=== PATIENT | female | born 1965 | race African-American/Black ===

== ENCOUNTER 2016-06-28 13:32 | Inpatient (IN) | payer OTHER ==
[~2016-06-28] VITALS: Ht 149.9 cm; Wt 42.7 kg
[~2016-06-28 13:32] MED LIST: AMIT25TA9 PO; ESTR1TAB86 PO; HYDR-3612 PO
[2016-06-28] MEDS ORDERED: NITROGLYCERIN 2% 1 GM OINT PKT TD STA (13:38)
[2016-06-28] MEDS ORDERED: morphine 4 MG/ML VIAL IV STA ×2 (13:38→15:53)
[2016-06-28] MEDS ORDERED: ONDANSETRON 4 MG INJ IV STA (13:38)
[2016-06-28] MEDS ORDERED: NITROGLYCERIN (SL) 0.4 MG TAB SL PRN ×2 (14:00→16:00)
[2016-06-28 14:11] LABS: BASOPHIL # 0.3 10^3/ul (0.0-0.1); BASOPHILS % 2.3 % (0.0-2.0); EOSINOPHILS % 0.3 % (0.0-7.0); HEMOGLOBIN 10.5 g/dl (12.0-16.0); LYMPHOCYTES # 1.7 10^3/ul (0.8-2.9); LYMPHOCYTES % 15.1 % (15.0-51.0); MEAN CORPUSCULAR HEMOGLOBIN 23.7 pg (29.0-33.0); MEAN CORPUSCULAR HGB CONC 31.7 g/dl (32.0-37.0); MEAN CORPUSCULAR VOLUME 74.7 fl (82.0-101.0); MEAN PLATELET VOLUME 9.3 fl (7.4-10.4); MONOCYTE # 0.6 10^3/ul (0.3-0.9); NEUTROPHIL # 8.6 10^3/ul (1.6-7.5); NEUTROPHILS % 77.3 % (39.0-77.0); PLATELET COUNT 331 10^3/UL (140-440); RED BLOOD COUNT 4.42 10^6/ul (4.20-5.40); RED CELL DISTRIBUTION WIDTH 15.6 % (11.5-14.5); UNCORRECTED WBC 11.1 10^3/ul (4.8-10.8); WHITE BLOOD COUNT 11.1 10^3/ul (4.8-10.8)
[2016-06-28 14:17] LABS: CONDITION 1; LH ANALYZER COMMENTS 1; SUSPECT 1
[2016-06-28 14:19] LABS: POTASSIUM 4.2 mmol/L (3.5-5.1)
[2016-06-28 14:22] LABS: CREATININE 0.61 mg/dl (0.44-1.00)
[2016-06-28 14:23] LABS: CALCIUM 9.3 mg/dl (8.4-10.2)
[2016-06-28 14:25] LABS: INR 1.38; PT RATIO 1.3
[2016-06-28 14:26] LABS: PARTIAL THROMBOPLASTIN TIME 27.3 Sec (25.0-35.0)
[2016-06-28 14:34] LABS: TROPONIN-I 0.022 ng/ml (0.00-0.12)
[2016-06-28] MEDS ORDERED: DIGO125T6 PO (14:50)
[2016-06-28] MEDS ORDERED: WARF5TAB72 PO (14:51)
[2016-06-28] MEDS ORDERED: POTA20TA96 PO (14:51)
[2016-06-28] MEDS ORDERED: WARF4TAB52 PO (14:51)
[2016-06-28] MEDS ORDERED: TAPE200T PO (14:52)
[2016-06-28] MEDS ORDERED: TAPE75TA3 PO (14:52)
[2016-06-28] MEDS ORDERED: ONDANSETRON 4 MG INJ IV PRN (15:00)
--- NOTE | 2016-06-28 15:18 | ERA ---
ER Documentation Chief Complaint Date/Time DATE: 06/28/16 TIME: 15:14 Chief Complaint Chest pain HPI Patient is a 50-year-old female with thalassemia and mitral and aortic valve repair who presents with chest pain. The patient was brought in by ambulance. The patient was given nitroglycerin. She has an allergy to aspirin. She is complaining of lung pain and neck pain as well. She had pain with inspiration which started 4 days ago. However it has been constant for the past 2 days. Upon review of old medical records this is the patient's third visit to the ER since 2008. ROS All systems reviewed and are negative except as per history of present illness. Medications Home Meds Reported Medications Tapentadol Hcl (Nucynta ER) 200 Mg Tab.er.12h, 200 MG PO DAILY Y for PAIN, TAB 06/28/16 Tapentadol Hcl (Nucynta) 75 Mg Tablet, 75 MG PO TID Y for PAIN, TAB 06/28/16 Potassium Chloride* (Potassium Chloride*) 20 Meq Tablet.er, 20 MEQ PO DAILY, TAB.SA 06/28/16 Warfarin Sodium* (Coumadin*) 5 Mg Tablet, 5 MG PO 2 DAYS A WEEK, TAB 06/28/16 Warfarin Sodium* (Warfarin Sodium*) 4 Mg Tablet, 4 MG PO 5 DAYS A WEEK, TAB 06/28/16 Digoxin* (Lanoxin*) 0.125 Mg Tablet, 0.125 MG PO Q48H, TAB 06/28/16 Discontinued Reported Medications Hydrocodone Bit-Acetaminophen* ([place]*) 1 Tab Tab, 1 TAB PO QID 05/30/12 Amitriptyline Hcl* (Amitriptyline Hcl*) 25 Mg Tablet, 25 MG PO DAILY 05/30/12 Estradiol (Estradiol) 1 Mg Tablet, 1 MG PO DAILY 05/30/12 Allergies Allergies: Coded Allergies: Cephalexin Monohydrate (Verified Allergy, Mild, HIVES, 06/28/16) Sulfa (Sulfonamide Antibiotics) (Verified Allergy, Unknown, 06/28/16) acetaminophen (Verified Allergy, Unknown, 06/28/16) ciprofloxacin (Verified Allergy, Unknown, 06/28/16) codeine (Verified Allergy, Unknown, 06/28/16) aspirin (Verified Adverse Reaction, Mild, ABD PAIN, 06/28/16) ibuprofen (Verified Adverse Reaction, Mild, ABD PAIN, 06/28/16) PMhx/Soc History of Surgery: Yes (TOTAL HYSTERCTOMY 1996, LEFT SHOULDER 07/2009) Anesthesia Reaction: No Hx Neurological Disorder: No Hx Respiratory Disorders: No Hx Cardiac Disorders: Yes ([place] 2003) Hx Psychiatric Problems: No Hx Miscellaneous Medical Probl: Yes (PANCREATITIS, BLEEDING ULCER) FmHx Family History: coronary disease Physical Exam Physical Exam Const: No acute distress Head: Atraumatic Eyes: Normal Conjunctiva ENT: Normal External Ears, Nose and Mouth. Neck: Full range of motion..~ No meningismus. Resp: Clear to auscultation bilaterally Cardio: Regular rate and rhythm, no murmurs Abd: Soft, non tender, non distended. Normal bowel sounds Skin: No petechiae or rashes Back: No midline or flank tenderness Ext: No cyanosis, or edema Neur: Awake and alert Psych: Normal Mood and Affect Result Diagram: 06/28/16 1345 06/28/16 1345 Results 24 hrs Laboratory Tests Test 06/28/16 13:45 Activated Partial Thromboplast Time 27.3Sec Anion Gap 18 Basophils # Pending Basophils % Pending Blood Morphology Comment Blood Urea Nitrogen 7mg/dl Calcium Level 9.3mg/dl Carbon Dioxide Level 26mmol/L Chloride Level 101mmol/L Creatinine 0.61mg/dl Eosinophils # Pending Eosinophils % Pending Glucose Level 88mg/dl Hematocrit 33.0% Hemoglobin 10.5g/dl INR International Normalized Ratio 1.38 Lymphocytes # Pending Lymphocytes % Pending Mean Corpuscular Hemoglobin 23.7pg Mean Corpuscular Hemoglobin Concent 31.7g/dl Mean Corpuscular Volume 74.7fl Mean Platelet Volume 9.3fl Monocytes # Pending Monocytes % Pending Neutrophils # Pending Neutrophils % Pending Nucleated Red Blood Cells # Pending Nucleated Red Blood Cells % Pending Platelet Count 51888^3/UL Potassium Level 4.2mmol/L Prothrombin Time 17.0Sec Prothrombin Time Ratio 1.3 Red Blood Count 4.4210^6/ul Red Cell Distribution Width 15.6% Sodium Level 141mmol/L Troponin I 0.022ng/ml White Blood Count 11.110^3/ul Current Medications Medications (Trade) Dose Ordered Sig/Millie Route PRN Reason Start Time Stop Time Status Last Admin Dose Admin Nitroglycerin (Nitroglycerin 2% Oint) 1 inch ONCE STAT TD 06/28/16 13:38 06/28/16 13:40 DC Nitroglycerin (Nitroglycerin (Sl Tab) 0.4 Mg) 1 tab Q5M UP TO 3 DOSES PRN SL CHEST PAIN 06/28/16 14:00 Morphine Sulfate (morphine) 4 mg ONCE STAT IV 06/28/16 13:38 06/28/16 13:40 DC 06/28/16 14:20 Ondansetron HCl (Zofran Inj) 4 mg ONCE STAT IV 06/28/16 13:38 06/28/16 13:40 DC 06/28/16 14:20 Ondansetron HCl (Zofran Inj) 4 mg ER BRIDGE PRN IV NAUSEA AND/OR VOMITING 06/28/16 15:00 06/29/16 14:59 Procedures/MDM EKG read by me: Rate/Rhythm: Regular rate and rhythm at a rate of 95 Intervals: Normal Impression: Flipped T waves in the lateral leads Chest X-ray 1V Interpreted by me: Soft Tissue: No acute abnormalities Bones: No acute abnormalities Mediastinum/Cardiac Silhouette/Lungs: Previous sternotomy without signs of pneumonia or pneumothorax Patient is a 50-year-old female with cardiac disease who presents with chest pain. At this point I doubt pneumonia, pneumothorax, pulmonary embolism, or aortic dissection. However given her age and risk factors I do believe the patient requires admission to the hospital. I spoke with Dr. Espinal from the panel team for admission to a telemetry bed. The patient has an allergy to aspirin and therefore did not receive aspirin. She was given nitroglycerin as well as morphine. Departure Diagnosis: Primary Impression: Chest pain Qualified Code: R07.9 - Chest pain, unspecified type Additional Impressions: Anemia Qualified Code: D64.9 - Anemia, unspecified type Leukocytosis Qualified Code: D72.829 - Leukocytosis, unspecified type Condition: BLAINE Oleary MD Jun 28, 2016 15:18
[2016-06-28] MEDS ORDERED: NA PHOSPHATE/BIPHOS 133 ML ENEMA PR PRN (16:00)
[2016-06-28] MEDS ORDERED: hydrALAzine 20 MG INJ IV PRN (16:00)
[2016-06-28] MEDS: DIGOXIN 0.125 MG TAB PO SCH (16:00)
[2016-06-28] MEDS ORDERED: HYDROCODONE/APAP (5/325) TAB PO PRN (16:00)
[2016-06-28] MEDS ORDERED: MAGNESIUM HYDROXIDE 30ML CUP PO PRN (16:00)
[2016-06-28] MEDS ORDERED: DOCUSATE SODIUM 100 MG CAP PO PRN (16:00)
[2016-06-28] MEDS ORDERED: NACL 0.9% 3 ML SYG IV SCH (16:00)
--- NOTE | 2016-06-28 16:50 | HP ---
DATE OF ADMISSION: 06/28/2016 CHIEF COMPLAINT: Chest pain and neck pain and shoulder pain. HISTORY OF PRESENT ILLNESS: A 50-year-old female with past medical history of thalassemia, aortic and mitral valve repairs in March 2016, who presents with chest pain symptoms. She also states ne ck and shoulder pain symptoms and low back pain. Symptoms started 4 days ago. For the first 2 day s the symptoms occurred to be worse with breathing. In the last 2 days they occurred they tend to b e more worse with rest. She denies any overt PND, orthopnea but she does use 2 pillows at night for sleeping. She had some nausea symptoms, but no known vomiting symptoms. She had some lightheadedn ess symptoms, but no loss of consciousness. She had some mild shortness of breath, but no fevers or chills, no diarrhea, no constipation, no upper or lower GI bleeding. The patient states she sees a doctor, Olman, a robotics technician has in [place]. She also sees a lung doctor, Dr. Dumont in [facility] as well. PAST MEDICAL HISTORY: As stated above. ALLERGIES: SHE HAS MULTIPLE ALLERGIES INCLUDING ASPIRIN, SULFA DRUGS, CEFAXOLIN, IBUPROFEN, TYLENOL NO. 3, CIPRO, ADHESIVE TAPE, CODEINE. PAST SURGICAL HISTORY: She has had a partial lung resection she says in the past, hysterectomy in t past, oophorectomy in the past, left shoulder repair in the past, neck cyst removal in the past a nd of course the aortic and mitral valve replacements in March 2016 as well as repaired hole in th e heart according to her, at the same time. SOCIAL HISTORY: No present alcohol or IV drug or smoking history. PHYSICAL EXAMINATION: VITAL SIGNS: T-max 98.7, pulse 87, respirations 19, blood pressure 115/75, saturating at 98% on jerald m air. GENERAL: The patient is lying in bed, answering questions appropriately. No acute distress. HEENT: Pupils equal, round, react to light. Extraocular muscles intact. NECK: Supple, no thyromegaly. LUNGS: Clear to auscultation bilaterally. CARDIOVASCULAR: S1, S2 heard. No rubs or gallops. ABDOMEN: Soft, nontender, nondistended. Normal bowel sounds. No rebound or guarding. MUSCULOSKELETAL: No lower extremity edema bilaterally. NEUROLOGIC: No focal deficits. LABORATORIES: WBC 11.1, hemoglobin 10.5, hematocrit 33.0, platelets 331. The basic metabolic panel is normal. First troponin is negative. Coags show INR 1.38. IMAGING: There are no imaging studies ordered. ASSESSMENT AND PLAN: A 50-year-old female coming in with mostly chest pain symptoms as well as some neck and shoulder pain symptoms with a prior history of aortic and mitral valve replacements, rule out for acute coronary syndrome. 1. Chest pain, rule out for acute coronary syndrome. We will also make sure that her heart valves and the rest of her heart structure are not having any abnormalities. Will admit her to telemetry f enrique, trend her troponins, put her on morphine, oxygen, and nitrates as well. SHE IS ALLERGIC TO PIRIN. Consider low-dose beta jonathan. We will get a cardiology consult, get a 2D echocardiogram a s well. Check a TSH, A1c, lipid panel as well. Continue to give her Coumadin. Goal INR, most like ly would be between 2 and 3. She says she has had a history of bovine heart valves in the past that was given to the patient in March,, so that was the heart valves that were placed in her hea rt. 2. History of thalassemia. No signs of any anemia. Continue to monitor for now. 3. Gastrointestinal prophylaxis. She will be on H2 jonathan. 4. Deep venous thrombosis prophylaxis. She will be on Coumadin. She does take that, so will give her those medications as well. Will check INR very carefully and as stated, will get a cardiology c onsult. Dictated By: MONTY EDWARDS/TIN Conf#: [id number] DID#: [id number] CC: MONTY KELLY;*EndCC*
[2016-06-28 17:25] LABS: CREATINE KINASE 24 IU/L (23-200)
[2016-06-28 17:35] LABS: CK-MB < 0.22 ng/ml (0.0-2.4)
[2016-06-28 17:40] LABS: TROPONIN-I < 0.010 ng/ml (0.00-0.12)
--- NOTE | 2016-06-28 18:07 | RADRPT ---
PROCEDURE: XR Chest 1 view. CLINICAL INDICATION: Chest pain TECHNIQUE: AP views of the chest were obtained. COMPARISON: None. FINDINGS: The heart is large. Calcified atherosclerosis is noted in the aorta. Median sternotomy wires overli e the heart. Replacement heart valve is seen. Atrial appendage clip is observed. Retrocardiac opa city is seen. Atelectasis is noted at the right lung base. Osseous structures are intact. IMPRESSION: Cardiomegaly with calcified atherosclerosis in the aorta. Retrocardiac opacity that may reflect left lower lobe atelectasis or infiltrate combined with small pleural effusion. Atelectasis at the right lung base. RPTAT: AA .Devon Fernandez MD, Date Time Electronically viewed and signed by .Devon Fernandez MD, on 06/28/2016 18:07 .P/
[2016-06-28] MEDS ORDERED: WARFARIN 5 MG TAB PO SCH (19:00)
[2016-06-28] MEDS: HYDROCODONE/APAP (5/325) TAB PO PRN (19:51)
[2016-06-28 19:57] LABS: CREATINE KINASE 21 IU/L (23-200)
[2016-06-28] MEDS: FAMOTIDINE 20 MG TAB PO SCH (20:05)
[2016-06-28 20:11] LABS: CK-MB < 0.22 ng/ml (0.0-2.4); TROPONIN-I < 0.010 ng/ml (0.00-0.12)
[2016-06-28 22:18] LABS: CREATINE KINASE 21 IU/L (23-200)
[2016-06-28 22:29] LABS: CK-MB < 0.22 ng/ml (0.0-2.4)
[2016-06-28 22:34] LABS: TROPONIN-I < 0.010 ng/ml (0.00-0.12)
[2016-06-29] VITALS (14 sets, daily range): BP systolic 78–122; BP diastolic 43–79; PULSE 74–90; RESP 15–20; Ht 149.9 cm; Wt 42.7 kg
[2016-06-29] MEDS: morphine 2 MG INJ IV PRN ×4 (01:24→22:01)
[2016-06-29] MEDS: HYDROCODONE/APAP (5/325) TAB PO PRN ×3 (02:17→19:33)
[2016-06-29 02:41] LABS: CK-MB < 0.22 ng/ml (0.0-2.4); CREATINE KINASE < 20 IU/L (23-200); TROPONIN-I < 0.010 ng/ml (0.00-0.12)
[2016-06-29 07:43] LABS: CHOL/HDL RATIO 2.9 RATIO
[2016-06-29 08:13] LABS: THYROID STIMULATING HORMONE 0.425 MIU/L (0.465-4.680)
[2016-06-29] MEDS ORDERED: ASPIRIN (EC) 325 MG TAB PO SCH (09:00)
[2016-06-29] MEDS: POTASSIUM CHLORIDE (SR) 20 MEQ TAB PO SCH (10:06)
[2016-06-29] MEDS: FAMOTIDINE 20 MG TAB PO SCH ×2 (10:07→22:01)
[2016-06-29 11:01] LABS: BASOPHILS % 0.5 % (0.0-2.0); EOSINOPHILS # 0.1 10^3/ul (0.0-0.5); EOSINOPHILS % 1.6 % (0.0-7.0); HEMATOCRIT 32.7 % (37.0-47.0); HEMOGLOBIN 10.4 g/dl (12.0-16.0); LYMPHOCYTES # 1.7 10^3/ul (0.8-2.9); MEAN CORPUSCULAR HEMOGLOBIN 23.9 pg (29.0-33.0); MEAN CORPUSCULAR HGB CONC 31.9 g/dl (32.0-37.0); MEAN CORPUSCULAR VOLUME 75.1 fl (82.0-101.0); MEAN PLATELET VOLUME 9.1 fl (7.4-10.4); MONOCYTE # 0.8 10^3/ul (0.3-0.9); MONOCYTES % 9.7 % (0.0-11.0); NEUTROPHIL # 5.5 10^3/ul (1.6-7.5); NEUTROPHILS % 67.2 % (39.0-77.0); PLATELET COUNT 291 10^3/UL (140-440); RED BLOOD COUNT 4.36 10^6/ul (4.20-5.40); RED CELL DISTRIBUTION WIDTH 15.5 % (11.5-14.5); UNCORRECTED WBC 8.2 10^3/ul (4.8-10.8); WHITE BLOOD COUNT 8.2 10^3/ul (4.8-10.8)
[2016-06-29 11:05] LABS: CONDITION 1; LH ANALYZER COMMENTS 1
[2016-06-29 11:09] LABS: POTASSIUM 4.5 mmol/L (3.5-5.1)
[2016-06-29 11:11] LABS: CREATININE 0.81 mg/dl (0.44-1.00)
[2016-06-29 11:12] LABS: CALCIUM 9.4 mg/dl (8.4-10.2); INR 1.51; PHOSPHORUS 3.9 mg/dl (2.5-4.9); PROTIME 18.3 Sec (12.2-14.2); PT RATIO 1.4
[2016-06-29 11:13] LABS: MAGNESIUM 2.3 mg/dl (1.7-2.5)
--- NOTE | 2016-06-29 16:19 | RADRPT ---
Echocardiogram Report Patient Name: OLENA PANTOJA Gender: Female Date: 1965 Study Date: 29-Jun-2016 Tierce Filler: Gissel James [facility] Location: 5560 Ref. Physician: MONTY KELLY Quality: Adequate Procedures: Transthoracic echocardiogram with complete 2D, M-Mode, and doppler examination. Indications: Chest Pain. 2D/M Mode Doppler Measurement Value Normal Ranges Measurement Value Normal Ranges LVIDd 2D 4.6 3.5 - 5.6 cm MISA Vmax 1.2 cm2 LVIDs 2D 2.5 2.1 - 4.1 cm MISA VTI 1.4 cm2 FS 2D 45.0 % AV Mean Hilton 1.9 m/sec LVPWd 2D 0.8 0.6 - 1.1 cm AV Mean PG 17.0 mmHg IVSd 2D 0.7 0.6 - 1.1 cm AV Peak Hilton 3.1 m/sec IVS/LVPW 2D 1.0 AV Peak PG 39.0 mmHg AoR Diam 2D 2.5 2.0 - 3.7 cm AV VTI 56.3 cm LA/Ao 2D 1 0 - 1 AI Peak PG 97.0 mmHg EDV 2D 94.8 cm3 AI Peak Hilton 4.9 m/sec ESV 2D 15.8 cm3 AI PHT 447.0 msec LA Dimen 2D 3.0 2.3 - 4.0 cm LVOT Mean Hilton 0.9 m/sec LVOT Diam 1.9 cm LVOT Mean PG 4.0 mmHg LVOT Area 2.8 cm2 LVOT Peak [place] 1.3 m/sec LVOT Peak PG 7.0 mmHg LVOT VTI 27.7 cm MV E Peak [place] 1.2 m/sec MV A Peak [place] 0.6 m/sec MV E/A 2.1 MV PHT 89.0 msec MV Peak [place] 1.5 m/sec MV Peak PG 9.0 mmHg MV Mean Hilton 0.8 m/sec MV Mean PG 3.0 mmHg MV Decel Time 232 msec MV Decel [place] 5 MV E/A 2.1 MV PHT Peak [place] 1.5 m/sec MV PHT 89.0 msec MV VTI 34.3 cm MVA PHT 2.5 cm2 MVA VTI 2.3 cm TR Peak [place] 2.8 m/sec TR Peak PG 31.0 mmHg RVSP 34.0 mmHg Findings Left Ventricle: Normal left ventricular systolic function. Normal left ventricular cavity size. Normal left ventricular wall thickness. Ejection fraction is visually estimated at 5560 %. Tissue Doppler/Mitral Doppler indices are consistent with restrictive physiology with markedly elevated left atrial pressure (Stage IIIIV diastolic dysfunction). Right Ventricle: Normal right ventricular size. Normal right ventricular systolic function. Left Atrium: The left atrium is normal in size. Right Atrium: The right atrium is normal in size. Mitral Valve: Mild mitral leaflet calcification. Severe mitral annular calcification. Mild mitral valve regurgitation. Aortic Valve: Aortic valve Max velocity 3.11 m/sec. Max PG 39.00 mmHg. Mean PG 17.00 mmHg. Aortic sclerosis without stenosis. Aortic cusps appear moderately calcified. Moderate to severe aortic valve regurgitation. Tricuspid Valve: Normal appearance of the tricuspid valve. Estimated peak PA systolic pressure 34 mmHg. There is moderate tricuspid regurgitation. Pericardium: Normal pericardium with no significant pericardial effusion. Left pleural effusion seen. Aorta: Normal aortic root. IVC: Normal size and normal respiratory collapse consistent with normal right atrial pressure. Conclusions 1.The left ventricle is normal in size and systolic function. 2.Estimated left ventricular ejection fraction of 55-60%. 3.Severe left ventricular diastolic dysfunction. 4.Aortic valve sclerosis without stenosis. Moderate to severe aortic regurgitation. 5.Moderate tricuspid regurgitation. Electronically Signed By: Daniel Moreno 29-Jun-2016 16:18:43 -0800 Patient Name: OLENA PANTOJA Study Date: 29-Jun-2016 [id number]
--- NOTE | 2016-06-29 17:48 | CONS ---
Date/Time of Note Date/Time of Note DATE: 06/29/16 TIME: 17:36 Assessment/Plan Assessment/Plan Chief Complaint/Hosp Course Assessment: Chest pain - ruled out for myocardial infarction, suspect pleuritic or musculoskeletal Bioprosthetic aortic valve replacement, secondary to aortic regurgitation - moderate to severe regurgitation of bioprosthesis seen on echocardiogram Bioprosthetic mitral valve replacement, secondary to mitral regurgitation Paroxysmal atrial fibrillation - currently sinus rhythm Allergy to aspirin Recommendations: -continue warfarin, goal INR 2-3 -continue digoxin -no beta-jonathan due to borderline blood pressures -echocardiogram showed LVEF 55-60%, moderate to severe aortic bioprosthesis regurgitation, normal mitral valve bioprosthesis, severe diastolic dysfunction -patient reports normal coronary angiography prior to cardiac surgery March 2016, will not repeat coronary evaluation at this time -no further cardiac work up at this time Problems: Consultation Date/Type/Reason Admit Date/Time Jun 29, 2016 at 01:18 Type of Consultation: Cardiology Reason for Consultation chest pain Referring Provider: MONTY KELLY of Present Illness The patient is a 50 year-old female who presented with chest pain. The pain started five days prior to presentation. Initially, it was intermittent and only lasting for several seconds with deep inspiration. For the past three days , it has become constant. She describes a left-sided ache and sharp pain that involves the chest, back, and neck. The symptoms are unrelated to exertion and not associated with shortness of breath. She underwent bioprosthetic aortic and mitral valve replacements in March [address] [facility] secondary to aortic and mitral regurgitation. The patient reports that a "hole" was found during the surgery and repaired, presumably an atrial septal defect or patent foramen ovale. She also underwent partial left pneumonectomy during the procedure, for unclear indication. Post- operatively, the patient was noted to have atrial fibrillation. She has subsequently been placed on warfarin and digoxin. She underwent coronary angiography prior to the cardiac surgery and was not found to have any significant coronary artery disease. 14 point review of systems negative other than per HPI. Past Medical History Paroxysmal atrial fibrillation Chronic pancreatitis Past Surgical History Bioprosthetic aortic valve replacement Bioprosthetic mitral valve replacement Probable atrial septal defect or patent foramen ovale repair Left partial pneumonectomy Left shoulder surgery Left oophorectomy Hysterectomy Family History Significant Family History: heart disease (father) Social History Alcohol Use: sober Smoking Status: Former smoker Drug Use: marijuana Exam/Review of Systems Vital Signs Vitals Vital Signs Date Time Temp Pulse Resp B/P Pulse Ox O2 Delivery O2 Flow Rate FiO2 06/29/16 16:34 85 06/29/16 15:44 98.6 20 87/52 99 06/28/16 23:52 Room Air Exam Constitutional: alert, No distress Psych: nl mood/affect, no complaints Head: atraumatic, normocephalic Eyes: nl conjunctiva, nl lids ENMT: nl external ears & nose, nl nasal mucosa & septum Neck: non-tender, supple, No jvd Respiratory: clear to auscultation Cardiovascular: diastolic murmur, regular rate and rhythm, systolic murmur Gastrointestinal: non-tender, soft Musculoskeletal: nl extremities to inspection Extremities: No clubbing, No cyanosis, No edema Neurological: nl mental status, nl speech Results Result Diagram: 06/29/16 1045 06/29/16 1045 Results 24 hrs Laboratory Tests Test 06/28/16 19:38 06/28/16 21:45 06/29/16 01:53 06/29/16 07:00 Creatine Kinase 21 L 21 L < 20 L Creatine Kinase Index 1.0 1.0 Creatinine Kinase MB (Mass) < 0.22 < 0.22 < 0.22 Troponin I < 0.010 < 0.010 < 0.010 Cholesterol Level 155 Cholesterol/HDL Ratio 2.9 HDL Cholesterol 53 Hemoglobin A1c 5.2 LDL Cholesterol, Calculated 94 Thyroid Stimulating Hormone (TSH) 0.425 L Triglycerides Level 39 Test 06/29/16 10:45 Anion Gap 17 H Basophils # 0.0 Basophils % 0.5 Blood Morphology Comment Blood Urea Nitrogen 14 Calcium Level 9.4 Carbon Dioxide Level 28 Chloride Level 104 Creatinine 0.81 Eosinophils # 0.1 Eosinophils % 1.6 Glucose Level 91 Hematocrit 32.7 L Hemoglobin 10.4 L INR International Normalized Ratio 1.51 Lymphocytes # 1.7 Lymphocytes % 21.0 Magnesium Level 2.3 Mean Corpuscular Hemoglobin 23.9 L Mean Corpuscular Hemoglobin Concent 31.9 L Mean Corpuscular Volume 75.1 L Mean Platelet Volume 9.1 Monocytes # 0.8 Monocytes % 9.7 Neutrophils # 5.5 Neutrophils % 67.2 Nucleated Red Blood Cells # 0.0 Nucleated Red Blood Cells % 0.0 Phosphorus Level 3.9 Platelet Count 291 Potassium Level 4.5 Prothrombin Time 18.3 H Prothrombin Time Ratio 1.4 Red Blood Count 4.36 Red Cell Distribution Width 15.5 H Sodium Level 144 White Blood Count 8.2 # Medications Medications Current Medications Ondansetron HCl (Zofran Inj) 4 mg Q6H PRN IV NAUSEA AND/OR VOMITING; Start 06/28 at 16:00 Acetaminophen (Tylenol Tab) 650 mg Q6H PRN PO PAIN LEVEL 1-3 OR FEVER; Start at 16:00 Morphine Sulfate (morphine) 2 mg Q4H PRN IV SEVERE PAIN LEVEL 7-10 Last administered on 06/29/16 16:09; Admin Dose 2 MG; Start 06/28/16 at 16:00 Docusate Sodium (Colace) 100 mg Q12H PRN PO CONSTIPATION; Start 06/28/16 at 16: 00 Magnesium Hydroxide (Milk Of Mag) 30 ml DAILY PRN PO CONSTIPATION; Start at 16:00 Sodium Biphosphate/ Sodium Phosphate (Fleet Enema) 133 ml DAILY PRN GA CONSTIPATION; Start 06/28/16 at 16:00 Famotidine (Pepcid) 20 mg Q12 PO Last administered on 06/29/16 10:07; Admin Dose 20 MG; Start 06/28/16 at 21:00 Lorazepam (Ativan) 0.5 mg Q6H PRN IV ANXIETY; Start 06/28/16 at 16:00 Hydralazine HCl (Apresoline) 10 mg Q6H PRN IV ELEVATED BLOOD PRESSURE; Start at 16:00 Clonidine (Catapres) 0.1 mg Q6H PRN PO ELEVATED BLOOD PRESSURE; Start 06/28/16 at 16:00 Nitroglycerin (Nitroglycerin (Sl Tab) 0.4 Mg) 1 tab Q5M PRN SL ANGINA; Start at 16:00 Digoxin (Digoxin) 0.125 mg Q48H PO ; Start 06/28/16 at 16:00 Potassium Chloride (Klor-Con 20) 20 meq DAILY PO Last administered on 06/29/16 10:06; Admin Dose 20 MEQ; Start 06/29/16 at 09:00 Acetaminophen/ Hydrocodone Bitart ([place] (5/325)) 1 tab Q6 PRN PO PAIN LEVEL 4- 7 Last administered on 06/29/16t 13:10; Admin Dose 1 TAB; Start 06/28/16 at 19:30 Miscellaneous Information (* Miscellaneous Pharmacy Order) Per , have pharm... ONCE XX ; Start 06/29/16 at 03:30 Warfarin Sodium (Coumadin) 4 mg MoTuWeThFr@17 PO ; Start 06/29/16 at 17:00 Warfarin Sodium (Coumadin) 5 mg SuSa@17 PO ; Start 07/04/16 at 17:00 SCOTT CANELA MD Jun 29, 2016 17:48
[2016-06-29] MEDS: WARFARIN 2 MG TAB PO SCH (18:06)
--- NOTE | 2016-06-29 18:17 | PN ---
Date/Time of Note Date/Time of Note DATE: 06/29/16 TIME: 13:04 Assessment/Plan VTE Prophylaxis VTE Prophylaxis Intervention: SCD's Lines/Catheters IV [facility] Type [facility] Saline Lock Urinary Cath still in place: No Assessment/Plan Assessment/Plan A 50-year-old female with 1. Chest pain, rule out for acute coronary syndrome. patient has had hx of valvular disease, but no CAD, will defer decision to stress to cardiology Pain is pleuritic on the L and CXR concerning for L sided infiltrate, which could explain her symptoms, she however denies fever or cough Will get chest CT to adequately define parenchyma 2. Hx of Congenital Mitral and aortic valve insufficiency s/p replacements 0ct 2015 f/u echo findings for possible CHF 3. ?CHF + hx of Afib on coumadin: continue coumadin + digoxin. Patient is allergic to aspirin and coumadin + plavix has a high bleeding risk, will defer to cards 4. History of thalassemia. No signs of any anemia. Continue to monitor for now. Continue supportive care Gastrointestinal prophylaxis. She will be on H2 jonathan. Deep venous thrombosis prophylaxis. She will be on Coumadin. Subjective 24 Hr Interval Summary Free Text/Dictation patient seen -hungry -unhappy at being stuck multiple times, requesting PICCline -Still having L sided pleuritic chest pain Exam/Review of Systems Vital Signs Vitals Vital Signs Date Time Temp Pulse Resp B/P Pulse Ox O2 Delivery O2 Flow Rate FiO2 06/29/16 16:34 85 06/29/16 15:44 98.6 20 87/52 99 06/28/16 23:52 Room Air Exam Constitutional: alert, frail, oriented Psych: anxiety Head: normocephalic Eyes: PERRL ENMT: mucosa pink and moist Neck: non-tender Respiratory: clear to auscultation, diminished breath sounds, other (patient has wired wire like lesion on anterior chest wall at old surgical site. ?suture) Cardiovascular: murmurs/extra sounds, regular rate and rhythm Gastrointestinal: bowel sounds, non-tender, soft Extremities: No edema Neurological: lethargic, nl mental status, nl speech Results Result Diagram: 06/29/16 1045 06/29/16 1045 Results 24 hrs Laboratory Tests Test 06/28/16 19:38 06/28/16 21:45 06/29/16 01:53 06/29/16 07:00 Creatine Kinase 21 L 21 L < 20 L Creatine Kinase Index 1.0 1.0 Creatinine Kinase MB (Mass) < 0.22 < 0.22 < 0.22 Troponin I < 0.010 < 0.010 < 0.010 Cholesterol Level 155 Cholesterol/HDL Ratio 2.9 HDL Cholesterol 53 Hemoglobin A1c 5.2 LDL Cholesterol, Calculated 94 Thyroid Stimulating Hormone (TSH) 0.425 L Triglycerides Level 39 Test 06/29/16 10:45 Anion Gap 17 H Basophils # 0.0 Basophils % 0.5 Blood Morphology Comment Blood Urea Nitrogen 14 Calcium Level 9.4 Carbon Dioxide Level 28 Chloride Level 104 Creatinine 0.81 Eosinophils # 0.1 Eosinophils % 1.6 Glucose Level 91 Hematocrit 32.7 L Hemoglobin 10.4 L INR International Normalized Ratio 1.51 Lymphocytes # 1.7 Lymphocytes % 21.0 Magnesium Level 2.3 Mean Corpuscular Hemoglobin 23.9 L Mean Corpuscular Hemoglobin Concent 31.9 L Mean Corpuscular Volume 75.1 L Mean Platelet Volume 9.1 Monocytes # 0.8 Monocytes % 9.7 Neutrophils # 5.5 Neutrophils % 67.2 Nucleated Red Blood Cells # 0.0 Nucleated Red Blood Cells % 0.0 Phosphorus Level 3.9 Platelet Count 291 Potassium Level 4.5 Prothrombin Time 18.3 H Prothrombin Time Ratio 1.4 Red Blood Count 4.36 Red Cell Distribution Width 15.5 H Sodium Level 144 White Blood Count 8.2 # Medications Medications Current Medications Ondansetron HCl (Zofran Inj) 4 mg Q6H PRN IV NAUSEA AND/OR VOMITING; Start 06/28 at 16:00 Acetaminophen (Tylenol Tab) 650 mg Q6H PRN PO PAIN LEVEL 1-3 OR FEVER; Start at 16:00 Morphine Sulfate (morphine) 2 mg Q4H PRN IV SEVERE PAIN LEVEL 7-10 Last administered on 06/29/16t 16:09; Admin Dose 2 MG; Start 06/28/16 at 16:00 Docusate Sodium (Colace) 100 mg Q12H PRN PO CONSTIPATION; Start 06/28/16 at 16: 00 Magnesium Hydroxide (Milk Of Mag) 30 ml DAILY PRN PO CONSTIPATION; Start at 16:00 Sodium Biphosphate/ Sodium Phosphate (Fleet Enema) 133 ml DAILY PRN NH CONSTIPATION; Start 06/28/16 at 16:00 Famotidine (Pepcid) 20 mg Q12 PO Last administered on 06/29/16 10:07; Admin Dose 20 MG; Start 06/28/16 at 21:00 Lorazepam (Ativan) 0.5 mg Q6H PRN IV ANXIETY; Start 06/28/16 at 16:00 Hydralazine HCl (Apresoline) 10 mg Q6H PRN IV ELEVATED BLOOD PRESSURE; Start at 16:00 Clonidine (Catapres) 0.1 mg Q6H PRN PO ELEVATED BLOOD PRESSURE; Start 06/28/16 at 16:00 Nitroglycerin (Nitroglycerin (Sl Tab) 0.4 Mg) 1 tab Q5M PRN SL ANGINA; Start at 16:00 Digoxin (Digoxin) 0.125 mg Q48H PO ; Start 06/28/16 at 16:00 Potassium Chloride (Klor-Con 20) 20 meq DAILY PO Last administered on 06/29/16 10:06; Admin Dose 20 MEQ; Start 06/29/16 at 09:00 Acetaminophen/ Hydrocodone Bitart ([place] (5/325)) 1 tab Q6 PRN PO PAIN LEVEL 4- 7 Last administered on 06/29/16 13:10; Admin Dose 1 TAB; Start 06/28/16 at 19:30 Miscellaneous Information (* Miscellaneous Pharmacy Order) Per MD, have pharm... ONCE XX ; Start 06/29/16 at 03:30 Warfarin Sodium (Coumadin) 4 mg MoTuWeThFr@17 PO ; Start 06/29/16 at 17:00 Warfarin Sodium (Coumadin) 5 mg SuSa@17 PO ; Start 07/04/16 at 17:00 Procedures Procedures PROCEDURE: XR Chest 1 view. CLINICAL INDICATION: Chest pain TECHNIQUE: AP views of the chest were obtained. COMPARISON: None. FINDINGS: The heart is large. Calcified atherosclerosis is noted in the aorta. Median sternotomy wires overlie the heart. Replacement heart valve is seen. Atrial appendage clip is observed. Retrocardiac opacity is seen. Atelectasis is noted at the right lung base. Osseous structures are intact. IMPRESSION: Cardiomegaly with calcified atherosclerosis in the aorta. Retrocardiac opacity that may reflect left lower lobe atelectasis or infiltrate combined with small pleural effusion. Atelectasis at the right lung base. RPTAT: AA .Devon Fernandez MD, Date Time Electronically viewed and signed by .Devon Fernandez MD, on 06/28/2016 18:07 KAYODE LECHUGA Jun 29, 2016 18:14
[2016-06-29] MEDS ORDERED: LEVOFLOXACIN 750MG/D5W (PMX) 150 ML IVPB SCH (18:30)
--- NOTE | 2016-06-29 23:49 | CONS ---
DATE OF ADMISSION: 06/29/2016 DATE OF CONSULTATION: REASON FOR CONSULTATION: Evaluation after coronary artery bypass grafting. HISTORY OF PRESENT ILLNESS: This is a 50-year-old female with a history of thalassemia underwent co ronary artery bypass grafting in March at [facility]. The patient subsequently was found to have a pleural effusion. Right chest tube was placed. Currently complaining of pain at the rig ht chest tube site and also in the sternum. PAST MEDICAL HISTORY: Hypertension, hyperlipidemia, coronary artery disease, thalassemia. PAST SURGICAL HISTORY: Coronary artery bypass grafting. ALLERGIES: MULTIPLE MEDICATIONS INCLUDIN. ASPIRIN. 2. SULFA. 3. IBUPROFEN. 4. TYLENOL. 5. ADHESIVE TAPE. 6. CIPRO. SOCIAL HISTORY: No smoking, drinking, or drug use. MEDICATIONS: List reviewed. PHYSICAL EXAMINATION: GENERAL: The patient is awake and alert. VITAL SIGNS: Blood pressure is 187/54, pulse is 86, respirations 15, saturation is 99% on room air, temperature is 98.1. HEENT: Normocephalic, atraumatic. PERRLA. GENERAL APPEARANCE: The patient appears to be thin. CARDIOVASCULAR: Normal S1, S2. LUNGS: Clear. ABDOMEN: Soft. CHEST WALL: There is right chest tube. Suture line is in place and there is prominent suture in th e sternum. LABORATORY VALUES: Significant for a white count of 8.2, hemoglobin 10.4, platelet count 15.5. INR 1.5. IMPRESSION: Status post open heart surgery. The suture on the right chest wall removed. The sutur e in the sternum, which is prominent, will be monitored. Discussed with the patient. Dictated By: KWAKU MCINTYRE/TIN Conf#: [id number] DID#: [id number] CC: MONTY KELLY;*EndCC*
[2016-06-30] VITALS (13 sets, daily range): BP systolic 93–143; BP diastolic 58–75; PULSE 72–90; RESP 16–20
[2016-06-30] MEDS: HYDROCODONE/APAP (5/325) TAB PO PRN ×3 (01:44→15:24)
[2016-06-30] MEDS: morphine 2 MG INJ IV PRN ×3 (02:29→13:06)
--- NOTE | 2016-06-30 06:44 | RADRPT ---
PROCEDURE: VQ scan CLINICAL INDICATION: Acute pleuritic chest pain. TECHNIQUE: Ventilation portion of the study was done during inhalation of 40 millicuries of techne tium 99m DTPA gas. Imaging of the lungs was obtained in multiple degrees of obliquity. Perfusion p ortion of the study was done after intravenous injection of 4 millicuries of technetium 99m macroagg regated albumin. Imaging of the lungs was performed in multiple degrees of obliquity. COMPARISON: Chest x-ray from 06/28/2016 FINDINGS: Seen only on the posterior and LPO views is relative photopenia of the right upper and lower lung zo tarsha. This is likely technique related as the right lung appears completely normal perfusion and beatrice tilation images on all other degrees of obliquity. No definite wedge-shaped pleural-based defects a re seen to see suggest pulmonary embolus. IMPRESSION: Low probability for acute pulmonary embolus. RPTAT: HLBE Physician Golden Date Time Electronically viewed and signed by Jena Dean Physician on 06/30/2016 06:44 DANYELL/
[2016-06-30] MEDS: POTASSIUM CHLORIDE (SR) 20 MEQ TAB PO SCH (08:50)
[2016-06-30] MEDS: FAMOTIDINE 20 MG TAB PO SCH ×2 (08:50→21:54)
[2016-06-30] MEDS ORDERED: LIDOCAINE 1% (MDV) 20 ML INJ SC ONE (09:30)
--- NOTE | 2016-06-30 11:19 | RADRPT ---
PROCEDURE: Ultrasound guidance for placement of needle in right upper extremity vein. CLINICAL INDICATION: Venous access. TECHNIQUE: Limited sonography of the right upper extremity was performed. Ultrasound images were recorded and stored in the patient's medical record. COMPARISON: None. FINDINGS: The ultrasound images demonstrate a patent right upper extremity vein. The PICC line was inserted b y the PICC line nurse. IMPRESSION: 1. Ultrasound guidance for a needle placement in a right upper extremity vein. 2. The visualized right upper extremity vein is patent. RPTAT: QQ .Cesar Benjamin MD, MD Date Time Electronically viewed and signed by .Cesar Benjamin MD, MD on 06/30/2016 11:19 .R/
--- NOTE | 2016-06-30 11:22 | RADRPT ---
PROCEDURE: XR Chest. CLINICAL INDICATION: Check PICC line position. TECHNIQUE: Single frontal view. COMPARISON: 06/28/2016. FINDINGS: There is a right arm PICC line with the tip in the lower superior vena cava. There is mild left bas ilar atelectasis, improved. The lungs are otherwise clear. The heart is enlarged. There has been previous median sternotomy. There is a mitral valve replacem ent and a left atrial appendage clamp. Calcification is present in the aorta consistent with athero sclerosis. There is no pleural effusion. There is no pneumothorax. IMPRESSION: 1. Satisfactory position of right arm PICC line. 2. Improved appearance of the lungs. 3. Prior cardiac surgery. RPTAT: QQ .Cesar Benjamin MD, MD Date Time Electronically viewed and signed by .Cesar Benjamin MD, on 06/30/2016 11:22 .R/
--- NOTE | 2016-06-30 11:35 | PN ---
Date/Time of Note Date/Time of Note DATE: 06/30/16 TIME: 11:34 Assessment/Plan Lines/Catheters IV Catheter Type (from Nrsg): Saline Lock Kraus in Place (from Nrsg): No Assessment/Plan Chief Complaint/Hosp Course IMPRESSION: Status post open heart surgery. The suture on the right chest wall removed. The suture in the sternum, which is prominent, will be monitored. Discussed with the patient. Problems: Subjective 24 Hr Interval Summary Constitutional: improved Pain Control: mild Exam/Review of Systems Vital Signs Vitals Vital Signs Date Time Temp Pulse Resp B/P Pulse Ox O2 Delivery O2 Flow Rate FiO2 06/30/16 08:58 80 119/67 06/30/16 07:55 98.2 16 99 06/28/16 23:52 Room Air Intake and Output 06/29/16 06/29/16 06/30/16 15:00 23:00 07:00 Intake Total 420 ml 350 ml Balance 420 ml 350 ml Exam ENMT: mucosa pink and moist, nl external ears & nose, nl lips & teeth, nl nasal mucosa & septum Neck: non-tender, supple Respiratory: clear to auscultation, normal air movement Cardiovascular: nl pulses, regular rate and rhythm Results Result Diagram: 06/29/16 1045 06/29/16 1045 KWAKU JONES MD Jun 30, 2016 11:35
[2016-06-30] MEDS ORDERED: IOHEXOL 100 ML ONE (11:37)
[2016-06-30] MEDS ORDERED: SOD CHLORIDE 0.9% 100 ML ONE ×2 (11:37→14:02)
[2016-06-30] MEDS: ONDANSETRON 4 MG INJ IV PRN (13:13)
--- NOTE | 2016-06-30 14:44 | PN ---
Date/Time of Note Date/Time of Note DATE: 06/30/16 TIME: 14:39 Assessment/Plan VTE Prophylaxis VTE Prophylaxis Intervention: other (coumadin) Lines/Catheters IV [facility]from [facility] Saline Lock Urinary Cath still in place: No Assessment/Plan Assessment/Plan A 50-year-old female with 1. Chest pain, rule out for acute coronary syndrome. patient has had hx of valvular disease, but no CAD, will defer decision to stress to cardiology Pain is pleuritic on the L and CXR concerning for L sided infiltrate, which could explain her symptoms, she however denies fever or cough Will get chest CT to adequately define parenchyma 2. Hx of Congenital Mitral and aortic valve insufficiency s/p replacements 02015 f/u echo findings for possible CHF 3. ?CHF + hx of Afib on Coumadin: continue coumadin + digoxin. Patient is allergic to aspirin and coumadin + plavix has a high bleeding risk, will defer to cards 4. History of thalassemia. No signs of any anemia. Continue to monitor for now. PLAN: f/u chest CT Pain mgt consult. Start abx. Possible d/c if no acute findings on CT Continue supportive care Gastrointestinal prophylaxis. She will be on H2 jonathan. Deep venous thrombosis prophylaxis. She will be on Coumadin. Subjective 24 Hr Interval Summary Free Text/Dictation c/o persistent pleuritic CP, now on the R Exam/Review of Systems Vital Signs Vitals Vital Signs Date Time Temp Pulse Resp B/P Pulse Ox O2 Delivery O2 Flow Rate FiO2 06/30/16 12:14 98.4 78 18 118/63 98 06/28/16 23:52 Room Air Intake and Output 06/29/16 06/29/16 06/30/16 15:00 23:00 07:00 Intake Total 420 ml 350 ml Balance 420 ml 350 ml Exam Constitutional: alert, frail, oriented Psych: anxiety Head: normocephalic Eyes: PERRL ENMT: mucosa pink and moist Neck: non-tender Respiratory: clear to auscultation, diminished breath sounds, other (patient has wired wire like lesion on anterior chest wall at old surgical site. ?suture) Cardiovascular: murmurs/extra sounds, regular rate and rhythm Gastrointestinal: bowel sounds, non-tender, soft Extremities: No edema Neurological: lethargic, nl mental status, nl speech Results Result Diagram: 06/29/16 1045 06/29/16 1045 Medications Medications Current Medications Ondansetron HCl (Zofran Inj) 4 mg Q6H PRN IV NAUSEA AND/OR VOMITING Last administered on 06/30/16 13:13; Admin Dose 4 MG; Start 06/28/16 at 16:00 Acetaminophen (Tylenol Tab) 650 mg Q6H PRN PO PAIN LEVEL 1-3 OR FEVER; Start at 16:00 Morphine Sulfate (morphine) 2 mg Q4H PRN IV SEVERE PAIN LEVEL 7-10 Last administered on 06/30/16 13:06; Admin Dose 2 MG; Start 06/28/16 at 16:00 Docusate Sodium (Colace) 100 mg Q12H PRN PO CONSTIPATION; Start 06/28/16 at 16: 00 Magnesium Hydroxide (Milk Of Mag) 30 ml DAILY PRN PO CONSTIPATION; Start at 16:00 Sodium Biphosphate/ Sodium Phosphate (Fleet Enema) 133 ml DAILY PRN NH CONSTIPATION; Start 06/28/16 at 16:00 Famotidine (Pepcid) 20 mg Q12 PO Last administered on 06/30/16 08:50; Admin Dose 20 MG; Start 06/28/16 at 21:00 Lorazepam (Ativan) 0.5 mg Q6H PRN IV ANXIETY; Start 06/28/16 at 16:00 Hydralazine HCl (Apresoline) 10 mg Q6H PRN IV ELEVATED BLOOD PRESSURE; Start at 16:00 Clonidine (Catapres) 0.1 mg Q6H PRN PO ELEVATED BLOOD PRESSURE; Start 06/28/16 at 16:00 Nitroglycerin (Nitroglycerin (Sl Tab) 0.4 Mg) 1 tab Q5M PRN SL ANGINA; Start at 16:00 Digoxin (Digoxin) 0.125 mg Q48H PO ; Start 06/28/16 at 16:00 Potassium Chloride (Klor-Con 20) 20 meq DAILY PO Last administered on 08:50; Admin Dose 20 MEQ; Start 06/29/16 at 09:00 Acetaminophen/ Hydrocodone Bitart ([place] (5/325)) 1 tab Q6 PRN PO PAIN LEVEL 4- 7 Last administered on 1/10/17at 08:58; Admin Dose 1 TAB; Start 06/28/16 at 19:30 Miscellaneous Information (* Miscellaneous Pharmacy Order) Per , heather pharm... ONCE XX ; Start 06/29/16 at 03:30 Warfarin Sodium (Coumadin) 4 mg MoTuWeThFr@17 PO Last administered on 06/29/16t 18:06; Admin Dose 4 MG; Start 06/29/16 at 17:00 Warfarin Sodium (Coumadin) 5 mg SuSa@17 PO ; Start 07/04/16 at 17:00 IV Flush (NS 10 ml) 10 ml PRN PRN IV IV PROTOCOL; Start 06/30/16 at 14:00 KAYODE LECHUGA Jun 30, 2016 14:43
--- NOTE | 2016-06-30 14:52 | RADRPT ---
PROCEDURE: CT Pulmonary Angiogram. CLINICAL INDICATION: Chest pain and shortness of breath. TECHNIQUE: CT pulmonary angiogram and a CT scan of the chest with contrast was performed. The pat ient was scanned following the uncomplicated intravenous administration of 100 cc of Omnipaque-350 i ntravenous contrast. 2-D coronal reformatted images were obtained from the axial source images. In addition, 3-D post processing was performed. Total exam DLP is 144.96 mGy-cm. CTDIvol is 8.45 mGy . One or more of the following dose reduction techniques were used: Automated exposure control, adj ustment of the mA and/or kV according to patient size, use of iterative reconstruction technique. COMPARISON: Nuclear medicine ventilation perfusion lung scan dated 06/29/2016. FINDINGS: The pulmonary arteries are normal with no filling defect or lack of enhancement to suggest pulmonary artery embolism. All there is mild atelectasis at both lung bases posteriorly with left worse than right. Mild atele ctasis or scarring is also present in the right middle lobe posteriorly inferiorly. The lungs are o therwise clear with no other airspace or interstitial disease. There is a small benign air cyst pos teriorly in the superior segment of the right lower lobe measuring 1.0 cm. There is no pulmonary nodule or mass lesion. There is no pneumothorax. There is no mediastinal or hilar lymphadenopathy or mass. There is no right pleural effusion. There is a small left pleural effusion. There is no pericardia l effusion. The thoracic aorta is normal with no aneurysm or dissection. There is calcification in the aorta co nsistent with atherosclerosis. A right arm PICC line is present with the tip in the cavoatrial junc tion region. There is a mitral valve prosthesis and a left atrial appendage clamp as seen on prior radiographs. There are sternal wires and plate with screws. The heart is enlarged. Images through the upper abdomen demonstrate normal visualized portions of the liver, spleen, and ad renals. The osseous structures are otherwise normal with no fracture or lytic lesion. IMPRESSION: 1. Normal CT pulmonary angiogram with no evidence of pulmonary artery embolism. 2. Mild atelectasis at the lung bases posteriorly with left worse than right. 3. Mild atelectasis or scarring in the right middle lobe. 4. Small benign air cyst posteriorly in the superior segment of the right lower lobe. 5. Small left pleural effusion. 6. Atherosclerosis. 7. Right arm PICC line. 8. Mitral valve prosthesis and left atrial appendage clamp. 9. Previous median sternotomy with screws, plate, and wires. RPTAT: QQ .Cesar Benjamin MD, MD Date Time Electronically viewed and signed by .Cesar Benjamin MD, MD on 06/30/2016 14:51 .R/
[2016-06-30] MEDS: AZITHROMYCIN 500MG/NS (PMX) 250 ML IVPB SCH (15:29)
[2016-06-30] MEDS ORDERED: ONDANSETRON 4 MG INJ IV STA (15:43)
[2016-06-30] MEDS: DIGOXIN 0.125 MG TAB PO SCH (15:46)
[2016-06-30] MEDS: AZTREONAM 1 GM/NS (PMX) 50 ML IVPB SCH ×2 (17:40→21:55)
[2016-06-30] MEDS: WARFARIN 2 MG TAB PO SCH (17:57)
[2016-06-30] MEDS: DEXAMETHASONE 10 MG/ML 1 ML INJ IV SCH (17:58)
[2016-06-30] MEDS: ACETAMINOPHEN 325 MG TAB PO PRN (22:40)
[2016-07-01] VITALS (14 sets, daily range): BP systolic 102–135; BP diastolic 59–73; PULSE 78–148; RESP 16–20
[2016-07-01] MEDS: DEXAMETHASONE 10 MG/ML 1 ML INJ IV SCH ×3 (00:18→11:54)
[2016-07-01] MEDS: AZTREONAM 1 GM/NS (PMX) 50 ML IVPB SCH ×2 (08:18→21:02)
[2016-07-01] MEDS: FAMOTIDINE 20 MG TAB PO SCH ×2 (08:20→20:55)
[2016-07-01] MEDS: ACETAMINOPHEN 325 MG TAB PO PRN ×3 (08:20→22:51)
[2016-07-01] MEDS: POTASSIUM CHLORIDE (SR) 20 MEQ TAB PO SCH (08:20)
[2016-07-01 08:22] LABS: HEMATOCRIT 31.8 % (37.0-47.0); HEMOGLOBIN 10.2 g/dl (12.0-16.0); LYMPHOCYTES # 1.3 10^3/ul (0.8-2.9); LYMPHOCYTES % 8.7 % (15.0-51.0); MEAN CORPUSCULAR HGB CONC 32.2 g/dl (32.0-37.0); MEAN CORPUSCULAR VOLUME 74.6 fl (82.0-101.0); MEAN PLATELET VOLUME 9.1 fl (7.4-10.4); MONOCYTE # 0.1 10^3/ul (0.3-0.9); MONOCYTES % 0.5 % (0.0-11.0); NEUTROPHIL # 13.6 10^3/ul (1.6-7.5); NEUTROPHILS % 90.8 % (39.0-77.0); PLATELET COUNT 340 10^3/UL (140-440); RED BLOOD COUNT 4.26 10^6/ul (4.20-5.40); RED CELL DISTRIBUTION WIDTH 15.4 % (11.5-14.5)
[2016-07-01 08:26] LABS: CONDITION 1
[2016-07-01 08:27] LABS: LH ANALYZER COMMENTS 1
[2016-07-01 08:38] LABS: POTASSIUM 4.4 mmol/L (3.5-5.1)
[2016-07-01 08:40] LABS: CREATININE 0.55 mg/dl (0.44-1.00); INR 1.91; PROTIME 22.1 Sec (12.2-14.2); PT RATIO 1.7
[2016-07-01 08:41] LABS: CALCIUM 10.1 mg/dl (8.4-10.2)
--- NOTE | 2016-07-01 10:26 | CONS ---
DATE OF ADMISSION: 06/29/2016 DATE OF CONSULTATION: 06/30/2016 HISTORY OF PRESENT ILLNESS: This is a 50-year-old female who has a history of beta thalassemia who presents to [facility] complaining of chest pain. She was admitted. She had an e xtensive workup ruling out acute coronary syndrome and ruling out PE. Pulmonary workup was essentia lly unremarkable. She has been seen by Dr. Riley and Dr. Moreno and . Workup thus far is negative for any severe underlying pathology. Describes her pain as anterior chest while increas ing with inspiratory and expiratory breathing, coughing, movement, but she states swallowing in kamini tion and talking. It does not vary in intensity. It is constant she states but she does have peaks and troughs associated with movement and the above. She grades her pain at 8/10, does not radiate i nto her back, abdomen or head and neck area. Denies nausea, vomiting, fevers, chills, systemic symp toms. There is no past medical history of drug use or drug abuse. States that she is intolerant to the use of nonsteroidal anti-inflammatory medication. MEDICATIONS: Please refer to reconciliation sheets. ALLERGIES: 1. CEPHALEXIN. 2. SULFA DRUGS. 3. ASPIRIN. 4. CIPROFLOXACIN. 5. CODEINE. 6. IBUPROFEN. 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 Nonsmoker, nondrinker. FAMILY HISTORY: Noncontributory towards this hospitalization. PAST SURGICAL HISTORY: Status post hysterectomy and bilateral oophorectomy, left shoulder repair, a ortic and mitral valve replacement in 2016. PHYSICAL EXAMINATION: GENERAL: Shows a well-nourished, well-developed female in no acute distress. She is not moaning, g roaning or grimacing on examination. VITAL SIGNS: Blood pressure 127/70, pulse of 82 and regular, respirations 20, temperature 98.1 degr ees, 97% saturation on room air. HEENT: She is normocephalic and atraumatic. Anicteric, acyanotic. CHEST: She has right lower lobe inspiratory and expiratory crackles on examination. COR: S1, S2, without S3, S4, murmur, gallop, rub. Normal rate, normal rhythm. ABDOMEN: Grossly benign. NEUROLOGIC: She is oriented x3. Cranial nerves II through XII are grossly intact. Motor and senso ry findings grossly within normal limits. ASSESSMENT AND PLAN: This is a 50-year-old female with a history of beta thalassemia who presents w ith respiratory symptoms being treated at this time for underlying pneumonia, bronchitis and also dickens s what sounds like pleuritic chest discomfort in addition. I believe this is more pleuritic pain th an it is related to beta thalassemia, especially since she has had just a sudden onset and this is t he first time she is having such anterior chest wall discomfort. At this time, I decided to sugges t discontinue any opioids and starting off on a low dose of steroids. On the she is intolerant to the use of nonsteroidal anti-inflammatory medications. Once again, I do not believe her pain is related to beta thalassemia otherwise she would have a protracted course before this presentation. We will follow her tomorrow morning. Dictated By: DEBORAH CHARLES MD, LP/TIN Conf#: [id number] DID#: [id number]
--- NOTE | 2016-07-01 10:56 | PN ---
Date/Time of Note Date/Time of Note DATE: 07/01/16 TIME: 10:55 Assessment/Plan Lines/Catheters IV Catheter Type (from Nrsg): PICC Line Kraus in Place (from Nrsg): No Assessment/Plan Chief Complaint/Hosp Course IMPRESSION: Status post open heart surgery. The suture on the right chest wall removed. The suture in the sternum, which is prominent, will be monitored. Discussed with the patient. Problems: Subjective 24 Hr Interval Summary Constitutional: improved Pain Control: mild Exam/Review of Systems Vital Signs Vitals Vital Signs Date Time Temp Pulse Resp B/P Pulse Ox O2 Delivery O2 Flow Rate FiO2 07/01/16 08:17 80 07/01/16 07:49 98.1 20 127/70 97 06/28/16 23:52 Room Air Intake and Output 06/30/16 06/30/16 07/01/16 15:00 23:00 07:00 Intake Total 1220 ml 400 ml Balance 1220 ml 400 ml Exam ENMT: mucosa pink and moist, nl external ears & nose, nl lips & teeth, nl nasal mucosa & septum Neck: non-tender, supple Respiratory: clear to auscultation, normal air movement Cardiovascular: nl pulses, regular rate and rhythm Results Result Diagram: 07/01/16 0747 07/01/16 0747 KWAKU JONES MD Jul 01, 2016 10:56
[2016-07-01] MEDS ORDERED: KETOROLAC 15 MG INJ IV STA (13:54)
[2016-07-01] MEDS ORDERED: METOCLOPRAMIDE 10 MG INJ IV ONE (14:00)
[2016-07-01] MEDS ORDERED: ALBU90AE INHALATION (14:13)
[2016-07-01] MEDS ORDERED: LAS20 PO (14:13)
[2016-07-01] MEDS ORDERED: MED4DP PO (14:13)
[2016-07-01] MEDS ORDERED: FAMO20TA18 PO (14:13)
[2016-07-01] MEDS ORDERED: AZIT250T94 PO (14:13)
[2016-07-01] MEDS ORDERED: LISI-313 PO (14:17)
--- NOTE | 2016-07-01 14:18 | PDOCDIS ---
Discharge Instructions DIAGNOSIS Discharge Diagnosis: Pleuritic Chest pain CONDITION Patient Condition: Stable HOME CARE INSTRUCTIONS: Diet Instructions: Regular ACTIVITY: Activity Restrictions: Slowly Increase Activity Rest between Activity FOLLOW UP/APPOINTMENTS Appointments Followup with your primary doctor within the next 1-2 weeks. If you don't have one please let someone know, we can give you resources that may help you pick one. You may also call your insurance company to assign one to you. Review your medication list with your nurse before leaving and if you need new prescriptions please let your nurse know. I may have made changes to your home medications or given you new prescriptions , please let your primary doctor know as well. Stay compliant with your medications and report any side effects to your PCP or pharmacist. Return to the ER if you have any concerns and cannot reach your doctors or call your insurance company, they usually have a nurse that can help you. KAYODE LECHUGA. Jul 01, 2016 14:18
--- NOTE | 2016-07-01 14:25 | QN ---
Documentation Comment DC addendum Patient was also started on ACEi to reduce after load in the setting of severe diastolic dysfxn Patient will also benefit from Lasix therapy Patient cannot have ASA due to allergy, however she has low suspicion for CAD based on normal Cath in the past per cardio Patient remains stable for D/c . KAYODE LECHUGA Jul 01, 2016 14:25
[2016-07-01] MEDS: LISINOPRIL 5 MG TAB PO SCH (14:29)
[2016-07-01] MEDS ORDERED: FUROSEMIDE 40 MG INJ IV ONE (14:30)
[2016-07-01] MEDS: AZITHROMYCIN 500MG/NS (PMX) 250 ML IVPB SCH (14:31)
--- NOTE | 2016-07-01 14:41 | CONS ---
Date/Time of Note Date/Time of Note DATE: 07/01/16 TIME: 14:39 Assessment/Plan Assessment/Plan Chief Complaint/Hosp Course Assessment: Chest pain - ruled out for myocardial infarction and pulmonary embolism, suspect pleuritic or musculoskeletal Possible pneumonia Bioprosthetic aortic valve replacement, secondary to aortic regurgitation - moderate to severe regurgitation of bioprosthesis seen on echocardiogram Bioprosthetic mitral valve replacement, secondary to mitral regurgitation Paroxysmal atrial fibrillation - currently sinus rhythm Allergy to aspirin Recommendations: -continue warfarin, goal INR 2-3 -continue digoxin -no beta-jonathan due to borderline blood pressures -echocardiogram showed LVEF 55-60%, moderate to severe aortic bioprosthesis regurgitation, normal mitral valve bioprosthesis, severe diastolic dysfunction -patient reports normal coronary angiography prior to cardiac surgery March 2016, will not repeat coronary evaluation at this time -no further cardiac work up at this time Problems: Consultation Date/Type/Reason Admit Date/Time Jun 29, 2016 at 01:18 Initial Consult Date Type of Consultation: Cardiology 24 HR Interval Summary Free Text/Dictation Chest pain improved. Chest CTA without evidence of pulmonary embolism Detailed Summary Additional Comments 14 point review of systems without changes. Exam/Review of Systems Vital Signs Vitals Vital Signs Date Time Temp Pulse Resp B/P Pulse Ox O2 Delivery O2 Flow Rate FiO2 07/01/16 12:12 78 07/01/16 11:47 97.5 20 135/73 98 06/28/16 23:52 Room Air Intake and Output 06/30/16 06/30/16 07/01/16 15:00 23:00 07:00 Intake Total 1220 ml 400 ml Balance 1220 ml 400 ml Exam Constitutional: alert, No distress Psych: nl mood/affect, no complaints Head: atraumatic, normocephalic Eyes: nl conjunctiva, nl lids ENMT: nl external ears & nose, nl nasal mucosa & septum Neck: non-tender, supple, No jvd Respiratory: clear to auscultation Cardiovascular: diastolic murmur, regular rate and rhythm, systolic murmur Gastrointestinal: non-tender, soft Musculoskeletal: nl extremities to inspection Extremities: No clubbing, No cyanosis, No edema Neurological: nl mental status, nl speech Results Result Diagram: 07/01/16 0747 07/01/16 0747 Results 24 hrs Laboratory Tests Test 07/01/16 07:47 Anion Gap 18 H Basophils # 0.0 Basophils % 0.0 Blood Morphology Comment Blood Urea Nitrogen 14 Calcium Level 10.1 Carbon Dioxide Level 25 Chloride Level 104 Creatinine 0.55 Eosinophils # 0.0 Eosinophils % 0.0 Glucose Level 139 # Hematocrit 31.8 L Hemoglobin 10.2 L INR International Normalized Ratio 1.91 Lymphocytes # 1.3 Lymphocytes % 8.7 L Mean Corpuscular Hemoglobin 24.0 L Mean Corpuscular Hemoglobin Concent 32.2 Mean Corpuscular Volume 74.6 L Mean Platelet Volume 9.1 Monocytes # 0.1 L Monocytes % 0.5 Neutrophils # 13.6 H Neutrophils % 90.8 H Nucleated Red Blood Cells # 0.0 Nucleated Red Blood Cells % 0.0 Platelet Count 340 Potassium Level 4.4 Prothrombin Time 22.1 #H Prothrombin Time Ratio 1.7 Red Blood Count 4.26 Red Cell Distribution Width 15.4 H Sodium Level 143 White Blood Count 15.0 #H Medications Medications Current Medications Ondansetron HCl (Zofran Inj) 4 mg Q6H PRN IV NAUSEA AND/OR VOMITING Last administered on 06/30/16 13:13; Admin Dose 4 MG; Start 06/28/16 at 16:00 Acetaminophen (Tylenol Tab) 650 mg Q6H PRN PO PAIN LEVEL 1-3 OR FEVER Last administered on 07/01/16 08:20; Admin Dose 650 MG; Start 06/28/16 at 16:00 Docusate Sodium (Colace) 100 mg Q12H PRN PO CONSTIPATION Last administered on 08:19; Admin Dose 100 MG; Start 06/28/16 at 16:00 Magnesium Hydroxide (Milk Of Mag) 30 ml DAILY PRN PO CONSTIPATION; Start at 16:00 Sodium Biphosphate/ Sodium Phosphate (Fleet Enema) 133 ml DAILY PRN [place] CONSTIPATION; Start 06/28/16 at 16:00 Famotidine (Pepcid) 20 mg Q12 PO Last administered on 07/01/16 08:20; Admin Dose 20 MG; Start 06/28/16 at 21:00 Lorazepam (Ativan) 0.5 mg Q6H PRN IV ANXIETY; Start 06/28/16 at 16:00 Hydralazine HCl (Apresoline) 10 mg Q6H PRN IV ELEVATED BLOOD PRESSURE; Start at 16:00 Clonidine (Catapres) 0.1 mg Q6H PRN PO ELEVATED BLOOD PRESSURE; Start 06/28/16 at 16:00 Nitroglycerin (Nitroglycerin (Sl Tab) 0.4 Mg) 1 tab Q5M PRN SL ANGINA; Start at 16:00 Digoxin (Digoxin) 0.125 mg Q48H PO Last administered on 06/30/16 15:46; Admin Dose 0.125 MG; Start 06/28/16 at 16:00 Potassium Chloride (Klor-Con 20) 20 meq DAILY PO Last administered on 08:20; Admin Dose 20 MEQ; Start 06/29/16 at 09:00 Miscellaneous Information (* Miscellaneous Pharmacy Order) Per heather MUELLER pharm... ONCE XX ; Start 06/29/16 at 03:30 Warfarin Sodium (Coumadin) 4 mg MoTuWeThFr@17 PO Last administered on 17:57; Admin Dose 4 MG; Start 06/29/16 at 17:00 Warfarin Sodium (Coumadin) 5 mg SuSa@17 PO ; Start 07/04/16 at 17:00 IV Flush 10 ml 10 ml PRN PRN IV IV PROTOCOL; Start 06/30/16 at 14:00 Aztreonam 50 ml @ 100 mls/hr Q12 IVPB Last administered on 07/01/16 08:18; Admin Dose 100 MLS/HR; Start 06/30/16 at 15:00 Azithromycin (Zithromax 500mg/ NS (Pmx)) 250 ml @ 250 mls/hr Q24H IVPB Last administered on 07/01/16 14:31; Admin Dose 250 MLS/HR; Start 06/30/16 at 15:00 Dexamethasone (Decadron) 4 mg Q8H IV ; Start 07/01/16 at 20:00 Lisinopril (Zestril) 5 mg DAILY PO Last administered on 07/01/16 14:29; Admin Dose 5 MG; Start 07/01/16 at 14:30 SCOTT CANELA MD Jul 01, 2016 14:41
[2016-07-01] MEDS: ONDANSETRON 4 MG INJ IV PRN (15:26)
--- NOTE | 2016-07-01 19:12 | DS ---
DATE OF ADMISSION: 06/29/2016 DATE OF DISCHARGE: 07/01/2016 PRESENTING COMPLAINT: Chest pain, neck pain and shoulder pain. ADMISSION DIAGNOSES: 1. Chest pain, rule out acute coronary syndrome. 2. History of thalassemia. CONSULTS ON THE CASE: Dr. Daniel Moreno for cardiology, Dr. Ernesto Riley for cardiothoracic mely dony and Dr. Yovany Reyna for pain management. INTERVENTIONS: The patient was ruled out with 3 sets of cardiac enzymes which were negative. She h ad a 2D echocardiogram done 06/28/2016. It showed left ventricle normal in size and systolic functi on, estimated LV ejection fraction of 55% to 60, severe left ventricular diastolic dysfunction, aort ic valve sclerosis without stenosis with moderate to severe aortic regurgitation as well as moderate tricuspid regurgitation. She also had the following studies: A chest x-ray 06/28/2016 showed card iomegaly with calcified atherosclerosis, retrocardiac opacity on the left that may reflect infiltrat e versus atelectasis, combined with small pleural effusion, and atelectasis in the right lung base. She had a nuclear medicine scan ____ and had low probability for PE and she had a PICC line placed 06/30/[address] a CT angiogram of the chest 06/30/2016 that showed no evidence of PE, small benign ____in the superior segment of right lower lobe, small left pleural effusion, atelecta sis in the lung bases posteriorly with left worse than right, atelectasis and scarring in the right middle lobe, right arm PICC line, mitral valve prosthesis and left atrial appendage clamp and previo us median sternotomy with screws, plates and wires. HOSPITAL COURSE: Full details are available in the chart for review. In summary, this very frail [age]-year-old female presented to us with multiple symptoms and atypical chest pain. She had a histor y of valve replacement of her mitral valve. She was admitted to rule out an acute coronary syndrome . She was seen by cardiology who determined that her symptoms were not likely cardiac and deemed th at she did not require any further cardiac intervention, but a 2D echo was concerning for diastolic dysfunction as well as aortic as well as tricuspid regurgitation ____ left ventricular ejection frac tion. The patient also from her previous surgery, was found to have some residual sutures that were causing her discomfort in her anterior chest wall, and so cardiothoracic surgery saw her. They rem ashlee one of the sutures and recommended that she follow up with her own cardiothoracic surgeon as an outpatient for the 2nd one in her ____ area. He felt this would eventually resolve, but wanted her to keep close contact with her own cardiothoracic surgeon. However, the patient's symptoms did not significantly improve. She continues to complain of pleuritic chest pain, nausea and just an overa ll feeling of not being well. Based on that, pain management consultation was obtained. They saw h er and did not feel that she required ____ medicine, but because ____ recommended she be started on steroids. She was also started on empiric antibiotics for probable bilateral pneumonia, community- acquired, and as of today, 07/01/2016, she seems to have responded to both measures of steroids as w ell as antibiotics very well. She has also been started on gentle diuresis for her diastolic dysfun ction. She is much improved, but she still feels somewhat lethargic today. At this point, I believ e the patient is stable for discharge, but the patient wants to see how she feels by the end of day. DISPOSITION: Would be to home for further rest and care at the hands of her family. Followup recom mended with her own cardiothoracic surgeon to deal with the sutures on her chest wall and her own [facility] care physician within 1 week to ensure continued resolution of symptoms. Recommended diet is to be regular diet as the patient is so frail. FINAL DIAGNOSES: 1. Pleuritic chest pain, for which she has been ruled out for an acute coronary syndrome which is l ikely secondary to probable bilateral pneumonia. 2. Diastolic dysfunction heart failure secondary to #3. 3. Chronic mitral valve insufficiency, status post mitral valve replacement surgery. 4. Moderate to severe aortic regurgitation. 5. Moderate tricuspid regurgitation. 6. Chronic hypochromic microcytic anemia. 7. Steroid-induced leukocytosis. 8. Residual sutures in ____. 9. History of thalassemia by the patient report. DISPOSITION: Is to continue steroid therapy, continue antibiotics. I will add inhaled steroids to her regimen. Continue gentle diuresis. Continue digoxin therapy and plan to be discharged home on oral azithromycin only due to patient's MULTIPLE DRUG ALLERGIES. To complete a 5-day course. The patient encouraged to follow up with her primary care physician as soon as possible, and she may ret urn to the emergency room if symptoms recur or if she develops new symptoms. Evaluation time so far has been about 40 minutes. Dictated By: KAYODE LECHUGA MD BA/NTS Conf#: [id number] DID#: [id number]
[2016-07-01] MEDS: WARFARIN 2 MG TAB PO SCH (19:14)
[2016-07-01] MEDS: DEXAMETHASONE 4 MG/ML 1 ML INJ IV SCH (20:55)
[2016-07-02] VITALS (11 sets, daily range): BP systolic 120–145; BP diastolic 59–64; PULSE 69–88; RESP 16–20
[2016-07-02] MEDS: DEXAMETHASONE 4 MG/ML 1 ML INJ IV SCH ×3 (05:08→21:10)
[2016-07-02] MEDS: AZTREONAM 1 GM/NS (PMX) 50 ML IVPB SCH ×2 (08:22→21:10)
[2016-07-02] MEDS: LISINOPRIL 5 MG TAB PO SCH ×2 (08:22→09:51)
[2016-07-02] MEDS: POTASSIUM CHLORIDE (SR) 20 MEQ TAB PO SCH (08:22)
[2016-07-02] MEDS: FAMOTIDINE 20 MG TAB PO SCH ×2 (08:22→21:10)
[2016-07-02 10:24] LABS: HEMATOCRIT 28.4 % (37.0-47.0); HEMOGLOBIN 9.1 g/dl (12.0-16.0); MEAN CORPUSCULAR HEMOGLOBIN 23.9 pg (29.0-33.0); MEAN CORPUSCULAR HGB CONC 32.1 g/dl (32.0-37.0); MEAN CORPUSCULAR VOLUME 74.6 fl (82.0-101.0); PLATELET COUNT 321 10^3/UL (140-440); RED CELL DISTRIBUTION WIDTH 15.1 % (11.5-14.5); UNCORRECTED WBC 24.6 10^3/ul (4.8-10.8); WHITE BLOOD COUNT 24.6 10^3/ul (4.8-10.8)
[2016-07-02 10:33] LABS: CONDITION 1; LH ANALYZER COMMENTS 1; SUSPECT 1
[2016-07-02 10:37] LABS: POTASSIUM 4.2 mmol/L (3.5-5.1)
[2016-07-02 10:40] LABS: CREATININE 0.58 mg/dl (0.44-1.00)
[2016-07-02 10:41] LABS: CALCIUM 9.5 mg/dl (8.4-10.2)
[2016-07-02 11:19] LABS: ANISOCYTOSIS 1+; HYPOCHROMASIA 2+; LYMPHOCYTES # 1.5 10^3/ul (0.8-2.9); MICROCYTOSIS 2+; MONOCYTE # 0.5 10^3/ul (0.3-0.9); NEUTROPHIL # 21.6 10^3/ul (1.6-7.5)
[2016-07-02] MEDS: ACETAMINOPHEN 325 MG TAB PO PRN ×2 (13:18→19:37)
--- NOTE | 2016-07-02 13:19 | QN ---
Documentation Comment Went to review patient as patient could not be discharged yesterday due to claimed persistent migraine and nausea. The patient was lying comfortably on the bed when I walked in with the nurse , talking on the phone with her son on speaker phone. She was in no sign of pain with a normal heart rate on the tele monitor. Nurse Carolyn was present throughout the visit with me. Her son (Jesus) who she had on speaker phone asked to speak with me and I accepted and he asked me what was going on and after receiving permission from the patient I explained in detail what had been done for the patient during her admission including CT scan, VQ scan , antibiotics, cardiology as well as pain management review. I suspect patient is med seeking because all her requests in a round about way return to the need for higher doses and stronger pain medications. I explained to both of them as gently as I could that the patient's pain is being managed by the pain specialist and I would defer all discussion about pain meds to him. Patient and her son however would not accept this with patient saying that she had fired the pain management doctor and her son asking medical questions which he did not understand and inferring that because the patient's INR was 1.9 instead of 2.5, she was bound to feel abnormal in some way requiring a higher dose or strength of pain meds. It seemed that the more I tried to explain treatment goals and plan, my words were twisted. After a 20-30minute conversation that I could see was getting no where, with patient and her son insinuating that I wasn't capable of caring for her, I offered her the choice of a different physician which she accepted and at this time I would try to transfer patient's care to someone else. Problem list 1. Pleuritic chest pain, for which she has been ruled out for an acute coronary syndrome which is likely secondary to probable bilateral pneumonia. 2. Diastolic dysfunction heart failure secondary to #3 3. Chronic mitral valve insufficiency, status post mitral valve replacement surgery. 4. Moderate to severe aortic regurgitation. 5. Moderate tricuspid regurgitation. 6. Chronic hypochromic microcytic anemia. 7. Steroid-induced leukocytosis. 8. Residual sutures in mid sternal wall from valve replacement surgery. 9. History of thalassemia by the patient report. Dispo: transfer care to other physician. KAYODE LECHUGA Jul 02, 2016 13:15
[2016-07-02] MEDS: AZITHROMYCIN 500MG/NS (PMX) 250 ML IVPB SCH (13:20)
[2016-07-02] MEDS: ONDANSETRON 4 MG INJ IV PRN ×2 (13:42→19:37)
[2016-07-02] MEDS: DIGOXIN 0.125 MG TAB PO SCH (16:50)
[2016-07-02] MEDS: WARFARIN 2 MG TAB PO SCH (17:21)
--- NOTE | 2016-07-02 18:48 | PN ---
Date/Time of Note Date/Time of Note DATE: 07/02/16 TIME: 18:47 Assessment/Plan Lines/Catheters IV Catheter Type (from Nrsg): PICC Line Kraus in Place (from Nrsg): No Assessment/Plan Chief Complaint/Hosp Course IMPRESSION: Status post open heart surgery. The suture on the right chest wall removed. The suture in the sternum, which is prominent, will be monitored. Discussed with the patient. Problems: Subjective 24 Hr Interval Summary Constitutional: improved Pain Control: mild Exam/Review of Systems Vital Signs Vitals Vital Signs Date Time Temp Pulse Resp B/P Pulse Ox O2 Delivery O2 Flow Rate FiO2 07/02/16 16:53 72 07/02/16 16:24 98.5 20 120/59 96 06/28/16 23:52 Room Air Intake and Output 07/01/16 07/01/16 07/02/16 15:00 23:00 07:00 Intake Total 720 ml Balance 720 ml Exam Neck: non-tender, supple Respiratory: clear to auscultation, normal air movement Cardiovascular: nl pulses, regular rate and rhythm Results Result Diagram: 07/02/1631 07/02/16930 KWAKU JONES MD Jul 02, 2016 18:48
[2016-07-03] VITALS (11 sets, daily range): BP systolic 106–197; BP diastolic 59–88; PULSE 66–85; RESP 16–19
[2016-07-03] MEDS: ACETAMINOPHEN 325 MG TAB PO PRN ×2 (00:35→07:10)
[2016-07-03] MEDS: ONDANSETRON 4 MG INJ IV PRN ×2 (00:35→07:08)
[2016-07-03] MEDS: DEXAMETHASONE 4 MG/ML 1 ML INJ IV SCH ×2 (06:02→14:07)
[2016-07-03 08:12] LABS: INR 3.89; PROTIME 38.8 Sec (12.2-14.2)
[2016-07-03 08:48] LABS: BASOPHILS % 0.2 % (0.0-2.0); HEMATOCRIT 25.1 % (37.0-47.0); HEMOGLOBIN 7.9 g/dl (12.0-16.0); LYMPHOCYTES # 1.4 10^3/ul (0.8-2.9); LYMPHOCYTES % 10.4 % (15.0-51.0); MEAN CORPUSCULAR HEMOGLOBIN 23.7 pg (29.0-33.0); MEAN CORPUSCULAR HGB CONC 31.4 g/dl (32.0-37.0); MEAN CORPUSCULAR VOLUME 75.5 fl (82.0-101.0); MEAN PLATELET VOLUME 9.8 fl (7.4-10.4); MONOCYTE # 0.3 10^3/ul (0.3-0.9); MONOCYTES % 2.6 % (0.0-11.0); NEUTROPHIL # 11.6 10^3/ul (1.6-7.5); NEUTROPHILS % 86.8 % (39.0-77.0); PLATELET COUNT 300 10^3/UL (140-440); RED BLOOD COUNT 3.32 10^6/ul (4.20-5.40); RED CELL DISTRIBUTION WIDTH 14.8 % (11.5-14.5); UNCORRECTED WBC 13.4 10^3/ul (4.8-10.8); WHITE BLOOD COUNT 13.4 10^3/ul (4.8-10.8)
[2016-07-03 08:49] LABS: CONDITION 1; LH ANALYZER COMMENTS 1
[2016-07-03 08:55] LABS: CREATININE 0.46 mg/dl (0.44-1.00)
[2016-07-03 08:56] LABS: CALCIUM 8.1 mg/dl (8.4-10.2)
[2016-07-03] MEDS: FAMOTIDINE 20 MG TAB PO SCH ×2 (09:05→22:51)
[2016-07-03] MEDS: AZTREONAM 1 GM/NS (PMX) 50 ML IVPB SCH ×2 (09:05→22:51)
[2016-07-03] MEDS: POTASSIUM CHLORIDE (SR) 20 MEQ TAB PO SCH (09:06)
[2016-07-03] MEDS: AZITHROMYCIN 500MG/NS (PMX) 250 ML IVPB SCH (14:08)
--- NOTE | 2016-07-03 16:18 | PN ---
DATE: 07/03/2016 INTERNAL MEDICINE FOLLOWUP NOTE SUBJECTIVE: The patient remains stable this morning. Blood pressure was elevated. She refused IV blood pressure medications, instead requesting pain medication. Currently, she appears relatively s table, complaining of vague abdominal discomfort left upper quadrant. Other than that, generalized p ain, but nonspecific. PHYSICAL EXAMINATION: VITAL SIGNS: Temperature 98, pulse is 68, blood pressure 145/65, O2 saturation 96%, FIO2 on room ai r. NECK: Supple. No JVD or lymphadenopathy. CARDIAC: S1, S2, no added sounds or murmurs. CHEST: Diminished air entry bilaterally. ABDOMEN: Soft, nontender. No guarding or rebound. EXTREMITIES: No cyanosis, clubbing. No edema. NEUROLOGIC: Grossly intact. No focal deficits. LABORATORY DATA: White count 13.4, hemoglobin 7.9, platelets of 300. INR 3.89, BUN 10, creatinine 0.46. Recent CT angiogram showed no evidence of pulmonary emboli, mild atelectasis both lung bases. IMPRESSION AND PLAN: Status post mitral valve replacement with a history of aortic valve sclerosis a nd aortic regurg, complicated by tricuspid regurg. Patient initially worked up for possible pericar ditis which appears unlikely. In addition has had extensive cardiac workup with no evidence of acute myocardial infarction or pulmonary embolus. She now has a bioprosthetic aortic valve and mitral va lve and remains on anticoagulation. Of note, hemoglobin has decreased. 1. Chronic pain issues. The patient requesting more pain medications, remains somnolent, declining physical therapy. 2. Abdominal discomfort, rule out peptic ulcer disease versus pancreatitis. I will request lipase a nd amylase, decrease steroids and assure patient is on proton pump inhibitor. 3. History of hypertension. Patient will require: 1. Continued anticoagulation; however, I will decrease Coumadin dose today as INR remains elevated. 2. Check lipase, amylase. 3. Consider packed cell transfusion if hemoglobin continues to drop. 4. Encourage ambulation and physical therapy. 5. Deep vein thrombosis and GI prophylaxis. 6. Decrease IV steroids and placed on p.o. prednisone. Dictated By: CATIE LEDBETTER/TIN Conf#: [id number] DID#: [id number]
[2016-07-03] MEDS: METOCLOPRAMIDE 10 MG INJ IV PRN (17:13)
[2016-07-03] MEDS: HYDROCODONE/APAP (7.5/325) TAB GTB PRN ×2 (17:13→21:52)
--- NOTE | 2016-07-03 17:52 | PN ---
Date/Time of Note Date/Time of Note DATE: 07/03/16 TIME: 17:52 Assessment/Plan Lines/Catheters IV Catheter Type (from Nrsg): PICC Line Kraus in Place (from Nrsg): No Assessment/Plan Chief Complaint/Hosp Course IMPRESSION: Status post open heart surgery. The suture on the right chest wall removed. The suture in the sternum, which is prominent, will be monitored. Discussed with the patient. Problems: Subjective 24 Hr Interval Summary Constitutional: improved Pain Control: mild Exam/Review of Systems Vital Signs Vitals Vital Signs Date Time Temp Pulse Resp B/P Pulse Ox O2 Delivery O2 Flow Rate FiO2 07/03/16 17:43 85 07/03/16 16:00 98.6 18 197/87 100 Intake and Output 07/02/16 07/02/16 07/03/16 15:00 23:00 07:00 Intake Total 800 ml 450 ml Balance 800 ml 450 ml Exam Neck: non-tender, supple Respiratory: clear to auscultation, normal air movement Cardiovascular: nl pulses, regular rate and rhythm Results Result Diagram: 07/03/16 0600 07/03/16 0600 KWAKU JONES MD Jul 03, 2016 17:52
[2016-07-04] VITALS (11 sets, daily range): BP systolic 120–137; BP diastolic 55–67; PULSE 65–78; RESP 17–66
[2016-07-04] MEDS: HYDROCODONE/APAP (7.5/325) TAB GTB PRN ×5 (01:58→20:20)
[2016-07-04] MEDS: ALBUTEROL/IPRATROPIUM (NEB) 3 ML AMP HHN PRN ×3 (03:51→20:32)
[2016-07-04 08:15] LABS: HEMATOCRIT 25.9 % (37.0-47.0); HEMOGLOBIN 8.2 g/dl (12.0-16.0); MEAN CORPUSCULAR HEMOGLOBIN 23.5 pg (29.0-33.0); MEAN CORPUSCULAR HGB CONC 31.6 g/dl (32.0-37.0); MEAN CORPUSCULAR VOLUME 74.3 fl (82.0-101.0); MEAN PLATELET VOLUME 9.2 fl (7.4-10.4); PLATELET COUNT 316 10^3/UL (140-440); RED BLOOD COUNT 3.49 10^6/ul (4.20-5.40); RED CELL DISTRIBUTION WIDTH 15.4 % (11.5-14.5); UNCORRECTED WBC 13.5 10^3/ul (4.8-10.8); WHITE BLOOD COUNT 13.5 10^3/ul (4.8-10.8)
[2016-07-04 08:23] LABS: CONDITION 1; INR 2.52; LH ANALYZER COMMENTS 1; PROTIME 27.5 Sec (12.2-14.2); PT RATIO 2.1
[2016-07-04 08:30] LABS: POTASSIUM 3.7 mmol/L (3.5-5.1)
[2016-07-04 08:33] LABS: CALCIUM 8.9 mg/dl (8.4-10.2); CREATININE 0.6 mg/dl (0.44-1.00)
[2016-07-04 08:36] LABS: MAGNESIUM 2.2 mg/dl (1.7-2.5); PHOSPHORUS 3.5 mg/dl (2.5-4.9)
[2016-07-04] MEDS: LISINOPRIL 5 MG TAB PO SCH (09:00)
[2016-07-04] MEDS: POTASSIUM CHLORIDE (SR) 20 MEQ TAB PO SCH (09:24)
[2016-07-04] MEDS: FAMOTIDINE 20 MG TAB PO SCH ×2 (09:24→20:18)
[2016-07-04] MEDS: predniSONE 20 MG TAB PO SCH (09:24)
[2016-07-04] MEDS: AZTREONAM 1 GM/NS (PMX) 50 ML IVPB SCH ×2 (09:42→20:18)
[2016-07-04 09:53] LABS: AMYLASE 74 U/L (11-123)
[2016-07-04 10:24] LABS: ANISOCYTOSIS 1+; HYPOCHROMASIA 2+; LYMPHOCYTES # 3.8 10^3/ul (0.8-2.9); MICROCYTOSIS 2+; MONOCYTE # 1.1 10^3/ul (0.3-0.9); NEUTROPHIL # 8.6 10^3/ul (1.6-7.5); POIKILOCYTOSIS 1+
[2016-07-04 10:25] LABS: OVALOCYTES FEW
--- NOTE | 2016-07-04 13:30 | PN ---
Date/Time of Note Date/Time of Note DATE: 07/04/16 TIME: 13:28 Assessment/Plan VTE Prophylaxis VTE Prophylaxis Intervention: other (Coumadin) Lines/Catheters IV Catheter Type (from Nrs): PICC Line Central line still needed: Yes Urinary Cath still in place: No Assessment/Plan Problems: (1) Status post aortic valve replacement with prosthetic valve Status: Chronic Comment: Being anticoagulated especially in light of the rhythm disturbance (2) Status post mitral valve replacement Status: Chronic Comment: As above (3) Diastolic dysfunction Status: Chronic Comment: Patient is tolerating medications (4) Chest pain Status: Acute Comment: Improving and close to the point where we can discharge her. Qualifiers: Chest pain type: unspecified Qualified Code: R07.9 - Chest pain, unspecified type Assessment/Plan Note several notes say the patient does have does not have anemia and that she has thalassemia. Reviewing the old records her hemoglobin had been 12 in 2011. And then check iron levels just to be sure Subjective 24 Hr Interval Summary Constitutional: no complaints Respiratory: no complaints Cardiovascular: no complaints Gastrointestinal: no complaints Genitourinary: no complaints Exam/Review of Systems Vital Signs Vitals Vital Signs Date Time Temp Pulse Resp B/P Pulse Ox O2 Delivery O2 Flow Rate FiO2 07/04/16 12:10 70 07/04/16 12:00 97.9 17 123/55 98 07/04/16 11:18 21 07/04/16 04:00 Room Air Intake and Output 07/03/16 07/03/16 07/04/16 15:00 23:00 07:00 Intake Total 300 ml 800 ml 900 ml Balance 300 ml 800 ml 900 ml Exam Constitutional: alert, oriented Respiratory: clear to auscultation, normal air movement Cardiovascular: nl pulses, regular rate and rhythm Results Result Diagram: 07/04/16 0800 07/04/16 0800 Results 24 hrs Laboratory Tests Test 07/04/16 08:00 Amylase Level 74 Anion Gap 14 Anisocytosis 1+ Blood Morphology Comment Blood Urea Nitrogen 15 Calcium Level 8.9 Carbon Dioxide Level 27 Chloride Level 105 Creatinine 0.60 Glucose Level 82 Hematocrit 25.9 L Hemoglobin 8.2 L Hypochromasia 2+ INR International Normalized Ratio 2.52 Lipase 87 Lymphocytes # 3.8 H Lymphocytes % 28.0 Magnesium Level 2.2 Mean Corpuscular Hemoglobin 23.5 L Mean Corpuscular Hemoglobin Concent 31.6 L Mean Corpuscular Volume 74.3 L Mean Platelet Volume 9.2 Microcytosis 2+ Monocytes # 1.1 H Monocytes % 8.0 Neutrophils # 8.6 H Neutrophils % 64.0 Ovalocytes FEW Phosphorus Level 3.5 Platelet Count 316 Potassium Level 3.7 Prothrombin Time 27.5 #H Prothrombin Time Ratio 2.1 Red Blood Count 3.49 L Red Cell Distribution Width 15.4 H Sodium Level 142 White Blood Count 13.5 H Medications Medications Current Medications Ondansetron HCl (Zofran Inj) 4 mg Q6H PRN IV NAUSEA AND/OR VOMITING Last administered on 07/03/16 07:08; Admin Dose 4 MG; Start 06/28/16 at 16:00 Acetaminophen (Tylenol Tab) 650 mg Q6H PRN PO PAIN LEVEL 1-3 OR FEVER Last administered on 07/03/16 07:10; Admin Dose 650 MG; Start 06/28/16 at 16:00 Docusate Sodium (Colace) 100 mg Q12H PRN PO CONSTIPATION Last administered on 08:19; Admin Dose 100 MG; Start 06/28/16 at 16:00 Magnesium Hydroxide (Milk Of Mag) 30 ml DAILY PRN PO CONSTIPATION; Start at 16:00 Sodium Biphosphate/ Sodium Phosphate (Fleet Enema) 133 ml DAILY PRN [place] CONSTIPATION; Start 06/28/16 at 16:00 Famotidine (Pepcid) 20 mg Q12 PO Last administered on 07/04/16 09:24; Admin Dose 20 MG; Start 06/28/16 at 21:00 Lorazepam (Ativan) 0.5 mg Q6H PRN IV ANXIETY; Start 06/28/16 at 16:00 Hydralazine HCl (Apresoline) 10 mg Q6H PRN IV ELEVATED BLOOD PRESSURE; Start at 16:00 Clonidine (Catapres) 0.1 mg Q6H PRN PO ELEVATED BLOOD PRESSURE; Start 06/28/16 at 16:00 Nitroglycerin (Nitroglycerin (Sl Tab) 0.4 Mg) 1 tab Q5M PRN SL ANGINA; Start at 16:00 Digoxin (Digoxin) 0.125 mg Q48H PO Last administered on 07/02/16 16:50; Admin Dose 0.125 MG; Start 06/28/16 at 16:00 Potassium Chloride (Klor-Con 20) 20 meq DAILY PO Last administered on 09:24; Admin Dose 20 MEQ; Start 06/29/16 at 09:00 Miscellaneous Information (* Miscellaneous Pharmacy Order) Per , have pharm... ONCE XX ; Start 06/29/16 at 03:30 Warfarin Sodium (Coumadin) 4 mg MoTuWeThFr@17 PO Last administered on 17:21; Admin Dose 4 MG; Start 06/29/16 at 17:00; Status Future Hold Warfarin Sodium (Coumadin) 5 mg SuSa@17 PO ; Start 07/04/16 at 17:00; Status Future hold IV Flush 10 ml 10 ml PRN PRN IV IV PROTOCOL; Start 06/30/16 at 14:00 Aztreonam 50 ml @ 100 mls/hr Q12 IVPB Last administered on 07/04/16 09:42; Admin Dose 100 MLS/HR; Start 06/30/16 at 15:00 Azithromycin (Zithromax 500mg/ NS (Pmx)) 250 ml @ 250 mls/hr Q24H IVPB Last administered on 07/03/16 14:08; Admin Dose 250 MLS/HR; Start 06/30/16 at 15:00 Lisinopril (Zestril) 5 mg DAILY PO Last administered on 07/01/16 14:29; Admin Dose 5 MG; Start 07/01/16 at 14:30 Prednisone (Prednisone) 40 mg DAILY PO Last administered on 07/04/16 09:24; Admin Dose 40 MG; Start 07/04/16 at 09:00 Acetaminophen/ Hydrocodone Bitart ([place] (7.5-325)) 1 tab Q4H PRN GTB pain Last administered on 07/04/16 12:02; Admin Dose 1 TAB; Start 07/03/16 at 16:30 Metoclopramide HCl (Reglan) 10 mg Q6H PRN IV nausea Last administered on 17:13; Admin Dose 10 MG; Start 07/03/16 at 16:30 GEMA SIMMONS MD Jul 04, 2016 13:30
[2016-07-04] MEDS: AZITHROMYCIN 500MG/NS (PMX) 250 ML IVPB SCH (15:17)
[2016-07-04] MEDS: DIGOXIN 0.125 MG TAB PO SCH (16:14)
[2016-07-04] MEDS: WARFARIN 5 MG TAB PO SCH (16:14)
[2016-07-04] MEDS: METOCLOPRAMIDE 10 MG INJ IV PRN (16:24)
[2016-07-04 16:31] LABS: IRON 71 ug/dl (35-150)
[2016-07-04 16:41] LABS: TOTAL IRON BINDING CAPACITY 266 ug/dl (241-421)
--- NOTE | 2016-07-04 18:43 | PN ---
Date/Time of Note Date/Time of Note DATE: 07/04/16 TIME: 18:43 Assessment/Plan Lines/Catheters IV Catheter Type (from Nrsg): PICC Line Kraus in Place (from Nrsg): No Assessment/Plan Chief Complaint/Hosp Course IMPRESSION: Status post open heart surgery. The suture on the right chest wall removed. The suture in the sternum, which is prominent, will be monitored. Discussed with the patient. Problems: Subjective 24 Hr Interval Summary Constitutional: improved Pain Control: mild Exam/Review of Systems Vital Signs Vitals Vital Signs Date Time Temp Pulse Resp B/P Pulse Ox O2 Delivery O2 Flow Rate FiO2 07/04/16 16:10 78 07/04/16 15:30 98.4 17 123/57 98 07/04/16 11:18 21 07/04/16 04:00 Room Air Intake and Output 07/03/16 07/03/16 07/04/16 15:00 23:00 07:00 Intake Total 300 ml 800 ml 900 ml Balance 300 ml 800 ml 900 ml Exam Neck: non-tender, supple Respiratory: clear to auscultation, normal air movement Cardiovascular: nl pulses, regular rate and rhythm Results Result Diagram: 07/04/16 0800 07/04/16 0800 KWAKU JONES MD Jul 04, 2016 18:43
[2016-07-05] VITALS (11 sets, daily range): BP systolic 115–165; BP diastolic 53–84; PULSE 63–88; RESP 17–19
[2016-07-05] MEDS: HYDROCODONE/APAP (7.5/325) TAB GTB PRN ×6 (00:27→21:51)
[2016-07-05] MEDS: LISINOPRIL 5 MG TAB PO SCH (09:00)
[2016-07-05] MEDS: predniSONE 20 MG TAB PO SCH (09:31)
[2016-07-05] MEDS: FAMOTIDINE 20 MG TAB PO SCH ×2 (09:31→21:51)
[2016-07-05] MEDS: POTASSIUM CHLORIDE (SR) 20 MEQ TAB PO SCH (09:31)
[2016-07-05] MEDS: AZTREONAM 1 GM/NS (PMX) 50 ML IVPB SCH (09:39)
--- NOTE | 2016-07-05 10:31 | PN ---
Date/Time of Note Date/Time of Note DATE: 07/05/16 TIME: 10:26 Assessment/Plan VTE Prophylaxis VTE Prophylaxis Intervention: other (Anticoagulating with Coumadin) Lines/Catheters IV [facility] Type (from [facility]): PICC Line Central line still needed: Yes Urinary Cath still in place: No Assessment/Plan Problems: (1) Abdominal pain Status: Acute Comment: Patient offers this is a new complaint. I am actually not impressed either by the history or the physical exam. To be on the safe side I will check an abdominal ultrasound but I do believe that this is not a significant finding or complaint. There is a possibility as patient is working toward finding a reason to stay in the hospital Qualifiers: Abdominal location: generalized Qualified Code: R10.84 - Generalized abdominal pain (2) Leukocytosis Status: Acute Comment: Patient had mild leukocytosis after discharge from her open heart surgery. She has a minimal leukocytosis now and has been placed on steroids by the pulmonary customer care consultant. She is also using breathing treatments on a regular basis which I am not entirely certain are absolutely necessary. Regardless there is no further indication for the azithromycin and the aztreonam was somewhat suspect. I am going to discontinue both Qualifiers: Leukocytosis type: unspecified Qualified Code: D72.829 - Leukocytosis, unspecified type (3) Chest pain Status: Acute Comment: There is no significant medical finding for this I believe this is postoperative pain Qualifiers: Chest pain type: unspecified Qualified Code: R07.9 - Chest pain, unspecified type (4) Aortic valve regurgitation Status: Chronic Comment: Status post aortic valve surgery with some regurgitation postop being anticoagulated Qualifiers: Cardiac valve disease etiology: nonrheumatic Qualified Code: I35.1 - Nonrheumatic aortic valve insufficiency (5) Diastolic dysfunction Status: Chronic (6) Paroxysmal atrial fibrillation Status: Chronic (7) Thalassemia, beta Status: Chronic Comment: Noted (8) Anemia of chronic disease Status: Chronic Comment: Noted Subjective 24 Hr Interval Summary Free Text/Dictation Patient with multiple complaints Constitutional: no complaints (Specifically no fevers chills or sweats) Respiratory: no complaints (Specifically no cough shortness of breath) Cardiovascular: chest pain (Complains of chest pain however modifies which she told me yesterday today.), palpitations (Complains of palpitations rather insistently despite being advised that the monitor is normal) Gastrointestinal: pain (Complains of a tearing sensation in the abdomen that she specifically denied yesterday denies nausea vomiting diarrhea eructation) Genitourinary: no complaints Exam/Review of Systems Vital Signs Vitals Vital Signs Date Time Temp Pulse Resp B/P Pulse Ox O2 Delivery O2 Flow Rate FiO2 07/05/16 08:21 63 07/05/16 07:29 98.1 17 165/79 99 07/05/16 00:00 Room Air 07/04/16 20:35 21 Intake and Output 07/04/16 07/04/16 07/05/16 15:00 23:00 07:00 Intake Total 1200 ml 800 ml Output Total 850 ml 3 ml Balance 350 ml 797 ml Exam Constitutional: alert, oriented Respiratory: clear to auscultation, normal air movement Cardiovascular: nl pulses, regular rate and rhythm Gastrointestinal: nl liver, spleen, soft, tender (Non-rebound tenderness diffuse no localization frequently migratory) Results Result Diagram: 07/04/16 0800 07/04/16 0800 Medications Medications Current Medications Ondansetron HCl (Zofran Inj) 4 mg Q6H PRN IV NAUSEA AND/OR VOMITING Last administered on 07/03/16 07:08; Admin Dose 4 MG; Start 06/28/16 at 16:00 Acetaminophen (Tylenol Tab) 650 mg Q6H PRN PO PAIN LEVEL 1-3 OR FEVER Last administered on 07/03/16 07:10; Admin Dose 650 MG; Start 06/28/16 at 16:00 Docusate Sodium (Colace) 100 mg Q12H PRN PO CONSTIPATION Last administered on 08:19; Admin Dose 100 MG; Start 06/28/16 at 16:00 Magnesium Hydroxide (Milk Of Mag) 30 ml DAILY PRN PO CONSTIPATION; Start at 16:00 Sodium Biphosphate/ Sodium Phosphate (Fleet Enema) 133 ml DAILY PRN [place] CONSTIPATION; Start 06/28/16 at 16:00 Famotidine (Pepcid) 20 mg Q12 PO Last administered on 07/05/16 09:31; Admin Dose 20 MG; Start 06/28/16 at 21:00 Lorazepam (Ativan) 0.5 mg Q6H PRN IV ANXIETY; Start 06/28/16 at 16:00 Hydralazine HCl (Apresoline) 10 mg Q6H PRN IV ELEVATED BLOOD PRESSURE; Start at 16:00 Clonidine (Catapres) 0.1 mg Q6H PRN PO ELEVATED BLOOD PRESSURE; Start 06/28/16 at 16:00 Nitroglycerin (Nitroglycerin (Sl Tab) 0.4 Mg) 1 tab Q5M PRN SL ANGINA; Start at 16:00 Digoxin (Digoxin) 0.125 mg Q48H PO Last administered on 07/04/16 16:14; Admin Dose 0.125 MG; Start 06/28/16 at 16:00 Potassium Chloride (Klor-Con 20) 20 meq DAILY PO Last administered on 09:31; Admin Dose 20 MEQ; Start 06/29/16 at 09:00 Miscellaneous Information (* Miscellaneous Pharmacy Order) Per heather MUELLER pharm... ONCE XX ; Start 06/29/16 at 03:30 Warfarin Sodium (Coumadin) 4 mg MoTuWeThFr@17 PO Last administered on 17:21; Admin Dose 4 MG; Start 06/29/16 at 17:00; Status Future Hold Warfarin Sodium (Coumadin) 5 mg SuSa@17 PO Last administered on 07/04/16 16:14 ; Admin Dose 5 MG; Start 07/04/16 at 17:00 IV Flush 10 ml 10 ml PRN PRN IV IV PROTOCOL; Start 06/30/16 at 14:00 Aztreonam (Azactam 1gm/NS (Pmx)) 50 ml @ 100 mls/hr Q12 IVPB Last administered on 07/05/16 09:39; Admin Dose 100 MLS/HR; Start 06/30/16 at 15:00 Lisinopril (Zestril) 5 mg DAILY PO Last administered on 07/01/16 14:29; Admin Dose 5 MG; Start 07/01/16 at 14:30 Prednisone (Prednisone) 40 mg DAILY PO Last administered on 07/05/16 09:31; Admin Dose 40 MG; Start 07/04/16 at 09:00 Acetaminophen/ Hydrocodone Bitart ([place] (7.5-325)) 1 tab Q4H PRN GTB pain Last administered on 1/15/17at 09:31; Admin Dose 1 TAB; Start 07/03/16 at 16:30 Metoclopramide HCl (Reglan) 10 mg Q6H PRN IV nausea Last administered on t 16:24; Admin Dose 10 MG; Start 07/03/16 at 16:30 GEMA SIMMONS MD Jul 05, 2016 10:30
[2016-07-05 12:32] LABS: BASOPHILS % 0.2 % (0.0-2.0); EOSINOPHILS # 0.2 10^3/ul (0.0-0.5); EOSINOPHILS % 1.7 % (0.0-7.0); HEMOGLOBIN 8.9 g/dl (12.0-16.0); LYMPHOCYTES # 2.4 10^3/ul (0.8-2.9); LYMPHOCYTES % 21.7 % (15.0-51.0); MEAN CORPUSCULAR HEMOGLOBIN 23.6 pg (29.0-33.0); MEAN CORPUSCULAR HGB CONC 31.7 g/dl (32.0-37.0); MEAN CORPUSCULAR VOLUME 74.5 fl (82.0-101.0); MEAN PLATELET VOLUME 9.6 fl (7.4-10.4); MONOCYTE # 0.5 10^3/ul (0.3-0.9); NEUTROPHIL # 7.8 10^3/ul (1.6-7.5); NEUTROPHILS % 71.4 % (39.0-77.0); PLATELET COUNT 379 10^3/UL (140-440); RED BLOOD COUNT 3.76 10^6/ul (4.20-5.40); RED CELL DISTRIBUTION WIDTH 15.4 % (11.5-14.5)
[2016-07-05 12:37] LABS: POTASSIUM 3.8 mmol/L (3.5-5.1)
[2016-07-05 12:39] LABS: CREATININE 0.58 mg/dl (0.44-1.00); INR 2.92; PROTIME 30.9 Sec (12.2-14.2); PT RATIO 2.4
[2016-07-05 12:40] LABS: CALCIUM 8.5 mg/dl (8.4-10.2)
[2016-07-05 12:42] LABS: CONDITION 1; LH ANALYZER COMMENTS 1
[2016-07-05] MEDS: ALBUTEROL/IPRATROPIUM (NEB) 3 ML AMP HHN PRN ×2 (12:57→21:23)
--- NOTE | 2016-07-05 16:18 | RADRPT ---
PROCEDURE: US Abdomen and Retroperitoneum. CLINICAL INDICATION: Abdominal pain. TECHNIQUE: Multiple real-time longitudinal and transverse images were acquired of the patient's ab domen and retroperitoneum utilizing a curved array transducer. COMPARISON: None. FINDINGS: Liver is normal in size and echogenicity. No focal liver mass. Portal vein demonstrates hepatopetal flow. Gallbladder is normal. There are no gallstones. There is no gallbladder wall thickening or pericho lecystic fluid. No intra- or extrahepatic biliary dilation. Pancreas is partially visualized and grossly unremarkable. Spleen is normal in size. No hydronephrosis or nephrolithiasis. No ascites. Proximal aorta and IVC are unremarkable. MEASUREMENTS: Liver: 15.2 cm Common Duct: 0.3 cm Right Kidney: 10.9 cm Left Kidney: 11.4 cm Spleen: 7.0 cm IMPRESSION: 1. No sonographic evidence of an acute or significant abnormality in the abdomen. RPTAT: EE .Orlando Faulkner MD, Date Time Electronically viewed and signed by .Orlando Faulkner MD, MD on 07/05/2016 16:22 .C/
[2016-07-05] MEDS: WARFARIN 5 MG TAB PO SCH (17:47)
[2016-07-05] MEDS: METOCLOPRAMIDE 10 MG INJ IV PRN (21:51)
[2016-07-06] VITALS (9 sets, daily range): BP systolic 108–165; BP diastolic 54–70; PULSE 60–85; RESP 16–19
[2016-07-06] MEDS: HYDROCODONE/APAP (7.5/325) TAB GTB PRN ×5 (04:15→20:29)
[2016-07-06 07:19] LABS: INR 3.21; PROTIME 33.3 Sec (12.2-14.2); PT RATIO 2.6
[2016-07-06 07:40] LABS: BASOPHIL # 0.1 10^3/ul (0.0-0.1); BASOPHILS % 0.4 % (0.0-2.0); EOSINOPHILS # 0.1 10^3/ul (0.0-0.5); EOSINOPHILS % 0.5 % (0.0-7.0); HEMATOCRIT 26.2 % (37.0-47.0); HEMOGLOBIN 8.2 g/dl (12.0-16.0); LYMPHOCYTES # 4.7 10^3/ul (0.8-2.9); LYMPHOCYTES % 32.4 % (15.0-51.0); MEAN CORPUSCULAR HEMOGLOBIN 23.4 pg (29.0-33.0); MEAN CORPUSCULAR HGB CONC 31.1 g/dl (32.0-37.0); MEAN PLATELET VOLUME 9.3 fl (7.4-10.4); MONOCYTE # 0.5 10^3/ul (0.3-0.9); MONOCYTES % 3.5 % (0.0-11.0); NEUTROPHIL # 9.1 10^3/ul (1.6-7.5); NEUTROPHILS % 63.2 % (39.0-77.0); PLATELET COUNT 335 10^3/UL (140-440); POTASSIUM 4.7 mmol/L (3.5-5.1); RED CELL DISTRIBUTION WIDTH 15.3 % (11.5-14.5); UNCORRECTED WBC 14.4 10^3/ul (4.8-10.8); WHITE BLOOD COUNT 14.4 10^3/ul (4.8-10.8)
[2016-07-06 07:43] LABS: CREATININE 0.62 mg/dl (0.44-1.00)
[2016-07-06 07:44] LABS: CALCIUM 8.8 mg/dl (8.4-10.2)
[2016-07-06 08:07] LABS: CONDITION 1; LH ANALYZER COMMENTS 1; NUCLEATED RED BLOOD CELLS # 0.3 10^3/ul (0.0-0.0)
[2016-07-06] MEDS: predniSONE 20 MG TAB PO SCH (08:20)
[2016-07-06] MEDS: POTASSIUM CHLORIDE (SR) 20 MEQ TAB PO SCH (08:21)
[2016-07-06] MEDS: FAMOTIDINE 20 MG TAB PO SCH (08:21)
[2016-07-06] MEDS: LISINOPRIL 5 MG TAB PO SCH (08:21)
--- NOTE | 2016-07-06 14:39 | PN ---
Date/Time of Note Date/Time of Note DATE: 07/06/16 TIME: 14:32 Assessment/Plan VTE Prophylaxis VTE Prophylaxis Intervention: other (coumadin) Lines/Catheters IV Catheter Type (from Nrsg): PICC Line Central line still needed: Yes Urinary Cath still in place: No Assessment/Plan Assessment/Plan 1. Pain at upper abdomen and chest at the sites of surgical scars, pain management 2. Chronic pain syndrome, seeing pain management 3. S/p bioprosthetic aortic valve and mitral valve replacement, stable 4. Leukocytosis, no clear source of infection Subjective 24 Hr Interval Summary Free Text/Dictation still pain at upper abdomen and chest Exam/Review of Systems Vital Signs Vitals Vital Signs Date Time Temp Pulse Resp B/P Pulse Ox O2 Delivery O2 Flow Rate FiO2 07/06/16 12:50 82 07/06/16 11:47 97.3 17 115/58 97 07/05/16 21:23 21 07/05/16 00:00 Room Air Intake and Output 07/05/16 07/05/16 07/06/16 15:00 23:00 07:00 Intake Total 740 ml 800 ml Output Total 950 ml 900 ml Balance -210 ml -100 ml Exam Constitutional: alert, oriented, well developed Head: atraumatic, normocephalic Eyes: EOMI, PERRL, nl conjunctiva, nl lids, nl sclera ENMT: mucosa pink and moist, nl external ears & nose, nl lips & teeth, nl nasal mucosa & septum Neck: non-tender, supple Respiratory: clear to auscultation, normal air movement Cardiovascular: nl pulses, regular rate and rhythm Gastrointestinal: nl liver, spleen, non-tender, soft Neurological: [employer] II-XII intact, nl mental status, nl speech, nl strength Skin: nl turgor, rash or lesions Lymph: nl lymph nodes Results Result Diagram: 07/06/16 0540 07/06/16 0540 Results 24 hrs Laboratory Tests Test 07/06/16 05:35 07/06/16 05:40 INR International Normalized Ratio 3.21 Prothrombin Time 33.3 H Prothrombin Time Ratio 2.6 Anion Gap 15 Basophils # 0.1 Basophils % 0.4 Blood Morphology Comment Blood Urea Nitrogen 15 Calcium Level 8.8 Carbon Dioxide Level 24 Chloride Level 108 Creatinine 0.62 Eosinophils # 0.1 Eosinophils % 0.5 Glucose Level 63 #L Hematocrit 26.2 L Hemoglobin 8.2 L Lymphocytes # 4.7 H Lymphocytes % 32.4 Mean Corpuscular Hemoglobin 23.4 L Mean Corpuscular Hemoglobin Concent 31.1 L Mean Corpuscular Volume 75.0 L Mean Platelet Volume 9.3 Monocytes # 0.5 Monocytes % 3.5 Neutrophils # 9.1 H Neutrophils % 63.2 Nucleated Red Blood Cells # 0.3 H Nucleated Red Blood Cells % 2.0 H Platelet Count 335 Potassium Level 4.7 Red Blood Count 3.50 L Red Cell Distribution Width 15.3 H Sodium Level 142 White Blood Count 14.4 #H Medications Medications Current Medications Ondansetron HCl (Zofran Inj) 4 mg Q6H PRN IV NAUSEA AND/OR VOMITING Last administered on 07/03/16 07:08; Admin Dose 4 MG; Start 06/28/16 at 16:00 Acetaminophen (Tylenol Tab) 650 mg Q6H PRN PO PAIN LEVEL 1-3 OR FEVER Last administered on 07/03/16 07:10; Admin Dose 650 MG; Start 06/28/16 at 16:00 Docusate Sodium (Colace) 100 mg Q12H PRN PO CONSTIPATION Last administered on 08:19; Admin Dose 100 MG; Start 06/28/16 at 16:00 Magnesium Hydroxide (Milk Of Mag) 30 ml DAILY PRN PO CONSTIPATION; Start at 16:00 Sodium Biphosphate/ Sodium Phosphate (Fleet Enema) 133 ml DAILY PRN [place] CONSTIPATION; Start 06/28/16 at 16:00 Famotidine (Pepcid) 20 mg Q12 PO Last administered on 07/06/16 08:21; Admin Dose 20 MG; Start 06/28/16 at 21:00 Lorazepam (Ativan) 0.5 mg Q6H PRN IV ANXIETY; Start 06/28/16 at 16:00 Hydralazine HCl (Apresoline) 10 mg Q6H PRN IV ELEVATED BLOOD PRESSURE; Start at 16:00 Clonidine (Catapres) 0.1 mg Q6H PRN PO ELEVATED BLOOD PRESSURE; Start 06/28/16 at 16:00 Nitroglycerin (Nitroglycerin (Sl Tab) 0.4 Mg) 1 tab Q5M PRN SL ANGINA; Start at 16:00 Digoxin (Digoxin) 0.125 mg Q48H PO Last administered on 07/04/16 16:14; Admin Dose 0.125 MG; Start 06/28/16 at 16:00 Potassium Chloride (Klor-Con 20) 20 meq DAILY PO Last administered on 08:21; Admin Dose 20 MEQ; Start 06/29/16 at 09:00 Miscellaneous Information (* Miscellaneous Pharmacy Order) Per heather MUELLER pharm... ONCE XX ; Start 06/29/16 at 03:30 Warfarin Sodium (Coumadin) 4 mg MoTuWeThFr@17 PO Last administered on 17:21; Admin Dose 4 MG; Start 06/29/16 at 17:00; Status Future Hold Warfarin Sodium (Coumadin) 5 mg SuSa@17 PO Last administered on 07/05/16 17:47 ; Admin Dose 5 MG; Start 07/04/16 at 17:00 IV Flush (NS 10 ml) 10 ml PRN PRN IV IV PROTOCOL; Start 06/30/16 at 14:00 Lisinopril (Zestril) 5 mg DAILY PO Last administered on 07/01/16 14:29; Admin Dose 5 MG; Start 07/01/16 at 14:30 Prednisone (Prednisone) 40 mg DAILY PO Last administered on 07/06/16 08:20; Admin Dose 40 MG; Start 07/04/16 at 09:00 Acetaminophen/ Hydrocodone Bitart ([place] (7.5-325)) 1 tab Q4H PRN GTB pain Last administered on 07/06/16 12:38; Admin Dose 1 TAB; Start 07/03/16 at 16:30 Metoclopramide HCl (Reglan) 10 mg Q6H PRN IV nausea Last administered on 21:51; Admin Dose 10 MG; Start 07/03/16 at 16:30 RICHMOND SALINAS MD Jul 06, 2016 14:39
[2016-07-06] MEDS ORDERED: CELECOXIB 100 MG CAP PO SCH (15:00)
[2016-07-06 15:38] LABS: INR 2.61; PROTIME 28.3 Sec (12.2-14.2); PT RATIO 2.2
[2016-07-06] MEDS: MELOXICAM 15 MG TAB PO SCH (16:20)
[2016-07-06] MEDS: DIGOXIN 0.125 MG TAB PO SCH (16:21)
[2016-07-06] MEDS: ALBUTEROL/IPRATROPIUM (NEB) 3 ML AMP HHN PRN (19:28)
[2016-07-07] VITALS (9 sets, daily range): BP systolic 112–125; BP diastolic 54–60; PULSE 67–82; RESP 16–76
[2016-07-07] MEDS: HYDROCODONE/APAP (7.5/325) TAB GTB PRN ×4 (01:52→14:33)
[2016-07-07] MEDS: LORAZEPAM 2 MG INJ IV PRN ×2 (02:19→11:08)
[2016-07-07] MEDS ORDERED: PANTOPRAZOLE (EC) 40 MG TAB PO SCH (06:00)
[2016-07-07 07:04] LABS: INR 2.57; PROTIME 27.9 Sec (12.2-14.2); PT RATIO 2.2
[2016-07-07 07:19] LABS: HEMATOCRIT 25.6 % (37.0-47.0); HEMOGLOBIN 8.3 g/dl (12.0-16.0); MEAN CORPUSCULAR HEMOGLOBIN 24.2 pg (29.0-33.0); MEAN CORPUSCULAR HGB CONC 32.3 g/dl (32.0-37.0); MEAN CORPUSCULAR VOLUME 74.9 fl (82.0-101.0); PLATELET COUNT 341 10^3/UL (140-440); RED BLOOD COUNT 3.42 10^6/ul (4.20-5.40); RED CELL DISTRIBUTION WIDTH 15.3 % (11.5-14.5); UNCORRECTED WBC 14.6 10^3/ul (4.8-10.8); WHITE BLOOD COUNT 14.6 10^3/ul (4.8-10.8)
[2016-07-07 07:32] LABS: CONDITION 1; LH ANALYZER COMMENTS 1
[2016-07-07] MEDS: LISINOPRIL 5 MG TAB PO SCH (09:00)
[2016-07-07] MEDS: POTASSIUM CHLORIDE (SR) 20 MEQ TAB PO SCH (09:15)
[2016-07-07] MEDS: MELOXICAM 15 MG TAB PO SCH (09:15)
[2016-07-07] MEDS: predniSONE 20 MG TAB PO SCH (09:16)
[2016-07-07 10:33] LABS: LYMPHOCYTES # 6.3 10^3/ul (0.8-2.9); MONOCYTE # 1.2 10^3/ul (0.3-0.9); NEUTROPHIL # 6.9 10^3/ul (1.6-7.5)
[2016-07-07] MEDS ORDERED: MELO-110 PO (11:42)
[2016-07-07] MEDS ORDERED: HYDR-906 PO (11:42)
[2016-07-07] MEDS ORDERED: PANT40TA4 PO (11:42)
--- NOTE | 2016-07-07 11:49 | DS ---
Date/Time of Note Date/Time of Note DATE: 07/07/16 TIME: 11:43 Discharge Summary Admission/Discharge Info Admit Date/Time Jun 29, 2016 at 01:18 Discharge Date/Time Final Diagnosis 1. Pain at upper abdomen and chest at the sites of surgical scars, improved, pain management 2. Chronic pain syndrome, stable, seeing pain management 3. S/p bioprosthetic aortic valve and mitral valve replacement, stable 4. Leukocytosis, steroid related, tapering steroid, follow up with PCP Hx of Present Illness The patient was ruled out with 3 sets of cardiac enzymes which were negative. She had a 2D echocardiogram done 06/28/2016. It showed left ventricle normal in size and systolic function, estimated LV ejection fraction of 55% to 60, severe left ventricular diastolic dysfunction, aortic valve sclerosis without stenosis with moderate to severe aortic regurgitation as well as moderate tricuspid regurgitation. She also had the following studies: A chest x-ray 01/2017 showed cardiomegaly with calcified atherosclerosis, retrocardiac opacity on the left that may reflect infiltrate versus atelectasis, combined with small pleural effusion, and atelectasis in the right lung base. She had a nuclear medicine scan ____ and had low probability for PE and she had a PICC line placed 06/30/[address] eventually had a CT angiogram of the chest 2016 that showed no evidence of PE, small benign ____in the superior segment of right lower lobe, small left pleural effusion, atelectasis in the lung bases posteriorly with left worse than right, atelectasis and scarring in the right middle lobe, right arm PICC line, mitral valve prosthesis and left atrial appendage clamp and previous median sternotomy with screws, plates and wires. Hospital Course HOSPITAL COURSE: Full details are available in the chart for review. In summary, this very frail 50-year-old female presented to us with multiple symptoms and atypical chest pain. She had a history of valve replacement of her mitral valve. She was admitted to rule out an acute coronary syndrome. She was seen by cardiology who determined that her symptoms were not likely cardiac and deemed that she did not require any further cardiac intervention, but a 2D echo was concerning for diastolic dysfunction as well as aortic as well as tricuspid regurgitation ____ left ventricular ejection fraction. The patient also from her previous surgery, was found to have some residual sutures that were causing her discomfort in her anterior chest wall, and so cardiothoracic surgery saw her. They removed one of the sutures and recommended that she follow up with her own cardiothoracic surgeon as an outpatient for the 2nd one in her ____ area. He felt this would eventually resolve, but wanted her to keep close contact with her own cardiothoracic surgeon. However, the patient's symptoms did not significantly improve. She continues to complain of pleuritic chest pain, nausea and just an overall feeling of not being well. Based on that, pain management consultation was obtained. They saw her and did not feel that she required ____ medicine, but because ____ recommended she be started on steroids. She was also started on empiric antibiotics for probable bilateral pneumonia, community-acquired. she seems to have responded to both measures of steroids as well as antibiotics very well. She has also been started on gentle diuresis for her diastolic dysfunction. She is much improved. Patient's chest pain and upper abdominal pain is located at surgical incison/ spots, I started her mobic and protonix on 07/06/2016. The pain is significantly less today. She will follow up with Her PCP and pain management physician outpatient. Home Meds Active Scripts Hydrocodone/Acetaminophen ([place] 5-325 Tablet) 1 Each Tablet, 1 EACH PO Q6H, # 20 TAB Prov:RICHMOND SALINAS MD 07/07/16 Pantoprazole* (Pantoprazole*) 40 Mg Tablet.dr, 40 MG PO DAILY@06 for 30 Days Prov:RICHMOND SALINAS MD 07/07/16 Meloxicam* (Mobic*) 15 Mg Tablet, 15 MG PO DAILY for 10 Days, TAB Prov:RICHMOND SALINAS MD 07/07/16 Lisinopril* (Lisinopril*) 5 Mg Tablet, 5 MG PO DAILY for diastolic dysfrn, #30 TAB 1 Refill Prov:KAYODE LECHUGA. 07/01/16 Methylprednisolone* (Medrol* DOSE PACK) 4 Mg/Dose-Pack Tab.ds.pk, 4 MG PO . DIRECTED, #1 PACKET Prov:KAYODE LECHUGA. 07/01/16 Furosemide (Lasix) 20 Mg Tab, 20 MG PO DAILY for 30 Days, TAB Prov:KAYOED LECHUGA. 07/01/16 Albuterol Sulfate (Proair Respiclick) 90 Mcg Aer.pow.ba, 2 PUFFS INHALATION Q4H Y for SHORTNESS OF BREATH, #1 VIAL Prov:KAYODE LECHUGA 07/01/16 Reported Medications Tapentadol Hcl (Nucynta ER) 200 Mg Tab.er.12h, 200 MG PO DAILY Y for PAIN, TAB 06/28/16 Tapentadol Hcl (Nucynta) 75 Mg Tablet, 75 MG PO TID Y for PAIN, TAB 06/28/16 Potassium Chloride* (Potassium Chloride*) 20 Meq Tablet.er, 20 MEQ PO Q48 HOURS , TAB.SA 06/28/16 Warfarin Sodium* (Coumadin*) 5 Mg Tablet, 5 MG PO 2 DAYS A WEEK, TAB 06/28/16 Warfarin Sodium* (Warfarin Sodium*) 4 Mg Tablet, 4 MG PO 5 DAYS A WEEK, TAB 06/28/16 Digoxin* (Lanoxin*) 0.125 Mg Tablet, 0.125 MG PO Q48H, TAB 06/28/16 Follow-up Plan PCP one week Cardiology 2 weeks Pending Labs Laboratory Tests Test 07/06/16 15:15 07/07/16 06:05 INR International Normalized Ratio 2.61 2.57 Prothrombin Time 28.3Sec (12.2-14.2) 27.9Sec (12.2-14.2) Prothrombin Time Ratio 2.2 2.2 Band Neutrophils % 2.0% (0.0-5.0) Blood Morphology Comment Hematocrit 25.6% (37.0-47.0) Hemoglobin 8.3g/dl (12.0-16.0) Lymphocytes # 6.310^3/ul (0.8-2.9) Lymphocytes % 43.0% (15.0-51.0) Mean Corpuscular Hemoglobin 24.2pg (29.0-33.0) Mean Corpuscular Hemoglobin Concent 32.3g/dl (32.0-37.0) Mean Corpuscular Volume 74.9fl (82.0-101.0) Mean Platelet Volume 9.0fl (7.4-10.4) Monocytes # 1.210^3/ul (0.3-0.9) Monocytes % 8.0% (0.0-11.0) Neutrophils # 6.910^3/ul (1.6-7.5) Neutrophils % 47.0% (39.0-77.0) Platelet Count 74043^3/UL (140-440) Red Blood Count 3.4210^6/ul (4.20-5.40) Red Cell Distribution Width 15.3% (11.5-14.5) White Blood Count 14.610^3/ul (4.8-10.8) RICHMOND SALINAS MD Jul 07, 2016 11:49
[2016-07-07] MEDS: ALBUTEROL/IPRATROPIUM (NEB) 3 ML AMP HHN PRN (14:42)
[2016-07-11] MEDS ORDERED: WARFARIN 2 MG TAB PO SCH (17:00)
== END 2016-07-07 16:17 | disposition home or self-care (01) | DRG 919 ==
LOC: E/R 13:32 → MS4 06-29 01:18
PROVIDERS: ADMIT Hospitalist; ATTEND Hospitalist
PROC: 02HV33Z Insertion of Infusion Device into Superior Vena Cava, Percutaneous Approach (ICD-10-PCS; principal; 2016-06-30)
PROC: 8E0WXY8 Suture Removal from Trunk Region (ICD-10-PCS; 2016-06-30)
DX: T81.89XA Other complications of procedures, not elsewhere classified, initial encounter (principal); J18.9 Pneumonia, unspecified organism; D56.1 Beta thalassemia; I48.0 Paroxysmal atrial fibrillation; I08.3 Combined rheumatic disorders of mitral, aortic and tricuspid valves; I10 Essential (primary) hypertension; I25.10 Atherosclerotic heart disease of native coronary artery without angina pectoris; G89.18 Other acute postprocedural pain; E78.5 Hyperlipidemia, unspecified; R10.9 Unspecified abdominal pain; Y83.8 Other surgical procedures as the cause of abnormal reaction of the patient, or of later complication, without mention of misadventure at the time of the procedure; Y92.89 Other specified places as the place of occurrence of the external cause; G89.29 Other chronic pain; D50.9 Iron deficiency anemia, unspecified; L90.5 Scar conditions and fibrosis of skin; I51.9 Heart disease, unspecified; Z91.048 Other nonmedicinal substance allergy status; Z88.2 Allergy status to sulfonamides; Z88.5 Allergy status to narcotic agent; Z88.6 Allergy status to analgesic agent; Z88.3 Allergy status to other anti-infective agents; Z95.1 Presence of aortocoronary bypass graft; Z95.2 Presence of prosthetic heart valve
CPT/HCPCS: 36415; 36569; 71010; 71275; 76700; 76937; 78582; 80048; 80061; 82150; 82550; 82553; 82728; 83036; 83540; 83690; 83735; 84100; 84145; 84439; 84443; 84484; 85025; 85610; 85730; 93005; 93306; 94640; 94664; 96374; 96375; 96376; 97116; 97162; 97530; A9539; A9540; J0360; J0456; J1100; J1885; J1940; J2060; J2270; J2405; J2765; J7512; Q9967

== ENCOUNTER 2016-07-08 03:26 | Inpatient (IN) | payer OTHER ==
[~2016-07-08] VITALS: Ht 152.4 cm; Wt 47.7 kg
[~2016-07-08 03:26] MED LIST changes: +ALBU90AE INHALATION; -AMIT25TA9 PO; +DIGO125T6 PO; -ESTR1TAB86 PO; -HYDR-3612 PO; +HYDR-906 PO; +LAS20 PO; +LISI-313 PO; +MED4DP PO; +MELO-110 PO; +PANT40TA4 PO; +POTA20TA96 PO; +TAPE200T PO; +TAPE75TA3 PO; +WARF4TAB52 PO; +WARF5TAB72 PO
[2016-07-08] MEDS ORDERED: SOD CHLORIDE 0.9% 500 ML IV ONE (03:44)
[2016-07-08] MEDS ORDERED: ONDANSETRON 4 MG INJ IV ONE (03:57)
[2016-07-08] MEDS ORDERED: morphine 4 MG/ML VIAL IV ONE (03:57)
[2016-07-08 04:27] LABS: ALBUMIN 3.3 g/dl (3.3-4.9)
[2016-07-08 04:28] LABS: CHLORIDE 109 mmol/L (97-110); POTASSIUM 3.8 mmol/L (3.5-5.1); SODIUM 145 mmol/L (135-144)
[2016-07-08 04:29] LABS: INR 1.77; PROTIME 20.8 Sec (12.2-14.2); PT RATIO 1.6
--- NOTE | 2016-07-08 04:29 | RADRPT ---
PROCEDURE: XR Chest. CLINICAL INDICATION: Abdominal Pain TECHNIQUE: Portable single view of the chest COMPARISON: 06/30/2016 FINDINGS: There has been shallower lung inflation. Left greater than right basilar subsegmental atelectasis i s likely unchanged. Right PICC line has been removed. Cardiomegaly, prosthetic valve, and left atr ial appendage again seen as well as median sternotomy wires in screw plates. Top normal pulmonary v ascularity. No focal infiltrate. Small left effusion. IMPRESSION: Shallower lung inflation. Otherwise no significant interval change. RPTAT: [facility] Physician Golden Date Time Electronically viewed and signed by Jena Dean Physician on 07/08/2016 04:29 LE/
[2016-07-08 04:30] LABS: ALBUMIN/GLOBULIN RATIO 1.13; AMYLASE 130 U/L (11-123); ANION GAP 14 (8-16); ASPARTATE AMINO TRANSFERASE 21 IU/L (15-46); CARBON DIOXIDE 26 mmol/L (21-31); PARTIAL THROMBOPLASTIN TIME 28.7 Sec (25.0-35.0); TOTAL PROTEIN 6.2 g/dl (6.1-8.1)
[2016-07-08 04:31] LABS: ALANINE AMINOTRANSFERASE 32 IU/L (13-69); ALKALINE PHOSPHATASE 100 IU/L (42-121); BLOOD UREA NITROGEN 18 mg/dl (7-20); GLUCOSE 81 mg/dl (70-220)
--- NOTE | 2016-07-08 04:31 | RADRPT ---
PROCEDURE: XR Abdomen. CLINICAL INDICATION: Abdominal pain TECHNIQUE: AP abdomen x-ray. COMPARISON: None. FINDINGS: Moderately large stool burden. No evidence for bowel obstruction. Probable calcified pelvic phlebo liths. No definite bony abnormality. IMPRESSION: Moderately large stool burden. RPTAT: [facility] Jena Dean Physician Date Time Electronically viewed and signed by Jena Dean Physician on 07/08/2016 04:30 LE/
[2016-07-08 04:46] LABS: BASOPHIL # 0.2 10^3/ul (0.0-0.1); BASOPHILS % 1.1 % (0.0-2.0); EOSINOPHILS % 0.2 % (0.0-7.0); HEMOGLOBIN 8.3 g/dl (12.0-16.0); LYMPHOCYTES # 3.9 10^3/ul (0.8-2.9); LYMPHOCYTES % 22.7 % (15.0-51.0); MEAN CORPUSCULAR HEMOGLOBIN 23.6 pg (29.0-33.0); MEAN CORPUSCULAR HGB CONC 31.7 g/dl (32.0-37.0); MEAN CORPUSCULAR VOLUME 74.4 fl (82.0-101.0); MEAN PLATELET VOLUME 9.2 fl (7.4-10.4); MONOCYTE # 1.7 10^3/ul (0.3-0.9); MONOCYTES % 9.8 % (0.0-11.0); NEUTROPHIL # 11.2 10^3/ul (1.6-7.5); NEUTROPHILS % 66.2 % (39.0-77.0); PLATELET COUNT 376 10^3/UL (140-440)
[2016-07-08 04:48] LABS: CONDITION 1; LH ANALYZER COMMENTS 1; NUCLEATED RED BLOOD CELLS # 0.3 10^3/ul (0.0-0.0)
[2016-07-08 04:51] LABS: TROPONIN-I < 0.012 ng/ml (0.00-0.12)
--- NOTE | 2016-07-08 05:39 | ERA ---
ER Documentation Chief Complaint Date/Time DATE: 07/08/16 TIME: 05:38 Chief Complaint HPI This is a 50-year-old female consequence of chest pain shortness of breath. She was recently discharged from hospital admission that she has not filled her prescriptions. She denies any nausea vomiting. She has had alternating fevers and chills. Chest pain is pressure like alternating with sharp needlelike pain in her left and right side of the chest. Patient has history of bilateral pneumonia. ROS All systems reviewed and are negative except as per history of present illness. Medications Home Meds Active Scripts Hydrocodone/Acetaminophen ([place] 5-325 Tablet) 1 Each Tablet, 1 EACH PO Q6H, # 20 TAB Prov:RICHMOND SALINAS MD 07/07/16 Pantoprazole* (Pantoprazole*) 40 Mg Tablet.dr, 40 MG PO DAILY@06 for 30 Days Prov:RICHMOND SALINAS MD 07/07/16 Meloxicam* (Mobic*) 15 Mg Tablet, 15 MG PO DAILY for 10 Days, TAB Prov:RICHMOND SALINAS MD 07/07/16 Lisinopril* (Lisinopril*) 5 Mg Tablet, 5 MG PO DAILY for diastolic dysfrn, #30 TAB 1 Refill Prov:KAYODE LECHUGA. 07/01/16 Methylprednisolone* (Medrol* DOSE PACK) 4 Mg/Dose-Pack Tab.ds.pk, 4 MG PO . DIRECTED, #1 PACKET Prov:KAYODE LECHUGA. 07/01/16 Furosemide (Lasix) 20 Mg Tab, 20 MG PO DAILY for 30 Days, TAB Prov:KAYODE LECHUGA. 07/01/16 Albuterol Sulfate (Proair Respiclick) 90 Mcg Aer.pow.ba, 2 PUFFS INHALATION Q4H Y for SHORTNESS OF BREATH, #1 VIAL Prov:ANKUSHKAYODE. 07/01/16 Reported Medications Tapentadol Hcl (Nucynta ER) 200 Mg Tab.er.12h, 200 MG PO DAILY Y for PAIN, TAB 06/28/16 Tapentadol Hcl (Nucynta) 75 Mg Tablet, 75 MG PO TID Y for PAIN, TAB 06/28/16 Potassium Chloride* (Potassium Chloride*) 20 Meq Tablet.er, 20 MEQ PO Q48 HOURS , TAB.SA 06/28/16 Warfarin Sodium* (Coumadin*) 5 Mg Tablet, 5 MG PO 2 DAYS A WEEK, TAB 06/28/16 Warfarin Sodium* (Warfarin Sodium*) 4 Mg Tablet, 4 MG PO 5 DAYS A WEEK, TAB 06/28/16 Digoxin* (Lanoxin*) 0.125 Mg Tablet, 0.125 MG PO Q48H, TAB 06/28/16 Allergies Allergies: Coded Allergies: Cephalexin Monohydrate (Verified Allergy, Mild, HIVES, 07/07/16) Sulfa (Sulfonamide Antibiotics) (Verified Allergy, Unknown, 07/07/16) ciprofloxacin (Verified Allergy, Unknown, 07/07/16) codeine (Verified Allergy, Unknown, 07/07/16) aspirin (Verified Adverse Reaction, Mild, ABD PAIN, 07/07/16) ibuprofen (Verified Adverse Reaction, Mild, ABD PAIN, 07/07/16) PMhx/Soc History of Surgery: Yes (Mitral & aortic valve replacement mar 2016, lung resection, L oophrectomy) Anesthesia Reaction: Yes (2 occasions where patient did not fall asleep for minor procedures) Hx Neurological Disorder: Yes (Seizures) Hx Respiratory Disorders: Yes (Lung resection) Hx Cardiac Disorders: Yes (Valve replaced, hole in hear ) Hx Psychiatric Problems: Yes (Depression, anxiety) Hx Miscellaneous Medical Probl: Yes (SEIZURE, PANCREATITIS, DEPRESSION) Hx Alcohol Use: No (quit drinking in 2003 due to pancreatitis) Hx Substance Use: Yes (Marinol (THC) prescribed to stimulate appetite) Hx Tobacco Use: Yes (quit a year ago, smoked less than a pack a day) Smoking Status: Former smoker Physical Exam Vitals Vital Signs Date Time Temp Pulse Resp B/P Pulse Ox O2 Delivery O2 Flow Rate FiO2 07/08/16 03:30 98.2 70 16 145/74 100 07/08/16 03:30 98.2 70 16 145/74 100 Physical Exam Const: [] Head: Atraumatic Eyes: Normal Conjunctiva ENT: Normal External Ears, Nose and Mouth. Neck: Full range of motion..~ No meningismus. Resp: Clear to auscultation bilaterally Cardio: Regular rate and rhythm, no murmurs Abd: Soft, non tender, non distended. Normal bowel sounds Skin: No petechiae or rashes Back: No midline or flank tenderness Ext: No cyanosis, or edema Neur: Awake and alert Psych: Normal Mood and Affect Result Diagram: 07/08/16 0350 07/08/16 0350 Results 24 hrs Laboratory Tests Test 07/08/16 03:50 Activated Partial Thromboplast Time 28.7Sec Alanine Aminotransferase (ALT/SGPT) 32IU/L Albumin 3.3g/dl Albumin/Globulin Ratio 1.13 Alkaline Phosphatase 100IU/L Amylase Level 130U/L Anion Gap 14 Aspartate Amino Transf (AST/SGOT) 21IU/L Basophils # 0.210^3/ul Basophils % 1.1% Blood Morphology Comment Blood Urea Nitrogen 18mg/dl Calcium Level 9.0mg/dl Carbon Dioxide Level 26mmol/L Chloride Level 109mmol/L Creatinine 0.70mg/dl Direct Bilirubin 0.00mg/dl Eosinophils # 0.010^3/ul Eosinophils % 0.2% Globulin 2.90g/dl Glucose Level 81mg/dl Hematocrit 26.0% Hemoglobin 8.3g/dl INR International Normalized Ratio 1.77 Indirect Bilirubin 0.0mg/dl Lipase 189U/L Lymphocytes # 3.910^3/ul Lymphocytes % 22.7% Mean Corpuscular Hemoglobin 23.6pg Mean Corpuscular Hemoglobin Concent 31.7g/dl Mean Corpuscular Volume 74.4fl Mean Platelet Volume 9.2fl Monocytes # 1.710^3/ul Monocytes % 9.8% Neutrophils # 11.210^3/ul Neutrophils % 66.2% Nucleated Red Blood Cells # 0.310^3/ul Nucleated Red Blood Cells % 2.0/100WBC Platelet Count 38514^3/UL Potassium Level 3.8mmol/L Prothrombin Time Pending Prothrombin Time Ratio 1.6 Red Blood Count 3.5010^6/ul Red Cell Distribution Width 15.0% Sodium Level 145mmol/L Total Bilirubin 0.0mg/dl Total Protein 6.2g/dl Troponin I < 0.012ng/ml White Blood Count 17.010^3/ul Current Medications Medications (Trade) Dose Ordered Sig/Millie Route PRN Reason Start Time Stop Time Status Last Admin Dose Admin Sodium Chloride (NS) 500 ml @ 500 mls/hr Q1H ONCE IV 07/08/16 03:44 07/08/16 04:43 DC 07/08/16 04:07 Morphine Sulfate (morphine) 4 mg ONCE ONCE IV 07/08/16 03:57 07/08/16 03:58 DC 07/08/16 04:08 Ondansetron HCl (Zofran Inj) 4 mg ONCE ONCE IV 07/08/16 03:57 07/08/16 03:58 DC 07/08/16 04:08 Procedures/MDM EKG: Rate/Rhythm: Normal Sinus Rhythm QRS, ST, T-waves: No changes consistent w/ acute ischemia Impression: No evidence of ischemia or arrhythmia Chest X-ray 1V Interpreted by me: Soft Tissue: No acute abnormalities Bones: No acute abnormalities Mediastinum/Cardiac Silhouette/Lungs: No acute abnormalities Patient's symptoms are concerning for cardiac cause will require inpatient workup and continuous monitoring. Further w/u for ischemia, arrhythmia, PE or dissection will be deferred to the inpatient team. Accepting Care Team: Current data and ongoing care discussed. Time: 545 Primary Provider: Hospitalist Consulting: [XOXOXO] Outstanding Data: none Departure Diagnosis: Primary Impression: Chest pain Qualified Code: R07.9 - Chest pain, unspecified type Condition: Serious MICHAEL PUENTES Jul 08, 2016 05:39
[2016-07-08] MEDS ORDERED: HYDROmorphONE 1 MG/ML SYG IV STA (07:55)
[2016-07-08] MEDS ORDERED: ONDANSETRON 4 MG INJ IV STA (07:55)
[2016-07-08] MEDS ORDERED: NACL 0.9% 3 ML SYG IV SCH (09:00)
[2016-07-08] MEDS ORDERED: ONDANSETRON 4 MG INJ IV PRN (09:00)
[2016-07-08] MEDS: FUROSEMIDE 20 MG TAB PO SCH (09:00)
[2016-07-08] MEDS: HYDROCODONE/APAP (5/325) TAB PO SCH ×3 (09:00→21:20)
[2016-07-08] MEDS ORDERED: ACETAMINOPHEN 325 MG TAB PO PRN (09:00)
[2016-07-08] MEDS ORDERED: ALBUTEROL/IPRATROPIUM (NEB) 3 ML AMP HHN PRN (09:00)
[2016-07-08] MEDS ORDERED: NITROGLYCERIN (SL) 0.4 MG TAB SL PRN (09:00)
[2016-07-08] MEDS: LISINOPRIL 5 MG TAB PO SCH (09:00)
--- NOTE | 2016-07-08 10:11 | HP ---
DATE OF ADMISSION: 07/08/2016 CHIEF COMPLAINT: Abdominal pain. HISTORY OF PRESENT ILLNESS: The patient is a 50-year-old female with a history of bioprosthetic aor tic and mitral valve replacement, chronic pain syndrome, depression, anxiety, and seizure, who prese nted to the ER with abdominal pain. The patient was just discharged yesterday after 8 days of hospi talization. At that time she presented atypical chest pain, which was felt to be from the scar of t he recent open heart surgery. She was ruled out for acute coronary syndrome. Patient was discharge d yesterday, but returned with abdominal pain and also is saying that she could not get her prescrip tion refilled. She stated she was concerned because the pharmacy told her that they would not be ab le to fill her medications until a few days from now. Some of them could even take about a week, an d as such, she decided to come to the ER to address this situation as well as her abdominal pain. When she presented to the ER, her vitals were stable. A KUB was done which showed a moderately larg e stool burden. Chest x-ray shows shallower lung inflammation. Left greater than right basilar sub segmental atelectasis, which is unchanged from a chest x-ray a week ago. REVIEW OF SYSTEMS: A 12-point review of systems per HPI. PAST MEDICAL HISTORY: As per HPI. PAST SURGICAL HISTORY: As per HPI and also including partial lung resection, hysterectomy, oophorec cecile, left shoulder repair, cyst removal from the neck, and as mentioned in the HPI, bioprosthetic a ortic and mitral valve replacement in 03/2016. SOCIAL HISTORY: Denied history of tobacco, alcohol, or illicit drug use. ALLERGIES: 1. SULFA. 2. ASPIRIN. 3. CIPROFLOXACIN. 4. CODEINE. 5. IBUPROFEN. 6. CEPHALEXIN. HOME MEDICATIONS: 1. Albuterol. 2. Coumadin. 3. Digoxin. 4. Lisinopril. 5. [place]. 6. Meloxicam. 7. Tapentadol. 8. Lasix. 9. Potassium chloride. 10. Protonix. PHYSICAL EXAMINATION: VITAL SIGNS: Stable. GENERAL: The patient appears sleepy and weak, but she is arousable and answering questions appropri ately, but slowly. HEENT: No obvious head deformity. Pupils are reactive to light. No scleral icterus. CHEST: Lungs are clear. There is the scar from her open heart surgery without any sign of infecti on. CARDIOVASCULAR: Regular rate and rhythm. ABDOMEN: Soft. There is tenderness diffusely with no guarding or rebound tenderness and no rigidit y. EXTREMITIES: No edema. LABORATORY: WBC 17, hemoglobin 8.3, stable. Platelet count 376,000. Sodium 145, amylase 130. IMPRESSION: 1. Abdominal pain. 2. Generalized weakness. 3. Recent bioprosthetic aortic and mitral valve replacement. 4. Leukocytosis, steroid induced. 5. Anemia, stable. 6. History of depression and anxiety. PLAN: The patient's abdominal pain could possibly be secondary to constipation, because of moderate retained stool that was noted on the KUB, and as such, we will place her on a bowel regimen. The p atient also has chronic pain syndrome, and as such, also suspecting there is a narcotic dependency. We will continue her home medications with adjustments as needed. We will get a school social worker/director case management involved to make sure that the patient will have her prescription filled, and if that happe ns today, I feel like patient should be able to be discharged, but in the meantime we will place on a bowel regimen and she will also receive pain medication as needed. Further workup and management per clinical course. Dictated By: MICHAEL CRISOSTOMO/TIN Conf#: [id number] DID#: [id number]
[2016-07-08] MEDS: POTASSIUM CHLORIDE (SR) 20 MEQ TAB PO SCH (10:12)
[2016-07-08] MEDS: MELOXICAM 15 MG TAB PO SCH (10:12)
[2016-07-08] MEDS: PANTOPRAZOLE (EC) 40 MG TAB PO SCH (10:13)
[2016-07-08] MEDS: DIGOXIN 0.125 MG TAB PO SCH (10:13)
--- NOTE | 2016-07-08 14:59 | PN ---
Date/Time of Note Date/Time of Note DATE: 07/08/16 TIME: 14:54 Assessment/Plan VTE Prophylaxis VTE Prophylaxis Intervention: other (coumadin) Assessment/Plan Assessment/Plan 1. Pain at upper abdomen and chest at the sites of surgical scars, pain management 2. Chronic pain syndrome, stable, seeing pain management 3. S/p bioprosthetic aortic valve and mitral valve replacement, stable 4. Leukocytosis, steroid related, tapering steroid, no evidence of infection 5. research worker kitchen consultation Subjective 24 Hr Interval Summary Free Text/Dictation states still with pain at incisions on chest and upper abdomen. She states she cannot get pain medication filled since the pharmacy "needs to order it", and her pain management physician will be back on next Wednesday. Exam/Review of Systems Vital Signs Vitals Vital Signs Date Time Temp Pulse Resp B/P Pulse Ox O2 Delivery O2 Flow Rate FiO2 07/08/16 13:30 98.2 78 10 118/64 100 Room Air Exam Constitutional: alert, oriented, well developed Head: atraumatic, normocephalic Eyes: EOMI, PERRL, nl conjunctiva, nl lids, nl sclera ENMT: mucosa pink and moist, nl external ears & nose, nl lips & teeth, nl nasal mucosa & septum Neck: non-tender, supple Respiratory: clear to auscultation, normal air movement Cardiovascular: nl pulses, regular rate and rhythm, No S3, No S4, No bruits, No diastolic murmur, No edema, No gallop, No irregular rhythm, No jugular venous distention (JVD), No murmurs/extra sounds, No rub, No systolic murmur Gastrointestinal: nl liver, spleen, non-tender, soft Musculoskeletal: nl extremities to inspection Neurological: ROVING CARRIER II-XII intact, nl mental status, nl speech, nl strength Skin: nl turgor, rash or lesions Lymph: nl lymph nodes Results Result Diagram: 07/08/16 0350 07/08/16 0350 Results 24 hrs Laboratory Tests Test 07/08/16 03:50 Activated Partial Thromboplast Time 28.7 Alanine Aminotransferase (ALT/SGPT) 32 Albumin 3.3 Albumin/Globulin Ratio 1.13 Alkaline Phosphatase 100 Amylase Level 130 H Anion Gap 14 Aspartate Amino Transf (AST/SGOT) 21 Basophils # 0.2 H Basophils % 1.1 Blood Morphology Comment Blood Urea Nitrogen 18 Calcium Level 9.0 Carbon Dioxide Level 26 Chloride Level 109 Creatinine 0.70 Direct Bilirubin 0.00 Eosinophils # 0.0 Eosinophils % 0.2 Globulin 2.90 Glucose Level 81 Hematocrit 26.0 L Hemoglobin 8.3 L INR International Normalized Ratio 1.77 Indirect Bilirubin 0.0 Lipase 189 Lymphocytes # 3.9 H Lymphocytes % 22.7 Mean Corpuscular Hemoglobin 23.6 L Mean Corpuscular Hemoglobin Concent 31.7 L Mean Corpuscular Volume 74.4 L Mean Platelet Volume 9.2 Monocytes # 1.7 H Monocytes % 9.8 Neutrophils # 11.2 H Neutrophils % 66.2 Nucleated Red Blood Cells # 0.3 H Nucleated Red Blood Cells % 2.0 H Platelet Count 376 Potassium Level 3.8 Prothrombin Time 20.8 #H Prothrombin Time Ratio 1.6 Red Blood Count 3.50 L Red Cell Distribution Width 15.0 H Sodium Level 145 H Total Bilirubin 0.0 L Total Protein 6.2 Troponin I < 0.012 White Blood Count 17.0 H Medications Medications Current Medications Lorazepam (Ativan) 0.5 mg Q8H PRN PO ANXIETY; Start 07/08/16 at 09:00 Ondansetron HCl (Zofran Inj) 4 mg Q6H PRN IV NAUSEA AND/OR VOMITING; Start at 09:00 Nitroglycerin (Nitroglycerin (Sl Tab) 0.4 Mg) 1 tab Q5M PRN SL CHEST PAIN; Start 07/08/16 at 09:00 Acetaminophen (Tylenol Tab) 650 mg Q6H PRN PO PAIN LEVEL 1-3 OR FEVER; Start at 09:00 Digoxin (Digoxin) 0.125 mg Q48H PO Last administered on 07/08/16 10:13; Admin Dose 0.125 MG; Start 07/08/16 at 10:00 Furosemide (Lasix) 20 mg DAILY PO ; Start 07/08/16 at 09:00 Acetaminophen/ Hydrocodone Bitart ([place] (5/325)) 1 tab Q6H PO Last administered on 07/08/16 13:46; Admin Dose 1 TAB; Start 07/08/16 at 09:00 Lisinopril (Zestril) 5 mg DAILY PO ; Start 07/08/16 at 09:00 Meloxicam (Mobic) 15 mg DAILY PO Last administered on 07/08/16 10:12; Admin Dose 15 MG; Start 07/08/16 at 09:00 Pantoprazole (Protonix Tab) 40 mg DAILY@06 PO Last administered on 07/08/16 10 :13; Admin Dose 40 MG; Start 07/08/16 at 10:00 Potassium Chloride (Klor-Con 20) 20 meq DAILY PO Last administered on 10:12; Admin Dose 20 MEQ; Start 07/08/16 at 09:00 Warfarin Sodium (Coumadin) 4 mg DAILY@17 PO ; Start 07/08/16 at 17:00 RICHMOND SALINAS MD Jul 08, 2016 14:59
[2016-07-08 16:45] VITALS: TEMP 97.9
[2016-07-08 17:36] VITALS: BP 113/73; RESP 17
[2016-07-08 17:43] VITALS: PULSE 72
[2016-07-08 18:12] VITALS: Ht 152.4 cm; Wt 47.7 kg
[2016-07-08 19:57] VITALS: BP 170/77; RESP 17
[2016-07-08 20:59] VITALS: PULSE 67
[2016-07-08] MEDS: METHYLPREDNISOLONE 4 MG TAB PO SCH (21:00)
[2016-07-08] MEDS: LORAZEPAM 0.5 MG TAB PO PRN (21:19)
[2016-07-08] MEDS: WARFARIN 2 MG TAB PO SCH (21:20)
[2016-07-09] VITALS (14 sets, daily range): BP systolic 106–120; BP diastolic 52–68; PULSE 65–81; RESP 18–21
[2016-07-09] MEDS: HYDROCODONE/APAP (5/325) TAB PO SCH ×4 (03:00→20:37)
[2016-07-09] MEDS: PANTOPRAZOLE (EC) 40 MG TAB PO SCH (05:27)
[2016-07-09] MEDS ORDERED: INFLUENZA VIRUS VACCINE 0.5 ML (DISPENSING) IM* ONE (09:00)
[2016-07-09] MEDS: LISINOPRIL 5 MG TAB PO SCH (09:00)
[2016-07-09] MEDS: FUROSEMIDE 20 MG TAB PO SCH (09:00)
[2016-07-09] MEDS: MELOXICAM 15 MG TAB PO SCH (09:53)
[2016-07-09] MEDS: POTASSIUM CHLORIDE (SR) 20 MEQ TAB PO SCH (09:53)
[2016-07-09] MEDS: METHYLPREDNISOLONE 4 MG TAB PO SCH (10:00)
[2016-07-09 12:15] LABS: BASOPHIL # 0.1 10^3/ul (0.0-0.1); BASOPHILS % 0.8 % (0.0-2.0); EOSINOPHILS # 0.5 10^3/ul (0.0-0.5); EOSINOPHILS % 3.8 % (0.0-7.0); HEMATOCRIT 27.6 % (37.0-47.0); HEMOGLOBIN 8.7 g/dl (12.0-16.0); LYMPHOCYTES # 4.9 10^3/ul (0.8-2.9); LYMPHOCYTES % 40.5 % (15.0-51.0); MEAN CORPUSCULAR HEMOGLOBIN 23.6 pg (29.0-33.0); MEAN CORPUSCULAR HGB CONC 31.3 g/dl (32.0-37.0); MEAN CORPUSCULAR VOLUME 75.2 fl (82.0-101.0); MEAN PLATELET VOLUME 9.3 fl (7.4-10.4); MONOCYTE # 0.9 10^3/ul (0.3-0.9); MONOCYTES % 7.5 % (0.0-11.0); NEUTROPHIL # 5.7 10^3/ul (1.6-7.5); NEUTROPHILS % 47.4 % (39.0-77.0); NUCLEATED RED BLOOD CELLS% 3.2 /100WBC (0.0-0.0); PLATELET COUNT 381 10^3/UL (140-440); RED BLOOD COUNT 3.68 10^6/ul (4.20-5.40); RED CELL DISTRIBUTION WIDTH 15.8 % (11.5-14.5); UNCORRECTED WBC 12.1 10^3/ul (4.8-10.8); WHITE BLOOD COUNT 12.1 10^3/ul (4.8-10.8)
[2016-07-09 12:16] LABS: ALBUMIN 2.8 g/dl (3.3-4.9)
[2016-07-09 12:17] LABS: CONDITION 1; LH ANALYZER COMMENTS 1; NUCLEATED RED BLOOD CELLS # 0.4 10^3/ul (0.0-0.0); POTASSIUM 4.1 mmol/L (3.5-5.1)
[2016-07-09 12:19] LABS: CREATININE 0.71 mg/dl (0.44-1.00); TOTAL PROTEIN 5.6 g/dl (6.1-8.1)
[2016-07-09 12:20] LABS: CALCIUM 8.4 mg/dl (8.4-10.2)
[2016-07-09 12:24] LABS: INR 1.67; PROTIME 19.8 Sec (12.2-14.2); PT RATIO 1.5
--- NOTE | 2016-07-09 15:10 | PN ---
Date/Time of Note Date/Time of Note DATE: 07/09/16 TIME: 15:07 Assessment/Plan VTE Prophylaxis VTE Prophylaxis Intervention: other (coumadin) Lines/Catheters IV Catheter Type (from Nrsg): Peripheral IV Assessment/Plan Assessment/Plan 1. Pain at upper abdomen and chest at the sites of surgical scars, pain management 2. Chronic pain syndrome, stable, seeing pain management 3. S/p bioprosthetic aortic valve and mitral valve replacement, stable 4. Leukocytosis, steroid related, tapering steroid, no evidence of infection 5. dining service worker consultation Subjective 24 Hr Interval Summary Free Text/Dictation still has pain on chest at the incisions Exam/Review of Systems Vital Signs Vitals Vital Signs Date Time Temp Pulse Resp B/P Pulse Ox O2 Delivery O2 Flow Rate FiO2 07/09/16 12:26 81 07/09/16 11:32 97.9 20 106/52 100 07/08/16 16:45 Room Air Intake and Output 07/08/16 07/08/16 07/09/16 15:00 23:00 07:00 Intake Total 600 ml Balance 600 ml Exam Constitutional: alert, oriented, well developed Head: atraumatic, normocephalic Eyes: EOMI, PERRL, nl conjunctiva, nl lids, nl sclera ENMT: mucosa pink and moist, nl external ears & nose, nl lips & teeth, nl nasal mucosa & septum Neck: non-tender, supple Respiratory: clear to auscultation, normal air movement, No congested cough, No crackles/rales, No diminished breath sounds, No intercostal retraction, No labored breathing, No respirations, No tactile fremitus, No wheezing Cardiovascular: nl pulses, regular rate and rhythm, No S3, No S4, No bruits, No diastolic murmur, No edema, No gallop, No irregular rhythm, No jugular venous distention (JVD), No murmurs/extra sounds, No rub, No systolic murmur Gastrointestinal: nl liver, spleen, non-tender, soft, No ascites, No bowel sounds, No distended, No firm, No hepatomegaly, No mass , No rebound or guarding, No splenomegaly, No surgical scars, No tender Musculoskeletal: nl extremities to inspection Neurological: GIFT SHOP ASSISTANT II-XII intact, nl mental status, nl speech, nl strength Skin: nl turgor, rash or lesions Lymph: nl lymph nodes Results Result Diagram: 07/09/16 1118 07/09/16 1118 Results 24 hrs Laboratory Tests Test 07/09/16 11:10 07/09/16 11:18 INR International Normalized Ratio 1.67 Prothrombin Time 19.8 H Prothrombin Time Ratio 1.5 Alanine Aminotransferase (ALT/SGPT) 35 Albumin 2.8 L Albumin/Globulin Ratio 1.00 Alkaline Phosphatase 83 Anion Gap 14 Aspartate Amino Transf (AST/SGOT) 19 Basophils # 0.1 Basophils % 0.8 Blood Morphology Comment Blood Urea Nitrogen 13 Calcium Level 8.4 Carbon Dioxide Level 24 Chloride Level 108 Creatinine 0.71 Direct Bilirubin 0.00 Eosinophils # 0.5 Eosinophils % 3.8 Globulin 2.80 Glucose Level 70 Hematocrit 27.6 L Hemoglobin 8.7 L Indirect Bilirubin 0.0 Lymphocytes # 4.9 H Lymphocytes % 40.5 Mean Corpuscular Hemoglobin 23.6 L Mean Corpuscular Hemoglobin Concent 31.3 L Mean Corpuscular Volume 75.2 L Mean Platelet Volume 9.3 Monocytes # 0.9 Monocytes % 7.5 Neutrophils # 5.7 Neutrophils % 47.4 Nucleated Red Blood Cells # 0.4 H Nucleated Red Blood Cells % 3.2 H Platelet Count 381 Potassium Level 4.1 Red Blood Count 3.68 L Red Cell Distribution Width 15.8 H Sodium Level 142 Total Bilirubin 0.0 L Total Protein 5.6 L White Blood Count 12.1 #H Medications Medications Current Medications Lorazepam (Ativan) 0.5 mg Q8H PRN PO ANXIETY Last administered on 07/08/16 21: 19; Admin Dose 0.5 MG; Start 07/08/16 at 09:00 Ondansetron HCl (Zofran Inj) 4 mg Q6H PRN IV NAUSEA AND/OR VOMITING; Start at 09:00 Nitroglycerin (Nitroglycerin (Sl Tab) 0.4 Mg) 1 tab Q5M PRN SL CHEST PAIN; Start 07/08/16 at 09:00 Acetaminophen (Tylenol Tab) 650 mg Q6H PRN PO PAIN LEVEL 1-3 OR FEVER; Start at 09:00 Digoxin (Digoxin) 0.125 mg Q48H PO Last administered on 07/08/16 10:13; Admin Dose 0.125 MG; Start 07/08/16 at 10:00 Furosemide (Lasix) 20 mg DAILY PO ; Start 07/08/16 at 09:00 Acetaminophen/ Hydrocodone Bitart ([place] (5/325)) 1 tab Q6H PO Last administered on 07/09/16 11:33; Admin Dose 1 TAB; Start 07/08/16 at 09:00 Lisinopril (Zestril) 5 mg DAILY PO ; Start 07/08/16 at 09:00 Meloxicam (Mobic) 15 mg DAILY PO Last administered on 07/09/16 09:53; Admin Dose 15 MG; Start 07/08/16 at 09:00 Methylprednisolone (Medrol) 4 mg DAILY PO Last administered on 07/09/16 10:00 ; Admin Dose 4 MG; Start 07/08/16 at 21:00 Pantoprazole (Protonix Tab) 40 mg DAILY@06 PO Last administered on 07/09/16 05 :27; Admin Dose 40 MG; Start 07/08/16 at 10:00 Potassium Chloride (Klor-Con 20) 20 meq DAILY PO Last administered on 09:53; Admin Dose 20 MEQ; Start 07/08/16 at 09:00 Warfarin Sodium (Coumadin) 4 mg DAILY@17 PO Last administered on 07/08/16 21: 20; Admin Dose 4 MG; Start 07/08/16 at 17:00 RICHMOND SALINAS MD Jul 09, 2016 15:10
[2016-07-09] MEDS: OXYCODONE/ACETAMINOPHEN (10/325) TAB PO PRN ×2 (15:34→22:20)
[2016-07-09] MEDS: WARFARIN 2 MG TAB PO SCH (17:31)
[2016-07-09] MEDS: LORAZEPAM 0.5 MG TAB PO PRN (20:37)
[2016-07-10] VITALS (12 sets, daily range): BP systolic 105–144; BP diastolic 52–68; PULSE 60–91; RESP 18–21
[2016-07-10] MEDS: HYDROCODONE/APAP (5/325) TAB PO SCH ×2 (03:11→11:48)
[2016-07-10] MEDS: PANTOPRAZOLE (EC) 40 MG TAB PO SCH (06:26)
[2016-07-10] MEDS: OXYCODONE/ACETAMINOPHEN (10/325) TAB PO PRN ×2 (06:26→15:30)
[2016-07-10] MEDS: LISINOPRIL 5 MG TAB PO SCH (09:00)
[2016-07-10] MEDS: POTASSIUM CHLORIDE (SR) 20 MEQ TAB PO SCH (09:43)
[2016-07-10] MEDS: MELOXICAM 15 MG TAB PO SCH (09:43)
[2016-07-10] MEDS: DIGOXIN 0.125 MG TAB PO SCH (09:49)
[2016-07-10] MEDS: FUROSEMIDE 20 MG TAB PO SCH (11:49)
--- NOTE | 2016-07-10 14:17 | PN ---
Date/Time of Note Date/Time of Note DATE: 07/10/16 TIME: 14:15 Assessment/Plan VTE Prophylaxis VTE Prophylaxis Intervention: other (coumadin) Lines/Catheters IV Catheter Type (from Nrsg): Peripheral IV Assessment/Plan Assessment/Plan 1. Pain at upper abdomen and chest at the sites of surgical scars, pain management 2. Chronic pain syndrome, stable, seeing pain management 3. S/p bioprosthetic aortic valve and mitral valve replacement, stable 4. Leukocytosis, steroid related, tapering steroid, no evidence of infection 5. dialysis social worker consultation Subjective 24 Hr Interval Summary Free Text/Dictation still complains of pain at incisions. afebrile. Exam/Review of Systems Vital Signs Vitals Vital Signs Date Time Temp Pulse Resp B/P Pulse Ox O2 Delivery O2 Flow Rate FiO2 07/10/16 12:05 82 07/10/16 11:55 98.3 20 117/58 98 07/08/16 16:45 Room Air Intake and Output 07/09/16 07/09/16 07/10/16 15:00 23:00 07:00 Intake Total 1040 ml 700 ml Balance 1040 ml 700 ml Exam Constitutional: alert, oriented, well developed Head: atraumatic, normocephalic Eyes: EOMI, nl conjunctiva, nl lids ENMT: nl external ears & nose, nl lips & teeth, nl nasal mucosa & septum Neck: non-tender, supple Respiratory: clear to auscultation, normal air movement, No congested cough, No crackles/rales, No diminished breath sounds, No intercostal retraction, No labored breathing, No respirations, No tactile fremitus, No wheezing Cardiovascular: nl pulses, other, regular rate and rhythm, No S3, No S4, No bruits, No diastolic murmur, No edema, No gallop, No irregular rhythm, No jugular venous distention (JVD), No murmurs/extra sounds, No rub, No systolic murmur Gastrointestinal: nl liver, spleen, non-tender, soft, No ascites, No bowel sounds, No distended, No firm, No hepatomegaly, No mass , No rebound or guarding, No splenomegaly, No surgical scars, No tender Musculoskeletal: nl extremities to inspection Neurological: DEMONSTRATOR KNITTING II-XII intact, nl mental status, nl speech, nl strength Skin: nl turgor, rash or lesions Lymph: nl lymph nodes Results Result Diagram: 07/09/16 1118 07/09/16 1118 Medications Medications Current Medications Lorazepam (Ativan) 0.5 mg Q8H PRN PO ANXIETY Last administered on 07/09/16 20: 37; Admin Dose 0.5 MG; Start 07/08/16 at 09:00 Ondansetron HCl (Zofran Inj) 4 mg Q6H PRN IV NAUSEA AND/OR VOMITING; Start at 09:00 Nitroglycerin (Nitroglycerin (Sl Tab) 0.4 Mg) 1 tab Q5M PRN SL CHEST PAIN; Start 07/08/16 at 09:00 Acetaminophen (Tylenol Tab) 650 mg Q6H PRN PO PAIN LEVEL 1-3 OR FEVER; Start at 09:00 Digoxin (Digoxin) 0.125 mg Q48H PO Last administered on 07/10/16 09:49; Admin Dose 0.125 MG; Start 07/08/16 at 10:00 Furosemide (Lasix) 20 mg DAILY PO Last administered on 07/10/16 11:49; Admin Dose 20 MG; Start 07/08/16 at 09:00 Acetaminophen/ Hydrocodone Bitart ([place] (5/325)) 1 tab Q6H PO Last administered on 07/10/16 11:48; Admin Dose 1 TAB; Start 07/08/16 at 09:00 Lisinopril (Zestril) 5 mg DAILY PO ; Start 07/08/16 at 09:00 Meloxicam (Mobic) 15 mg DAILY PO Last administered on 07/10/16 09:43; Admin Dose 15 MG; Start 07/08/16 at 09:00 Pantoprazole (Protonix Tab) 40 mg DAILY@06 PO Last administered on 07/10/16 06 :26; Admin Dose 40 MG; Start 07/08/16 at 10:00 Potassium Chloride (Klor-Con 20) 20 meq DAILY PO Last administered on 09:43; Admin Dose 20 MEQ; Start 07/08/16 at 09:00 Warfarin Sodium (Coumadin) 4 mg DAILY@17 PO Last administered on 07/09/16 17: 31; Admin Dose 4 MG; Start 07/08/16 at 17:00 Oxycodone/ Acetaminophen ([place] (10/ 325)) 1 tab Q4H PRN PO PAIN Last administered on 07/10/16t 06:26; Admin Dose 1 TAB; Start 07/09/16 at 15:30 RICHMOND SALINAS MD Jul 10, 2016 14:17
[2016-07-10] MEDS: WARFARIN 2 MG TAB PO SCH (17:59)
[2016-07-10] MEDS: LORAZEPAM 0.5 MG TAB PO PRN (21:10)
[2016-07-11] VITALS (10 sets, daily range): BP systolic 122–141; BP diastolic 58–66; PULSE 68–77; RESP 17–20
[2016-07-11] MEDS: OXYCODONE/ACETAMINOPHEN (10/325) TAB PO PRN ×4 (05:26→19:47)
[2016-07-11] MEDS: PANTOPRAZOLE (EC) 40 MG TAB PO SCH (05:26)
[2016-07-11] MEDS: POTASSIUM CHLORIDE (SR) 20 MEQ TAB PO SCH (09:16)
[2016-07-11] MEDS: FUROSEMIDE 20 MG TAB PO SCH (09:17)
[2016-07-11] MEDS: LISINOPRIL 5 MG TAB PO SCH (09:17)
[2016-07-11] MEDS: MELOXICAM 15 MG TAB PO SCH (09:18)
[2016-07-11 10:39] LABS: INR 1.99; PROTIME 22.8 Sec (12.2-14.2); PT RATIO 1.8
--- NOTE | 2016-07-11 15:37 | PN ---
Date/Time of Note Date/Time of Note DATE: 07/11/16 TIME: 15:29 Assessment/Plan VTE Prophylaxis VTE Prophylaxis Intervention: SCD's Lines/Catheters IV Catheter Type (from Nrsg): Peripheral IV Assessment/Plan Chief Complaint/Hosp Course 1. Reported chest pain. Likely musculoskeletal from recent surgery for aortic and mitral valve replacement. Denies any chest pain at this time. 2. Abdominal pain. Patient reports still having "burning" abd pain. Will get GI consult 3. Recent aortic and mitral valve replacement. Continue on Coumadin 4. 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 Continue optimization with cardiovascular medications Disposition and plan: We'll get puppet engineer follow-up. Continue with analgesics as needed. Discussed plan of care with Dr. Banegas Problems: Subjective 24 Hr Interval Summary Free Text/Dictation resting at this time. still reports some abd pain Exam/Review of Systems Vital Signs Vitals Vital Signs Date Time Temp Pulse Resp B/P Pulse Ox O2 Delivery O2 Flow Rate FiO2 07/11/16 15:09 97.8 76 18 122/58 100 07/08/16 16:45 Room Air Intake and Output 07/10/16 07/10/16 07/11/16 15:00 23:00 07:00 Intake Total 900 ml 400 ml Balance 900 ml 400 ml Exam General: does report some abd pain Eyes: pupils equal round, Anicteric sclera Neck: Supple nontender, no JVD Cardiac: S1, S2 auscultated, regular rhythm and rate Pulmonary: No coarse rhonchi or breathing auscultated GI: tender left upper abd quaddrant Extremities: No edema bilateral lower extremities Skin: Clean dry and intact Neurologic: Alert to person place and time and situation Results Result Diagram: 07/09/16 1118 07/09/16 1118 Results 24 hrs Laboratory Tests Test 07/11/16 09:30 INR International Normalized Ratio 1.99 Prothrombin Time 22.8 H Prothrombin Time Ratio 1.8 Medications Medications Current Medications Lorazepam (Ativan) 0.5 mg Q8H PRN PO ANXIETY Last administered on 07/10/16t 21: 10; Admin Dose 0.5 MG; Start 07/08/16 at 09:00 Ondansetron HCl (Zofran Inj) 4 mg Q6H PRN IV NAUSEA AND/OR VOMITING; Start at 09:00 Nitroglycerin (Nitroglycerin (Sl Tab) 0.4 Mg) 1 tab Q5M PRN SL CHEST PAIN; Start 07/08/16 at 09:00 Acetaminophen (Tylenol Tab) 650 mg Q6H PRN PO PAIN LEVEL 1-3 OR FEVER; Start at 09:00 Digoxin (Digoxin) 0.125 mg Q48H PO Last administered on 07/10/16 09:49; Admin Dose 0.125 MG; Start 07/08/16 at 10:00 Furosemide (Lasix) 20 mg DAILY PO Last administered on 07/11/16 09:17; Admin Dose 20 MG; Start 07/08/16 at 09:00 Lisinopril (Zestril) 5 mg DAILY PO Last administered on 07/11/16 09:17; Admin Dose 5 MG; Start 07/08/16 at 09:00 Meloxicam (Mobic) 15 mg DAILY PO Last administered on 07/11/16 09:18; Admin Dose 15 MG; Start 07/08/16 at 09:00 Pantoprazole (Protonix Tab) 40 mg DAILY@06 PO Last administered on 07/11/16 05 :26; Admin Dose 40 MG; Start 07/08/16 at 10:00 Potassium Chloride (Klor-Con 20) 20 meq DAILY PO Last administered on 09:16; Admin Dose 20 MEQ; Start 07/08/16 at 09:00 Warfarin Sodium (Coumadin) 4 mg DAILY@17 PO Last administered on 07/10/16 17: 59; Admin Dose 4 MG; Start 07/08/16 at 17:00 Oxycodone/ Acetaminophen (Endocet (10/ 325)) 1 tab Q4H PRN PO PAIN Last administered on 07/11/16 14:10; Admin Dose 1 TAB; Start 07/09/16 at 15:30 SOURAV MONTANEZ Jul 11, 2016 15:37
[2016-07-11] MEDS: LORAZEPAM 0.5 MG TAB PO PRN (16:19)
[2016-07-11] MEDS: WARFARIN 2 MG TAB PO SCH (16:20)
[2016-07-12] VITALS (13 sets, daily range): BP systolic 108–142; BP diastolic 54–63; PULSE 67–75; RESP 18–20
[2016-07-12] MEDS: OXYCODONE/ACETAMINOPHEN (10/325) TAB PO PRN ×5 (00:20→20:45)
[2016-07-12] MEDS: PANTOPRAZOLE (EC) 40 MG TAB PO SCH (05:55)
[2016-07-12] MEDS: LISINOPRIL 5 MG TAB PO SCH (10:03)
[2016-07-12] MEDS: POTASSIUM CHLORIDE (SR) 20 MEQ TAB PO SCH (10:03)
[2016-07-12] MEDS: MELOXICAM 15 MG TAB PO SCH (10:04)
[2016-07-12] MEDS: DIGOXIN 0.125 MG TAB PO SCH (10:04)
[2016-07-12] MEDS: FUROSEMIDE 20 MG TAB PO SCH (10:04)
--- NOTE | 2016-07-12 11:05 | CONS ---
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 Status post open heart surgery 04-15-2016 * Aortic and mitral valve repair * Previous note from cardiology 06-29-16 * -continue warfarin, goal INR 2-3 * -continue digoxin * -no beta-jonathan due to borderline blood pressures * -echocardiogram showed LVEF 55-60%, moderate to severe aortic bioprosthesis regurgitation, normal mitral valve bioprosthesis, severe diastolic dysfunction * -patient reports normal coronary angiography prior to cardiac surgery March 2016, will not repeat coronary evaluation at this time * -no further cardiac work up at this time Further recommendations depend on clinical course Consultation Date/Type/Reason Admit Date/Time Jul 08, 2016 at 05:40 Type of Consultation: Gastroenterology Reason for Consultation Abdominal pain Hx of Present Illness 50-year-old female with reports of diffuse abdominal pain for the last 3 weeks. Patient states that pain is worse at epigastrium. Pain is intermittent and can last up to hours. Reports that movement makes it worse. Reports some nausea and episodes of loose stool, but denies vomiting, blood in stool, and black tarry stools. Patient denies previous episode of abdominal pain, history of GERD, IBS, or IBD. Patient reports EGD back in 2012 with finding of hiatal hernia and colonoscopy in 2012 with polyps that were removed. Patient was advised to repeat colonoscopy in a year, but due to insurance was unable to complete repeat. At bedside patient declines further colonoscopy. Abdominal x- ray July 08 notes "Moderately large stool burden". Patient states last bowel movement was yesterday and declines medications for bowel regimen. We will plan on EGD tomorrow afternoon. Patient advised of R/P/A of procedure and is agreeable to proceed. Patient has past medical history of open heart surgery. Patient status post mitral and aortic valve repair April 15, 2016. Past Medical History Medical History: congestive heart failure Past Surgical History Past Surgical Hx: other (Aortic and mitral valve repair) Social History Smoking Status: Former smoker Exam/Review of Systems Vital Signs Vitals Vital Signs Date Time Temp Pulse Resp B/P Pulse Ox O2 Delivery O2 Flow Rate FiO2 07/12/16 08:04 74 07/12/16 07:28 98.4 19 108/54 99 07/12/16 03:55 Room Air 07/11/16 20:31 21 Intake and Output 07/11/16 07/11/16 07/12/16 15:00 23:00 07:00 Intake Total 1200 ml 600 ml Output Total 1000 ml Balance 200 ml 600 ml Exam Constitutional: alert, oriented, other (Thin) Psych: nl mood/affect Head: normocephalic Eyes: EOMI, nl conjunctiva, nl lids, nl sclera ENMT: nl external ears & nose, nl lips & teeth, nl nasal mucosa & septum Respiratory: clear to auscultation Cardiovascular: regular rate and rhythm Gastrointestinal: soft, tender (Epigastric tenderness) Neurological: SNAP ATTACHER II-XII intact Skin: other (Longitudinal scar status post open heart) Results Result Diagram: 07/09/16 1118 07/09/16 1118 Medications Medications Current Medications Lorazepam (Ativan) 0.5 mg Q8H PRN PO ANXIETY Last administered on 07/11/16 16: 19; Admin Dose 0.5 MG; Start 07/08/16 at 09:00 Ondansetron HCl (Zofran Inj) 4 mg Q6H PRN IV NAUSEA AND/OR VOMITING; Start at 09:00 Nitroglycerin (Nitroglycerin (Sl Tab) 0.4 Mg) 1 tab Q5M PRN SL CHEST PAIN; Start 07/08/16 at 09:00 Acetaminophen (Tylenol Tab) 650 mg Q6H PRN PO PAIN LEVEL 1-3 OR FEVER; Start at 09:00 Digoxin (Digoxin) 0.125 mg Q48H PO Last administered on 07/12/16 10:04; Admin Dose 0.125 MG; Start 07/08/16 at 10:00 Furosemide (Lasix) 20 mg DAILY PO Last administered on 07/12/16 10:04; Admin Dose 20 MG; Start 07/08/16 at 09:00 Lisinopril (Zestril) 5 mg DAILY PO Last administered on 07/12/16 10:03; Admin Dose 5 MG; Start 07/08/16 at 09:00 Meloxicam (Mobic) 15 mg DAILY PO Last administered on 07/12/16 10:04; Admin Dose 15 MG; Start 07/08/16 at 09:00 Pantoprazole (Protonix Tab) 40 mg DAILY@06 PO Last administered on 07/12/16 05 :55; Admin Dose 40 MG; Start 07/08/16 at 10:00 Potassium Chloride (Klor-Con 20) 20 meq DAILY PO Last administered on 10:03; Admin Dose 20 MEQ; Start 07/08/16 at 09:00 Warfarin Sodium (Coumadin) 4 mg DAILY@17 PO Last administered on 07/11/16 16: 20; Admin Dose 4 MG; Start 07/08/16 at 17:00 Oxycodone/ Acetaminophen (Endocet (10/ 325)) 1 tab Q4H PRN PO PAIN Last administered on 07/12/16 04:37; Admin Dose 1 TAB; Start 07/09/16 at 15:30 OSCAR SOTO MD Jul 12, 2016 11:05
--- NOTE | 2016-07-12 12:10 | PN ---
Date/Time of Note Date/Time of Note DATE: 07/12/16 TIME: 12:09 Assessment/Plan VTE Prophylaxis VTE Prophylaxis Intervention: SCD's Lines/Catheters IV Catheter Type (from Nrsg): Saline Lock Assessment/Plan Chief Complaint/Hosp Course 1. Reported chest pain. Likely musculoskeletal from recent surgery for aortic and mitral valve replacement. Denies any chest pain at this time. 2. Abdominal pain. Patient reports still having "burning" abd pain. Await GI consultation 3. Recent aortic and mitral valve replacement. Continue on Coumadin 4. 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 Continue optimization with cardiovascular medications Disposition and plan: Continue with analgesics as needed. Match Up Worker to follow. We will follow-up with input Discussed plan of care with Dr. Banegas Problems: Subjective 24 Hr Interval Summary Free Text/Dictation Comfortable at present. No signs or symptoms of distress Exam/Review of Systems Vital Signs Vitals Vital Signs Date Time Temp Pulse Resp B/P Pulse Ox O2 Delivery O2 Flow Rate FiO2 07/12/16 11:21 98.4 77 19 142/63 100 07/12/16 03:55 Room Air 07/11/16 20:31 21 Intake and Output 07/11/16 07/11/16 07/12/16 15:00 23:00 07:00 Intake Total 1200 ml 600 ml Output Total 1000 ml Balance 200 ml 600 ml Exam General: does report some abd pain , little less Eyes: pupils equal round, Anicteric sclera Neck: Supple nontender, no JVD Cardiac: S1, S2 auscultated, regular rhythm and rate Pulmonary: No coarse rhonchi or breathing auscultated GI: tender left upper abd quaddrant Extremities: No edema bilateral lower extremities Skin: Clean dry and intact Neurologic: Alert to person place and time and situation Results Result Diagram: 07/09/16 1118 07/09/16 1118 Results 24 hrs Laboratory Tests Test 07/12/16 11:20 Amylase Level 129 H Direct Bilirubin 0.00 Lipase 72 Total Bilirubin 0.0 L Medications Medications Current Medications Lorazepam (Ativan) 0.5 mg Q8H PRN PO ANXIETY Last administered on 07/11/16t 16: 19; Admin Dose 0.5 MG; Start 07/08/16 at 09:00 Ondansetron HCl (Zofran Inj) 4 mg Q6H PRN IV NAUSEA AND/OR VOMITING; Start at 09:00 Nitroglycerin (Nitroglycerin (Sl Tab) 0.4 Mg) 1 tab Q5M PRN SL CHEST PAIN; Start 07/08/16 at 09:00 Acetaminophen (Tylenol Tab) 650 mg Q6H PRN PO PAIN LEVEL 1-3 OR FEVER; Start at 09:00 Digoxin (Digoxin) 0.125 mg Q48H PO Last administered on 07/12/16 10:04; Admin Dose 0.125 MG; Start 07/08/16 at 10:00 Furosemide (Lasix) 20 mg DAILY PO Last administered on 07/12/16 10:04; Admin Dose 20 MG; Start 07/08/16 at 09:00 Lisinopril (Zestril) 5 mg DAILY PO Last administered on 07/12/16 10:03; Admin Dose 5 MG; Start 07/08/16 at 09:00 Meloxicam (Mobic) 15 mg DAILY PO Last administered on 07/12/16 10:04; Admin Dose 15 MG; Start 07/08/16 at 09:00 Pantoprazole (Protonix Tab) 40 mg DAILY@06 PO Last administered on 07/12/16 05 :55; Admin Dose 40 MG; Start 07/08/16 at 10:00 Potassium Chloride (Klor-Con 20) 20 meq DAILY PO Last administered on 10:03; Admin Dose 20 MEQ; Start 07/08/16 at 09:00 Warfarin Sodium (Coumadin) 4 mg DAILY@17 PO Last administered on 07/11/16 16: 20; Admin Dose 4 MG; Start 07/08/16 at 17:00 Oxycodone/ Acetaminophen (Endocet (10/ 325)) 1 tab Q4H PRN PO PAIN Last administered on 07/12/16 04:37; Admin Dose 1 TAB; Start 07/09/16 at 15:30 SOURAV MONTANEZ Jul 12, 2016 12:10
[2016-07-12 12:11] LABS: HEMATOCRIT 29.1 % (37.0-47.0); HEMOGLOBIN 9.1 g/dl (12.0-16.0)
[2016-07-12] MEDS: LORAZEPAM 0.5 MG TAB PO PRN (13:28)
[2016-07-12] MEDS ORDERED: IOHEXOL 300MG/ML 150 ML BTL ONE (14:14)
--- NOTE | 2016-07-12 14:50 | RADRPT ---
PROCEDURE: CT abdomen and pelvis without and with contrast. CLINICAL INDICATION: Diffuse abdominal pain TECHNIQUE: CT scan of the abdomen and pelvis without contrast was performed and is reconstructed a t 2.5 mm contiguous axial intervals from the dome of the diaphragm to the inferior pubic rami.. The patient was then injected with 100 cc of Omnipaque-300 and postcontrast axial images were performed .. Sagittal and coronal reformatted images were obtained from the axial source images. The calculat ed radiation dose measures 642 mGy centimeters. The CTDI measures 6 mGy. COMPARISON: None FINDINGS: The lung bases are clear of any infiltrate or nodule. No effusion is seen. There is atelectasis in the posterior basal segment of the left lower lobe with plate-like atelectasis at the lateral base o f the right middle lobe. The liver is of normal size and contour. No discrete mass or ductal dilatation is seen. No gallst ones are visualized. No splenic, adrenal or pancreatic abnormalities present. Kidneys are of normal size and contour. No hydronephrosis, calculus or masses seen. Ureters are o f normal course and caliber with no stone. No bladder mass or stone is present. Uterus has been rem ashlee. No adnexal mass is seen. There is no aneurysm. No adenopathy is present. No bowel mass or obstruction is present. There is constipation. The appendix is not confidently se en, however, no inflamed appendix is identified.. No phlegmon, ascites or pneumoperitoneum is visua lized. The osseous structures are intact. IMPRESSION: No evidence of urolithiasis, obstructive uropathy, diverticulitis or appendicitis. Post hysterectomy. Constipation. Bibasilar atelectasis. .Donovan Orellana MD, MD Date Time Electronically viewed and signed by .Donovan Orellana MD, MD on 07/12/2016 14:50 .A/
[2016-07-12] MEDS: WARFARIN 2 MG TAB PO SCH (16:48)
[2016-07-13] VITALS (15 sets, daily range): BP systolic 94–142; BP diastolic 48–70; PULSE 62–77; RESP 15–20
[2016-07-13] MEDS: LORAZEPAM 0.5 MG TAB PO PRN ×2 (01:02→13:45)
[2016-07-13] MEDS: OXYCODONE/ACETAMINOPHEN (10/325) TAB PO PRN ×4 (01:45→21:38)
[2016-07-13] MEDS: PANTOPRAZOLE (EC) 40 MG TAB PO SCH (06:00)
[2016-07-13 08:02] LABS: INR 2.04; PARTIAL THROMBOPLASTIN TIME 37.2 Sec (25.0-35.0); PROTIME 23.2 Sec (12.2-14.2); PT RATIO 1.8
[2016-07-13 08:11] LABS: BASOPHIL # 0.1 10^3/ul (0.0-0.1); BASOPHILS % 1.7 % (0.0-2.0); EOSINOPHILS # 0.3 10^3/ul (0.0-0.5); EOSINOPHILS % 4.7 % (0.0-7.0); HEMATOCRIT 27.7 % (37.0-47.0); HEMOGLOBIN 8.7 g/dl (12.0-16.0); LYMPHOCYTES # 3.1 10^3/ul (0.8-2.9); LYMPHOCYTES % 42.5 % (15.0-51.0); MEAN CORPUSCULAR HEMOGLOBIN 23.9 pg (29.0-33.0); MEAN CORPUSCULAR HGB CONC 31.4 g/dl (32.0-37.0); MEAN CORPUSCULAR VOLUME 76.2 fl (82.0-101.0); MEAN PLATELET VOLUME 8.7 fl (7.4-10.4); MONOCYTE # 0.7 10^3/ul (0.3-0.9); MONOCYTES % 9.3 % (0.0-11.0); NEUTROPHILS % 41.8 % (39.0-77.0); PLATELET COUNT 335 10^3/UL (140-440); RED BLOOD COUNT 3.63 10^6/ul (4.20-5.40); RED CELL DISTRIBUTION WIDTH 16.6 % (11.5-14.5); UNCORRECTED WBC 7.3 10^3/ul (4.8-10.8); WHITE BLOOD COUNT 7.3 10^3/ul (4.8-10.8)
[2016-07-13 08:18] LABS: CONDITION 1; LH ANALYZER COMMENTS 1
[2016-07-13] MEDS: MELOXICAM 15 MG TAB PO SCH (08:56)
[2016-07-13] MEDS: POTASSIUM CHLORIDE (SR) 20 MEQ TAB PO SCH (08:56)
[2016-07-13] MEDS: FUROSEMIDE 20 MG TAB PO SCH (08:57)
[2016-07-13] MEDS: LISINOPRIL 5 MG TAB PO SCH (08:57)
--- NOTE | 2016-07-13 09:39 | PN ---
Date/Time of Note Date/Time of Note DATE: 07/13/16 TIME: 09:38 Assessment/Plan VTE Prophylaxis VTE Prophylaxis Intervention: SCD's Lines/Catheters IV Catheter Type (from Nrsg): Saline Lock Assessment/Plan Chief Complaint/Hosp Course 1. Reported chest pain. Likely musculoskeletal from recent surgery for aortic and mitral valve replacement. Denies any chest pain at this time. 2. Abdominal pain. Patient reports still having "burning" abd pain. GI is following. Continue on PPI. Plan for EGD 3. Recent aortic and mitral valve replacement. Continue on Coumadin 4. 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 Continue optimization with cardiovascular medications Disposition and plan: Continue with analgesics as needed. Plan for EGD today. Follow-up with results. Continue in-house monitoring Discussed plan of care with Dr. Frausto Problems: Subjective 24 Hr Interval Summary Free Text/Dictation still reports having some abd pain Exam/Review of Systems Vital Signs Vitals Vital Signs Date Time Temp Pulse Resp B/P Pulse Ox O2 Delivery O2 Flow Rate FiO2 07/13/16 07:55 98.8 63 17 109/55 98 07/13/16 04:00 Room Air 07/11/16 20:31 21 Intake and Output 07/12/16 07/12/16 07/13/16 15:00 23:00 07:00 Intake Total 1200 ml 800 ml Balance 1200 ml 800 ml Exam General: does report some abd pain , little less Eyes: pupils equal round, Anicteric sclera Neck: Supple nontender, no JVD Cardiac: S1, S2 auscultated, regular rhythm and rate Pulmonary: No coarse rhonchi or breathing auscultated GI: tender left upper abd quaddrant Extremities: No edema bilateral lower extremities Skin: Clean dry and intact Neurologic: Alert to person place and time and situation Results Result Diagram: 07/13/16 0600 07/09/16 1118 Results 24 hrs Laboratory Tests Test 07/12/16 11:20 07/13/16 06:00 Amylase Level 129 H Direct Bilirubin 0.00 Hematocrit 29.1 L 27.7 L Hemoglobin 9.1 L 8.7 L Lipase 72 Total Bilirubin 0.0 L Activated Partial Thromboplast Time 37.2 H Basophils # 0.1 Basophils % 1.7 Blood Morphology Comment Eosinophils # 0.3 Eosinophils % 4.7 INR International Normalized Ratio 2.04 Lymphocytes # 3.1 H Lymphocytes % 42.5 Mean Corpuscular Hemoglobin 23.9 L Mean Corpuscular Hemoglobin Concent 31.4 L Mean Corpuscular Volume 76.2 L Mean Platelet Volume 8.7 Monocytes # 0.7 Monocytes % 9.3 Neutrophils # 3.0 Neutrophils % 41.8 Nucleated Red Blood Cells # 0.0 Nucleated Red Blood Cells % 0.0 Platelet Count 335 Prothrombin Time 23.2 H Prothrombin Time Ratio 1.8 Red Blood Count 3.63 L Red Cell Distribution Width 16.6 H White Blood Count 7.3 # Medications Medications Current Medications Lorazepam (Ativan) 0.5 mg Q8H PRN PO ANXIETY Last administered on 07/13/16 01: 02; Admin Dose 0.5 MG; Start 07/08/16 at 09:00 Ondansetron HCl (Zofran Inj) 4 mg Q6H PRN IV NAUSEA AND/OR VOMITING; Start at 09:00 Nitroglycerin (Nitroglycerin (Sl Tab) 0.4 Mg) 1 tab Q5M PRN SL CHEST PAIN; Start 07/08/16 at 09:00 Acetaminophen (Tylenol Tab) 650 mg Q6H PRN PO PAIN LEVEL 1-3 OR FEVER; Start at 09:00 Digoxin (Digoxin) 0.125 mg Q48H PO Last administered on 07/12/16 10:04; Admin Dose 0.125 MG; Start 07/08/16 at 10:00 Furosemide (Lasix) 20 mg DAILY PO Last administered on 07/13/16 08:57; Admin Dose 20 MG; Start 07/08/16 at 09:00 Lisinopril (Zestril) 5 mg DAILY PO Last administered on 07/13/16 08:57; Admin Dose 5 MG; Start 07/08/16 at 09:00 Meloxicam (Mobic) 15 mg DAILY PO Last administered on 07/13/16 08:56; Admin Dose 15 MG; Start 07/08/16 at 09:00 Pantoprazole (Protonix Tab) 40 mg DAILY@06 PO Last administered on 07/13/16 06 :00; Admin Dose 40 MG; Start 07/08/16 at 10:00 Potassium Chloride (Klor-Con 20) 20 meq DAILY PO Last administered on 08:56; Admin Dose 20 MEQ; Start 07/08/16 at 09:00 Warfarin Sodium (Coumadin) 4 mg DAILY@17 PO Last administered on 07/11/16 16: 20; Admin Dose 4 MG; Start 07/08/16 at 17:00 Oxycodone/ Acetaminophen (Endocet (10/ 325)) 1 tab Q4H PRN PO PAIN Last administered on 07/13/16 09:03; Admin Dose 1 TAB; Start 07/09/16 at 15:30 SOURAV MONTANEZ Jul 13, 2016 09:39
[2016-07-13] MEDS ORDERED: PROPOFOL 20 ML ONE (16:27)
[2016-07-13] MEDS: SUCRALFATE 1 GM TAB PO SCH ×2 (17:00→21:37)
[2016-07-13] MEDS: WARFARIN 2 MG TAB PO SCH (17:44)
[2016-07-14] VITALS (10 sets, daily range): BP systolic 96–158; BP diastolic 46–74; PULSE 66–89; RESP 16–20
[2016-07-14] MEDS: OXYCODONE/ACETAMINOPHEN (10/325) TAB PO PRN ×3 (03:34→15:42)
[2016-07-14] MEDS: PANTOPRAZOLE (EC) 40 MG TAB PO SCH (06:15)
--- NOTE | 2016-07-14 06:50 | GILP ---
DATE OF PROCEDURE: PROCEDURE: Esophagogastroduodenoscopy with biopsies. BRIEF HISTORY AND INDICATIONS: The patient is being evaluated for epigastric and abdominal pain. PREMEDICATION: Monitored anesthesia care by anesthesiologist. SURGEON: Oscar Blum MD. INSTRUMENT USED: Olympus panendoscope. TECHNIQUE: After informed consent, with the patient/relatives understanding the procedure, its indic ations, potential risks and complications, including but not limited to: allergic reaction, bleeding , perforation or infection, and after all pertinent questions were answered to the patients satisfac tion, the patient/relatives signed witnessed informed consent. Following this, premedication was administered slowly IV push under careful cardiovascular and respi ratory monitoring with pulse oximetry, automatic blood pressure and salvage worker. Once the sedative effect was achieved the patient was place in the left lateral decubitus, the panen doscope was introduced and advanced under visual control. Careful examination of the upper gastrointestinal tract, both on insertion as well as withdrawal of the instrument disclosed the following findings: ESOPHAGUS: The mucosa of the entire esophagus appears within normal limits. There is no evidence of esophagitis, varices, neoplasm or stricture. No hiatal hernia identified. STOMACH: Upon entrance to the stomach, air was insufflated, the gastric duke distended normally. There is erythema and edema of the mucosa of a moderate degree. No biopsies are obtained given the patient's anticoagulation status. PYLORUS: The pylorus is patent within normal limits. DUODENUM: The duodenal bulb shows erythema and edema of the mucosa of a mild degree. The second po rtion of the duodenum appears unremarkable. The instrument was then withdrawn, the patient tolerated the procedure well and was transfer out of the endoscopy suite awake, and in good condition to continue recovery under observation IMPRESSION: 1. Moderate gastritis, rule out H. pylori infection. 2. Mild duodenitis. PLAN: The patient will be continued on PPIs. Carafate will be added to her regimen. Helicobacter pylori antigen and stool will be tested to rule out Helicobacter pylori infection. Dictated By: OSCAR BLUM MS/TIN Conf#: [id number] DID#: [id number]
[2016-07-14 07:44] LABS: POTASSIUM 5.5 mmol/L (3.5-5.1)
[2016-07-14 07:45] LABS: BASOPHILS % 0.4 % (0.0-2.0); EOSINOPHILS # 0.2 10^3/ul (0.0-0.5); EOSINOPHILS % 3.3 % (0.0-7.0); HEMATOCRIT 27.1 % (37.0-47.0); HEMOGLOBIN 8.5 g/dl (12.0-16.0); LYMPHOCYTES # 2.9 10^3/ul (0.8-2.9); LYMPHOCYTES % 43.4 % (15.0-51.0); MEAN CORPUSCULAR HEMOGLOBIN 23.7 pg (29.0-33.0); MEAN CORPUSCULAR HGB CONC 31.5 g/dl (32.0-37.0); MEAN CORPUSCULAR VOLUME 75.4 fl (82.0-101.0); MEAN PLATELET VOLUME 8.8 fl (7.4-10.4); MONOCYTE # 0.6 10^3/ul (0.3-0.9); MONOCYTES % 9.6 % (0.0-11.0); NEUTROPHIL # 2.9 10^3/ul (1.6-7.5); NEUTROPHILS % 43.3 % (39.0-77.0); PLATELET COUNT 304 10^3/UL (140-440); RED BLOOD COUNT 3.59 10^6/ul (4.20-5.40); RED CELL DISTRIBUTION WIDTH 17.6 % (11.5-14.5); UNCORRECTED WBC 6.8 10^3/ul (4.8-10.8); WHITE BLOOD COUNT 6.8 10^3/ul (4.8-10.8)
[2016-07-14 07:47] LABS: CREATININE 1.09 mg/dl (0.44-1.00); INR 1.98; PROTIME 22.7 Sec (12.2-14.2); PT RATIO 1.8
[2016-07-14 07:48] LABS: CALCIUM 8.7 mg/dl (8.4-10.2)
[2016-07-14 08:01] LABS: CONDITION 1; LH ANALYZER COMMENTS 1
[2016-07-14] MEDS: SUCRALFATE 1 GM TAB PO SCH ×3 (08:40→17:37)
[2016-07-14] MEDS: POTASSIUM CHLORIDE (SR) 20 MEQ TAB PO SCH (08:40)
[2016-07-14] MEDS: FUROSEMIDE 20 MG TAB PO SCH (08:41)
[2016-07-14] MEDS: MELOXICAM 15 MG TAB PO SCH (08:41)
[2016-07-14] MEDS: LISINOPRIL 5 MG TAB PO SCH (08:42)
[2016-07-14] MEDS ORDERED: DIGO125T6 PO (11:26)
[2016-07-14] MEDS ORDERED: ALBU90AE INHALATION (11:26)
[2016-07-14] MEDS ORDERED: WARF4TAB52 PO (11:26)
[2016-07-14] MEDS ORDERED: LAS20 PO (11:26)
[2016-07-14] MEDS ORDERED: WARF5TAB72 PO (11:26)
[2016-07-14] MEDS ORDERED: POTA20TA96 PO (11:26)
[2016-07-14] MEDS ORDERED: LISI-313 PO (11:27)
[2016-07-14] MEDS ORDERED: SUCR1TAB27 PO (11:27)
[2016-07-14] MEDS ORDERED: OXYC-431 PO (11:27)
[2016-07-14] MEDS ORDERED: PANT40TA4 PO (11:27)
[2016-07-14] MEDS: DIGOXIN 0.125 MG TAB PO SCH (11:56)
--- NOTE | 2016-07-14 12:54 | PDOCDIS ---
Discharge Instructions DIAGNOSIS Discharge Diagnosis: 1. Reported chest pain likely musculoskeletal 2. abd pain from gastritis CONDITION Patient Condition: Stable HOME CARE INSTRUCTIONS: Special Diet: CARDIAC FOLLOW UP/APPOINTMENTS Appointments 1. Follow up with Dr. Kandi Blum in one week 2. Follow up with your primary care provider in 1-2 weeks SOURAV MONTANEZ Jul 14, 2016 12:54
--- NOTE | 2016-07-14 13:01 | DS ---
Date/Time of Note Date/Time of Note DATE: 07/14/16 TIME: 13:00 Discharge Summary Admission/Discharge Info Admit Date/Time Jul 08, 2016 at 05:40 Discharge Date/Time Final Diagnosis 1. Reported chest pain. 2. Abdominal pain secondary to gastritis 3. Recent aortic and mitral valve replacement. 4. 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 Patient Condition: Stable Consults 1. Dr. Kandi Blum Hospital Course This is a 50-year-old female with history of bioprosthetic aortic and mitral valve replacement, chronic pain syndrome, depression, anxiety, seizure, who came to [facility] due to reports of abdominal pain. Of note patient was discharge recently for reports of chest pain which was felt to be from her scar from her recent heart surgery. She was ruled out for ACS at that time. She was initially discharged and came back to [facility] due to reports of abdominal pain. She also stated that her pharmacy was unable to fill prescriptions for her medications. She was brought to [facility] due to the aforementioned issues. Patient was optimized on her cardiovascular medications. Of note patient's chest pain did resolve. We did provide her with analgesics as needed. 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 She did have EGD that did show her to have moderate gastritis. She was placed on PPI medication as well as sucralfate. She did tolerate medications well. She was otherwise optimized medically. We did continue her on Coumadin for her recent aortic and mitral valve replacement. She was optimized with her cardiovascular medications for CHF. During the course of stay she did improve. The plan of care was discussed with the patient and patient did verbalize understanding. On the day of discharge patient was in stable condition Discussed plan of care with Dr. Frausto Discharge process time is 40 minutes Disposition: Home Home Meds Active Scripts Sucralfate (Carafate) 1 Gm Tablet, 1 GM PO QID for 30 Days, TAB Prov:SOURAV MONTANEZ 07/14/16 Pantoprazole* (Pantoprazole*) 40 Mg Tablet.dr 40 MG PO BID for 30 Days Prov:SOURAV MONTANEZ 07/14/16 Lisinopril* (Lisinopril*) 5 Mg Tablet, 5 MG PO DAILY for diastolic dysfrn, #30 TAB 1 Refill Prov:SOURAV MONTANEZ 07/14/16 Furosemide (Lasix) 20 Mg Tab, 20 MG PO DAILY for 30 Days, TAB Prov:TARIKSOURAV 07/14/16 Albuterol Sulfate (Proair Respiclick) 90 Mcg Aer.pow.ba, 2 PUFFS INHALATION Q4H Y for SHORTNESS OF BREATH, #1 VIAL Prov:KARLBRYCESOURAV 07/14/16 Potassium Chloride* (Potassium Chloride*) 20 Meq Tablet.er, 20 MEQ PO Q48 HOURS , #30 TAB.SA Prov:KARLSOURAV WU 07/14/16 Warfarin Sodium* (Coumadin*) 5 Mg Tablet, 5 MG PO 2 DAYS A WEEK for 2 Days, TAB Prov:SOURAV MONTANEZ 07/14/16 Warfarin Sodium* (Warfarin Sodium*) 4 Mg Tablet, 4 MG PO 5 DAYS A WEEK for 5 Days, TAB Prov:SOURAV MONTANEZ 07/14/16 Digoxin* (Lanoxin*) 0.125 Mg Tablet, 0.125 MG PO Q48H for 30 Days, TAB Prov:SOURAV MONTANEZ 07/14/16 Hydrocodone/Acetaminophen (Nyssa 5-325 Tablet) 1 Each Tablet, 1 EACH PO Q6H, # 20 TAB Prov:RICHMOND SALINAS MD 07/07/16 Meloxicam* (Mobic*) 15 Mg Tablet, 15 MG PO DAILY for 10 Days, TAB Prov:RICHMOND SALINAS MD 07/07/16 Methylprednisolone* (Medrol* DOSE PACK) 4 Mg/Dose-Pack Tab.ds.pk, 4 MG PO . DIRECTED, #1 PACKET Prov:KAYODE LECHUGA 07/01/16 Reported Medications Tapentadol Hcl (Nucynta ER) 200 Mg Tab.er.12h, 200 MG PO DAILY Y for PAIN, TAB 06/28/16 Tapentadol Hcl (Nucynta) 75 Mg Tablet, 75 MG PO TID Y for PAIN, TAB 06/28/16 Follow-up Plan CONDITION Patient Condition: Stable HOME CARE INSTRUCTIONS: Special Diet: CARDIAC FOLLOW UP/APPOINTMENTS Appointments 1. Follow up with Dr. Kandi Blum in one week 2. Follow up with your primary care provider in 1-2 weeks Pending Labs Laboratory Tests Test 07/14/16 06:30 Anion Gap 15 (8-16) Basophils # 0.010^3/ul (0.0-0.1) Basophils % 0.4% (0.0-2.0) Blood Morphology Comment Blood Urea Nitrogen 30mg/dl (7-20) Calcium Level 8.7mg/dl (8.4-10.2) Carbon Dioxide Level 32mmol/L (21-31) Chloride Level 99mmol/L (97-110) Creatinine 1.09mg/dl (0.44-1.00) Eosinophils # 0.210^3/ul (0.0-0.5) Eosinophils % 3.3% (0.0-7.0) Glucose Level 79mg/dl (70-220) Hematocrit 27.1% (37.0-47.0) Hemoglobin 8.5g/dl (12.0-16.0) INR International Normalized Ratio 1.98 Lymphocytes # 2.910^3/ul (0.8-2.9) Lymphocytes % 43.4% (15.0-51.0) Mean Corpuscular Hemoglobin 23.7pg (29.0-33.0) Mean Corpuscular Hemoglobin Concent 31.5g/dl (32.0-37.0) Mean Corpuscular Volume 75.4fl (82.0-101.0) Mean Platelet Volume 8.8fl (7.4-10.4) Monocytes # 0.610^3/ul (0.3-0.9) Monocytes % 9.6% (0.0-11.0) Neutrophils # 2.910^3/ul (1.6-7.5) Neutrophils % 43.3% (39.0-77.0) Nucleated Red Blood Cells # 0.010^3/ul (0.0-0.0) Nucleated Red Blood Cells % 0.0/100WBC (0.0-0.0) Platelet Count 42441^3/UL (140-440) Potassium Level 5.5mmol/L (3.5-5.1) Prothrombin Time 22.7Sec (12.2-14.2) Prothrombin Time Ratio 1.8 Red Blood Count 3.5910^6/ul (4.20-5.40) Red Cell Distribution Width 17.6% (11.5-14.5) Sodium Level 140mmol/L (135-144) White Blood Count 6.810^3/ul (4.8-10.8) SOURAV MONTANEZ Jul 14, 2016 13:01
[2016-07-14] MEDS: WARFARIN 2 MG TAB PO SCH (17:38)
== END 2016-07-14 19:47 | disposition home or self-care (01) | DRG 392 ==
LOC: E/R 03:26 → MS4 05:40
PROVIDERS: ADMIT Internal Medicine; ATTEND Internal Medicine
PROC: 0DJ08ZZ Inspection of Upper Intestinal Tract, Via Natural or Artificial Opening Endoscopic (ICD-10-PCS; principal; 2016-07-13 18:30)
DX: K29.70 Gastritis, unspecified, without bleeding (principal); I50.30 Unspecified diastolic (congestive) heart failure; R07.89 Other chest pain; Z95.2 Presence of prosthetic heart valve; Z79.01 Long term (current) use of anticoagulants; Z87.891 Personal history of nicotine dependence; D64.9 Anemia, unspecified; F41.8 Other specified anxiety disorders; K59.00 Constipation, unspecified; G89.4 Chronic pain syndrome; D72.829 Elevated white blood cell count, unspecified; K29.80 Duodenitis without bleeding
CPT/HCPCS: 36415; 71010; 74000; 74178; 80048; 80053; 82150; 82247; 82248; 83690; 84484; 85014; 85018; 85025; 85610; 85730; 90686; 94664; 96374; 96375; 96376; J1170; J2270; J2405; J7040; J7509; Q9967

== ENCOUNTER 2016-08-28 14:53 | Inpatient (IN) | payer OTHER ==
[~2016-08-28] VITALS: Ht 152.4 cm; Wt 45.1 kg
[~2016-08-28 14:53] MED LIST changes: -HYDR-906 PO; -MED4DP PO; -MELO-110 PO; +OXYC-431 PO; +SUCR1TAB27 PO; -TAPE75TA3 PO
[2016-08-28] MEDS ORDERED: CYCL-319 PO (21:21)
[2016-08-28] MEDS ORDERED: DIAZ10TA4 PO (21:23)
[2016-08-28] MEDS ORDERED: LIPA1CAP4 PO (21:23)
--- NOTE | 2016-08-28 21:36 | ERA ---
ER Documentation Chief Complaint Date/Time DATE: 08/28/16 TIME: 21:35 Chief Complaint ap, cp,body pains x 2 weeks, dc from hospital 4 days ago HPI The patient is a 51-year-old female, presenting to the ER because of multiple complaints. She complains of chronic diffuse epigastric abdominal pain, radiating to the sternal area intermittently for the last 2 days, 9/10 and dyspnea. She denies chest pain with exertion of vomiting or diaphoresis. She was discharged from [facility] 4 days ago for pneumonia [facility]. She denies fever, chills, neck pain, nausea, vomiting, dysuria, diarrhea, constipation. She does not smoke or drink Past medical history: Anxiety, history of CHF, chronic pain syndrome, depression , gastritis, hypertension Past surgical history: Mitral valve replacement, aortic valve replacement, hysterectomy, left shoulder arthroscopy, EGD on June 2016 that showed moderate gastritis ROS All systems reviewed and are negative except as per history of present illness. Medications Home Meds Active Scripts Pantoprazole* (Pantoprazole*) 40 Mg Tablet., 40 MG PO BID for 30 Days Prov:SOURAV MONTANEZ 07/14/16 Furosemide (Lasix) 20 Mg Tab, 20 MG PO DAILY for 30 Days, TAB Prov:SOURAV MONTANEZ 07/14/16 Warfarin Sodium* (Coumadin*) 5 Mg Tablet, 5 MG PO 2 DAYS A WEEK for 2 Days, TAB Prov:SOURAV MONTANEZ 07/14/16 Warfarin Sodium* (Warfarin Sodium*) 4 Mg Tablet, 4 MG PO 5 DAYS A WEEK for 5 Days, TAB Prov:SOURAV MONTANEZ 07/14/16 Digoxin* (Lanoxin*) 0.125 Mg Tablet, 0.125 MG PO Q48H for 30 Days, TAB Prov:SOURAV MONTANEZ 07/14/16 Reported Medications Diazepam* (Diazepam*) 10 Mg Tablet, 10 MG PO BID Y for PRN, TAB 08/28/16 Hssqpc-Dshzbukr-Xzypsag* (Erma GUAMAN* 12,000) 12,000 L-38,000-60,000 Unit Capsule., 1 CAP PO WITH MEALS, CAP 08/28/16 Cyclobenzaprine Hcl* (Cyclobenzaprine Hcl*) 10 Mg Tablet, 10 MG PO DAILY Y for PRN, #60 TAB 08/28/16 Discontinued Reported Medications Tapentadol Hcl (Nucynta ER) 200 Mg Tab.er.12h, 200 MG PO DAILY Y for PAIN, TAB 06/28/16 Discontinued Scripts Oxycodone HCl/Acetaminophen (Oxycodone-Acetaminophen 10-325) 1 Each Tablet, 1 TAB PO Q4H Y for PAIN, #30 TAB Prov:SOURAV MONTANEZ 07/14/16 Sucralfate (Carafate) 1 Gm Tablet, 1 GM PO QID for 30 Days, TAB Prov:SOURAV MONTANEZ 07/14/16 Lisinopril* (Lisinopril*) 5 Mg Tablet, 5 MG PO DAILY for diastolic dysfrn, #30 TAB 1 Refill Prov:SOURAV MONTANEZ 07/14/16 Albuterol Sulfate (Proair Respiclick) 90 Mcg Aer.pow.ba, 2 PUFFS INHALATION Q4H Y for SHORTNESS OF BREATH, #1 VIAL Prov:SOURAV MONTANEZ 07/14/16 Potassium Chloride* (Potassium Chloride*) 20 Meq Tablet.er, 20 MEQ PO Q48 HOURS , #30 TAB.SA Prov:KARLBRYCESOURAV 07/14/16 Allergies Allergies: Coded Allergies: Cephalexin Monohydrate (Verified Allergy, Mild, HIVES, 08/28/16) Sulfa (Sulfonamide Antibiotics) (Verified Allergy, Unknown, 08/28/16) ciprofloxacin (Verified Allergy, Unknown, 08/28/16) codeine (Verified Allergy, Unknown, 08/28/16) aspirin (Verified Adverse Reaction, Mild, ABD PAIN, 08/28/16) ibuprofen (Verified Adverse Reaction, Mild, ABD PAIN, 08/28/16) PMhx/Soc History of Surgery: Yes (lung resection, CABG, 2 stent placements,PNA) Anesthesia Reaction: No Hx Neurological Disorder: No Hx Respiratory Disorders: No Hx Cardiac Disorders: Yes Hx Psychiatric Problems: No Hx Miscellaneous Medical Probl: No Hx Alcohol Use: Yes (Hx ETOH use, sober for yrs per pt) Hx Substance Use: No Hx Tobacco Use: Yes (ex-smoker) Smoking Status: Former smoker Physical Exam Vitals Vital Signs Date Time Temp Pulse Resp B/P Pulse Ox O2 Delivery O2 Flow Rate FiO2 08/29/16 01:06 88 18 98/66 98 Room Air 08/29/16 00:00 79 17 116/79 100 Room Air 08/28/16 22:37 73 17 155/76 100 Room Air 08/28/16 14:57 98.1 85 18 145/66 99 Physical Exam Const: No acute distress. Head: Atraumatic. Eyes: Normal Conjunctiva. ENT: Normal External Ears, Nose and Mouth. Neck: Full range of motion. No meningismus. Resp: Clear to auscultation bilaterally. Cardio: Regular rate and rhythm, no murmurs. Abd: Soft, non distended, normal bowel sounds, moderate epigastric discomfort, no rigidity, rebound, CVA tenderness Skin: No petechiae or rashes. Back: No midline or flank tenderness. Ext: No cyanosis, or edema. Neur: Awake and alert. No focal deficit Psych: Normal Mood and Affect. Result Diagram: 08/28/16213408/28/162134 Results 24 hrs Laboratory Tests Test 08/28/16 21:35 08/28/16 21:45 08/28/16 23:43 08/28/16 23:45 Activated Partial Thromboplast Time 32.5Sec Alanine Aminotransferase (ALT/SGPT) 27IU/L Albumin 4.9g/dl Albumin/Globulin Ratio 1.06 Alkaline Phosphatase 238IU/L Anion Gap 22 Aspartate Amino Transf (AST/SGOT) 34IU/L Blood Urea Nitrogen 14mg/dl Calcium Level 10.2mg/dl Carbon Dioxide Level 26mmol/L Chloride Level 101mmol/L Creatinine 0.64mg/dl Direct Bilirubin 0.00mg/dl Globulin 4.60g/dl Glucose Level 82mg/dl Hematocrit 40.3% Hemoglobin 11.8g/dl INR International Normalized Ratio 1.52 Indirect Bilirubin 0.1mg/dl Lipase 227U/L Mean Corpuscular Hemoglobin 22.0pg Mean Corpuscular Hemoglobin Concent 29.3g/dl Mean Corpuscular Volume 75.0fl Mean Platelet Volume 10.0fl Platelet Count 21008^3/UL Potassium Level 4.1mmol/L Prothrombin Time 18.4Sec Prothrombin Time Ratio 1.4 Red Blood Count 5.3710^6/ul Red Cell Distribution Width 17.0% Sodium Level 145mmol/L Total Bilirubin 0.1mg/dl Total Protein 9.5g/dl Troponin I 0.019ng/ml 0.019ng/ml White Blood Count 7.110^3/ul Digoxin Level 0.7ng/ml Lactic Acid Level 1.6mmol/L Bedside Urine Blood 1+ Bedside Urine Glucose (UA) Negative Bedside Urine Ketones (LAB) Negative Bedside Urine Leukocyte Esterase (L Negative Bedside Urine Nitrite (LAB) Negative Bedside Urine Protein (LAB) Negative Bedside Urine pH (LAB) 5.5 Test 08/29/16 00:00 Lactic Acid Level 2.7mmol/L Current Medications Medications (Trade) Dose Ordered Sig/Millie Route PRN Reason Start Time Stop Time Status Last Admin Dose Admin Morphine Sulfate (morphine) 2 mg ONCE ONCE IV 08/28/16 22:30 08/28/16 22:31 DC 08/28/16 22:38 Ondansetron HCl (Zofran Inj) 4 mg ONCE STAT IV 08/28/16 22:07 08/28/16 22:09 DC 08/28/16 23:04 Pantoprazole (Protonix Iv) 40 mg ONCE ONCE IV 08/28/16 22:30 08/28/16 22:31 DC 08/28/16 23:04 IV Flush 10 ml 10 ml STK-MED ONCE .ROUTE 08/28/16 22:48 08/28/16 22:49 DC 08/28/16 22:57 Sodium Chloride 100 ml @ ud STK-MED ONCE .ROUTE 08/28/16 22:48 08/28/16 22:49 DC 08/28/16 22:57 Iohexol (Omnipaque) 100 ml @ ud STK-MED ONCE .ROUTE 08/28/16 22:49 08/28/16 22:50 DC 08/28/16 22:57 Clopidogrel Bisulfate (plaVIX) 75 mg ONCE ONCE PO 08/29/16 00:30 08/29/16 00:31 DC 08/29/16 00:35 Nitroglycerin (Nitroglycerin 2% Oint) 1 inch ONCE ONCE TD 08/29/16 00:30 08/29/16 00:31 DC 08/29/16 00:35 Procedures/MDM EKG: Read by emergency physician at 10:08 PM Rate/Rhythm: Normal Sinus Rhythm 71 beats/min QRS, ST, T-waves: No ST elevation, no T inversion, left atrial enlargement Impression: Abnormal EKG EKG: Read by emergency physician at 12:16 AM Rate/Rhythm: Normal Sinus Rhythm 81 beats/min QRS, ST, T-waves: No ST elevation, inferior lateral T-wave abnormality, left atrial enlargement Impression: Abnormal EKG [place] [address] Radiology Main Line: [phone] DIAGNOSTIC IMAGING REPORT Patient: OLENA PANTOJA : 1965 Age: 51 Sex: F MR #: [id number] DOS: 08/28/162137 Ordering MD: WHIT ALEGRIA MD Location: E/R Room/Bed: PROCEDURE: Portable chest x-ray. CLINICAL INDICATION: Sepsis. TECHNIQUE: Portable AP view of the chest. COMPARISON: 07/08/2016 FINDINGS: There is mild elevation of the left hemidiaphragm, unchanged. No pulmonary edema or conolidation is identified. Minimal atelectasis or scarring is noted in the lower lungs. The patient is status post median sternotomy, cardiac valve replacement, and atrial appendage clipping. The cardiac silhouette is magnified. No pleural effusion is seen. There is no pneumothorax. IMPRESSION: 1. No evidence of acute cardiopulmonary disease. 2. Status post cardiac valve replacement and atrial appendage clipping. RPTAT: HTAR .Dimas Cm MD, MD Date Time Electronically viewed and signed by .Dimas Cm MD, MD on 08/28/2016 23:39 .R/ CC: WHIT ALEGRIA MD [place] [address] Radiology Main Line: [phone] DIAGNOSTIC IMAGING REPORT Patient: OLENA PANTOJA : 1965 Age: 51 Sex: F MR #: [id number] DOS: 08/28/162137 Ordering MD: WHIT ALEGRIA MD Location: E/R Room/Bed: PROCEDURE: CT angiogram chest. CLINICAL INDICATION: Shortness of breath. TECHNIQUE: CT angiogram of the chest was performed utilizing axial images with reconstructions in sagittal and coronal planes following the intravenous administration of 100 cc Omnipaque 350 contrast. The administered radiation dose is CTDI 5.6 mGy, DLP 218 mGy-cm. COMPARISON: 06/30/2016 FINDINGS: Pulmonary angiogram: The pulmonary arteries are adequately opacified to the level of the segmental pulmonary artery branches. There is minimal respiratory motion artifact. There is no evidence of pulmonary embolus. Aortogram: There is no evidence of aortic dissection or aneurysm. Major branches of the aorta are patent. Chest: There is mild subsegmental atelectasis within the left greater than right lung bases. No pleural effusions are seen. The tracheobronchial tree is unremarkable. There is mild cardiomegaly. No pericardial effusion is seen. There is no evidence of mediastinal or hilar adenopathy. Prior median sternotomy is noted. A mitral valve prosthesis and left atrial appendage clamp are noted. Visualized Upper abdomen: Unremarkable. Osseous structures: Unremarkable. IMPRESSION: No evidence of pulmonary embolus. RPTAT: HIKT .Sulaiman Meyers MD, MD Date Time Electronically viewed and signed by .Sulaiman Meyers MD, MD on 08/28/2016 23:51 .T/ CC: WHIT ALEGRIA MD MEDICAL MAKING DECISION: The patient is a 51-year-old female with multiple cardiac risk factors, presenting staying with acute chest pain that is concerning for ACS. She was treated with Plavix 75 mg and 1 inch of nitroglycerin, morphine 2 mg IV for pain and Zofran 4 mg IV for nausea and Protonix 40 mg IV for gastritis with good response. The differential diagnoses considered include but are not limited to acute coronary syndrome, acute myocardial infarction, pericarditis, pulmonary embolism, aortic dissection, pneumonia, pleural effusion, pneumothorax, GERD, chest wall pain. Departure Diagnosis: Primary Impression: Chest pain Condition: Stable Comments I discussed the findings with the patient. I discussed the patient with the on- call hospitalist Dr. Acuna who was made aware of the lab, the treatment, the patient condition. The patient is admitted to telemetry at 1:15 AM WHIT ALEGRIA MD Aug 28, 2016 21:36
[2016-08-28 22:00] LABS: ADD SCAN DIFF NO
[2016-08-28] MEDS ORDERED: ONDANSETRON 4 MG INJ IV STA (22:07)
[2016-08-28 22:13] LABS: INR 1.52; PROTIME 18.4 Sec (12.2-14.2); PT RATIO 1.4
[2016-08-28 22:14] LABS: PARTIAL THROMBOPLASTIN TIME 32.5 Sec (25.0-35.0)
[2016-08-28 22:18] LABS: ALBUMIN 4.9 g/dl (3.3-4.9)
[2016-08-28 22:19] LABS: POTASSIUM 4.1 mmol/L (3.5-5.1)
[2016-08-28 22:21] LABS: ALBUMIN/GLOBULIN RATIO 1.06; BILIRUBIN,INDIRECT 0.1 mg/dl (0-1.1); BILIRUBIN,TOTAL 0.1 mg/dl (0.2-1.3); CREATININE 0.64 mg/dl (0.44-1.00); TOTAL PROTEIN 9.5 g/dl (6.1-8.1)
[2016-08-28 22:22] LABS: CALCIUM 10.2 mg/dl (8.4-10.2)
[2016-08-28 22:27] LABS: HEMATOCRIT 40.3 % (37.0-47.0); HEMOGLOBIN 11.8 g/dl (12.0-16.0); MEAN CORPUSCULAR HGB CONC 29.3 g/dl (32.0-37.0); PLATELET COUNT 543 10^3/UL (140-415); RED BLOOD COUNT 5.37 10^6/ul (4.20-5.40); WHITE BLOOD COUNT 7.1 10^3/ul (4.8-10.8)
[2016-08-28] MEDS ORDERED: PANTOPRAZOLE 40 MG INJ IV ONE (22:30)
[2016-08-28] MEDS ORDERED: morphine 2 MG INJ IV ONE (22:30)
[2016-08-28 22:33] LABS: TROPONIN-I 0.019 ng/ml (0.00-0.12)
[2016-08-28] MEDS ORDERED: SOD CHLORIDE 0.9% 100 ML ONE (22:48)
[2016-08-28] MEDS ORDERED: IOHEXOL 100 ML ONE (22:49)
[2016-08-28 23:39] LABS: URINE BLOOD (Dip) POC 1+ (NEGATIVE)
--- NOTE | 2016-08-28 23:39 | RADRPT ---
PROCEDURE: Portable chest x-ray. CLINICAL INDICATION: Sepsis. TECHNIQUE: Portable AP view of the chest. COMPARISON: 07/08/2016 FINDINGS: There is mild elevation of the left hemidiaphragm, unchanged. No pulmonary edema or conolidation is identified. Minimal atelectasis or scarring is noted in the lower lungs. The patient is status post median sternotomy, cardiac valve replacement, and atrial appendage clipping. The cardiac silhouett e is magnified. No pleural effusion is seen. There is no pneumothorax. IMPRESSION: 1. No evidence of acute cardiopulmonary disease. 2. Status post cardiac valve replacement and atrial appendage clipping. RPTAT: HTAR .Dimas Cm MD, Date Time Electronically viewed and signed by .Dimas Cm MD, on 08/28/2016 23:39 .R/
--- NOTE | 2016-08-28 23:51 | RADRPT ---
PROCEDURE: CT angiogram chest. CLINICAL INDICATION: Shortness of breath. TECHNIQUE: CT angiogram of the chest was performed utilizing axial images with reconstructions in sagittal and coronal planes following the intravenous administration of 100 cc Omnipaque 350 contras t. The administered radiation dose is CTDI 5.6 mGy, DLP 218 mGy-cm. COMPARISON: 06/30/2016 FINDINGS: Pulmonary angiogram: The pulmonary arteries are adequately opacified to the level of the segmental pulmonary artery branches. There is minimal respiratory motion artifact. There is no evidence of p ulmonary embolus. Aortogram: There is no evidence of aortic dissection or aneurysm. Major branches of the aorta are patent. Chest: There is mild subsegmental atelectasis within the left greater than right lung bases. No pleural ef fusions are seen. The tracheobronchial tree is unremarkable. There is mild cardiomegaly. No pericardial effusion is seen. There is no evidence of mediastinal o r hilar adenopathy. Prior median sternotomy is noted. A mitral valve prosthesis and left atrial ap pendage clamp are noted. Visualized Upper abdomen: Unremarkable. Osseous structures: Unremarkable. IMPRESSION: No evidence of pulmonary embolus. RPTAT: HIKT .Sulaiman Meyers MD, MD Date Time Electronically viewed and signed by .Sulaiman Meyers MD, MD on 08/28/2016 23:51 .T/
[2016-08-29] VITALS (8 sets, daily range): BP systolic 110–122; BP diastolic 56–60; PULSE 75–98; RESP 19; Ht 152.4 cm; Wt 45.1 kg
[2016-08-29] MEDS ORDERED: NITROGLYCERIN 2% 1 GM OINT PKT TD ONE (00:30)
[2016-08-29] MEDS ORDERED: CLOPIDOGREL 75 MG TAB PO ONE (00:30)
--- NOTE | 2016-08-29 03:13 | HP ---
Date/Time of Note Date/Time of Note DATE: 08/29/16 TIME: 03:13 Assessment/Plan VTE Prophylaxis VTE Prophylaxis Intervention: other (Lovenox until Therapeutic on Coumadin) Assessment/Plan Assessment/Plan 1) Chest pain, Suspect most or all is due to Musculoskeletal Pain, R/O Cardiac Pain - Admit to Tele - Serial Troponins - EKG as above - Patient is not therapeutic on her Coumadin so I have decreased her to 4 mg on 4 days and 5 mg on 3 days. 2) Musculoskeletal Chest Wall Pain - Patient is reassured that I cannot touch her chest wall and make either her heart or her lungs feel better or worse. - Apply Lidocaine patch to the painful area on left chest wall. It may relieve some or all of her pain. HPI/ROS Admit Date/Time Admit Date/Time 08/29/16 Hx of Present Illness Chief Complaint Abdominal Pain, Chest Pain, Body Aches HPI The patient is a 51-year-old female, presenting to the ER because of multiple complaints. She complains of chronic diffuse epigastric abdominal pain, radiating to the sternal area intermittently for the last 2 days, 9/10 and dyspnea per the ER physician's notes, but when I interview her, she complains more about pain on her left chest wall . . . also not associated with any symptoms other than when she takes/tries to take a deep breath, she feels a sharp pain in that area. She denies chest pain with exertion and she denies associated nausea, vomiting, diaphoresis or extreme fatigue. She was discharged from [facility] 4 days ago for pneumonia. She denies fever, chills, neck pain, nausea, vomiting, dysuria, diarrhea, constipation. She does not smoke or drink. While in the ED, she received the following treatments because of the acute onset and nature of her chest pain (concerning for ACS) and cardiac risk factors. She was treated with Plavix 75 mg and 1 inch of nitroglycerin, morphine 2 mg IV for pain and Zofran 4 mg IV for nausea and Protonix 40 mg IV for gastritis with good response. The differential diagnoses considered include but are not limited to acute coronary syndrome, acute myocardial infarction, pericarditis, pulmonary embolism, aortic dissection, pneumonia, pleural effusion, pneumothorax, GERD, chest wall pain. ROS Constitutional: fatigue (Mild), No chills, No febrile Eyes: No discharge, No visual change ENT: No congestion, No dysphagia, No sore throat Respiratory: pleuritic pain (On left side of chest), No cough, No wheezing Cardiovascular: chest pain, No edema, No palpitations Gastrointestinal: pain, No constipation, No diarrhea, No nausea, No vomiting Genitourinary: No dysuria, No flank pain, No hematuria Musculoskeletal: back pain (aches and pains) Skin: No bruising, No pruritis, No rash Neurologic: No confusion, No dizziness, No focal-weakness, No headache Endocrine: No polydypsia, No polyuria Lymphatic: No adenopathy, No tender nodes Immunologic: No pruritis, No rhinitis PMH/Family/Social Past Medical History Anxiety, history of CHF, chronic pain syndrome, depression, gastritis, hypertension Medical History: congestive heart failure Past Surgical History lung resection, CABG, 2 stent placements, PNA, Mitral Valve Replacement and Aortic Valve Replacement - 04/2016, hysterectomy, left shoulder arthroscopy, EGD in June 2016 that showed moderate gastritis Past Surgical Hx: other Social History Alcohol Use: sober Smoking Status: Former smoker Drug Use: none Exam/Review of Systems Vital Signs Vitals Vital Signs Date Time Temp Pulse Resp B/P Pulse Ox O2 Delivery O2 Flow Rate FiO2 08/29/16 02:00 84 16 92/62 97 Room Air 08/28/16 14:57 98.1 Exam Exam Const: Thin, Black female, Alert and oriented in No acute distress. Head: Normocephalic/Atraumatic. Eyes: Sclera non-icteric ENT: Normal External Ears, Nose and Mouth. Moist mucus membranes. Neck: Supple. No lymphadenopathy Resp: Clear to auscultation bilaterally with fair airflow throughout. Normal respiratory effort. Cardio: Normal rate and regular rhythm.II/VII CASSANDRA loudest along left sternal border. No gallops or clicks. Abd: Soft, non distended, normal bowel sounds, moderate epigastric discomfort, no rigidity, rebound, CVA tenderness Skin: Normal moisture and temperature. Good turgor. No rash appreciated. Ext: No cyanosis, or edema. Neur: CN II - XII grossly intact. Non-focal. Speech normal. Psych: Appropriate Mood and Affect. Good eye contact. Musculoskeletal: nl extremities to inspection, other (With palpation of her left chest wall, I was able to relieve most of her pain.) Labs Result Diagram: 08/28/16213408/28/162134 Medications Medications Home Meds Active Scripts Pantoprazole* (Pantoprazole*) 40 Mg Tablet., 40 MG PO BID for 30 Days Prov:SOURAV MONTANEZ 07/14/16 Furosemide (Lasix) 20 Mg Tab, 20 MG PO DAILY for 30 Days, TAB Prov:SOURAV MONTANEZ 07/14/16 Warfarin Sodium* (Coumadin*) 5 Mg Tablet, 5 MG PO 2 DAYS A WEEK for 2 Days, TAB Prov:SOURAV MONTANEZ 07/14/16 Warfarin Sodium* (Warfarin Sodium*) 4 Mg Tablet, 4 MG PO 5 DAYS A WEEK for 5 Days, TAB Prov:SOURAV MONTANEZ 07/14/16 Digoxin* (Lanoxin*) 0.125 Mg Tablet, 0.125 MG PO Q48H for 30 Days, TAB Prov:SOURAV MONTANEZ 07/14/16 Reported Medications Diazepam* (Diazepam*) 10 Mg Tablet, 10 MG PO BID Y for PRN, TAB 08/28/16 Hhbcpz-Onteinjp-Xybhldu* (Erma GUAMAN* 12,000) 12,000 L-38,000-60,000 Unit Capsule., 1 CAP PO WITH MEALS, CAP 08/28/16 Cyclobenzaprine Hcl* (Cyclobenzaprine Hcl*) 10 Mg Tablet, 10 MG PO DAILY Y for PRN, #60 TAB 08/28/16 Discontinued Reported Medications Tapentadol Hcl (Nucynta ER) 200 Mg Tab.er.12h, 200 MG PO DAILY Y for PAIN, TAB 06/28/16 Discontinued Scripts Oxycodone HCl/Acetaminophen (Oxycodone-Acetaminophen 10-325) 1 Each Tablet, 1 TAB PO Q4H Y for PAIN, #30 TAB Prov:SOURAV MONTANEZ 07/14/16 Sucralfate (Carafate) 1 Gm Tablet, 1 GM PO QID for 30 Days, TAB Prov:SOURAV MONTANEZ 07/14/16 Lisinopril* (Lisinopril*) 5 Mg Tablet, 5 MG PO DAILY for diastolic dysfrn, #30 TAB 1 Refill Prov:SOURAV MONTANEZ 07/14/16 Albuterol Sulfate (Proair Respiclick) 90 Mcg Aer.pow.ba, 2 PUFFS INHALATION Q4H Y for SHORTNESS OF BREATH, #1 VIAL Prov:SOURAV MONTANEZ 07/14/16 Potassium Chloride* (Potassium Chloride*) 20 Meq Tablet.er, 20 MEQ PO Q48 HOURS , #30 TAB.SA Prov:SOURAV MONTANEZ 07/14/16 Procedures Procedures Laboratory Tests Test 08/28/16 21:35 08/28/16 21:45 08/28/16 23:43 08/28/16 23:45 Activated Partial Thromboplast Time 32.5Sec Alanine Aminotransferase (ALT/SGPT) 27IU/L Albumin 4.9g/dl Albumin/Globulin Ratio 1.06 Alkaline Phosphatase 238IU/L Anion Gap 22 Aspartate Amino Transf (AST/SGOT) 34IU/L Blood Urea Nitrogen 14mg/dl Calcium Level 10.2mg/dl Carbon Dioxide Level 26mmol/L Chloride Level 101mmol/L Creatinine 0.64mg/dl Direct Bilirubin 0.00mg/dl Globulin 4.60g/dl Glucose Level 82mg/dl Hematocrit 40.3% Hemoglobin 11.8g/dl INR International Normalized Ratio 1.52 Indirect Bilirubin 0.1mg/dl Lipase 227U/L Mean Corpuscular Hemoglobin 22.0pg Mean Corpuscular Hemoglobin Concent 29.3g/dl Mean Corpuscular Volume 75.0fl Mean Platelet Volume 10.0fl Platelet Count 25265^3/UL Potassium Level 4.1mmol/L Prothrombin Time 18.4Sec Prothrombin Time Ratio 1.4 Red Blood Count 5.3710^6/ul Red Cell Distribution Width 17.0% Sodium Level 145mmol/L Total Bilirubin 0.1mg/dl Total Protein 9.5g/dl Troponin I 0.019ng/ml 0.019ng/ml White Blood Count 7.110^3/ul Digoxin Level 0.7ng/ml Lactic Acid Level 1.6mmol/L Bedside Urine Blood 1+ Bedside Urine Glucose (UA) Negative Bedside Urine Ketones (LAB) Negative Bedside Urine Leukocyte Esterase (L Negative Bedside Urine Nitrite (LAB) Negative Bedside Urine Protein (LAB) Negative Bedside Urine pH (LAB) 5.5 Test 08/29/16 00:00 Lactic Acid Level 2.7mmol/L EKG: EKG: Read by emergency physician at 10:08 PM Rate/Rhythm: Normal Sinus Rhythm 71 beats/min QRS, ST, T-waves: No ST elevation, no T inversion, left atrial enlargement Impression: Abnormal EKG EKG: Read by emergency physician at 12:16 AM Rate/Rhythm: Normal Sinus Rhythm 81 beats/min QRS, ST, T-waves: No ST elevation, inferior lateral T-wave abnormality, left atrial enlargement Impression: Abnormal EKG PROCEDURE: Portable chest x-ray. CLINICAL INDICATION: Sepsis. TECHNIQUE: Portable AP view of the chest. COMPARISON: 07/08/2016 FINDINGS: There is mild elevation of the left hemidiaphragm, unchanged. No pulmonary edema or conolidation is identified. Minimal atelectasis or scarring is noted in the lower lungs. The patient is status post median sternotomy, cardiac valve replacement, and atrial appendage clipping. The cardiac silhouette is magnified. No pleural effusion is seen. There is no pneumothorax. IMPRESSION: 1. No evidence of acute cardiopulmonary disease. 2. Status post cardiac valve replacement and atrial appendage clipping. RPTAT: HTAR .Dimas Cm MD, Date Time Electronically viewed and signed by .Dimas Cm MD, MD on 08/28/2016 23:39 .R/ CC: WHIT ALEGRIA MD [place] [id number] Radiology Main Line: [phone] DIAGNOSTIC IMAGING REPORT Patient: OLENA PANTOJA : 1965 Age: 51 Sex: F MR #: [id number] DOS: 08/28/16 2138 Ordering MD: WHIT ALEGRIA MD Location: E/R Room/Bed: PROCEDURE: CT angiogram chest. CLINICAL INDICATION: Shortness of breath. TECHNIQUE: CT angiogram of the chest was performed utilizing axial images with reconstructions in sagittal and coronal planes following the intravenous administration of 100 cc Omnipaque 350 contrast. The administered radiation dose is CTDI 5.6 mGy, DLP 218 mGy-cm. COMPARISON: 06/30/2016 FINDINGS: Pulmonary angiogram: The pulmonary arteries are adequately opacified to the level of the segmental pulmonary artery branches. There is minimal respiratory motion artifact. There is no evidence of pulmonary embolus. Aortogram: There is no evidence of aortic dissection or aneurysm. Major branches of the aorta are patent. Chest: There is mild subsegmental atelectasis within the left greater than right lung bases. No pleural effusions are seen. The tracheobronchial tree is unremarkable. There is mild cardiomegaly. No pericardial effusion is seen. There is no evidence of mediastinal or hilar adenopathy. Prior median sternotomy is noted. A mitral valve prosthesis and left atrial appendage clamp are noted. Visualized Upper abdomen: Unremarkable. Osseous structures: Unremarkable. IMPRESSION: No evidence of pulmonary embolus. RPTAT: HIKT .Sulaiman Meyers MD, MD Date Time Electronically viewed and signed by .Sulaiman Meyers MD, MD on 08/28/2016 23:51 .T/ CC: WHIT ALEGRIA MD, DANA DO Aug 29, 2016 03:13 pneumonia, pleural effusion, pneumothorax, GERD, chest wall pain. Departure Diagnosis: Primary Impression: Condition: Stable Comments I discussed the findings with the patient. I discussed the patient with the on- call hospitalist Dr. Acuna who was made aware of the lab, the treatment, the patient condition. The patient is admitted to telemetry at 1:15 AM PMH/Family/Social Past Medical History Medical History: congestive heart failure Past Surgical History lung resection, CABG, 2 stent placements, PNA, Mitral Valve Replacement and Aortic Valve Replacement - 04/2016 Past Surgical Hx: other Social History Alcohol Use: sober Smoking Status: Former smoker Drug Use: none Exam/Review of Systems Vital Signs Vitals Vital Signs Date Time Temp Pulse Resp B/P Pulse Ox O2 Delivery O2 Flow Rate FiO2 08/29/16 02:00 84 16 92/62 97 Room Air 08/28/16 14:57 98.1 Labs Result Diagram: 08/28/16213408/28/162134 Medications Medications Home Meds Active Scripts Pantoprazole* (Pantoprazole*) 40 Mg Tablet.dr, 40 MG PO BID for 30 Days Prov:SOURAV MONTANEZ 07/14/16 Furosemide (Lasix) 20 Mg Tab, 20 MG PO DAILY for 30 Days, TAB Prov:SOURAV MONTANEZ 07/14/16 Warfarin Sodium* (Coumadin*) 5 Mg Tablet, 5 MG PO 2 DAYS A WEEK for 2 Days, TAB Prov:SOURAV MONTANEZ 07/14/16 Warfarin Sodium* (Warfarin Sodium*) 4 Mg Tablet, 4 MG PO 5 DAYS A WEEK for 5 Days, TAB Prov:SOURAV MONTANEZ 07/14/16 Digoxin* (Lanoxin*) 0.125 Mg Tablet, 0.125 MG PO Q48H for 30 Days, TAB Prov:SOURAV MONTANEZ 07/14/16 Reported Medications Diazepam* (Diazepam*) 10 Mg Tablet, 10 MG PO BID Y for PRN, TAB 08/28/16 Celkee-Mdqurkks-Bfeajix* (Erma GUAMAN* 12,000) 12,000 L-38,000-60,000 Unit Capsule., 1 CAP PO WITH MEALS, CAP 08/28/16 Cyclobenzaprine Hcl* (Cyclobenzaprine Hcl*) 10 Mg Tablet, 10 MG PO DAILY Y for PRN, #60 TAB 08/28/16 Discontinued Reported Medications Tapentadol Hcl (Nucynta ER) 200 Mg Tab.er.12h, 200 MG PO DAILY Y for PAIN, TAB 06/28/16 Discontinued Scripts Oxycodone HCl/Acetaminophen (Oxycodone-Acetaminophen 10-325) 1 Each Tablet, 1 TAB PO Q4H Y for PAIN, #30 TAB Prov:SOURAV MONTANEZ 07/14/16 Sucralfate (Carafate) 1 Gm Tablet, 1 GM PO QID for 30 Days, TAB Prov:SOURAV MONTANEZ 07/14/16 Lisinopril* (Lisinopril*) 5 Mg Tablet, 5 MG PO DAILY for diastolic dysfrn, #30 TAB 1 Refill Prov:SOURAV MONTANEZ 07/14/16 Albuterol Sulfate (Proair Respiclick) 90 Mcg Aer.pow.ba, 2 PUFFS INHALATION Q4H Y for SHORTNESS OF BREATH, #1 VIAL Prov:SOURAV MONTANEZ 07/14/16 Potassium Chloride* (Potassium Chloride*) 20 Meq Tablet.er, 20 MEQ PO Q48 HOURS , #30 TAB.SA Prov:SOURAV MONTANEZ 07/14/16 NORAH ACUNA DO Aug 29, 2016 03:13
[2016-08-29] MEDS ORDERED: LORAZEPAM 0.5 MG TAB PO PRN (03:30)
[2016-08-29] MEDS ORDERED: ONDANSETRON 4 MG TAB PO PRN (03:30)
[2016-08-29] MEDS ORDERED: ACETAMINOPHEN 325 MG TAB PO PRN (03:30)
[2016-08-29] MEDS ORDERED: ONDANSETRON 4 MG INJ IV PRN (03:30)
[2016-08-29] MEDS ORDERED: NITROGLYCERIN (SL) 0.4 MG TAB SL PRN (03:30)
[2016-08-29] MEDS ORDERED: NACL 0.9% 3 ML SYG IV SCH (03:30)
[2016-08-29 04:06] LABS: EOSINOPHILS # 0.2 10^3/ul (0.0-0.5); MONOCYTE # 0.1 10^3/ul (0.3-0.9); NEUTROPHIL # 2.8 10^3/ul (1.6-7.5)
[2016-08-29 04:07] LABS: PLATELET ESTIMATE PLT APPEAR INCREASED
[2016-08-29] MEDS: FUROSEMIDE 20 MG TAB PO SCH (06:00)
[2016-08-29] MEDS: PANTOPRAZOLE (EC) 40 MG TAB PO SCH ×2 (06:34→17:41)
[2016-08-29] MEDS: CREON (12k-38k-60k) 1 CAP PO SCH ×4 (08:00→17:41)
[2016-08-29] MEDS ORDERED: LIDOCAINE 5% PATCH TD ONE (08:30)
[2016-08-29] MEDS ORDERED: ENOXAPARIN 30 MG/0.3 ML SYG SC SCH (09:00)
[2016-08-29] MEDS: morphine 2 MG INJ IV PRN ×3 (12:42→20:41)
[2016-08-29] MEDS ORDERED: DIGOXIN 0.125 MG TAB PO SCH ×2 (13:00)
[2016-08-29] MEDS: WARFARIN 2 MG TAB PO SCH (17:42)
[2016-08-29] MEDS: GABAPENTIN 300 MG CAP PO SCH (20:36)
[2016-08-29] MEDS ORDERED: OXYCODONE/ACETAMINOPHEN (5/325) TAB PO PRN (22:30)
[2016-08-30] VITALS (12 sets, daily range): BP systolic 118–131; BP diastolic 56–66; PULSE 75–86; RESP 18–20
[2016-08-30] MEDS: LIDOCAINE 5% PATCH TD SCH ×2 (01:41→08:51)
--- NOTE | 2016-08-30 03:06 | EN ---
Date/Time of Note Date/Time of Note DATE: 08/30/16 TIME: 01:33 ER Progress Note Called to bedside by RN as Security had to be called to manage patient. Patient is demanding instant relief of her pain. She was admitted just over 24 hours ago , by me. She has been monitored on Tele for that time and there have been no events. Her labs are unremarkable. When I originally evaluated her in the ER, her pain was in the left, lateral chest about ribs #4-6. When I applied pressure to that area, patient felt relief of her pain. I believe that her pain is musculoskeletal, and I ordered a Lidocaine patch to put on that area. Earlier today, I learned that patient did not want the patch on that area, but on her lower back which is where I find it tonight. About 2 to 3 hours ago, I received a call that patient wanted more IV Morphine as the 2 mg was not enough. I did not feel that adding more Morphine, in this case, would be right as medically, she can be discharged tomorrow. I changed her to Percocet 5/325, 2 po Q 6 hours. (I was called to a Rapid Response and had to take another patient to the ICU and also got 2 more patients, one of whom needed ICU admission) I also said she could have another patch for the original painful site and leave the other on the secondary site. I also suggested alternating hot and cold compresses to the painful area(s). I get another call that patient is refusing the Percocet saying her Pain Management doctor took her off of it. I asked what alternate medication she was put on, but there was no answer. Now, patient tells me that she was taken off the Percocet because her "heart is too weak" . . . but she does not know what that meant and was not referred to a Donor Relations Officer. She no longer sees that Pain Management doctor, either. While I was in the ER with the first 2 patients, I got 2 more admissions, including another that needs the ICU. I received a call from her RN stating that patient wants to take her own medications, but she won't give them up to the pharmacy AND she made a comment about overdosing on the medication if she did not ge more IV Morphine. Security had to be called. So I came up to see the patient. She does not have a Lidocaine patch on the original painful area, it is on her left lower back and ultimately, she also points to a painful area on her left anterior chest wall, about ribs #4 and 5. When I palpate that area, She admits that I am touching the painful area, she wants to know what it is. I told her it is likely costochondritis in that area. I start to tell her but she is not interested, so I go back to explaining that she has musculoskeletal pains, and that she does not need to be hospitalized for it. I reassurred her that her pain is not from her hear, lungs or kidneys. She specifically requests instant relief of her pain. I apologized, but there is nothing appropriate for me to give her to accomplish that and that she is ready to go home tomorrow and that I am trying to get her on an oral regimen. The conversation went around at least 3 times. I stood firm - no more IV narcotics. I will prescribe a plan, and if she does not want to follow it, she does not have to, but I cannot take care of her when she does not do what I suggest. The medications she has is Cyclobenzaprine and Diazepam. She says her Pain Management doctor took her off Soma and put her on the Cyclobenzaprine. She says the home regimen does not work, and she explains that to get relief she might accidentally overdose on it. And then, she says, what about my neuropathy . . . you are not taking care of that . . . This entire conversation was witnessed by her RN and the staff electronic warfare officer. I am left with no choice but to NOT give her any Benzos or Narcotics. I will still let her have the Lidocaine patches, #2 that can be cut and placed where she has pain for a max of 12 hours per day. I will increase her Gabapentin to 600 mg at HS and keep it at 300 mg in am and noon, and she can have a plan to increase it over the next week to 600 mg TID and follow-up with her PCP after discharge. Her expectations of complete, instant pain relief are unreasonable. She needs outpatient management. I will also order a [employer] Consult for options for appropriate outpatient help. NORAH MARTINEZ DO Aug 30, 2016 03:06
[2016-08-30] MEDS: FUROSEMIDE 20 MG TAB PO SCH (06:01)
[2016-08-30] MEDS: PANTOPRAZOLE (EC) 40 MG TAB PO SCH ×2 (06:01→18:37)
[2016-08-30 06:23] LABS: ADD SCAN DIFF NO
[2016-08-30 06:29] LABS: HEMATOCRIT 32.9 % (37.0-47.0); HEMOGLOBIN 9.9 g/dl (12.0-16.0); MEAN CORPUSCULAR HEMOGLOBIN 22.7 pg (29.0-33.0); MEAN CORPUSCULAR HGB CONC 30.1 g/dl (32.0-37.0); MEAN CORPUSCULAR VOLUME 75.3 fl (82.0-101.0); MEAN PLATELET VOLUME 9.4 fl (7.4-10.4); PLATELET COUNT 509 10^3/UL (140-415); RED BLOOD COUNT 4.37 10^6/ul (4.20-5.40); RED CELL DISTRIBUTION WIDTH 16.5 % (11.5-14.5); WHITE BLOOD COUNT 7.1 10^3/ul (4.8-10.8)
[2016-08-30 06:44] LABS: INR 1.76; PROTIME 20.7 Sec (12.2-14.2); PT RATIO 1.6
[2016-08-30 06:45] LABS: POTASSIUM 4.5 mmol/L (3.5-5.1)
[2016-08-30 06:48] LABS: CALCIUM 9.3 mg/dl (8.4-10.2); CREATININE 0.91 mg/dl (0.44-1.00)
[2016-08-30 06:50] LABS: PHOSPHORUS 6.2 mg/dl (2.5-4.9)
[2016-08-30] MEDS: CREON (12k-38k-60k) 1 CAP PO SCH ×3 (08:00→20:40)
[2016-08-30] MEDS: GABAPENTIN 300 MG CAP PO SCH ×3 (08:50→20:40)
[2016-08-30] MEDS ORDERED: INFLUENZA VIRUS VACCINE 0.5 ML (DISPENSING) IM* ONE (09:00)
[2016-08-30 11:13] LABS: BASOPHIL # 0.2 10^3/ul (0.0-0.1); EOSINOPHILS # 0.1 10^3/ul (0.0-0.5); LYMPHOCYTES # 4.3 10^3/ul (0.8-2.9); MONOCYTE # 0.4 10^3/ul (0.3-0.9); NEUTROPHIL # 1.8 10^3/ul (1.6-7.5)
[2016-08-30] MEDS: WARFARIN 2 MG TAB PO SCH (18:37)
--- NOTE | 2016-08-30 19:02 | PN ---
DATE: 08/30/2016 TIME OF EVALUATION: 1300. SUBJECTIVE DATA: The patient has been complaining of severe chest wall pain overnight and was asking to increase her pain medication. Currently, the patient is reporting blood in urine. OBJECTIVE DATA: VITAL SIGNS: Temperature 98.2, pulse rate 82, respiratory rate 19, blood pressure 126/60, oxygen saturation 96% on room air. GENERAL: This is a thin, frail-looking -Citizen Of [place] female, lying in bed, in no apparent distress. HEENT: Head normocephalic and atraumatic. Eyes: Anicteric sclerae. Conjunctivae clear. ENT: Nasal septum is midline. Oral mucosa is moist. NECK: Supple. No JVD noticed. RESPIRATORY: Bilaterally clear to auscultation. No adventitious breath sounds. No use of accessory muscles of respiration. CARDIAC: Regular rate and rhythm. Systolic murmur. Diastolic murmur. ABDOMEN: Soft, nontender, and nondistended. Bowel sounds positive in all 4 quadrants. GENITOURINARY: Deferred. EXTREMITIES: No cyanosis, no clubbing, no edema. Peripheral pulses are palpable. NEUROLOGIC: The patient is awake, alert, and oriented. Cranial nerves are grossly intact. LABORATORY AND DIAGNOSTIC DATA: WBC 7.1, hemoglobin 9.9, hematocrit 32.9, platelet count 509. Sodium 142, potassium 4.5, chloride 103, carbon dioxide 28 , anion gap 16, BUN 23, creatinine 0.91, glucose 88, calcium 9.3, phosphorus 6.2 , magnesium 2.0. ASSESSMENT AND PLAN: 1. Chest pain, most probably atypical chest pain. The patient's chest pain is pleuritic in origin. Continue pain control. The patient was evaluated by Cardiology in 06/2016. The patient's chest wall pain is not cardiac in origin. 2. Status post bioprosthetic mitral valve replacement. Continue the patient on anticoagulation. 3. Paroxysmal atrial fibrillation (history). Currently in sinus rhythm. Continue anticoagulation. 4. Grade III to grade IV diastolic heart failure. Continue cardiac medications. No evidence of any acute decompensation. 5. Chronic pain syndrome. Continue pain medications. 6. Microcytic hypochromic anemia. Continue to monitor the H and H closely. Transfuse as needed. 7. Reported hematuria. The patient's urinalysis from the day of admission showed 1+ hematuria. Will resend a urinalysis to evaluate the extent of hematuria. There is no gross hematuria reported. 8. Fluid, electrolytes, and nutrition. Low cholesterol diet. 9. Deep venous thrombosis prophylaxis. On therapeutic anticoagulation. 10. Gastrointestinal prophylaxis. Proton pump inhibitors. PLAN: Continue pain control. The patient has been ruled out for any ACS. Await urinalysis to evaluate the extent of hematuria. If the repeat urinalysis does not show any significant hematuria, the patient will be discharged home. Case discussed with Dr. Lechuga. SUKUMAR LECHUGA MD, AM/TIN Conf#: [id number] DID#: [id number] MAYI
[2016-08-30 20:04] LABS: ADD UMIC YES; URINE BILIRUBIN (Dip) NEGATIVE (NEGATIVE); URINE BLOOD (Dip) TRACE (NEGATIVE); URINE COLOR LT. YELLOW (YELLOW); URINE GLUCOSE (Dip) NEGATIVE (NEGATIVE); URINE KETONES (Dip) NEGATIVE (NEGATIVE); URINE LEUKOCYTE ESTERASE (Dip) TRACE (NEGATIVE); URINE NITRITE (Dip) NEGATIVE (NEGATIVE); URINE TOTAL PROTEIN (Dip) NEGATIVE (NEGATIVE); URINE UROBILINOGEN (Dip) 0.2 E.U./dL (0.1-1.0)
[2016-08-30 20:47] LABS: BACTERIA,URINE RARE; SQUAMOUS EPITHELIAL CELL,UR FEW; URINE RBCS 0-2 /HPF (0)
[2016-08-30] MEDS ORDERED: GABAPENTIN 300 MG CAP PO SCH (21:00)
[2016-08-31] VITALS (10 sets, daily range): BP systolic 121–134; BP diastolic 56–64; PULSE 75–81; RESP 18–20
[2016-08-31] MEDS: FUROSEMIDE 20 MG TAB PO SCH (06:13)
[2016-08-31] MEDS: PANTOPRAZOLE (EC) 40 MG TAB PO SCH ×2 (06:13→17:38)
[2016-08-31 08:32] LABS: ADD SCAN DIFF NO
[2016-08-31 08:40] LABS: BASOPHIL # 0.1 10^3/ul (0.0-0.1); BASOPHILS % 1.2 % (0.0-2.0); EOSINOPHILS # 0.2 10^3/ul (0.0-0.5); EOSINOPHILS % 4.1 % (0.0-7.0); HEMATOCRIT 33.9 % (37.0-47.0); HEMOGLOBIN 10.1 g/dl (12.0-16.0); LYMPHOCYTES # 3.3 10^3/ul (0.8-2.9); LYMPHOCYTES % 57.1 % (15.0-51.0); MEAN CORPUSCULAR HEMOGLOBIN 22.2 pg (29.0-33.0); MEAN CORPUSCULAR HGB CONC 29.8 g/dl (32.0-37.0); MEAN CORPUSCULAR VOLUME 74.5 fl (82.0-101.0); MEAN PLATELET VOLUME 10.7 fl (7.4-10.4); MONOCYTE # 0.4 10^3/ul (0.3-0.9); MONOCYTES % 7.4 % (0.0-11.0); NEUTROPHIL # 1.7 10^3/ul (1.6-7.5); NEUTROPHILS % 29.9 % (39.0-77.0); PLATELET COUNT 533 10^3/UL (140-415); RED BLOOD COUNT 4.55 10^6/ul (4.20-5.40); RED CELL DISTRIBUTION WIDTH 16.9 % (11.5-14.5); WHITE BLOOD COUNT 5.8 10^3/ul (4.8-10.8)
[2016-08-31 08:54] LABS: INR 1.77; PROTIME 20.8 Sec (12.2-14.2); PT RATIO 1.6
[2016-08-31 08:55] LABS: POTASSIUM 3.7 mmol/L (3.5-5.1)
[2016-08-31 08:57] LABS: MAGNESIUM 2.1 mg/dl (1.7-2.5); PHOSPHORUS 3.1 mg/dl (2.5-4.9)
[2016-08-31 08:58] LABS: CREATININE 0.74 mg/dl (0.44-1.00)
[2016-08-31 08:59] LABS: CALCIUM 9.4 mg/dl (8.4-10.2)
[2016-08-31] MEDS ORDERED: DIGOXIN 0.125 MG TAB PO SCH (09:00)
[2016-08-31] MEDS ORDERED: WARFARIN 5 MG TAB PO SCH ×2 (09:00→17:00)
[2016-08-31] MEDS: CREON (12k-38k-60k) 1 CAP PO SCH ×3 (09:16→17:39)
[2016-08-31] MEDS: GABAPENTIN 300 MG CAP PO SCH ×2 (09:16→13:09)
[2016-08-31] MEDS: LIDOCAINE 5% PATCH TD SCH (09:16)
[2016-08-31] MEDS ORDERED: GABA300C16 PO ×2 (16:51)
[2016-08-31] MEDS ORDERED: PANT40TA4 PO (16:51)
[2016-08-31] MEDS ORDERED: MELO-110 PO (16:51)
[2016-08-31] MEDS ORDERED: DOXY-220 PO (16:51)
--- NOTE | 2016-08-31 16:53 | PDOCDIS ---
Discharge Instructions DIAGNOSIS Discharge Diagnosis: 1. Chest pain. 2. diastolic CHF 3. reported hematuria secondary to uti CONDITION Patient Condition: Stable HOME CARE INSTRUCTIONS: Special Diet: Carb-controlled FOLLOW UP/APPOINTMENTS Appointments 1. Follow up with your press worker helper in one week 2. Follow up with your primary care provider in 1-2 week SOURAV Laguna Aug 31, 2016 16:53
--- NOTE | 2016-08-31 17:07 | PN ---
Date/Time of Note Date/Time of Note DATE: 08/31/16 TIME: 17:04 Assessment/Plan VTE Prophylaxis VTE Prophylaxis Intervention: SCD's Lines/Catheters Urinary Cath still in place: No Assessment/Plan Chief Complaint/Hosp Course Assessment and plan 1. Chest pain. Atypical. Ruled out for ACS. No chest pain reported at this time 2. History of bioprosthetic mitral valve replacement. Continue anticoagulation. Further monitoring per patient's outpatient physician 3. History of diastolic heart failure (grade 3 to grade 4. Continue optimization with cardiovascular medications. 4. Chronic pain syndrome. Continue analgesics 5. Anemia. Stable at present. Will monitor for now. 6. Reported hematuria. Patient with trace leukocyte esterase test. Suspect likely secondary to UTI. Continue antibiotics. Disposition and plan: Overall does appear improved. Discharge planning in progress for home with home health services for further monitoring of Coumadin level. Will follow up with case management should Home health not be able to be provided that we get patient Coumadin clinic. Discharge 1 set up Discussed plan of care with Dr. Espinal Problems: Subjective 24 Hr Interval Summary Free Text/Dictation No acute distress noted. Comfortable at present Exam/Review of Systems Vital Signs Vitals Vital Signs Date Time Temp Pulse Resp B/P Pulse Ox O2 Delivery O2 Flow Rate FiO2 08/31/16 16:34 77 08/31/16 16:18 98.0 18 131/61 99 08/29/16 06:00 Room Air Intake and Output 08/30/16 08/30/16 08/31/16 14:59 22:59 06:59 Intake Total 550 ml 600 ml 500 ml Output Total 900 ml Balance 550 ml 600 ml -400 ml Exam General: [No acute signs or symptoms of distress] Eyes: [pupils equal round, Anicteric sclera] Neck: Supple nontender, no JVD Cardiac: Remains in regular rate. Noted with heart murmur Pulmonary: [No coarse rhonchi or breathing auscultated] GI: [Abdomen soft nontender nondistended, bowel sounds active] Extremities: [No edema bilateral lower extremities] Skin: [Clean dry and intact] Neurologic: [Alert to person place and time and situation] Results Result Diagram: 08/31/16 0710 08/31/16 0710 Results 24 hrs Laboratory Tests Test 08/30/16 18:43 08/31/16 07:10 Urine Bacteria RARE Urine Bilirubin NEGATIVE Urine Clarity CLEAR Urine Color LT. YELLOW Urine Glucose NEGATIVE Urine Hemoglobin TRACE Urine Ketones NEGATIVE Urine Leukocyte Esterase TRACE H Urine Microscopic RBC 0-2 Urine Microscopic WBC 0-2 Urine Nitrite NEGATIVE Urine Specific [place] 1.020 Urine Squamous Epithelial Cells FEW Urine Total Protein NEGATIVE Urine Urobilinogen 0.2 E.U./dL Urine pH 6.0 Anion Gap 20 H Basophils # 0.1 Basophils % 1.2 Blood Urea Nitrogen 21 H Calcium Level 9.4 Carbon Dioxide Level 23 Chloride Level 103 Creatinine 0.74 Eosinophils # 0.2 Eosinophils % 4.1 Glucose Level 90 Hematocrit 33.9 L Hemoglobin 10.1 L INR International Normalized Ratio 1.77 Lymphocytes # 3.3 H Lymphocytes % 57.1 H Magnesium Level 2.1 Mean Corpuscular Hemoglobin 22.2 L Mean Corpuscular Hemoglobin Concent 29.8 L Mean Corpuscular Volume 74.5 L Mean Platelet Volume 10.7 H Monocytes # 0.4 Monocytes % 7.4 Neutrophils # 1.7 Neutrophils % 29.9 L Nucleated Red Blood Cells # 0.0 Nucleated Red Blood Cells % 0.0 Phosphorus Level 3.1 # Platelet Count 533 H Potassium Level 3.7 Prothrombin Time 20.8 H Prothrombin Time Ratio 1.6 Red Blood Count 4.55 Red Cell Distribution Width 16.9 H Sodium Level 142 White Blood Count 5.8 Medications Medications Current Medications Furosemide (Lasix) 20 mg DAILY@06 PO Last administered on 08/31/16 06:13; Admin Dose 20 MG; Start 08/29/16 at 06:00 Pantoprazole (Protonix Tab) 40 mg BID@06,18 PO Last administered on 08/31/16 06:13; Admin Dose 40 MG; Start 08/29/16 at 06:00 Warfarin Sodium (Coumadin) 4 mg SuTuThSa@17 PO Last administered on 08/30/16 18:37; Admin Dose 4 MG; Start 08/29/16 at 17:00 Lorazepam (Ativan) 0.5 mg Q6 PRN PO ANXIETY; Start 08/29/16 at 03:30 Ondansetron HCl (Zofran Tab) 4 mg Q6H PRN PO NAUSEA AND/OR VOMITING; Start 05/07 at 03:30 Ondansetron HCl (Zofran Inj) 4 mg Q6H PRN IV NAUSEA AND/OR VOMITING; Start 05/07 at 03:30 Nitroglycerin (Nitroglycerin (Sl Tab) 0.4 Mg) 1 tab Q5M PRN SL CHEST PAIN; Start 08/29/16 at 03:30 Acetaminophen (Tylenol Tab) 650 mg Q6H PRN PO PAIN LEVEL 1-3 OR FEVER; Start at 03:30 Gabapentin (Neurontin) 300 mg TID PO Last administered on 08/31/16 13:09; Admin Dose 300 MG; Start 08/29/16 at 21:00 Digoxin (Digoxin) 0.125 mg Q2D@09 PO Last administered on 08/31/16 09:16; Admin Dose 0.125 MG; Start 08/31/16 at 09:00 Lidocaine (Lidoderm) 1 patch DAILY TD Last administered on 08/31/16 09:16; Admin Dose 1 PATCH; Start 08/30/16 at 01:00 Gabapentin (Neurontin) 300 mg HS PO Last administered on 08/30/16 20:41; Admin Dose 300 MG; Start 08/30/16 at 21:00 Warfarin Sodium (Coumadin) 5 mg MoWeFr@17 PO ; Start 08/31/16 at 17:00 SOURAV MONTANEZ Aug 31, 2016 17:07
[2016-08-31] MEDS ORDERED: HYDR-906 PO (17:32)
[2016-08-31] MEDS ORDERED: HYDROCODONE/APAP (5/325) TAB PO ONE (18:30)
== END 2016-08-31 20:10 | disposition home or self-care (01) | DRG 313 ==
LOC: E/R 14:53 → MS4 08-29 01:20
PROVIDERS: ADMIT Family Medicine; ATTEND Family Medicine
DX: R07.89 Other chest pain (principal); I50.9 Heart failure, unspecified; R10.13 Epigastric pain; Z95.1 Presence of aortocoronary bypass graft; Z95.5 Presence of coronary angioplasty implant and graft; Z95.2 Presence of prosthetic heart valve; Z79.01 Long term (current) use of anticoagulants; G89.4 Chronic pain syndrome; D50.9 Iron deficiency anemia, unspecified; R31.9 Hematuria, unspecified
CPT/HCPCS: 36415; 71010; 71275; 80048; 80053; 80162; 81001; 81003; 82150; 83605; 83690; 83735; 84100; 84484; 85025; 85610; 85730; 87040; 87086; 90686; 93005; 96374; 96375; C9113; J2270; J2405; Q9967

== ENCOUNTER 2016-09-26 18:41 | Emergency (ER) | payer OTHER ==
[~2016-09-26] VITALS: Ht 172.7 cm; Wt 53.2 kg
[~2016-09-26 18:41] MED LIST changes: -ALBU90AE INHALATION; +CYCL-319 PO; +DIAZ10TA4 PO; +DOXY-220 PO; +GABA300C16 PO; +HYDR-906 PO; +LIPA1CAP4 PO; -LISI-313 PO; +MELO-110 PO; -OXYC-431 PO; -POTA20TA96 PO; -SUCR1TAB27 PO; -TAPE200T PO
[2016-09-26 19:01] VITALS: Ht 172.7 cm; Wt 53.2 kg
[2016-09-26] MEDS ORDERED: ONDANSETRON 4 MG INJ IV STA (19:33)
[2016-09-26] MEDS ORDERED: morphine 2 MG INJ IV STA (19:33)
--- NOTE | 2016-09-26 19:34 | ERD ---
ER Documentation Chief Complaint Date/Time DATE: 09/26/16 TIME: 19:34 Chief Complaint CHEST, POSTERIOR HEAD, SHOULDER, NECK, AND BACK PAIN. HPI 51-year-old female with a history of anxiety, thalassemia by history, chronic mitral insufficiency status post mitral valve replacement on Coumadin, paroxysmal atrial fibrillation, aortic regurgitation, tricuspid regurgitation, diastolic heart failure and chronic, pleuritic chest pain with multiple previous admissions most recently in August 2016 for chest pain brought to the ED via rescue ambulance complaining of a one-day history of sharp, generalized, nonradiating chest pain. Denies shortness of breath, nausea, vomiting or diaphoresis. No relieving or exacerbating factors. Denies leg pain or swelling. No abdominal pain or low back pain. No headache or neck pain. No visual changes , focal weakness or numbness. No fevers or chills ROS All systems reviewed and are negative except as per history of present illness. Medications Home Meds Active Scripts Hydrocodone/Acetaminophen (St[place]al 5-325 Tablet) 1 Each Tablet, 1 EACH PO Q4, #25 TAB Prov:SOURAV MONTANEZ 08/31/16 Meloxicam* (Mobic*) 15 Mg Tablet, 7.5 MG PO DAILY, #30 TAB Prov:SOURAV MONTANEZ 08/31/16 Doxycycline Monohydrate* (Doxycycline Monohydrate*) 100 Mg Tablet, 100 MG PO BID for 4 Days, TAB Prov:SOURAV MONTANEZ 08/31/16 Gabapentin* (Gabapentin*) 300 Mg Capsule, 300 MG PO HS for 30 Days, CAP Prov:SOURAV MONTANEZ 08/31/16 Gabapentin* (Gabapentin*) 300 Mg Capsule, 300 MG PO TID for 30 Days, CAP Prov:SOURAV MONTANEZ 08/31/16 Pantoprazole* (Pantoprazole*) 40 Mg Tablet.dr, 40 MG PO BID for 30 Days Prov:SOURAV MONTANEZ 08/31/16 Furosemide (Lasix) 20 Mg Tab, 20 MG PO DAILY for 30 Days, TAB Prov:SOURAV MONTANEZ 07/14/16 Warfarin Sodium* (Coumadin*) 5 Mg Tablet, 5 MG PO 2 DAYS A WEEK for 2 Days, TAB Prov:SOURAV MONTANEZ 07/14/16 Warfarin Sodium* (Warfarin Sodium*) 4 Mg Tablet, 4 MG PO 5 DAYS A WEEK for 5 Days, TAB Prov:SOURAV MONTANEZ 07/14/16 Digoxin* (Lanoxin*) 0.125 Mg Tablet, 0.125 MG PO Q48H for 30 Days, TAB Prov:SOURAV MONTANEZ 07/14/16 Reported Medications Estradiol* (Estrace*) 1 Mg Tablet, 1 MG PO DAILY, TAB 09/28/16 Discontinued Reported Medications Diazepam* (Diazepam*) 10 Mg Tablet, 10 MG PO BID Y for PRN, TAB 08/28/16 Erdrcx-Xstnprwx-Ajxbucg* (Erma GUAMAN* 12,000) 12,000 L-38,000-60,000 Unit Capsule., 1 CAP PO WITH MEALS, CAP 08/28/16 Cyclobenzaprine Hcl* (Cyclobenzaprine Hcl*) 10 Mg Tablet, 10 MG PO DAILY Y for PRN, #60 TAB 08/28/16 Allergies Allergies: Coded Allergies: Cephalexin Monohydrate (Verified Allergy, Mild, HIVES, 08/28/16) Sulfa (Sulfonamide Antibiotics) (Verified Allergy, Unknown, 08/28/16) ciprofloxacin (Verified Allergy, Unknown, 08/28/16) codeine (Verified Allergy, Unknown, 08/28/16) aspirin (Verified Adverse Reaction, Mild, ABD PAIN, 08/28/16) ibuprofen (Verified Adverse Reaction, Mild, ABD PAIN, 08/28/16) PMhx/Soc Reviewed in chart. As per HPI. History of Surgery: Yes (laporoscopy, hysterectomy, L shoulder repair, cyst removed neck, 2 heart sx) Anesthesia Reaction: Yes (pt did not fall asleep during sx ) Hx Neurological Disorder: No Hx Respiratory Disorders: Yes (PNA, lung resection ) Hx Cardiac Disorders: Yes (aortic valve repair, mitral valve replacement) Hx Psychiatric Problems: Yes (depression ) Hx Miscellaneous Medical Probl: No Hx Alcohol Use: Yes Hx Substance Use: Yes (marijuana ) Hx Tobacco Use: Yes FmHx No sudden cardiac or cancer Physical Exam Vitals Vital Signs Date Time Temp Pulse Resp B/P Pulse Ox O2 Delivery O2 Flow Rate FiO2 09/26/16 21:55 81 16 104/70 100 Room Air 09/26/16 19:50 Nasal Cannula 2 09/26/16 19:47 69 16 135/54 97 Room Air 09/26/16 19:01 98.6 91 31 115/62 100 Physical Exam Const: Alert, anxious in moderate distress due to pain. Head: Atraumatic Eyes: Normal Conjunctiva ENT: Normal External Ears, Nose and Mouth. Neck: Full range of motion. Nontender. No JVD. Resp: Breath sounds are equal and clear to auscultation bilaterally. No rales rhonchi or wheezes. Cardio: Regular rate and rhythm. 4/6 murmur. Status post median sternotomy. Mild diffuse reproducible chest wall tenderness. Abd: Soft, non tender, non distended. Normal bowel sounds. No rebound or guarding. Skin: No petechiae or rashes Back: No midline or flank tenderness Ext: No cyanosis, or edema. No calf swelling or tenderness. Neur: Awake and alert. No focal deficit observed. Psych: Appears anxiou but not depressed. Result Diagram: 09/26/16193909/26/161939 Results 24 hrs Laboratory Tests Test 09/26/16 19:40 White Blood Count 8.310^3/ul Red Blood Count 5.0510^6/ul Hemoglobin 11.2g/dl Hematocrit 37.1% Mean Corpuscular Volume 73.5fl Mean Corpuscular Hemoglobin 22.2pg Mean Corpuscular Hemoglobin Concent 30.2g/dl Red Cell Distribution Width 16.7% Platelet Count 84895^3/UL Mean Platelet Volume 10.7fl Neutrophils % 53.9% Lymphocytes % 31.3% Monocytes % 10.7% Eosinophils % 2.9% Basophils % 1.0% Nucleated Red Blood Cells % 0.0/100WBC Neutrophils # 4.510^3/ul Lymphocytes # 2.610^3/ul Monocytes # 0.910^3/ul Eosinophils # 0.210^3/ul Basophils # 0.110^3/ul Nucleated Red Blood Cells # 0.010^3/ul Prothrombin Time 20.9Sec Prothrombin Time Ratio 1.6 INR International Normalized Ratio 1.78 Sodium Level 140mmol/L Potassium Level 4.5mmol/L Chloride Level 105mmol/L Carbon Dioxide Level 22mmol/L Anion Gap 18 Blood Urea Nitrogen 15mg/dl Creatinine 0.78mg/dl Glucose Level 93mg/dl Calcium Level 9.4mg/dl Total Bilirubin 0.5mg/dl Direct Bilirubin 0.00mg/dl Indirect Bilirubin 0.5mg/dl Aspartate Amino Transf (AST/SGOT) 19IU/L Alanine Aminotransferase (ALT/SGPT) 18IU/L Alkaline Phosphatase 151IU/L Troponin I < 0.012ng/ml B-Type Natriuretic Peptide 373PG/ML Total Protein 8.5g/dl Albumin 4.5g/dl Globulin 4.00g/dl Albumin/Globulin Ratio 1.12 Digoxin Level 0.5ng/ml Current Medications Medications (Trade) Dose Ordered Sig/Millie Route PRN Reason Start Time Stop Time Status Last Admin Dose Admin Morphine Sulfate (morphine) 2 mg ONCE STAT IV 09/26/16 19:33 09/26/16 19:34 DC 09/26/16 20:23 Ondansetron HCl (Zofran Inj) 4 mg ONCE STAT IV 09/26/16 19:33 09/26/16 19:34 DC 09/26/16 20:23 EKG: TIME: 1944. Sinus rhythm. Ventricular rate 89. Normal OK and QRS. T wave inversions in 1 aVL and V3-V6. No acute ST segment elevation or depression. No ectopy. EP Interpretation: Abnormal EKG. IMAGING: PROCEDURE: XR Chest. CLINICAL INDICATION: Shortness of breath. TECHNIQUE: Single frontal view. COMPARISON: 08/28/2016. FINDINGS: There is mild atelectasis at both lung bases. The lungs are otherwise clear. The heart is enlarged. There is a mitral valve prosthesis and left atrial appendage clamp. There are sternal plates, screws, and wires. There is no pleural effusion. There is no pneumothorax. IMPRESSION: 1. Mild atelectasis at the lung bases. 2. Cardiomegaly. 3. Prior cardiac surgery. RPTAT: QQ .Cesar Benjamin MD, MD Date Time Electronically viewed and signed by .Cesar Benjamin MD, MD on 09/26/2016 22:35 .R/ [ ] Procedures/MDM DOCUMENTS REVIEWED: ED nurse, prior ED, prior records including multiple admissions most recently 08/28/2016 - 09/01/2016 history and physical, progress notes and discharge summary ED COURSE: Morphine 2 mg/Zofran 4 mg IV REEXAMINATION/REEVALUATION: Time:22:50. Doing well. Pain resolved. Vital signs stable. Sinus rhythm without ectopy MED[employer] DECISION MAKIN-year-old female with a history of anxiety, thalassemia by history, chronic mitral insufficiency status post mitral valve replacement on Coumadin, paroxysmal atrial fibrillation, aortic regurgitation, tricuspid regurgitation, diastolic heart failure and chronic, pleuritic chest pain with multiple previous admissions most recently in August 2016 for chest pain brought to the ED via rescue ambulance complaining of a one-day history of sharp, generalized, nonradiating chest pain. No acute ischemic EKG changes, elevated troponin. Doubt pulmonary embolism and patient did have a CT pulmonary angiogram during her most previous admission which was negative. Previous cardiology consultations have been to chest pain to be noncardiac. No evidence of aortic dissection or acute valve failure. No congestive heart failure or pulmonary edema. No pneumonia. Presentation consistent with acute exacerbation of chronic chest pain. Pain relieved with morphine 2 mg IV and Zofran 4 mg IV. Stable for discharge with precautionary instructions and outpatient follow-up is counseled. Counseled patient regarding diagnostic workup, diagnosis and need for followup. Understands to return to ED if symptoms recur, worsen or any other concerns. Departure Diagnosis: Primary Impression: Atypical chest pain Additional Impressions: History of mitral valve replacement Paroxysmal atrial fibrillation Chronic pain Chronic pain type: other chronic pain Qualified Code: G89.29 - Other chronic pain Condition: Stable JYOTI CHAVEZ MD Sep 26, 2016 19:34
[2016-09-26 19:53] LABS: ADD SCAN DIFF NO
[2016-09-26 19:59] LABS: BASOPHIL # 0.1 10^3/ul (0.0-0.1); EOSINOPHILS # 0.2 10^3/ul (0.0-0.5); EOSINOPHILS % 2.9 % (0.0-7.0); HEMATOCRIT 37.1 % (37.0-47.0); HEMOGLOBIN 11.2 g/dl (12.0-16.0); LYMPHOCYTES # 2.6 10^3/ul (0.8-2.9); LYMPHOCYTES % 31.3 % (15.0-51.0); MEAN CORPUSCULAR HEMOGLOBIN 22.2 pg (29.0-33.0); MEAN CORPUSCULAR HGB CONC 30.2 g/dl (32.0-37.0); MEAN CORPUSCULAR VOLUME 73.5 fl (82.0-101.0); MEAN PLATELET VOLUME 10.7 fl (7.4-10.4); MONOCYTE # 0.9 10^3/ul (0.3-0.9); MONOCYTES % 10.7 % (0.0-11.0); NEUTROPHIL # 4.5 10^3/ul (1.6-7.5); NEUTROPHILS % 53.9 % (39.0-77.0); PLATELET COUNT 383 10^3/UL (140-415); RED BLOOD COUNT 5.05 10^6/ul (4.20-5.40); RED CELL DISTRIBUTION WIDTH 16.7 % (11.5-14.5); WHITE BLOOD COUNT 8.3 10^3/ul (4.8-10.8)
[2016-09-26 20:07] LABS: ALBUMIN 4.5 g/dl (3.3-4.9); INR 1.78; PROTIME 20.9 Sec (12.2-14.2); PT RATIO 1.6
[2016-09-26 20:08] LABS: CHLORIDE 105 mmol/L (97-110); POTASSIUM 4.5 mmol/L (3.5-5.1); SODIUM 140 mmol/L (135-144)
[2016-09-26 20:10] LABS: ALBUMIN/GLOBULIN RATIO 1.12; ANION GAP 18 (8-16); ASPARTATE AMINO TRANSFERASE 19 IU/L (15-46); BILIRUBIN,INDIRECT 0.5 mg/dl (0-1.1); BILIRUBIN,TOTAL 0.5 mg/dl (0.2-1.3); CARBON DIOXIDE 22 mmol/L (21-31); CREATININE 0.78 mg/dl (0.44-1.00); TOTAL PROTEIN 8.5 g/dl (6.1-8.1)
[2016-09-26 20:11] LABS: ALANINE AMINOTRANSFERASE 18 IU/L (13-69); ALKALINE PHOSPHATASE 151 IU/L (42-121); BLOOD UREA NITROGEN 15 mg/dl (7-20); CALCIUM 9.4 mg/dl (8.4-10.2); GLUCOSE 93 mg/dl (70-220)
[2016-09-26 20:23] LABS: TROPONIN-I < 0.012 ng/ml (0.00-0.12)
[2016-09-26 21:55] VITALS: BP 104/70; PULSE 81; RESP 16
--- NOTE | 2016-09-26 22:35 | RADRPT ---
PROCEDURE: XR Chest. CLINICAL INDICATION: Shortness of breath. TECHNIQUE: Single frontal view. COMPARISON: 08/28/2016. FINDINGS: There is mild atelectasis at both lung bases. The lungs are otherwise clear. The heart is enlarged. There is a mitral valve prosthesis and left atrial appendage clamp. There a re sternal plates, screws, and wires. There is no pleural effusion. There is no pneumothorax. IMPRESSION: 1. Mild atelectasis at the lung bases. 2. Cardiomegaly. 3. Prior cardiac surgery. RPTAT: QQ .Cesar Benjamin MD, MD Date Time Electronically viewed and signed by .Cesar Benjamin MD, MD on 09/26/2016 22:35 .R/
== END 2016-09-26 23:30 | disposition home or self-care (01) ==
LOC: E/R 18:41
DX: R07.89 Other chest pain (principal); I48.0 Paroxysmal atrial fibrillation; G89.29 Other chronic pain; Z79.01 Long term (current) use of anticoagulants; Z87.891 Personal history of nicotine dependence; Z95.2 Presence of prosthetic heart valve
CPT/HCPCS: 71010; 80053; 80162; 83880; 84484; 85025; 85610; 93005; J2270; J2405; 36415; 96374; 96375

== ENCOUNTER 2016-09-28 07:28 | Inpatient (IN) | payer OTHER ==
[~2016-09-28] VITALS: Ht 152.4 cm; Wt 60.0 kg
[2016-09-28 07:51] VITALS: Ht 152.4 cm; Wt 60.0 kg
[2016-09-28] MEDS ORDERED: SOD CHLORIDE 0.9% 1,000 ML IV STA (07:51)
[2016-09-28] MEDS ORDERED: ACETAMINOPHEN 325 MG TAB PO ONE (08:00)
[2016-09-28] MEDS ORDERED: ESTR1TAB23 PO (08:12)
[2016-09-28 08:13] LABS: ADD SCAN DIFF NO
[2016-09-28 08:22] LABS: BASOPHIL # 0.1 10^3/ul (0.0-0.1); BASOPHILS % 0.9 % (0.0-2.0); EOSINOPHILS # 0.1 10^3/ul (0.0-0.5); HEMATOCRIT 37.5 % (37.0-47.0); HEMOGLOBIN 11.5 g/dl (12.0-16.0); LYMPHOCYTES # 3.1 10^3/ul (0.8-2.9); LYMPHOCYTES % 27.4 % (15.0-51.0); MEAN CORPUSCULAR HEMOGLOBIN 22.4 pg (29.0-33.0); MEAN CORPUSCULAR HGB CONC 30.7 g/dl (32.0-37.0); MONOCYTE # 1.2 10^3/ul (0.3-0.9); MONOCYTES % 10.2 % (0.0-11.0); NEUTROPHIL # 6.9 10^3/ul (1.6-7.5); NEUTROPHILS % 60.2 % (39.0-77.0); PLATELET COUNT 424 10^3/UL (140-415); RED BLOOD COUNT 5.14 10^6/ul (4.20-5.40); RED CELL DISTRIBUTION WIDTH 15.9 % (11.5-14.5); WHITE BLOOD COUNT 11.4 10^3/ul (4.8-10.8)
[2016-09-28 08:35] LABS: ALANINE AMINOTRANSFERASE 25 IU/L (13-69); ALBUMIN 4.3 g/dl (3.3-4.9); ALBUMIN/GLOBULIN RATIO 1.04; ALKALINE PHOSPHATASE 180 IU/L (42-121); ANION GAP 14 (8-16); ASPARTATE AMINO TRANSFERASE 28 IU/L (15-46); BILIRUBIN,INDIRECT 0.5 mg/dl (0-1.1); BILIRUBIN,TOTAL 0.5 mg/dl (0.2-1.3); BLOOD UREA NITROGEN 13 mg/dl (7-20); CALCIUM 9.4 mg/dl (8.4-10.2); CARBON DIOXIDE 22 mmol/L (21-31); CHLORIDE 105 mmol/L (97-110); CREATINE KINASE 21 IU/L (23-200); CREATININE 0.79 mg/dl (0.44-1.00); GLUCOSE 100 mg/dl (70-220); POTASSIUM 4.2 mmol/L (3.5-5.1); SODIUM 137 mmol/L (135-144); TOTAL PROTEIN 8.4 g/dl (6.1-8.1)
--- NOTE | 2016-09-28 08:55 | ERA ---
ER Documentation Chief Complaint Date/Time DATE: 09/28/16 TIME: 08:53 Chief Complaint chest pain since this morning. no diaphoresis or signs of sob HPI 51-year-old female with a history of anxiety, thalassemia by history, chronic mitral insufficiency status post mitral and aortic valve replacement on Coumadin , paroxysmal atrial fibrillation, aortic regurgitation, tricuspid regurgitation , diastolic heart failure and chronic, pleuritic chest pain with multiple previous admissions most recently on September 26, 2016. She is complaining of having over a week of pleuritic pain when she breathes in. She states that she had pleurisy before. She describes the pain as a sharp pain in the diffuse chest cavity with inhalation. She says she has occasional slight cough is nonproductive. She says she was admitted at an outside hospital last week for 2 days and they told her it was musculoskeletal. Here she has been noted to have a temperature of 100.4. She denies any dyspnea on exertion or orthopnea. No abdominal pain vomiting diarrhea nausea no body aches chills no dysuria ROS All systems reviewed and are negative except as per history of present illness. Medications Home Meds Active Scripts Hydrocodone/Acetaminophen ([place] 5-325 Tablet) 1 Each Tablet, 1 EACH PO Q4, #25 TAB Prov:SOURAV MONTANEZ 08/31/16 Meloxicam* (Mobic*) 15 Mg Tablet, 7.5 MG PO DAILY, #30 TAB Prov:SOURAV MONTANEZ 08/31/16 Doxycycline Monohydrate* (Doxycycline Monohydrate*) 100 Mg Tablet, 100 MG PO BID for 4 Days, TAB Prov:SOURAV MONTANEZ 08/31/16 Gabapentin* (Gabapentin*) 300 Mg Capsule, 300 MG PO HS for 30 Days, CAP Prov:SOURAV MONTANEZ 08/31/16 Gabapentin* (Gabapentin*) 300 Mg Capsule, 300 MG PO TID for 30 Days, CAP Prov:SOURAV MONTANEZ 08/31/16 Pantoprazole* (Pantoprazole*) 40 Mg Tablet.dr, 40 MG PO BID for 30 Days Prov:SOURAV MONTANEZ 08/31/16 Furosemide (Lasix) 20 Mg Tab, 20 MG PO DAILY for 30 Days, TAB Prov:SOURAV MONTANEZ 07/14/16 Warfarin Sodium* (Coumadin*) 5 Mg Tablet, 5 MG PO 2 DAYS A WEEK for 2 Days, TAB Prov:SOURAV MONTANEZ 07/14/16 Warfarin Sodium* (Warfarin Sodium*) 4 Mg Tablet, 4 MG PO 5 DAYS A WEEK for 5 Days, TAB Prov:SOURAV MONTANEZ 07/14/16 Digoxin* (Lanoxin*) 0.125 Mg Tablet, 0.125 MG PO Q48H for 30 Days, TAB Prov:SOURAV MONTANEZ 07/14/16 Reported Medications Estradiol* (Estrace*) 1 Mg Tablet, 1 MG PO DAILY, TAB 09/28/16 Discontinued Reported Medications Diazepam* (Diazepam*) 10 Mg Tablet, 10 MG PO BID Y for PRN, TAB 08/28/16 Btnuoq-[id number]-Tayjykx* (Erma GUAMAN* 12,000) 12,000 L-38,000-60,000 Unit Capsule., 1 CAP PO WITH MEALS, CAP 08/28/16 Cyclobenzaprine Hcl* (Cyclobenzaprine Hcl*) 10 Mg Tablet, 10 MG PO DAILY Y for PRN, #60 TAB 08/28/16 Allergies Allergies: Coded Allergies: Cephalexin Monohydrate (Verified Allergy, Mild, HIVES, 08/28/16) Sulfa (Sulfonamide Antibiotics) (Verified Allergy, Unknown, 08/28/16) ciprofloxacin (Verified Allergy, Unknown, 08/28/16) codeine (Verified Allergy, Unknown, 08/28/16) aspirin (Verified Adverse Reaction, Mild, ABD PAIN, 08/28/16) ibuprofen (Verified Adverse Reaction, Mild, ABD PAIN, 08/28/16) PMhx/Soc History of Surgery: No Anesthesia Reaction: No Hx Neurological Disorder: No Hx Respiratory Disorders: No Hx Cardiac Disorders: No Hx Psychiatric Problems: No Hx Miscellaneous Medical Probl: No Hx Alcohol Use: No Hx Substance Use: No Hx Tobacco Use: No Smoking Status: Never smoker FmHx Family History: No coronary disease Physical Exam Vitals Vital Signs Date Time Temp Pulse Resp B/P Pulse Ox O2 Delivery O2 Flow Rate FiO2 09/28/16 08:54 99.4 98 20 106/67 100 Room Air 09/28/16 08:07 Nasal Cannula 2 09/28/16 07:51 100.4 72 20 116/75 98 Physical Exam Const: Well-developed, well-nourished Head: Atraumatic, normocephalic Eyes: Normal Conjunctiva, PERRLA, EOMI, normal sclera, no nystagmus ENT: Normal External Ears, Nose and Mouth, moist mucus membranes. Neck: Full range of motion. No meningismus, no lymphadenopathy. Resp: Clear to auscultation bilaterally, no wheezing, rhonchi, rales Cardio: Regular rate and rhythm, 4/6 systolic ejection murmur, S1 S2 present Abd: Soft, non tender x 4, non distended. Normal bowel sounds, no guarding or rebound, no pulsitile abdominal masses or bruits Skin: No petechiae or rashes, no ecchymosis , no maculopapular rash Back: No midline or flank tenderness Ext: No cyanosis, or edema, FROM x 4, normal inspection, neurovascularly intact x 4 Neur: Awake and alert, STR 5/5 x 4, sensation intact x 4, no focal findings, cerebellum intact Psych: Normal Mood and Affect Result Diagram: 09/28/16 0800 09/28/16 0800 Results 24 hrs Laboratory Tests Test 09/28/16 08:00 09/28/16 09:54 White Blood Count 11.410^3/ul Red Blood Count 5.1410^6/ul Hemoglobin 11.5g/dl Hematocrit 37.5% Mean Corpuscular Volume 73.0fl Mean Corpuscular Hemoglobin 22.4pg Mean Corpuscular Hemoglobin Concent 30.7g/dl Red Cell Distribution Width 15.9% Platelet Count 54222^3/UL Mean Platelet Volume 11.0fl Neutrophils % 60.2% Lymphocytes % 27.4% Monocytes % 10.2% Eosinophils % 1.0% Basophils % 0.9% Nucleated Red Blood Cells % 0.0/100WBC Neutrophils # 6.910^3/ul Lymphocytes # 3.110^3/ul Monocytes # 1.210^3/ul Eosinophils # 0.110^3/ul Basophils # 0.110^3/ul Nucleated Red Blood Cells # 0.010^3/ul Prothrombin Time 22.7Sec Prothrombin Time Ratio 1.8 INR International Normalized Ratio 1.98 Activated Partial Thromboplast Time 42.7Sec Sodium Level 137mmol/L Potassium Level 4.2mmol/L Chloride Level 105mmol/L Carbon Dioxide Level 22mmol/L Anion Gap 14 Blood Urea Nitrogen 13mg/dl Creatinine 0.79mg/dl Glucose Level 100mg/dl Lactic Acid Level 1.7mmol/L 0.6mmol/L Calcium Level 9.4mg/dl Total Bilirubin 0.5mg/dl Direct Bilirubin 0.00mg/dl Indirect Bilirubin 0.5mg/dl Aspartate Amino Transf (AST/SGOT) 28IU/L Alanine Aminotransferase (ALT/SGPT) 25IU/L Alkaline Phosphatase 180IU/L Creatine Kinase 21IU/L Creatine Kinase Index 1.0 Creatinine Kinase MB (Mass) < 0.22ng/ml Troponin I < 0.012ng/ml Total Protein 8.4g/dl Albumin 4.3g/dl Globulin 4.10g/dl Albumin/Globulin Ratio 1.04 Current Medications Medications (Trade) Dose Ordered Sig/Millie Route PRN Reason Start Time Stop Time Status Last Admin Dose Admin Sodium Chloride (NS) 1,000 ml @ 1,000 mls/hr Q1H STAT IV 09/28/16 07:51 09/28/16 08:50 DC 09/28/16 08:13 Acetaminophen (Tylenol Tab) 650 mg ONCE ONCE PO 09/28/16 08:00 09/28/16 08:01 DC 09/28/16 08:13 IV Flush 10 ml 10 ml STK-MED ONCE .ROUTE 09/28/16 09:23 09/28/16 09:24 DC 09/28/16 09:43 Sodium Chloride (NS) 100 ml @ ud STK-MED ONCE .ROUTE 09/28/16 09:23 09/28/16 09:24 DC 09/28/16 09:43 Iodixanol (Visipaque Locm) 100 ml STK-MED ONCE .ROUTE 09/28/16 09:23 09/28/16 09:24 DC 09/28/16 09:44 Iodixanol 50 ml 50 ml STK-MED ONCE .ROUTE 09/28/16 09:23 09/28/16 09:24 DC 09/28/16 09:44 Azithromycin 250 ml @ 250 mls/hr ONCE STAT IV 09/28/16 10:11 09/28/16 11:10 DC 09/28/16 10:26 Vancomycin HCl (Vancocin) 250 ml @ 125 mls/hr ONCE IVPB 09/28/16 10:30 09/28/16 12:29 Procedures/MDM PROCEDURE: CT Chest Without Contrast CLINICAL INDICATION: Short of breath TECHNIQUE: Volumetric acquisition of the thorax was performed without the intravenous administration of contrast. Radiation Dose: CTDI = 21.08 mGy; DLP = 152.37 mGy-cm. COMPARISON: 08/28/2016. FINDINGS: Lung kaufman: Since the previous CT, there has been interval worsening of subsegmental atelectasis and possibly infiltrate involving both lower lobes as well as the right middle lobe. And 8 mm bleb or thin walled cavity is again seen within the superior segment of the right lower lobe. The pleural spaces: No effusion or pneumothorax is identified. Lymph nodes: There has been interval development of soft tissue fullness in the subcarinal region measuring approximally 6.2 x 5.3 x 3.2 cm suspicious for adenopathy. There is an 8 mm precarinal node. Cardiovascular structures: There is again evidence of a previous midline sternotomy and prosthetic mitral valve replacement. The heart remains mildly enlarged. The aorta appears mildly atherosclerotic but is normal in caliber and appears intact and the brachial cephalic vessels appear patent. Thyroid: Unremarkable. Superior abdominal structures: The liver appears prominent Osseous structures: Appear intact. IMPRESSION: 1. Interval development of soft tissue mass in the subcarinal region measuring 6.2 x 5.3 x 3.2 cm suspicious for adenopathy. And 8 mm precarinal node is evident. 2. Increasing subsegmental atelectasis and possibly infiltrate involving both lower lobes of the right middle lobe. 3. An 8 mm bleb or thin walled cavity is again seen within the superior segment of the right lower lobe. 4. There is again evidence of a previous midline sternotomy and prosthetic mitral valve replacement with cardiomegaly 5. Prominent liver. Findings of development of extensive subcarinal adenopathy were telephoned by Sebastian Robison MD to Dr. Baez on 09/28/2016 at 1000 hours. Physician Yusuf Date Time Electronically viewed and signed by Physician Yusuf on 09/28/2016 10:05 RH/ CC: CHRIS BAEZ DO Patient has bilateral lower lobe and right middle lobe atelectasis/infiltrates with a new mass which is presumed adenopathy from a month ago. Patient does have a fever. White count slightly elevated. She does not appear septic. Blood cultures have been drawn and will give antibiotics and admitted to the hospital for IV antibiotic therapy. EKG: Rate/Rhythm: Sinus tachycardia, right atrial enlargement QRS, ST, QT: NORMAL MI, QRS, QT] Impression: NORMAL EKG Patient is capitated to an outside hospital will transfer to [facility] Diagnosis: Primary Impression: Bilateral pneumonia Qualified Code: J18.9 - Pneumonia of both lower lobes due to infectious organism Additional Impression: Chest mass Condition: Stable CHRIS BAEZ DO Sep 28, 2016 08:55
[2016-09-28 08:56] LABS: CK-MB < 0.22 ng/ml (0.0-2.4); TROPONIN-I < 0.012 ng/ml (0.00-0.12)
[2016-09-28] MEDS ORDERED: IODIXANOL LOCM 50 ML BTL ONE (09:23)
[2016-09-28] MEDS ORDERED: IODIXANOL LOCM 100 ML BTL ONE (09:23)
[2016-09-28] MEDS ORDERED: SOD CHLORIDE 0.9% 100 ML ONE (09:23)
[2016-09-28 10:05] LABS: INR 1.98; PROTIME 22.7 Sec (12.2-14.2); PT RATIO 1.8
--- NOTE | 2016-09-28 10:05 | RADRPT ---
PROCEDURE: CT Chest Without Contrast CLINICAL INDICATION: Short of breath TECHNIQUE: Volumetric acquisition of the thorax was performed without the intravenous administrati on of contrast. Radiation Dose: CTDI = 21.08 mGy; DLP = 152.37 mGy-cm. COMPARISON: 08/28/2016. FINDINGS: Lung kaufman: Since the previous CT, there has been interval worsening of subsegmental atelectasis an d possibly infiltrate involving both lower lobes as well as the right middle lobe. And 8 mm bleb or thin walled cavity is again seen within the superior segment of the right lower lobe. The pleural spaces: No effusion or pneumothorax is identified. Lymph nodes: There has been interval development of soft tissue fullness in the subcarinal region me asuring approximally 6.2 x 5.3 x 3.2 cm suspicious for adenopathy. There is an 8 mm precarinal node . Cardiovascular structures: There is again evidence of a previous midline sternotomy and prosthetic m itral valve replacement. The heart remains mildly enlarged. The aorta appears mildly atheroscleroti c but is normal in caliber and appears intact and the brachial cephalic vessels appear patent. Thyroid: Unremarkable. Superior abdominal structures: The liver appears prominent Osseous structures: Appear intact. IMPRESSION: 1. Interval development of soft tissue mass in the subcarinal region measuring 6.2 x 5.3 x 3.2 cm s uspicious for adenopathy. And 8 mm precarinal node is evident. 2. Increasing subsegmental atelectasis and possibly infiltrate involving both lower lobes of the ri ght middle lobe. 3. An 8 mm bleb or thin walled cavity is again seen within the superior segment of the right lower l obe. 4. There is again evidence of a previous midline sternotomy and prosthetic mitral valve replacement with cardiomegaly 5. Prominent liver. Findings of development of extensive subcarinal adenopathy were telephoned by Sebastian Robison MD to Dr. Barrera on 09/28/2016 at 1000 hours. Physician Yusuf Date Time Electronically viewed and signed by Physician Yusuf on 09/28/2016 10:05 /
[2016-09-28 10:06] LABS: PARTIAL THROMBOPLASTIN TIME 42.7 Sec (25.0-35.0)
[2016-09-28] MEDS ORDERED: AZITHROMYCIN 500MG/NS (PMX) 250 ML IV STA (10:11)
[2016-09-28] MEDS ORDERED: VANCOMYCIN 1 GM (PMX) 250 ML IVPB SCH (10:30)
[2016-09-28] MEDS ORDERED: ONDANSETRON 4 MG INJ IV STA (12:46)
[2016-09-28] MEDS ORDERED: HYDROmorphONE 1 MG/ML SYG IV STA ×2 (12:46→20:17)
[2016-09-28 13:27] LABS: ADD UMIC YES; URINE BILIRUBIN (Dip) NEGATIVE (NEGATIVE); URINE BLOOD (Dip) 1+ (NEGATIVE); URINE COLOR LT. YELLOW (YELLOW); URINE GLUCOSE (Dip) NEGATIVE (NEGATIVE); URINE KETONES (Dip) NEGATIVE (NEGATIVE); URINE LEUKOCYTE ESTERASE (Dip) NEGATIVE (NEGATIVE); URINE NITRITE (Dip) NEGATIVE (NEGATIVE); URINE TOTAL PROTEIN (Dip) NEGATIVE (NEGATIVE); URINE UROBILINOGEN (Dip) 0.2 E.U./dL (0.1-1.0)
[2016-09-28 13:57] LABS: SQUAMOUS EPITHELIAL CELL,UR MODERATE; URINE RBCS 0-2 /HPF (0)
[2016-09-28] MEDS ORDERED: ACETAMINOPHEN 325 MG TAB PO PRN (22:30)
[2016-09-28] MEDS ORDERED: ONDANSETRON 4 MG INJ IV PRN (22:30)
[2016-09-28 23:25] LABS: CREATINE KINASE 22 IU/L (23-200)
[2016-09-29 00:01] LABS: CK-MB < 0.22 ng/ml (0.0-2.4); TROPONIN-I < 0.012 ng/ml (0.00-0.12)
[2016-09-29] MEDS ORDERED: HYDROmorphONE 1 MG/ML SYG IV STA (04:01)
[2016-09-29] MEDS ORDERED: ACETAMINOPHEN 325 MG TAB PO PRN (09:00)
[2016-09-29] MEDS ORDERED: MELOXICAM 15 MG TAB PO SCH (09:00)
[2016-09-29] MEDS: LEVOFLOXACIN 500MG/D5W (PMX) 100 ML IVPB SCH ×2 (09:00→09:17)
[2016-09-29] MEDS: ASPIRIN 81 MG TAB PO SCH ×2 (09:00→09:15)
[2016-09-29] MEDS ORDERED: HYDROCODONE/APAP (5/325) TAB PO PRN (09:00)
[2016-09-29] MEDS ORDERED: LORAZEPAM 2 MG INJ IV PRN (09:00)
[2016-09-29] MEDS ORDERED: ENOXAPARIN 40 MG/0.4 ML SYG SC SCH (09:00)
[2016-09-29] MEDS: FUROSEMIDE 20 MG TAB PO SCH ×2 (09:00→09:16)
[2016-09-29] MEDS ORDERED: ONDANSETRON 4 MG INJ IV PRN (09:00)
[2016-09-29] MEDS ORDERED: NITROGLYCERIN (SL) 0.4 MG TAB SL PRN (09:00)
[2016-09-29] MEDS ORDERED: NACL 0.9% 3 ML SYG IV SCH (09:00)
[2016-09-29] MEDS: morphine 2 MG INJ IV PRN ×3 (09:17→20:19)
[2016-09-29] MEDS: GABAPENTIN 300 MG CAP PO SCH ×3 (09:17→20:18)
[2016-09-29 10:08] LABS: CREATINE KINASE 49 IU/L (23-200)
[2016-09-29 10:10] VITALS: TEMP 98.6
[2016-09-29 10:28] LABS: CK-MB < 0.22 ng/ml (0.0-2.4); TROPONIN-I < 0.012 ng/ml (0.00-0.12)
--- NOTE | 2016-09-29 11:17 | PN ---
Date/Time of Note Date/Time of Note DATE: 09/29/16 TIME: 11:13 Assessment/Plan VTE Prophylaxis VTE Prophylaxis Intervention: SCD's Lines/Catheters IV [facility] [place] Assessment/Plan Chief Complaint/Hosp Course Assessment and plan 1. Chest pain. Patient was previously ruled out for ACS and previous admission (August 31, 2016). Patient noted with CT scan showing suspect chest mass as well as bilateral pneumonia. Likely been attributed to these issues. All neurologist to follow. 2. Reported pneumonia. Patient refusing Levaquin antibiotic at this time due to reported history of C. difficile from fluoroquinolone use. Will place on azithromycin for now. discussed with patient. 3. History of diastolic dysfunction grade 3 to grade 4. Continue optimization with cardiovascular medications 4. Chronic pain syndrome. Pain management physician consulted. Continue with analgesics. Disposition and plan: [employer] follow-up for chest mass. Will start patient on antibiotic therapy for suspect pneumonia. Pain management physician to follow for pain management Discussed plan of care with Problems: Subjective 24 Hr Interval Summary Free Text/Dictation Reports having some substernal chest pain. Exam/Review of Systems Vital Signs Vitals Vital Signs Date Time Temp Pulse Resp B/P Pulse Ox O2 Delivery O2 Flow Rate FiO2 09/29/16 10:10 98.6 88 17 92/70 98 Room Air 09/28/16 08:07 2 Exam General: Reports minimal distress secondary to substernal chest pain Eyes: Equal round Neck: Supple nontender, no JVD Cardiac: Regular rate Pulmonary: No adventitious lung sounds GI: Soft nontender nondistended Extremities: No edema BLE Skin: CDI Neurologic: QUETA 4 Results Result Diagram: 09/28/16 0800 09/28/16 0800 Results 24 hrs Laboratory Tests Test 09/28/16 13:08 09/28/16 23:00 09/29/16 09:40 Urine Color LT. YELLOW Urine Clarity CLEAR Urine pH 5.5 Urine Specific [place] <=1.005 L Urine Ketones NEGATIVE Urine Nitrite NEGATIVE Urine Bilirubin NEGATIVE Urine Urobilinogen 0.2 E.U./dL Urine Leukocyte Esterase NEGATIVE Urine Microscopic RBC 0-2 Urine Microscopic WBC NONE SEEN Urine Squamous Epithelial Cells MODERATE Urine Hemoglobin 1+ H Urine Glucose NEGATIVE Urine Total Protein NEGATIVE Creatine Kinase 22 L 49 Creatine Kinase Index 1.0 0.4 Creatinine Kinase MB (Mass) < 0.22 < 0.22 Troponin I < 0.012 < 0.012 Medications Medications Current Medications Lorazepam (Ativan) 0.5 mg Q6H PRN IV ANXIETY; Start 09/29/16 at 09:00 Ondansetron HCl (Zofran Inj) 4 mg Q6H PRN IV NAUSEA AND/OR VOMITING; Start 05/07 at 09:00 Aspirin (Aspirin) 81 mg DAILY PO ; Start 09/29/16 at 09:00 Nitroglycerin (Nitroglycerin (Sl Tab) 0.4 Mg) 1 tab Q5M PRN SL CHEST PAIN; Start 09/29/16 at 09:00 Acetaminophen (Tylenol Tab) 650 mg Q6H PRN PO PAIN LEVEL 1-3 OR FEVER; Start at 09:00 Morphine Sulfate 2 mg 2 mg Q4H PRN IV PAIN LEVEL 7-10 Last administered on 09/29 09:17; Admin Dose 2 MG; Start 09/29/16 at 09:00 Levofloxacin/ Dextrose (Levaquin 500mg/ D5W 100 ml (Pmx)) 100 ml @ 100 mls/hr DAILY IVPB ; Start 09/29/16 at 09:00 Digoxin (Digoxin) 0.125 mg Q48H PO ; Start 09/29/16 at 13:00 Furosemide (Lasix) 20 mg DAILY PO ; Start 09/29/16 at 09:00 Gabapentin (Neurontin) 300 mg TID PO Last administered on 09/29/16 09:17; Admin Dose 300 MG; Start 09/29/16 at 09:00 Meloxicam (Mobic) 7.5 mg DAILY PO Last administered on 09/29/16 09:16; Admin Dose 7.5 MG; Start 09/29/16 at 09:00 Warfarin Sodium (Coumadin) 4 mg DAILY@17 PO ; Start 09/29/16 at 17:00 Acetaminophen/ Hydrocodone Bitart ([place] (5/325)) 1 tab Q6 PRN PO PAIN; Start 09/29/16 at 09:00 SOURAV MONTANEZ Sep 29, 2016 11:17
--- NOTE | 2016-09-29 11:35 | CONS ---
Date/Time of Note Date/Time of Note DATE: 09/29/16 TIME: 11:30 Assessment/Plan Assessment/Plan Additional Assessment/Plan CT chest was reviewed which is showing a subcarinal mass about 6 cm in diameter. Bilateral lower lobe patchy infiltrates are present with areas of bronchiectasis in the left lower lobe area. Assessment recommendations; 1. Patient admitted with bilateral lower lobe pneumonia community-acquired. 2. History of by valvular heart surgery. 3. Subcarinal mass of uncertain etiology of significance at this point. 4. Atrial fibrillation, patient on chronic anticoagulation. Continue current antibiotics. Patient will need to have a mediastinoscopy done once pneumonia has resolved. Consultation Date/Type/Reason Admit Date/Time Date of Consultation: Sep 29, 2016 Reason for Consultation Pulmonary consultation requested for evaluation of pneumonia and subcarinal mass. History presenting; patient is a pleasant 56-year-old F [place] lady who came into the emergency room yesterday with a 3 day history of sharp chest pain increased with deep breathing which is in the mid chest area. Patient also been complaining of scant cough with very minimal shortness of breath. She did have low-grade fever but denies any sputum production. Any hemoptysis. Upon evaluation patient had a CT of the chest which is showing a subcarinal mass with areas of patchy infiltrates in lower lobes bilaterally. Past medical history; 1. Patient with history of by valvular open heart surgery with replacement of aortic and mitral valves bioprosthetic. 2. History of atrial fibrillation. 3. Hysterectomy and oophorectomy. 4. History of shoulder surgery. 5. Most of any diabetes hypertension or any coronary artery disease. Medications; were reviewed. Allergies; are to cephalosporins sulfa drugs aspirin quinolone antibiotics codeine and ibuprofen. Social history; patient quit smoking 1 year ago was smoking a few cigarettes a day. Was not a heavy smoker. Most of alcohol or drug abuse. Family history; she is single she has 3 children. 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 Review of systems; denies any headache, seizures, visual changes. Chest pain has improved. Shortness of breath also has improved. Denies any hemoptysis or sputum production. Denies any nausea vomiting. Any weight loss. Any edema. Any orthopnea. Denies any chronic dyspnea on exertion. Denies any urinary symptoms. Any skin changes. Any night sweats. Does complain of chronic pain. General exam; middle-aged woman currently in no distress awake and alert. Past Surgical History Past Surgical Hx: other Social History Smoking Status: Never smoker Exam/Review of Systems Vital Signs Vitals Vital Signs Date Time Temp Pulse Resp B/P Pulse Ox O2 Delivery O2 Flow Rate FiO2 09/29/16 11:24 84 25 101/69 98 09/29/16 10:10 98.6 Room Air 09/28/16 08:07 2 Exam HEENT exam is; supple neck, no JVD. No lymphadenopathy. Midline trachea. No thyromegaly. Pharynx is clear. Patient has good dentition. Pupils are midsize and reactive to light. Extraocular movements are intact. No neck bruits. Chest examination; there is a well-healed sternal scar. S1-S2 audible, no murmurs. Regular rhythm. Lungs are clear to auscultation bilaterally. Abdomen examination; soft, nontender. No organomegaly. Bowel sounds audible. Extremity examination; no peripheral edema. No clubbing. Pulses 2+ bilaterally. PEDIATRIC CARE COORDINATOR examination; no focal deficit. Results Result Diagram: 09/28/16 0800 09/28/16 0800 Results 24 hrs Laboratory Tests Test 09/28/16 13:08 09/28/16 23:00 09/29/16 09:40 Urine Color LT. YELLOW Urine Clarity CLEAR Urine pH 5.5 Urine Specific [place] <=1.005 L Urine Ketones NEGATIVE Urine Nitrite NEGATIVE Urine Bilirubin NEGATIVE Urine Urobilinogen 0.2 E.U./dL Urine Leukocyte Esterase NEGATIVE Urine Microscopic RBC 0-2 Urine Microscopic WBC NONE SEEN Urine Squamous Epithelial Cells MODERATE Urine Hemoglobin 1+ H Urine Glucose NEGATIVE Urine Total Protein NEGATIVE Creatine Kinase 22 L 49 Creatine Kinase Index 1.0 0.4 Creatinine Kinase MB (Mass) < 0.22 < 0.22 Troponin I < 0.012 < 0.012 Medications Medications Current Medications Lorazepam (Ativan) 0.5 mg Q6H PRN IV ANXIETY; Start 09/29/16 at 09:00 Ondansetron HCl (Zofran Inj) 4 mg Q6H PRN IV NAUSEA AND/OR VOMITING; Start 05/07 at 09:00 Aspirin (Aspirin) 81 mg DAILY PO ; Start 09/29/16 at 09:00 Nitroglycerin (Nitroglycerin (Sl Tab) 0.4 Mg) 1 tab Q5M PRN SL CHEST PAIN; Start 09/29/16 at 09:00 Acetaminophen (Tylenol Tab) 650 mg Q6H PRN PO PAIN LEVEL 1-3 OR FEVER; Start at 09:00 Morphine Sulfate 2 mg 2 mg Q4H PRN IV PAIN LEVEL 7-10 Last administered on 09/29 09:17; Admin Dose 2 MG; Start 09/29/16 at 09:00 Levofloxacin/ Dextrose (Levaquin 500mg/ D5W 100 ml (Pmx)) 100 ml @ 100 mls/hr DAILY IVPB ; Start 09/29/16 at 09:00 Digoxin (Digoxin) 0.125 mg Q48H PO ; Start 09/29/16 at 13:00 Furosemide (Lasix) 20 mg DAILY PO ; Start 09/29/16 at 09:00 Gabapentin (Neurontin) 300 mg TID PO Last administered on 09/29/16 09:17; Admin Dose 300 MG; Start 09/29/16 at 09:00 Meloxicam (Mobic) 7.5 mg DAILY PO Last administered on 09/29/16 09:16; Admin Dose 7.5 MG; Start 09/29/16 at 09:00 Warfarin Sodium (Coumadin) 4 mg DAILY@17 PO ; Start 09/29/16 at 17:00 Acetaminophen/ Hydrocodone Bitart 1 tab 1 tab Q6 PRN PO PAIN; Start 09/29/16 at 09:00 Azithromycin (Zithromax 500mg/ NS (Pmx)) 250 ml @ 250 mls/hr DAILY IVPB ; Start 09/30/16 at 09:00 EDUARDO DAY Sep 29, 2016 11:35
--- NOTE | 2016-09-29 13:44 | CONS ---
DATE OF ADMISSION: 09/28/2016 DATE OF CONSULTATION: 09/29/2016 PAIN MANAGEMENT CONSULTATION CHIEF COMPLAINT ON PRESENTATION: Anterior chest wall pain. HISTORY OF PRESENT ILLNESS: A 51-year-old female who is well known to the hospitalist service with a significant past medical history of cardiac disease including mitral insufficiency, status post mi tral valve and aortic valve replacement, paroxysmal atrial fibrillation, she is chronically anticoag ulated, atrial regurgitation, tricuspid regurgitation, and diastolic CHF. 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 She has been seen in the emergency room multiple times, diagnos ed with pleuritic-type chest pain. She herself states that she has pleurisy, describes a sharp pain in the anterior chest wall without radiation to her back unless she sits up and then she states she gets radiation to in her epigastric region. When she lays back she has exacerbated pain with radia tion to in her abdomen. When she sits up, the pain is not alleviated. Denies nausea, vomiting, dizz iness, diplopia, disorientation, exertional chest discomfort associated with it. Denies fever prior to hospitalization, rigors, dizziness, diplopia or disorientation. States that she is not taking a ny pain medications at home for alleviation of her discomfort. She only takes gabapentin and muscle relaxants, therefore there is no baseline as to whether or not her pain is alleviated with oral dorothy n medications, although during last hospitalization, she stated she needed to have hydromorphone int ravenous for alleviation of her pain. Onset of the pain has been unremitting since last time she wa s seen in the emergency room approximately 1 month prior to this presentation. The last time she was seen by her catholic priest was approximately 2 months ago. PAST MEDICAL HISTORY: Essentially unremarkable except for which is as per history of present illness . MEDICATIONS: Please refer to reconciliation sheets. ALLERGIES: Multiple: 1. CEPHALEXIN. 2. SULFA DRUGS. 3. ASPIRIN. 4. CIPROFLOXACIN. 5. CODEINE. 6. IBUPROFEN. SOCIAL HISTORY: States she stopped smoking approximately 2 years ago. No recreational drug use or alcohol consumption. FAMILY HISTORY: Noncontributory towards this hospitalization. REVIEW OF SYSTEMS: A 12-point review of systems is unremarkable except for which is as per history of present illness. PHYSICAL EXAMINATION: GENERAL: Shows a well-nourished, well-developed female in no major acute distress. She is normocep halic and atraumatic. Anicteric, acyanotic on examination. VITAL SIGNS: Blood pressure 92/70, pulse of 88 and regular, respirations of 17, temperature 98.6 de grees, saturation is 98% on room air. HEENT: She is normocephalic and atraumatic. Anicteric, acyanotic. CHEST: Shows basilar inspiratory and expiratory crackles on examination. She has no wheezing, or ru bs. COR: S1, S2, without S3, S4, murmur, gallop, rub. Normal rate, normal rhythm. ABDOMEN: Grossly benign. EXTREMITIES: Without clubbing, cyanosis or edema. LABORATORY TESTS: White blood cell count 11.4, hemoglobin 11.5, hematocrit 37.5, MCV of 73.0, plate let count of 424,000. Chemistries: Serum sodium of 137, potassium 4.2, chloride 105, bicarbonate 2 2, BUN of 13, creatinine 0.79, blood sugar 100. Troponin level #1 is 0.012, alkaline phosphatase 18 0. CK 21. IMAGING STUDY: Chest x-ray read by Dr. Kalpesh Robison on 09/28/2016 at 1000 shows: 1. Interval development of soft tissue mass in the subcarinal region measuring 6.2 x 5.3 x 3.2 cm s uspicious for adenopathy, and an 8 mm precarinal node is evident. 2. Increase in subsegmental atelectasis and possibly infiltrates involving both lower lobes ___ the right middle lobe. 3. An 8 mm bleb or thin-walled cavity is seen within the superior segment of the right lower lobe. 4. There is again evidence of previous midline sternotomy and prosthetic mitral valve replacement w ith cardiomegaly. 5. Prominent liver. ASSESSMENT AND PLAN: This is a 51-year-old female who has a complicated past medical history and a complicated pain management history. Last time she was admitted to [facility] she had the same type of pleuritic chest pain at that time, although she states that ____ been treated by opioids. Her hospital admission at this time shows changes in her chest x-ray and as noted above in CT scan findings. In the interim, she is being treated with opioids, morphine intravenously and also I have instituted Toradol 15 mg IV q.6h. p.r.n. She has normal renal function. Please refer to the character and the location of her pain as noted in the history of present illness. This lady will need a great deal of support throughout this hospitalization. Dictated By: DEBORAH CHARLES MD LP/TIN Conf#: [id number] DID#: [id number]
[2016-09-29] MEDS: DIGOXIN 0.125 MG TAB PO SCH (14:00)
[2016-09-29] MEDS: LIDOCAINE 5% PATCH TD SCH (14:00)
[2016-09-29] MEDS: AZITHROMYCIN 500MG/NS (PMX) 250 ML IVPB SCH (14:25)
[2016-09-29 16:15] LABS: CREATINE KINASE 70 IU/L (23-200)
[2016-09-29 16:25] LABS: CK-MB < 0.22 ng/ml (0.0-2.4)
[2016-09-29 16:29] LABS: TROPONIN-I < 0.012 ng/ml (0.00-0.12)
[2016-09-29] MEDS: WARFARIN 2 MG TAB PO SCH (17:18)
[2016-09-29 18:40] VITALS: BP 110/61; PULSE 174; RESP 18
[2016-09-29 20:36] VITALS: BP 143/65; RESP 18
[2016-09-29 20:57] VITALS: PULSE 82
[2016-09-29] MEDS: KETOROLAC 15 MG INJ IV PRN (23:15)
[2016-09-30] VITALS (12 sets, daily range): BP systolic 102–124; BP diastolic 54–60; PULSE 69–82; RESP 16–20
[2016-09-30] MEDS ORDERED: traMADol 50 MG TAB PO PRN (03:00)
[2016-09-30] MEDS: morphine 2 MG INJ IV PRN ×4 (05:30→20:30)
[2016-09-30 07:37] LABS: ADD SCAN DIFF NO
[2016-09-30] MEDS: KETOROLAC 15 MG INJ IV PRN ×2 (07:43→15:51)
[2016-09-30 07:46] LABS: ABNORMAL IP MESSAGE 1; BASOPHIL # 0.1 10^3/ul (0.0-0.1); BASOPHILS % 0.6 % (0.0-2.0); EOSINOPHILS # 0.5 10^3/ul (0.0-0.5); HEMATOCRIT 31.6 % (37.0-47.0); HEMOGLOBIN 9.1 g/dl (12.0-16.0); LYMPHOCYTES # 2.5 10^3/ul (0.8-2.9); LYMPHOCYTES % 26.4 % (15.0-51.0); MEAN CORPUSCULAR HEMOGLOBIN 21.9 pg (29.0-33.0); MEAN CORPUSCULAR HGB CONC 28.8 g/dl (32.0-37.0); MEAN PLATELET VOLUME 11.1 fl (7.4-10.4); MONOCYTE # 1.1 10^3/ul (0.3-0.9); MONOCYTES % 11.9 % (0.0-11.0); NEUTROPHIL # 5.3 10^3/ul (1.6-7.5); NEUTROPHILS % 55.8 % (39.0-77.0); PLATELET COUNT 374 10^3/UL (140-415); RED BLOOD COUNT 4.16 10^6/ul (4.20-5.40); RED CELL DISTRIBUTION WIDTH 15.9 % (11.5-14.5); WHITE BLOOD COUNT 9.6 10^3/ul (4.8-10.8)
[2016-09-30 07:54] LABS: ALBUMIN 3.6 g/dl (3.3-4.9)
[2016-09-30 07:55] LABS: POTASSIUM 4.2 mmol/L (3.5-5.1)
[2016-09-30 07:57] LABS: BILIRUBIN,INDIRECT 0.1 mg/dl (0-1.1); BILIRUBIN,TOTAL 0.1 mg/dl (0.2-1.3); CALCIUM 8.8 mg/dl (8.4-10.2); CREATININE 0.8 mg/dl (0.44-1.00); TOTAL PROTEIN 7.2 g/dl (6.1-8.1)
[2016-09-30 07:59] LABS: CHOL/HDL RATIO 2.8 RATIO
[2016-09-30 08:00] LABS: MAGNESIUM 2.4 mg/dl (1.7-2.5)
[2016-09-30] MEDS: FUROSEMIDE 20 MG TAB PO SCH (08:26)
[2016-09-30] MEDS: LIDOCAINE 5% PATCH TD SCH (08:26)
[2016-09-30] MEDS: GABAPENTIN 300 MG CAP PO SCH ×3 (08:26→20:31)
[2016-09-30] MEDS: ASPIRIN 81 MG TAB PO SCH (08:27)
[2016-09-30] MEDS ORDERED: AZITHROMYCIN 500MG/NS (PMX) 250 ML IVPB SCH (09:00)
--- NOTE | 2016-09-30 11:19 | PN ---
Date/Time of Note Date/Time of Note DATE: 09/30/16 TIME: 11:11 Assessment/Plan VTE Prophylaxis VTE Prophylaxis Intervention: other (warfarin) Lines/Catheters IV Catheter Type (from [facility] [place] Saline Lock Urinary Cath still in place: No Assessment/Plan Chief Complaint/Hosp Course Assessment and plan 1. Chest pain. Patient was previously ruled out for ACS and previous admission (August 31, 2016). Patient noted with CT scan showing suspect chest mass as well as bilateral pneumonia. Likely been attributed to these issues. bilingual manager to follow. 2. Reported pneumonia. Patient refusing Levaquin antibiotic at this time due to reported history of C. difficile from fluoroquinolone use. Patient also reportedly allergic to cephalexin. Will place on azithromycin for now. discussed with patient. 3. History of diastolic dysfunction grade 3 to grade 4. Continue optimization with cardiovascular medications. 4. Chronic pain syndrome. Pain management physician consulted. Continue with analgesics. 5. hx valvular surgery. On coumadin. Patient also reportedly allergic to aspirin 6. Chest mass. etiology unclear. will get CT surgeon to follow for possible mediastinoscopy Disposition and plan: cont abx for pneumonia. CT surgeon to follow for chest mass. Will follow up Discussed plan of care with Problems: Subjective 24 Hr Interval Summary Free Text/Dictation still reports having chest discomfort Exam/Review of Systems Vital Signs Vitals Vital Signs Date Time Temp Pulse Resp B/P Pulse Ox O2 Delivery O2 Flow Rate FiO2 09/30/16 08:21 77 09/30/16 07:59 98.5 20 112/57 99 09/29/16 18:40 Room Air 09/28/16 08:07 2 Intake and Output 09/29/16 09/29/16 09/30/16 14:59 22:59 06:59 Intake Total 150 ml Balance 150 ml Exam General: Slightly somnolent. Reports having some chest discomfort Eyes: Equal round Neck: Supple nontender, no JVD Cardiac: Remains regular rate Pulmonary: Slightly diminished at bases GI: Abdomen soft nontender nondistended, bowel sounds active Extremities: No edema bilateral lower extremities Skin: Clean dry and intact Neurologic: Alert to person place and time and situation Results Result Diagram: 09/30/16 0613 09/30/16 0613 Results 24 hrs Laboratory Tests Test 09/29/16 15:50 09/30/16 06:13 Creatine Kinase 70 Creatine Kinase Index 0.3 Creatinine Kinase MB (Mass) < 0.22 Troponin I < 0.012 White Blood Count 9.6 Red Blood Count 4.16 L Hemoglobin 9.1 #L Hematocrit 31.6 L Mean Corpuscular Volume 76.0 L Mean Corpuscular Hemoglobin 21.9 L Mean Corpuscular Hemoglobin Concent 28.8 L Red Cell Distribution Width 15.9 H Platelet Count 374 Mean Platelet Volume 11.1 H Neutrophils % 55.8 Lymphocytes % 26.4 Monocytes % 11.9 H Eosinophils % 5.0 Basophils % 0.6 Nucleated Red Blood Cells % 0.0 Neutrophils # 5.3 Lymphocytes # 2.5 Monocytes # 1.1 H Eosinophils # 0.5 Basophils # 0.1 Nucleated Red Blood Cells # 0.0 Sodium Level 139 Potassium Level 4.2 Chloride Level 103 Carbon Dioxide Level 25 Anion Gap 15 Blood Urea Nitrogen 19 Creatinine 0.80 Glucose Level 91 Hemoglobin A1c 5.0 Calcium Level 8.8 Magnesium Level 2.4 Total Bilirubin 0.1 L Direct Bilirubin 0.00 Indirect Bilirubin 0.1 Aspartate Amino Transf (AST/SGOT) 31 Alanine Aminotransferase (ALT/SGPT) 21 Alkaline Phosphatase 149 H Total Protein 7.2 # Albumin 3.6 Globulin 3.60 H Albumin/Globulin Ratio 1.00 Triglycerides Level 50 Cholesterol Level 146 LDL Cholesterol, Calculated 84 HDL Cholesterol 52 Cholesterol/HDL Ratio 2.8 Medications Medications Current Medications Lorazepam (Ativan) 0.5 mg Q6H PRN IV ANXIETY; Start 09/29/16 at 09:00 Ondansetron HCl (Zofran Inj) 4 mg Q6H PRN IV NAUSEA AND/OR VOMITING; Start 05/07 at 09:00 Aspirin (Aspirin) 81 mg DAILY PO ; Start 09/29/16 at 09:00 Nitroglycerin (Nitroglycerin (Sl Tab) 0.4 Mg) 1 tab Q5M PRN SL CHEST PAIN; Start 09/29/16 at 09:00 Morphine Sulfate (morphine) 2 mg Q4H PRN IV PAIN LEVEL 7-10 Last administered on 09/30/16 05:30; Admin Dose 2 MG; Start 09/29/16 at 09:00 Digoxin (Digoxin) 0.125 mg Q48H PO Last administered on 09/29/16 14:00; Admin Dose 0.125 MG; Start 09/29/16 at 13:00 Furosemide (Lasix) 20 mg DAILY PO Last administered on 09/30/16 08:26; Admin Dose 20 MG; Start 09/29/16 at 09:00 Gabapentin (Neurontin) 300 mg TID PO Last administered on 09/30/16 08:26; Admin Dose 300 MG; Start 09/29/16 at 09:00 Warfarin Sodium (Coumadin) 4 mg DAILY@17 PO Last administered on 09/29/16 17: 18; Admin Dose 4 MG; Start 09/29/16 at 17:00 Ketorolac Tromethamine (Toradol) 15 mg Q6 PRN IV PAIN LEVEL 1-3 Last administered on 09/30/16 07:43; Admin Dose 15 MG; Start 09/29/16 at 10:30; Stop 10/02/16 at 10:29 Lidocaine 1 patch 1 patch AM TD Last administered on 09/30/16 08:26; Admin Dose 1 PATCH; Start 09/29/16 at 13:00 Azithromycin (Zithromax 500mg/ NS (Pmx)) 250 ml @ 250 mls/hr Q24H IVPB Last administered on 09/29/16 14:25; Admin Dose 250 MLS/HR; Start 09/29/16 at 13:30 Tramadol HCl (Ultram) 50 mg Q6H PRN PO pain ; Start 09/30/16 at 03:00 SOURAV MONTANEZ Sep 30, 2016 11:19
[2016-09-30 12:22] LABS: INR 2.3; PROTIME 25.6 Sec (12.2-14.2)
[2016-09-30] MEDS: AZITHROMYCIN 500MG/NS (PMX) 250 ML IVPB SCH (13:43)
--- NOTE | 2016-09-30 14:48 | CONS ---
Date/Time of Note Date/Time of Note DATE: 09/30/16 TIME: 14:46 Assessment/Plan Assessment/Plan Additional Assessment/Plan Assessment recommendations; 1. Patient admitted with bilateral pneumonia possibly some element of chronicity based upon CT imaging of the chest. 2. Chronic atrial fibrillation patient on long-term anticoagulant. 3. Subcarinal mass of undetermined significance at this point. 4. Nonspecific musculoskeletal pain. Continue current treatment. Patient will need to have mediastinoscopy done once pneumonia resolves. Consultation Date/Type/Reason Admit Date/Time Sep 28, 2016 at 22:29 Initial Consult Date 09/29/16 Type of Consultation: Pulmonary 24 HR Interval Summary Free Text/Dictation Patient condition stable. Still complains awake generalized body ache increased with certain movements. Denies any sputum production. Complains of scant cough. Denies any fever chills. General exam; middle-aged woman currently in no distress awake and alert. Exam/Review of Systems Vital Signs Vitals Vital Signs Date Time Temp Pulse Resp B/P Pulse Ox O2 Delivery O2 Flow Rate FiO2 09/30/16 12:12 98.5 77 20 113/55 96 09/29/16 18:40 Room Air 09/28/16 08:07 2 Intake and Output 09/29/16 09/29/16 09/30/16 15:00 23:00 07:00 Intake Total 150 ml Balance 150 ml Exam HEENT exam is; supple neck, no JVD. No lymphadenopathy. Midline trachea. Pharynx is clear. Patient has good dentition. Nipples are midsize reactive to light. Chest exam is; clear to auscultation. S1-S2 audible, no murmurs. Regular rhythm. Abdomen examination; soft, nondistended. No organomegaly. Bowel sounds audible. Extremity exam is; no peripheral edema. Pulses 1+ bilaterally. No clubbing. PAPER CONE MAKER exam is; no focal deficit. Results Result Diagram: 09/30/1661209/30/16612 Results 24 hrs Laboratory Tests Test 09/29/16 15:50 09/30/16 06:13 09/30/16 11:50 Creatine Kinase 70 Creatine Kinase Index 0.3 Creatinine Kinase MB (Mass) < 0.22 Troponin I < 0.012 White Blood Count 9.6 Red Blood Count 4.16 L Hemoglobin 9.1 #L Hematocrit 31.6 L Mean Corpuscular Volume 76.0 L Mean Corpuscular Hemoglobin 21.9 L Mean Corpuscular Hemoglobin Concent 28.8 L Red Cell Distribution Width 15.9 H Platelet Count 374 Mean Platelet Volume 11.1 H Neutrophils % 55.8 Lymphocytes % 26.4 Monocytes % 11.9 H Eosinophils % 5.0 Basophils % 0.6 Nucleated Red Blood Cells % 0.0 Neutrophils # 5.3 Lymphocytes # 2.5 Monocytes # 1.1 H Eosinophils # 0.5 Basophils # 0.1 Nucleated Red Blood Cells # 0.0 Sodium Level 139 Potassium Level 4.2 Chloride Level 103 Carbon Dioxide Level 25 Anion Gap 15 Blood Urea Nitrogen 19 Creatinine 0.80 Glucose Level 91 Hemoglobin A1c 5.0 Calcium Level 8.8 Magnesium Level 2.4 Total Bilirubin 0.1 L Direct Bilirubin 0.00 Indirect Bilirubin 0.1 Aspartate Amino Transf (AST/SGOT) 31 Alanine Aminotransferase (ALT/SGPT) 21 Alkaline Phosphatase 149 H Total Protein 7.2 # Albumin 3.6 Globulin 3.60 H Albumin/Globulin Ratio 1.00 Triglycerides Level 50 Cholesterol Level 146 LDL Cholesterol, Calculated 84 HDL Cholesterol 52 Cholesterol/HDL Ratio 2.8 Prothrombin Time 25.6 H Prothrombin Time Ratio 2.0 INR International Normalized Ratio 2.30 Medications Medications Current Medications Lorazepam (Ativan) 0.5 mg Q6H PRN IV ANXIETY; Start 09/29/16 at 09:00 Ondansetron HCl (Zofran Inj) 4 mg Q6H PRN IV NAUSEA AND/OR VOMITING; Start 05/07 at 09:00 Nitroglycerin (Nitroglycerin (Sl Tab) 0.4 Mg) 1 tab Q5M PRN SL CHEST PAIN; Start 09/29/16 at 09:00 Morphine Sulfate (morphine) 2 mg Q4H PRN IV PAIN LEVEL 7-10 Last administered on 09/30/16 12:41; Admin Dose 2 MG; Start 09/29/16 at 09:00 Digoxin (Digoxin) 0.125 mg Q48H PO Last administered on 09/29/16 14:00; Admin Dose 0.125 MG; Start 09/29/16 at 13:00 Furosemide (Lasix) 20 mg DAILY PO Last administered on 09/30/16 08:26; Admin Dose 20 MG; Start 09/29/16 at 09:00 Gabapentin (Neurontin) 300 mg TID PO Last administered on 09/30/16 12:41; Admin Dose 300 MG; Start 09/29/16 at 09:00 Warfarin Sodium (Coumadin) 4 mg DAILY@17 PO Last administered on 09/29/16 17: 18; Admin Dose 4 MG; Start 09/29/16 at 17:00 Ketorolac Tromethamine (Toradol) 15 mg Q6 PRN IV PAIN LEVEL 1-3 Last administered on 09/30/16 07:43; Admin Dose 15 MG; Start 09/29/16 at 10:30; Stop 10/02/16 at 10:29 Lidocaine 1 patch 1 patch AM TD Last administered on 09/30/16 08:26; Admin Dose 1 PATCH; Start 09/29/16 at 13:00 Azithromycin (Zithromax 500mg/ NS (Pmx)) 250 ml @ 250 mls/hr Q24H IVPB Last administered on 09/30/16 13:43; Admin Dose 250 MLS/HR; Start 09/29/16 at 13:30 Tramadol HCl (Ultram) 50 mg Q6H PRN PO pain ; Start 09/30/16 at 03:00 EDUARDO DAY Sep 30, 2016 14:48
[2016-09-30] MEDS: WARFARIN 2 MG TAB PO SCH (16:53)
[2016-09-30] MEDS: LORAZEPAM 0.5 MG TAB PO PRN (22:10)
[2016-09-30] MEDS: OXYCODONE/ACETAMINOPHEN (5/325) TAB PO PRN (23:55)
[2016-10-01] VITALS (12 sets, daily range): BP systolic 105–131; BP diastolic 55–65; PULSE 81–88; RESP 16–20
[2016-10-01] MEDS: OXYCODONE/ACETAMINOPHEN (5/325) TAB PO PRN ×3 (05:30→22:16)
[2016-10-01] MEDS ORDERED: LIDOCAINE 1% (MPF) 5 ML VIAL SC ONE (07:00)
[2016-10-01] MEDS: GABAPENTIN 300 MG CAP PO SCH ×3 (09:20→22:16)
[2016-10-01] MEDS: FUROSEMIDE 20 MG TAB PO SCH (09:27)
[2016-10-01] MEDS: LORAZEPAM 0.5 MG TAB PO PRN (09:27)
[2016-10-01] MEDS: LIDOCAINE 5% PATCH TD SCH (09:31)
--- NOTE | 2016-10-01 09:38 | RADRPT ---
PROCEDURE: XR Chest. CLINICAL INDICATION: Shortness of breath. TECHNIQUE: Single frontal view. COMPARISON: 09/26/2016. FINDINGS: There is mild atelectasis at the lung bases, unchanged. The lungs are otherwise clear. The heart is enlarged. There is a mitral valve prosthesis and left atrial appendage clamp. There a re sternal wires, screws, and plates. There is no pleural effusion. There is no pneumothorax. IMPRESSION: 1. No change from 09/26/2016. RPTAT: QQ .Ceasr Benjamin MD, MD Date Time Electronically viewed and signed by .Cesar Benjamin MD, MD on 10/01/2016 09:37 .R/
[2016-10-01] MEDS: DIGOXIN 0.125 MG TAB PO SCH (12:48)
[2016-10-01 14:16] LABS: ADD SCAN DIFF NO; BASOPHIL # 0.1 10^3/ul (0.0-0.1); BASOPHILS % 0.5 % (0.0-2.0); EOSINOPHILS # 0.5 10^3/ul (0.0-0.5); EOSINOPHILS % 5.3 % (0.0-7.0); HEMATOCRIT 28.9 % (37.0-47.0); HEMOGLOBIN 8.6 g/dl (12.0-16.0); LYMPHOCYTES # 2.7 10^3/ul (0.8-2.9); LYMPHOCYTES % 28.7 % (15.0-51.0); MEAN CORPUSCULAR HEMOGLOBIN 21.8 pg (29.0-33.0); MEAN CORPUSCULAR HGB CONC 29.8 g/dl (32.0-37.0); MEAN CORPUSCULAR VOLUME 73.2 fl (82.0-101.0); MEAN PLATELET VOLUME 10.5 fl (7.4-10.4); MONOCYTE # 0.8 10^3/ul (0.3-0.9); MONOCYTES % 8.6 % (0.0-11.0); NEUTROPHIL # 5.3 10^3/ul (1.6-7.5); NEUTROPHILS % 56.7 % (39.0-77.0); PLATELET COUNT 447 10^3/UL (140-415); RED BLOOD COUNT 3.95 10^6/ul (4.20-5.40); RED CELL DISTRIBUTION WIDTH 15.5 % (11.5-14.5); WHITE BLOOD COUNT 9.4 10^3/ul (4.8-10.8)
[2016-10-01 14:23] LABS: POTASSIUM 3.3 mmol/L (3.5-5.1)
[2016-10-01 14:26] LABS: CREATININE 0.72 mg/dl (0.44-1.00)
[2016-10-01 14:27] LABS: CALCIUM 8.4 mg/dl (8.4-10.2); INR 2.37; PROTIME 26.2 Sec (12.2-14.2)
--- NOTE | 2016-10-01 14:37 | PN ---
Date/Time of Note Date/Time of Note DATE: 10/01/16 TIME: 14:33 Assessment/Plan VTE Prophylaxis VTE Prophylaxis Intervention: other (warfarin) Lines/Catheters [facility] Saline Lock Urinary Cath still in place: No Assessment/Plan Chief Complaint/Hosp Course Assessment and plan 1. Chest pain. Patient was previously ruled out for ACS and previous admission (August 31, 2016). Patient noted with CT scan showing suspect chest mass as well as bilateral pneumonia. Likely been attributed to these issues. continue with director of acquisition marketing following. CT surgeon to follow 2. Reported pneumonia. Patient refusing Levaquin antibiotic at this time due to reported history of C. difficile from fluoroquinolone use. Patient also reportedly allergic to cephalexin. continue on azithromycin. appears to be having good response 3. History of diastolic dysfunction grade 3 to grade 4. Continue optimization with cardiovascular medications. stable 4. Chronic pain syndrome. cont on analgesics. . 5. hx valvular surgery. On coumadin. Patient also reportedly allergic to aspirin 6. Chest mass. CT surgeon to folow Disposition and plan: cont abx for pneumonia. CT surgeon to follow for chest mass. await input. change iv azithromycin to oral. d/c when medically stable and cleared by consultants Discussed plan of care with Problems: Subjective 24 Hr Interval Summary Free Text/Dictation still reports some chest discomfort, although no overt distress seen during visit Exam/Review of Systems Vital Signs Vitals Vital Signs Date Time Temp Pulse Resp B/P Pulse Ox O2 Delivery O2 Flow Rate FiO2 10/01/16 12:08 97.5 92 17 115/58 98 09/29/16 18:40 Room Air 09/28/16 08:07 2 Intake and Output 09/30/16 09/30/16 10/01/16 15:00 23:00 07:00 Intake Total 960 ml 600 ml Balance 960 ml 600 ml Exam General: awake. no s/s of distress Eyes: Equal round Neck: no jvd Cardiac: Remains regular rate Pulmonary: no obvious wheezing/rhonchi GI: Abdomen soft nontender nondistended, bowel sounds active Extremities: no edema ble Skin: Clean dry and intact Neurologic: Alert to person place and time and situation Results Result Diagram: 10/01/16 1642 09/30/16 0613 Results 24 hrs Laboratory Tests Test 10/01/16 13:55 White Blood Count 9.4 Red Blood Count 3.95 L Hemoglobin 8.6 L Hematocrit 28.9 L Mean Corpuscular Volume 73.2 L Mean Corpuscular Hemoglobin 21.8 L Mean Corpuscular Hemoglobin Concent 29.8 L Red Cell Distribution Width 15.5 H Platelet Count 447 H Mean Platelet Volume 10.5 H Neutrophils % 56.7 Lymphocytes % 28.7 Monocytes % 8.6 Eosinophils % 5.3 Basophils % 0.5 Nucleated Red Blood Cells % 0.0 Neutrophils # 5.3 Lymphocytes # 2.7 Monocytes # 0.8 Eosinophils # 0.5 Basophils # 0.1 Nucleated Red Blood Cells # 0.0 Prothrombin Time 26.2 H Prothrombin Time Ratio 2.0 INR International Normalized Ratio 2.37 Medications Medications Current Medications Ondansetron HCl (Zofran Inj) 4 mg Q6H PRN IV NAUSEA AND/OR VOMITING; Start 05/07 at 09:00 Nitroglycerin (Nitroglycerin (Sl Tab) 0.4 Mg) 1 tab Q5M PRN SL CHEST PAIN; Start 09/29/16 at 09:00 Morphine Sulfate (morphine) 2 mg Q4H PRN IV PAIN LEVEL 7-10 Last administered on 09/30/16 20:30; Admin Dose 2 MG; Start 09/29/16 at 09:00 Digoxin (Digoxin) 0.125 mg Q48H PO Last administered on 10/01/16 12:48; Admin Dose 0.125 MG; Start 09/29/16 at 13:00 Furosemide (Lasix) 20 mg DAILY PO Last administered on 10/01/16 09:27; Admin Dose 20 MG; Start 09/29/16 at 09:00 Gabapentin (Neurontin) 300 mg TID PO Last administered on 10/01/16 12:49; Admin Dose 300 MG; Start 09/29/16 at 09:00 Warfarin Sodium (Coumadin) 4 mg DAILY@17 PO Last administered on 09/30/16 16: 53; Admin Dose 4 MG; Start 09/29/16 at 17:00 Ketorolac Tromethamine (Toradol) 15 mg Q6 PRN IV PAIN LEVEL 1-3 Last administered on 09/30/16 15:51; Admin Dose 15 MG; Start 09/29/16 at 10:30; Stop 10/02/16 at 10:29 Lidocaine 1 patch 1 patch AM TD Last administered on 10/01/16 09:31; Admin Dose 1 PATCH; Start 09/29/16 at 13:00 Azithromycin (Zithromax 500mg/ NS (Pmx)) 250 ml @ 250 mls/hr Q24H IVPB Last administered on 09/30/16 13:43; Admin Dose 250 MLS/HR; Start 09/29/16 at 13:30 Tramadol HCl (Ultram) 50 mg Q6H PRN PO pain ; Start 09/30/16 at 03:00 Lorazepam (Ativan) 0.5 mg Q6H PRN PO ANXIETY Last administered on 10/01/16 09: 27; Admin Dose 0.5 MG; Start 09/30/16 at 22:00 Oxycodone/ Acetaminophen (Percocet (5/ 325)) 1 tab Q4H PRN PO PAIN Last administered on 10/01/16 12:49; Admin Dose 1 TAB; Start 10/01/16 at 00:00 Oxycodone/ Acetaminophen (Endocet (10/ 325)) 2 tab Q4H PRN PO PAIN; Start 10/01 at 14:30; Status SOURAV LAFLEUR Oct 01, 2016 14:37
[2016-10-01] MEDS: AZITHROMYCIN 250 MG TAB PO SCH (15:30)
[2016-10-01] MEDS: WARFARIN 2 MG TAB PO SCH (18:18)
[2016-10-01] MEDS: OXYCODONE/ACETAMINOPHEN (10/325) TAB PO PRN (19:32)
--- NOTE | 2016-10-01 23:09 | CONS ---
DATE OF ADMISSION: 09/28/2016 DATE OF CONSULTATION: REASON FOR CONSULTATION: Mediastinal mass. HISTORY OF PRESENT ILLNESS: This is a 51-year-old female, recently underwent heart surgery at [facility] with Dr. Navarrete back in 2016. Subsequently has had pulmonary issues, was admitted b ecause of severe shortness of breath. Part of her workup has included a CAT scan of the chest which showed interval development of a soft-tissue mass, subcarinal, 6 x 5 x 3 cm, and there are some ___ _ lymph nodes that are present. PAST MEDICAL HISTORY: Significant for hypertension, hyperlipidemia, cardiac valvular disease. Also positive for atrial fibrillation. PAST SURGICAL HISTORY: Hysterectomy, oophorectomy, shoulder surgery, cardiac valve surgery. MEDICATIONS: List reviewed. PHYSICAL EXAMINATION: VITAL SIGNS: Blood pressure is 105/65, pulse is 89, respirations 20, saturations 98% on room air. HEENT: Normocephalic, atraumatic. PERRLA. CARDIOVASCULAR: Normal S1, S2. LUNGS: Clear. ABDOMEN: Soft. EXTREMITIES: Warm. LABORATORY VALUES: Significant for a white count of 9.4, hemoglobin 8.6, platelet count 447. INR i s 2.37. IMPRESSION: 1. Mediastinal mass. 2. Anemia. 3. Coagulopathy secondary to anticoagulation. RECOMMENDATIONS: The patient will need a biopsy of the mediastinal mass. This appears to be subcar inal and not accessible through mediastinoscopy. Would consider either video-assisted thoracic surg wild or transbronchial biopsy. Will discuss with the referring physicians. Dictated By: KWAKU MCINTYRE/TIN Conf#: [id number] DID#: [id number]
[2016-10-02] MEDS: OXYCODONE/ACETAMINOPHEN (10/325) TAB PO PRN ×4 (05:32→21:51)
[2016-10-02 07:11] LABS: ADD SCAN DIFF NO
[2016-10-02 07:22] LABS: BASOPHIL # 0.1 10^3/ul (0.0-0.1); BASOPHILS % 0.9 % (0.0-2.0); EOSINOPHILS # 0.5 10^3/ul (0.0-0.5); HEMOGLOBIN 8.8 g/dl (12.0-16.0); LYMPHOCYTES # 2.7 10^3/ul (0.8-2.9); LYMPHOCYTES % 33.8 % (15.0-51.0); MEAN CORPUSCULAR HEMOGLOBIN 22.3 pg (29.0-33.0); MEAN CORPUSCULAR HGB CONC 29.3 g/dl (32.0-37.0); MEAN CORPUSCULAR VOLUME 75.9 fl (82.0-101.0); MEAN PLATELET VOLUME 10.8 fl (7.4-10.4); MONOCYTES % 12.2 % (0.0-11.0); NEUTROPHIL # 3.8 10^3/ul (1.6-7.5); PLATELET COUNT 467 10^3/UL (140-415); RED BLOOD COUNT 3.95 10^6/ul (4.20-5.40); RED CELL DISTRIBUTION WIDTH 15.7 % (11.5-14.5); WHITE BLOOD COUNT 8.1 10^3/ul (4.8-10.8)
[2016-10-02 07:35] VITALS: BP 104/57; RESP 16
[2016-10-02 07:37] LABS: POTASSIUM 4.1 mmol/L (3.5-5.1)
[2016-10-02 07:39] LABS: CREATININE 0.7 mg/dl (0.44-1.00)
[2016-10-02 07:40] LABS: CALCIUM 8.6 mg/dl (8.4-10.2)
[2016-10-02] MEDS: LIDOCAINE 5% PATCH TD SCH ×2 (09:00→09:30)
[2016-10-02] MEDS: FUROSEMIDE 20 MG TAB PO SCH (09:30)
[2016-10-02] MEDS: GABAPENTIN 300 MG CAP PO SCH ×3 (09:30→20:57)
[2016-10-02] MEDS: AZITHROMYCIN 250 MG TAB PO SCH (09:30)
--- NOTE | 2016-10-02 15:09 | PN ---
Date/Time of Note Date/Time of Note DATE: 10/02/16 TIME: 15:07 Assessment/Plan VTE Prophylaxis VTE Prophylaxis Intervention: SCD's Lines/Catheters IV [facility]ter Type (from [facility] Saline Lock Urinary Cath still in place: No Assessment/Plan Chief Complaint/Hosp Course Chief Complaint/Hosp Course Assessment and plan 1. Chest pain. Patient was previously ruled out for ACS and previous admission (August 31, 2016). Patient noted with CT scan showing suspect chest mass as well as bilateral pneumonia. Likely been attributed to these issues. continue with lawn mower following. CT surgeon to follow . Plan for possible VATS as per CT surgeon 2. Reported pneumonia. Patient refusing Levaquin antibiotic at this time due to reported history of C. difficile from fluoroquinolone use. Patient also reportedly allergic to cephalexin. continue on azithromycin. appears to be having good response 3. History of diastolic dysfunction grade 3 to grade 4. Continue optimization with cardiovascular medications. stable 4. Chronic pain syndrome. cont on analgesics. . 5. hx valvular surgery. On coumadin. Patient also reportedly allergic to aspirin 6. Chest mass. CT surgeon to folow Disposition and plan: cont abx for pneumonia. CT surgeon to follow for chest mass. await input. change iv azithromycin to oral. d/c when medically stable and cleared by consultants Problems: Subjective 24 Hr Interval Summary Free Text/Dictation Patient denies any chest pain shortness of breath Pain is well managed Tolerating oral intake No nausea vomiting diarrhea Exam/Review of Systems Vital Signs Vitals Vital Signs Date Time Temp Pulse Resp B/P Pulse Ox O2 Delivery O2 Flow Rate FiO2 10/02/16 07:35 98.2 87 16 104/57 98 09/29/16 18:40 Room Air 09/28/16 08:07 2 Intake and Output 10/01/16 10/01/16 10/02/16 15:00 23:00 07:00 Intake Total 500 ml 720 ml Balance 500 ml 720 ml Exam General: The patient is well-developed, Not in acute distress. HEENT: Atraumatic, normocephalic. The pupils are equal and round . Neck: Supple with full range of motion. Chest: Normal , well-healed scar from prior surgeries Lungs: Clear to auscultation bilaterally Heart: Normal S1-S2, Regular rhythm and rate. Abdomen: Soft , nontender, nondistended , bowel sounds are present. Extremities: Normal to inspection, no edema no cyanosis Neurologic: Normal mental status,The patient is awake, alert and oriented . Results Result Diagram: 10/02/16 0651 10/02/16 0651 Results 24 hrs Laboratory Tests Test 10/02/16 06:51 White Blood Count 8.1 Red Blood Count 3.95 L Hemoglobin 8.8 L Hematocrit 30.0 L Mean Corpuscular Volume 75.9 L Mean Corpuscular Hemoglobin 22.3 L Mean Corpuscular Hemoglobin Concent 29.3 L Red Cell Distribution Width 15.7 H Platelet Count 467 H Mean Platelet Volume 10.8 H Neutrophils % 47.0 Lymphocytes % 33.8 Monocytes % 12.2 H Eosinophils % 6.0 Basophils % 0.9 Nucleated Red Blood Cells % 0.0 Neutrophils # 3.8 Lymphocytes # 2.7 Monocytes # 1.0 H Eosinophils # 0.5 Basophils # 0.1 Nucleated Red Blood Cells # 0.0 Sodium Level 139 Potassium Level 4.1 Chloride Level 101 Carbon Dioxide Level 28 Anion Gap 14 Blood Urea Nitrogen 14 Creatinine 0.70 Glucose Level 104 Calcium Level 8.6 Medications Medications Current Medications Ondansetron HCl (Zofran Inj) 4 mg Q6H PRN IV NAUSEA AND/OR VOMITING; Start 05/07 at 09:00 Nitroglycerin (Nitroglycerin (Sl Tab) 0.4 Mg) 1 tab Q5M PRN SL CHEST PAIN; Start 09/29/16 at 09:00 Morphine Sulfate (morphine) 2 mg Q4H PRN IV PAIN LEVEL 7-10 Last administered on 09/30/16 20:30; Admin Dose 2 MG; Start 09/29/16 at 09:00 Digoxin (Digoxin) 0.125 mg Q48H PO Last administered on 10/01/16 12:48; Admin Dose 0.125 MG; Start 09/29/16 at 13:00 Furosemide (Lasix) 20 mg DAILY PO Last administered on 10/02/16 09:30; Admin Dose 20 MG; Start 09/29/16 at 09:00 Gabapentin (Neurontin) 300 mg TID PO Last administered on 10/02/16 14:07; Admin Dose 300 MG; Start 09/29/16 at 09:00 Warfarin Sodium (Coumadin) 4 mg DAILY@17 PO Last administered on 10/01/16 18: 18; Admin Dose 4 MG; Start 09/29/16 at 17:00 Lidocaine (Lidoderm) 1 patch AM TD Last administered on 10/01/16 09:31; Admin Dose 1 PATCH; Start 09/29/16 at 13:00 Tramadol HCl (Ultram) 50 mg Q6H PRN PO pain ; Start 09/30/16 at 03:00 Lorazepam (Ativan) 0.5 mg Q6H PRN PO ANXIETY Last administered on 10/01/16 09: 27; Admin Dose 0.5 MG; Start 09/30/16 at 22:00 Oxycodone/ Acetaminophen (Percocet (5/ 325)) 1 tab Q4H PRN PO PAIN Last administered on 10/01/16 22:16; Admin Dose 1 TAB; Start 10/01/16 at 00:00 Oxycodone/ Acetaminophen (Endocet (10/ 325)) 2 tab Q4H PRN PO PAIN Last administered on 10/02/16 09:40; Admin Dose 2 TAB; Start 10/01/16 at 14:30 Azithromycin (Zithromax) 250 mg DAILY PO Last administered on 10/02/16 09:30; Admin Dose 250 MG; Start 10/01/16 at 15:30 ALY GIRON MD Oct 02, 2016 15:09
[2016-10-02] MEDS: WARFARIN 2 MG TAB PO SCH (17:32)
[2016-10-02 19:50] VITALS: BP 128/73; PULSE 87; RESP 18
--- NOTE | 2016-10-02 20:45 | PN ---
Date/Time of Note Date/Time of Note DATE: 10/02/16 TIME: 20:43 Assessment/Plan VTE Prophylaxis VTE Prophylaxis Intervention: other Lines/Catheters IV Catheter Type (from Nrsg): Urinary Cath still in place: No Assessment/Plan Chief Complaint/Hosp Course Pt with mediastinal mass will need US guided BX will arrange for transfer to outside hospital Problems: Exam/Review of Systems Vital Signs Vitals Vital Signs Date Time Temp Pulse Resp B/P Pulse Ox O2 Delivery O2 Flow Rate FiO2 10/02/16 19:50 98.8 87 18 128/73 94 09/29/16 18:40 Room Air 09/28/16 08:07 2 Intake and Output 10/01/16 10/01/16 10/02/16 15:00 23:00 07:00 Intake Total 500 ml 720 ml Balance 500 ml 720 ml Results Result Diagram: 10/02/16 0651 10/02/16 0651 Results 24 hrs Laboratory Tests Test 10/02/16 06:51 White Blood Count 8.1 Red Blood Count 3.95 L Hemoglobin 8.8 L Hematocrit 30.0 L Mean Corpuscular Volume 75.9 L Mean Corpuscular Hemoglobin 22.3 L Mean Corpuscular Hemoglobin Concent 29.3 L Red Cell Distribution Width 15.7 H Platelet Count 467 H Mean Platelet Volume 10.8 H Neutrophils % 47.0 Lymphocytes % 33.8 Monocytes % 12.2 H Eosinophils % 6.0 Basophils % 0.9 Nucleated Red Blood Cells % 0.0 Neutrophils # 3.8 Lymphocytes # 2.7 Monocytes # 1.0 H Eosinophils # 0.5 Basophils # 0.1 Nucleated Red Blood Cells # 0.0 Sodium Level 139 Potassium Level 4.1 Chloride Level 101 Carbon Dioxide Level 28 Anion Gap 14 Blood Urea Nitrogen 14 Creatinine 0.70 Glucose Level 104 Calcium Level 8.6 Medications Medications Current Medications Ondansetron HCl (Zofran Inj) 4 mg Q6H PRN IV NAUSEA AND/OR VOMITING; Start 05/07 at 09:00 Nitroglycerin (Nitroglycerin (Sl Tab) 0.4 Mg) 1 tab Q5M PRN SL CHEST PAIN; Start 09/29/16 at 09:00 Morphine Sulfate (morphine) 2 mg Q4H PRN IV PAIN LEVEL 7-10 Last administered on 09/30/16t 20:30; Admin Dose 2 MG; Start 09/29/16 at 09:00 Digoxin (Digoxin) 0.125 mg Q48H PO Last administered on 10/01/16 12:48; Admin Dose 0.125 MG; Start 09/29/16 at 13:00 Furosemide (Lasix) 20 mg DAILY PO Last administered on 10/02/16 09:30; Admin Dose 20 MG; Start 09/29/16 at 09:00 Gabapentin (Neurontin) 300 mg TID PO Last administered on 10/02/16 14:07; Admin Dose 300 MG; Start 09/29/16 at 09:00 Warfarin Sodium (Coumadin) 4 mg DAILY@17 PO Last administered on 10/02/16 17: 32; Admin Dose 4 MG; Start 09/29/16 at 17:00 Lidocaine (Lidoderm) 1 patch AM TD Last administered on 10/01/16 09:31; Admin Dose 1 PATCH; Start 09/29/16 at 13:00 Tramadol HCl (Ultram) 50 mg Q6H PRN PO pain ; Start 09/30/16 at 03:00 Lorazepam (Ativan) 0.5 mg Q6H PRN PO ANXIETY Last administered on 10/01/16 09: 27; Admin Dose 0.5 MG; Start 09/30/16 at 22:00 Oxycodone/ Acetaminophen (Percocet (5/ 325)) 1 tab Q4H PRN PO PAIN Last administered on 10/01/16 22:16; Admin Dose 1 TAB; Start 10/01/16 at 00:00 Oxycodone/ Acetaminophen (Endocet (10/ 325)) 2 tab Q4H PRN PO PAIN Last administered on 10/02/16 15:22; Admin Dose 2 TAB; Start 10/01/16 at 14:30 Azithromycin (Zithromax) 250 mg DAILY PO Last administered on 10/02/16 09:30; Admin Dose 250 MG; Start 10/01/16 at 15:30 KWAKU JONES MD Oct 02, 2016 20:45
[2016-10-03] MEDS: OXYCODONE/ACETAMINOPHEN (10/325) TAB PO PRN ×3 (05:57→19:46)
[2016-10-03 07:10] LABS: ADD SCAN DIFF NO
[2016-10-03 07:29] LABS: ABNORMAL IP MESSAGE 1; BASOPHIL # 0.1 10^3/ul (0.0-0.1); BASOPHILS % 0.9 % (0.0-2.0); EOSINOPHILS # 0.5 10^3/ul (0.0-0.5); HEMOGLOBIN 9.1 g/dl (12.0-16.0); LYMPHOCYTES # 3.2 10^3/ul (0.8-2.9); LYMPHOCYTES % 35.4 % (15.0-51.0); MEAN CORPUSCULAR HEMOGLOBIN 21.9 pg (29.0-33.0); MEAN CORPUSCULAR HGB CONC 28.4 g/dl (32.0-37.0); MEAN CORPUSCULAR VOLUME 77.1 fl (82.0-101.0); MEAN PLATELET VOLUME 10.4 fl (7.4-10.4); MONOCYTE # 0.9 10^3/ul (0.3-0.9); MONOCYTES % 9.6 % (0.0-11.0); NEUTROPHIL # 4.4 10^3/ul (1.6-7.5); NEUTROPHILS % 48.7 % (39.0-77.0); PLATELET COUNT 512 10^3/UL (140-415); RED BLOOD COUNT 4.15 10^6/ul (4.20-5.40); RED CELL DISTRIBUTION WIDTH 15.9 % (11.5-14.5)
[2016-10-03 07:35] LABS: CALCIUM 8.8 mg/dl (8.4-10.2); CREATININE 0.86 mg/dl (0.44-1.00); POTASSIUM 4.1 mmol/L (3.5-5.1)
[2016-10-03 07:41] LABS: INR 2.46; PT RATIO 2.1
[2016-10-03 08:11] VITALS: RESP 16
[2016-10-03] MEDS: LIDOCAINE 5% PATCH TD SCH (08:45)
[2016-10-03] MEDS: GABAPENTIN 300 MG CAP PO SCH ×3 (08:46→21:26)
[2016-10-03] MEDS: AZITHROMYCIN 250 MG TAB PO SCH (08:46)
[2016-10-03] MEDS: FUROSEMIDE 20 MG TAB PO SCH (08:50)
[2016-10-03 08:51] VITALS: BP 140/63; PULSE 68; RESP 20
--- NOTE | 2016-10-03 11:14 | PN ---
Date/Time of Note Date/Time of Note DATE: 10/03/16 TIME: 11:10 Assessment/Plan VTE Prophylaxis VTE Prophylaxis Intervention: SCD's Lines/Catheters IV C[facility] Type (from [facility]): Saline Lock Urinary Cath still in place: No Assessment/Plan Assessment/Plan 1. Chest pain. Patient was previously ruled out for ACS and previous admission (August 31, 2016). Patient noted with CT scan showing suspect chest mass as well as bilateral pneumonia. Likely been attributed to these issues. 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 CT surgeon to follow . Plan for possible VATS as per CT surgeon 2. Reported pneumonia. Patient refusing Levaquin antibiotic at this time due to reported history of C. difficile from fluoroquinolone use. Patient also reportedly allergic to cephalexin. continue on azithromycin. appears to be having good response 3. History of diastolic dysfunction grade 3 to grade 4. Continue optimization with cardiovascular medications. stable 4. Chronic pain syndrome. cont on analgesics. . 5. hx valvular surgery. On coumadin. Patient also reportedly allergic to aspirin 6. Chest mass. CT surgeon to folow Disposition and plan: cont abx for pneumonia. CT surgeon to follow for chest mass. await input. change iv azithromycin to oral. Subjective 24 Hr Interval Summary Free Text/Dictation Bp stable, afebrile, no chest pain, S/p Ct surgery follow up, recommended to get US guided Bx, and transfer to other hospital Exam/Review of Systems Vital Signs Vitals Vital Signs Date Time Temp Pulse Resp B/P Pulse Ox O2 Delivery O2 Flow Rate FiO2 10/03/16 08:51 68 20 140/63 100 Room Air 10/03/16 08:11 98.4 Intake and Output 10/02/16 10/02/16 10/03/16 15:00 23:00 07:00 Intake Total 1170 ml 200 ml Balance 1170 ml 200 ml Results Result Diagram: 10/03/16 0605 10/03/16 0605 Results 24 hrs Laboratory Tests Test 10/03/16 06:05 White Blood Count 9.0 Red Blood Count 4.15 L Hemoglobin 9.1 L Hematocrit 32.0 L Mean Corpuscular Volume 77.1 L Mean Corpuscular Hemoglobin 21.9 L Mean Corpuscular Hemoglobin Concent 28.4 L Red Cell Distribution Width 15.9 H Platelet Count 512 H Mean Platelet Volume 10.4 Neutrophils % 48.7 Lymphocytes % 35.4 Monocytes % 9.6 Eosinophils % 5.0 Basophils % 0.9 Nucleated Red Blood Cells % 0.0 Neutrophils # 4.4 Lymphocytes # 3.2 H Monocytes # 0.9 Eosinophils # 0.5 Basophils # 0.1 Nucleated Red Blood Cells # 0.0 Prothrombin Time 27.0 H Prothrombin Time Ratio 2.1 INR International Normalized Ratio 2.46 Sodium Level 138 Potassium Level 4.1 Chloride Level 101 Carbon Dioxide Level 31 Anion Gap 10 Blood Urea Nitrogen 13 Creatinine 0.86 Glucose Level 122 Calcium Level 8.8 Medications Medications Current Medications Ondansetron HCl (Zofran Inj) 4 mg Q6H PRN IV NAUSEA AND/OR VOMITING; Start 05/07 at 09:00 Nitroglycerin (Nitroglycerin (Sl Tab) 0.4 Mg) 1 tab Q5M PRN SL CHEST PAIN; Start 09/29/16 at 09:00 Morphine Sulfate (morphine) 2 mg Q4H PRN IV PAIN LEVEL 7-10 Last administered on 09/30/16 20:30; Admin Dose 2 MG; Start 09/29/16 at 09:00 Digoxin (Digoxin) 0.125 mg Q48H PO Last administered on 10/01/16 12:48; Admin Dose 0.125 MG; Start 09/29/16 at 13:00 Furosemide (Lasix) 20 mg DAILY PO Last administered on 10/03/16 08:50; Admin Dose 20 MG; Start 09/29/16 at 09:00 Gabapentin (Neurontin) 300 mg TID PO Last administered on 10/03/16 08:46; Admin Dose 300 MG; Start 09/29/16 at 09:00 Warfarin Sodium (Coumadin) 4 mg DAILY@17 PO Last administered on 10/02/16 17: 32; Admin Dose 4 MG; Start 09/29/16 at 17:00 Lidocaine (Lidoderm) 1 patch AM TD Last administered on 10/01/16 09:31; Admin Dose 1 PATCH; Start 09/29/16 at 13:00 Tramadol HCl (Ultram) 50 mg Q6H PRN PO pain ; Start 09/30/16 at 03:00 Lorazepam (Ativan) 0.5 mg Q6H PRN PO ANXIETY Last administered on 10/01/16 09: 27; Admin Dose 0.5 MG; Start 09/30/16 at 22:00 Oxycodone/ Acetaminophen (Percocet (5/ 325)) 1 tab Q4H PRN PO PAIN Last administered on 10/01/16 22:16; Admin Dose 1 TAB; Start 10/01/16 at 00:00 Oxycodone/ Acetaminophen (Endocet (10/ 325)) 2 tab Q4H PRN PO PAIN Last administered on 10/03/16 10:14; Admin Dose 2 TAB; Start 10/01/16 at 14:30 Azithromycin (Zithromax) 250 mg DAILY PO Last administered on 10/03/16 08:46; Admin Dose 250 MG; Start 10/01/16 at 15:30 Estradiol (Estrace) 1 mg DAILY PO ; Start 10/03/16 at 11:30; Status UNV Pantoprazole (Protonix Tab) 40 mg BID PO ; Start 10/03/16 at 11:30; Status UNV KINZA CARSON MD Oct 03, 2016 11:14
[2016-10-03] MEDS: LORAZEPAM 0.5 MG TAB PO PRN ×2 (11:21→18:32)
[2016-10-03] MEDS: PANTOPRAZOLE (EC) 40 MG TAB PO SCH ×2 (11:24→17:13)
[2016-10-03] MEDS: ESTRADIOL 1 MG TAB PO SCH (11:24)
[2016-10-03] MEDS: DIGOXIN 0.125 MG TAB PO SCH (12:13)
[2016-10-03 12:18] VITALS: BP 121/65; PULSE 84; RESP 18
[2016-10-03] MEDS: WARFARIN 2 MG TAB PO SCH (17:13)
[2016-10-03 20:00] VITALS: BP 110/67; PULSE 92; RESP 19
[2016-10-03 22:32] VITALS: BP 115/54; RESP 18
[2016-10-03 22:35] VITALS: BP 110/67; RESP 19
[2016-10-04] MEDS: OXYCODONE/ACETAMINOPHEN (10/325) TAB PO PRN ×4 (00:34→21:04)
[2016-10-04] MEDS: LORAZEPAM 0.5 MG TAB PO PRN (02:02)
[2016-10-04] MEDS ORDERED: SPECIAL NON-STANDARD MEDICATION TOP SCH (03:30)
[2016-10-04] MEDS: PANTOPRAZOLE (EC) 40 MG TAB PO SCH ×2 (05:30→17:14)
[2016-10-04 06:22] LABS: ADD SCAN DIFF NO
[2016-10-04 06:27] LABS: ABNORMAL IP MESSAGE 1; BASOPHIL # 0.1 10^3/ul (0.0-0.1); BASOPHILS % 1.3 % (0.0-2.0); EOSINOPHILS # 0.5 10^3/ul (0.0-0.5); EOSINOPHILS % 7.9 % (0.0-7.0); HEMATOCRIT 30.9 % (37.0-47.0); HEMOGLOBIN 8.7 g/dl (12.0-16.0); LYMPHOCYTES # 2.6 10^3/ul (0.8-2.9); LYMPHOCYTES % 38.2 % (15.0-51.0); MEAN CORPUSCULAR HEMOGLOBIN 21.3 pg (29.0-33.0); MEAN CORPUSCULAR HGB CONC 28.2 g/dl (32.0-37.0); MEAN CORPUSCULAR VOLUME 75.7 fl (82.0-101.0); MEAN PLATELET VOLUME 10.1 fl (7.4-10.4); MONOCYTE # 0.8 10^3/ul (0.3-0.9); MONOCYTES % 11.8 % (0.0-11.0); NEUTROPHIL # 2.8 10^3/ul (1.6-7.5); NEUTROPHILS % 40.5 % (39.0-77.0); PLATELET COUNT 536 10^3/UL (140-415); RED BLOOD COUNT 4.08 10^6/ul (4.20-5.40); RED CELL DISTRIBUTION WIDTH 15.7 % (11.5-14.5); WHITE BLOOD COUNT 6.8 10^3/ul (4.8-10.8)
[2016-10-04 06:38] LABS: POTASSIUM 4.1 mmol/L (3.5-5.1)
[2016-10-04 06:40] LABS: CREATININE 0.68 mg/dl (0.44-1.00)
[2016-10-04 06:41] LABS: CALCIUM 8.9 mg/dl (8.4-10.2)
[2016-10-04 08:17] VITALS: BP 143/62; RESP 17
[2016-10-04] MEDS ORDERED: FLUOCINONIDE 0.05% 15 GM OINT TOP SCH ×2 (09:00)
[2016-10-04] MEDS: LIDOCAINE 5% PATCH TD SCH (09:00)
[2016-10-04] MEDS: ESTRADIOL 1 MG TAB PO SCH (09:00)
[2016-10-04] MEDS: AZITHROMYCIN 250 MG TAB PO SCH (09:18)
[2016-10-04] MEDS: FUROSEMIDE 20 MG TAB PO SCH (09:18)
[2016-10-04] MEDS: GABAPENTIN 300 MG CAP PO SCH ×3 (09:18→21:03)
[2016-10-04 10:58] LABS: ADD UMIC YES; URINE BILIRUBIN (Dip) NEGATIVE (NEGATIVE); URINE BLOOD (Dip) TRACE (NEGATIVE); URINE COLOR LT. YELLOW (YELLOW); URINE GLUCOSE (Dip) NEGATIVE (NEGATIVE); URINE KETONES (Dip) NEGATIVE (NEGATIVE); URINE LEUKOCYTE ESTERASE (Dip) NEGATIVE (NEGATIVE); URINE NITRITE (Dip) NEGATIVE (NEGATIVE); URINE TOTAL PROTEIN (Dip) NEGATIVE (NEGATIVE); URINE UROBILINOGEN (Dip) 0.2 E.U./dL (0.1-1.0)
--- NOTE | 2016-10-04 11:03 | PN ---
Date/Time of Note Date/Time of Note DATE: 10/04/16 TIME: 11:01 Assessment/Plan Lines/Catheters IV Catheter Type (from Nrsg): Saline Lock Kraus in Place (from Nrsg): No Assessment/Plan Chief Complaint/Hosp Course Pt with mediastinal mass will need US guided BX will arrange for transfer [facility] where EBUS can be done will discuss with case management Problems: Subjective 24 Hr Interval Summary Constitutional: improved Pain Control: mild Exam/Review of Systems Vital Signs Vitals Vital Signs Date Time Temp Pulse Resp B/P Pulse Ox O2 Delivery O2 Flow Rate FiO2 10/04/16 08:17 98.3 83 17 143/62 96 10/03/16 20:00 Room Air Intake and Output 10/03/16 10/03/16 10/04/16 15:00 23:00 07:00 Intake Total 750 ml 1050 ml Output Total 920 ml 400 ml Balance -170 ml 650 ml Exam Neck: non-tender, supple Respiratory: clear to auscultation, normal air movement Cardiovascular: nl pulses, regular rate and rhythm Results Result Diagram: 10/04/16 0456 10/04/16 0456 KWAKU JONES MD Oct 04, 2016 11:03
[2016-10-04 11:34] LABS: SQUAMOUS EPITHELIAL CELL,UR FEW; URINE RBCS 0-2 /HPF (0)
--- NOTE | 2016-10-04 12:28 | PN ---
Date/Time of Note Date/Time of Note DATE: 10/04/16 TIME: 12:27 Assessment/Plan VTE Prophylaxis VTE Prophylaxis Intervention: SCD's Lines/Catheters IV Catheter Type (from [facility]): Saline Lock Urinary Cath still in place: No Assessment/Plan Assessment/Plan 1. Chest pain. Patient was previously ruled out for ACS and previous admission (August 31, 2016). Patient noted with CT scan showing suspect chest mass as well as bilateral pneumonia. Likely been attributed to these issues. 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 CT surgeon to follow . Plan for possible EBUS as per CT surgeon 2. Reported pneumonia. Patient refusing Levaquin antibiotic at this time due to reported history of C. difficile from fluoroquinolone use. Patient also reportedly allergic to cephalexin. continue on azithromycin. appears to be having good response 3. History of diastolic dysfunction grade 3 to grade 4. Continue optimization with cardiovascular medications. stable 4. Chronic pain syndrome. cont on analgesics. . 5. hx valvular surgery. On coumadin. Patient also reportedly allergic to aspirin 6. Chest mass. CT surgeon to folow IV abx for PNA EBUS planned by CT surgery to transfer to other hospital Subjective 24 Hr Interval Summary Free Text/Dictation no chest pain, CT surgery recommended to transfer to other hospital for Mediastinoscopy and Biopsy/resection of mass Exam/Review of Systems Vital Signs Vitals Vital Signs Date Time Temp Pulse Resp B/P Pulse Ox O2 Delivery O2 Flow Rate FiO2 10/04/16 08:17 98.3 83 17 143/62 96 10/03/16 20:00 Room Air Intake and Output 10/03/16 10/03/16 10/04/16 15:00 23:00 07:00 Intake Total 750 ml 1050 ml Output Total 920 ml 400 ml Balance -170 ml 650 ml Results Result Diagram: 10/04/16 0456 10/04/16 0456 Results 24 hrs Laboratory Tests Test 10/03/16 22:40 10/04/16 04:56 Urine Color LT. YELLOW Urine Clarity CLEAR Urine pH 6.5 Urine Specific [place] <=1.005 L Urine Ketones NEGATIVE Urine Nitrite NEGATIVE Urine Bilirubin NEGATIVE Urine Urobilinogen 0.2 E.U./dL Urine Leukocyte Esterase NEGATIVE Urine Microscopic RBC 0-2 Urine Microscopic WBC NONE SEEN Urine Squamous Epithelial Cells FEW Urine Hemoglobin TRACE Urine Glucose NEGATIVE Urine Total Protein NEGATIVE White Blood Count 6.8 # Red Blood Count 4.08 L Hemoglobin 8.7 L Hematocrit 30.9 L Mean Corpuscular Volume 75.7 L Mean Corpuscular Hemoglobin 21.3 L Mean Corpuscular Hemoglobin Concent 28.2 L Red Cell Distribution Width 15.7 H Platelet Count 536 H Mean Platelet Volume 10.1 Neutrophils % 40.5 Lymphocytes % 38.2 Monocytes % 11.8 H Eosinophils % 7.9 H Basophils % 1.3 Nucleated Red Blood Cells % 0.0 Neutrophils # 2.8 Lymphocytes # 2.6 Monocytes # 0.8 Eosinophils # 0.5 Basophils # 0.1 Nucleated Red Blood Cells # 0.0 Sodium Level 139 Potassium Level 4.1 Chloride Level 99 Carbon Dioxide Level 31 Anion Gap 13 Blood Urea Nitrogen 15 Creatinine 0.68 Glucose Level 98 Calcium Level 8.9 Medications Medications Current Medications Ondansetron HCl (Zofran Inj) 4 mg Q6H PRN IV NAUSEA AND/OR VOMITING; Start 05/07 at 09:00 Nitroglycerin (Nitroglycerin (Sl Tab) 0.4 Mg) 1 tab Q5M PRN SL CHEST PAIN; Start 09/29/16 at 09:00 Morphine Sulfate (morphine) 2 mg Q4H PRN IV PAIN LEVEL 7-10 Last administered on 09/30/16 20:30; Admin Dose 2 MG; Start 09/29/16 at 09:00 Digoxin (Digoxin) 0.125 mg Q48H PO Last administered on 10/03/16 12:13; Admin Dose 0.125 MG; Start 09/29/16 at 13:00 Furosemide (Lasix) 20 mg DAILY PO Last administered on 10/04/16 09:18; Admin Dose 20 MG; Start 09/29/16 at 09:00 Gabapentin (Neurontin) 300 mg TID PO Last administered on 10/04/16 09:18; Admin Dose 300 MG; Start 09/29/16 at 09:00 Warfarin Sodium (Coumadin) 4 mg DAILY@17 PO Last administered on 10/03/16 17: 13; Admin Dose 4 MG; Start 09/29/16 at 17:00 Lidocaine (Lidoderm) 1 patch AM TD Last administered on 10/01/16 09:31; Admin Dose 1 PATCH; Start 09/29/16 at 13:00 Tramadol HCl (Ultram) 50 mg Q6H PRN PO pain ; Start 09/30/16 at 03:00 Lorazepam (Ativan) 0.5 mg Q6H PRN PO ANXIETY Last administered on 10/04/16 02: 02; Admin Dose 0.5 MG; Start 09/30/16 at 22:00 Oxycodone/ Acetaminophen (Percocet (5/ 325)) 1 tab Q4H PRN PO PAIN Last administered on 10/01/16 22:16; Admin Dose 1 TAB; Start 10/01/16 at 00:00 Oxycodone/ Acetaminophen (Endocet (10/ 325)) 2 tab Q4H PRN PO PAIN Last administered on 10/04/16 09:26; Admin Dose 2 TAB; Start 10/01/16 at 14:30 Azithromycin (Zithromax) 250 mg DAILY PO Last administered on 10/04/16 09:18; Admin Dose 250 MG; Start 10/01/16 at 15:30 Estradiol (Estrace) 1 mg DAILY PO ; Start 10/03/16 at 12:00 Pantoprazole (Protonix Tab) 40 mg BID@,18 PO Last administered on 10/04/16 05:30; Admin Dose 40 MG; Start 10/03/16 at 11:00 Fluocinonide (Lidex 0.05% Oint) 1 applic BID TOP ; Start 10/04/16 at 09:00 KINZA CARSON MD Oct 04, 2016 12:28
[2016-10-04] MEDS: WARFARIN 2 MG TAB PO SCH (17:14)
[2016-10-04] MEDS: FLUOCINONIDE 0.05% 15 GM CR TOP SCH (21:03)
[2016-10-04 22:03] VITALS: BP 114/56; RESP 20
[2016-10-05] MEDS: OXYCODONE/ACETAMINOPHEN (10/325) TAB PO PRN ×4 (04:54→20:52)
[2016-10-05] MEDS: PANTOPRAZOLE (EC) 40 MG TAB PO SCH ×2 (04:58→17:14)
[2016-10-05 05:07] LABS: ADD SCAN DIFF NO
[2016-10-05 05:13] LABS: BASOPHIL # 0.1 10^3/ul (0.0-0.1); BASOPHILS % 0.8 % (0.0-2.0); EOSINOPHILS # 0.5 10^3/ul (0.0-0.5); EOSINOPHILS % 6.1 % (0.0-7.0); HEMATOCRIT 30.1 % (37.0-47.0); HEMOGLOBIN 8.8 g/dl (12.0-16.0); LYMPHOCYTES % 34.8 % (15.0-51.0); MEAN CORPUSCULAR HEMOGLOBIN 22.2 pg (29.0-33.0); MEAN CORPUSCULAR HGB CONC 29.2 g/dl (32.0-37.0); MEAN CORPUSCULAR VOLUME 75.8 fl (82.0-101.0); MEAN PLATELET VOLUME 10.1 fl (7.4-10.4); MONOCYTES % 11.4 % (0.0-11.0); NEUTROPHILS % 46.4 % (39.0-77.0); PLATELET COUNT 595 10^3/UL (140-415); RED BLOOD COUNT 3.97 10^6/ul (4.20-5.40); RED CELL DISTRIBUTION WIDTH 15.6 % (11.5-14.5); WHITE BLOOD COUNT 8.7 10^3/ul (4.8-10.8)
[2016-10-05 05:29] LABS: INR 2.68; PROTIME 28.9 Sec (12.2-14.2); PT RATIO 2.3
[2016-10-05 05:40] LABS: CALCIUM 8.7 mg/dl (8.4-10.2); CREATININE 0.77 mg/dl (0.44-1.00); POTASSIUM 4.2 mmol/L (3.5-5.1)
[2016-10-05 07:40] VITALS: BP 104/58; RESP 16
[2016-10-05] MEDS: LIDOCAINE 5% PATCH TD SCH (09:00)
[2016-10-05] MEDS: ESTRADIOL 1 MG TAB PO SCH (09:16)
[2016-10-05] MEDS: FUROSEMIDE 20 MG TAB PO SCH (09:17)
[2016-10-05] MEDS: FLUOCINONIDE 0.05% 15 GM CR TOP SCH ×2 (09:18→20:52)
[2016-10-05] MEDS: GABAPENTIN 300 MG CAP PO SCH ×3 (09:18→20:51)
[2016-10-05] MEDS: AZITHROMYCIN 250 MG TAB PO SCH (09:18)
--- NOTE | 2016-10-05 10:39 | PN ---
Date/Time of Note Date/Time of Note DATE: 10/05/16 TIME: 10:38 Assessment/Plan VTE Prophylaxis VTE Prophylaxis Intervention: SCD's Lines/Catheters IV [facility] Type (from [facility]): Saline Lock Urinary Cath still in place: No Assessment/Plan Assessment/Plan 1. Chest pain. Patient was previously ruled out for ACS and previous admission (August 31, 2016). Patient noted with CT scan showing suspect chest mass as well as bilateral pneumonia. Likely been attributed to these issues. 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 CT surgeon to follow . Plan for possible EBUS as per CT surgeon 2. Reported pneumonia. Patient refusing Levaquin antibiotic at this time due to reported history of C. difficile from fluoroquinolone use. Patient also reportedly allergic to cephalexin. continue on azithromycin. appears to be having good response 3. History of diastolic dysfunction grade 3 to grade 4. Continue optimization with cardiovascular medications. stable 4. Chronic pain syndrome. cont on analgesics. . 5. hx valvular surgery. On coumadin. Patient also reportedly allergic to aspirin 6. Chest mass. CT surgeon to folow IV abx for PNA EBUS planned by CT surgery to transfer to other hospital Subjective 24 Hr Interval Summary Free Text/Dictation no chest pain, surgery plan as per CT surgery Exam/Review of Systems Vital Signs Vitals Vital Signs Date Time Temp Pulse Resp B/P Pulse Ox O2 Delivery O2 Flow Rate FiO2 10/05/16 07:40 98.6 85 16 104/58 96 10/03/16 20:00 Room Air Intake and Output 10/04/16 10/04/16 10/05/16 15:00 23:00 07:00 Intake Total 700 ml 540 ml Balance 700 ml 540 ml Exam General: The patient is well-developed, Not in acute distress. HEENT: Atraumatic, normocephalic. The pupils are equal and round . Neck: Supple with full range of motion. Chest: Normal , well-healed scar from prior surgeries Lungs: Clear to auscultation bilaterally Heart: Normal S1-S2, Regular rhythm and rate. Abdomen: Soft , nontender, nondistended , bowel sounds are present. Extremities: Normal to inspection, no edema no cyanosis Neurologic: Normal mental status,The patient is awake, alert and oriented . Results Result Diagram: 10/05/16 0430 10/05/16 0430 Results 24 hrs Laboratory Tests Test 10/05/16 00:43 10/05/16 04:30 Prothrombin Time 28.9 H Prothrombin Time Ratio 2.3 INR International Normalized Ratio 2.68 White Blood Count 8.7 # Red Blood Count 3.97 L Hemoglobin 8.8 L Hematocrit 30.1 L Mean Corpuscular Volume 75.8 L Mean Corpuscular Hemoglobin 22.2 L Mean Corpuscular Hemoglobin Concent 29.2 L Red Cell Distribution Width 15.6 H Platelet Count 595 H Mean Platelet Volume 10.1 Neutrophils % 46.4 Lymphocytes % 34.8 Monocytes % 11.4 H Eosinophils % 6.1 Basophils % 0.8 Nucleated Red Blood Cells % 0.0 Neutrophils # 4.0 Lymphocytes # 3.0 H Monocytes # 1.0 H Eosinophils # 0.5 Basophils # 0.1 Nucleated Red Blood Cells # 0.0 Sodium Level 137 Potassium Level 4.2 Chloride Level 103 Carbon Dioxide Level 29 Anion Gap 9 Blood Urea Nitrogen 18 Creatinine 0.77 Glucose Level 92 Calcium Level 8.7 Medications Medications Current Medications Ondansetron HCl (Zofran Inj) 4 mg Q6H PRN IV NAUSEA AND/OR VOMITING; Start 05/07 at 09:00 Nitroglycerin (Nitroglycerin (Sl Tab) 0.4 Mg) 1 tab Q5M PRN SL CHEST PAIN; Start 09/29/16 at 09:00 Morphine Sulfate (morphine) 2 mg Q4H PRN IV PAIN LEVEL 7-10 Last administered on 09/30/16 20:30; Admin Dose 2 MG; Start 09/29/16 at 09:00 Digoxin (Digoxin) 0.125 mg Q48H PO Last administered on 10/03/16 12:13; Admin Dose 0.125 MG; Start 09/29/16 at 13:00 Furosemide (Lasix) 20 mg DAILY PO Last administered on 10/05/16 09:17; Admin Dose 20 MG; Start 09/29/16 at 09:00 Gabapentin (Neurontin) 300 mg TID PO Last administered on 10/05/16 09:18; Admin Dose 300 MG; Start 09/29/16 at 09:00 Warfarin Sodium (Coumadin) 4 mg DAILY@17 PO Last administered on 10/04/16 17: 14; Admin Dose 4 MG; Start 09/29/16 at 17:00 Lidocaine (Lidoderm) 1 patch AM TD Last administered on 10/01/16 09:31; Admin Dose 1 PATCH; Start 09/29/16 at 13:00 Tramadol HCl (Ultram) 50 mg Q6H PRN PO pain ; Start 09/30/16 at 03:00 Lorazepam (Ativan) 0.5 mg Q6H PRN PO ANXIETY Last administered on 10/04/16 02: 02; Admin Dose 0.5 MG; Start 09/30/16 at 22:00 Oxycodone/ Acetaminophen (Percocet (5/ 325)) 1 tab Q4H PRN PO PAIN Last administered on 10/01/16 22:16; Admin Dose 1 TAB; Start 10/01/16 at 00:00 Oxycodone/ Acetaminophen (Endocet (10/ 325)) 2 tab Q4H PRN PO PAIN Last administered on 10/05/16 09:18; Admin Dose 2 TAB; Start 10/01/16 at 14:30 Azithromycin (Zithromax) 250 mg DAILY PO Last administered on 10/05/16 09:18; Admin Dose 250 MG; Start 10/01/16 at 15:30 Estradiol (Estrace) 1 mg DAILY PO Last administered on 10/05/16 09:16; Admin Dose 1 MG; Start 10/03/16 at 12:00 Pantoprazole (Protonix Tab) 40 mg BID@18 PO Last administered on 10/05/16 04:58; Admin Dose 40 MG; Start 10/03/16 at 11:00 Fluocinonide (Lidex 0.05% Cr) 1 applic BID TOP Last administered on 10/05/16 09:18; Admin Dose 1 APPLIC; Start 10/04/16 at 21:00 KINZA CARSON MD Oct 05, 2016 10:39
[2016-10-05] MEDS: DIGOXIN 0.125 MG TAB PO SCH (12:21)
[2016-10-05] MEDS: LORAZEPAM 0.5 MG TAB PO PRN ×2 (15:43→21:48)
[2016-10-05] MEDS: WARFARIN 2 MG TAB PO SCH (17:14)
[2016-10-05 20:23] VITALS: BP 134/62; RESP 17
[2016-10-05] MEDS: CEPASTAT LOZENGE MT PRN (21:48)
[2016-10-05] MEDS ORDERED: ONDANSETRON 4 MG TAB PO PRN ×2 (22:00)
[2016-10-06] MEDS: CEPASTAT LOZENGE MT PRN ×4 (00:06→22:07)
[2016-10-06] MEDS: OXYCODONE/ACETAMINOPHEN (10/325) TAB PO PRN ×3 (02:36→18:39)
[2016-10-06] MEDS: FUROSEMIDE 20 MG TAB PO SCH (05:33)
[2016-10-06] MEDS: PANTOPRAZOLE (EC) 40 MG TAB PO SCH ×2 (05:34→17:37)
[2016-10-06 07:59] VITALS: BP 101/57; RESP 18
[2016-10-06] MEDS: ESTRADIOL 1 MG TAB PO SCH (09:55)
[2016-10-06] MEDS: FLUOCINONIDE 0.05% 15 GM CR TOP SCH ×2 (09:55→20:26)
[2016-10-06] MEDS: GABAPENTIN 300 MG CAP PO SCH ×3 (09:55→20:24)
[2016-10-06] MEDS: AZITHROMYCIN 250 MG TAB PO SCH (09:56)
[2016-10-06] MEDS: LIDOCAINE 5% PATCH TD SCH (09:56)
--- NOTE | 2016-10-06 11:04 | PN ---
Date/Time of Note Date/Time of Note DATE: 10/06/16 TIME: 11:03 Assessment/Plan VTE Prophylaxis VTE Prophylaxis Intervention: SCD's Lines/Catheters IV Catheter Type (from [facility], [place]): Saline Lock Urinary Cath still in place: No Assessment/Plan Assessment/Plan 1. Chest pain. Patient was previously ruled out for ACS and previous admission (August 31, 2016). Patient noted with CT scan showing suspect chest mass as well as bilateral pneumonia. Likely been attributed to these issues. continue with monorail hooker following. CT surgeon to follow . Plan for possible EBUS as per CT surgeon 2. Reported pneumonia. Patient refusing Levaquin antibiotic at this time due to reported history of C. difficile from fluoroquinolone use. Patient also reportedly allergic to cephalexin. continue on azithromycin. appears to be having good response 3. History of diastolic dysfunction grade 3 to grade 4. Continue optimization with cardiovascular medications. stable 4. Chronic pain syndrome. cont on analgesics. . 5. hx valvular surgery. On coumadin. Patient also reportedly allergic to aspirin 6. Chest mass. CT surgeon to folow IV abx for PNA EBUS planned by CT surgery to transfer to other hospital Exam/Review of Systems Vital Signs Vitals Vital Signs Date Time Temp Pulse Resp B/P Pulse Ox O2 Delivery O2 Flow Rate FiO2 10/06/16 07:59 98.2 84 18 101/57 94 10/03/16 20:00 Room Air Intake and Output 10/05/16 10/05/16 10/06/16 14:59 22:59 06:59 Intake Total 850 ml 400 ml Balance 850 ml 400 ml Exam General: Slightly somnolent. Reports having some chest discomfort Eyes: Equal round Neck: Supple nontender, no JVD Cardiac: Remains regular rate Pulmonary: Slightly diminished at bases GI: Abdomen soft nontender nondistended, bowel sounds active Extremities: No edema bilateral lower extremities Skin: Clean dry and intact Neurologic: Alert to person place and time and situation Results Result Diagram: 10/05/16 0430 10/05/16 043 Medications Medications Current Medications Ondansetron HCl (Zofran Inj) 4 mg Q6H PRN IV NAUSEA AND/OR VOMITING; Start 05/07 at 09:00 Nitroglycerin (Nitroglycerin (Sl Tab) 0.4 Mg) 1 tab Q5M PRN SL CHEST PAIN; Start 09/29/16 at 09:00 Morphine Sulfate (morphine) 2 mg Q4H PRN IV PAIN LEVEL 7-10 Last administered on 09/30/16 20:30; Admin Dose 2 MG; Start 09/29/16 at 09:00 Digoxin (Digoxin) 0.125 mg Q48H PO Last administered on 10/05/16 12:21; Admin Dose 0.125 MG; Start 09/29/16 at 13:00 Gabapentin (Neurontin) 300 mg TID PO Last administered on 10/06/16 09:55; Admin Dose 300 MG; Start 09/29/16 at 09:00 Warfarin Sodium (Coumadin) 4 mg DAILY@17 PO Last administered on 10/05/16 17: 14; Admin Dose 4 MG; Start 09/29/16 at 17:00 Lidocaine (Lidoderm) 1 patch AM TD Last administered on 10/06/16 09:56; Admin Dose 1 PATCH; Start 09/29/16 at 13:00 Tramadol HCl (Ultram) 50 mg Q6H PRN PO pain ; Start 09/30/16 at 03:00 Lorazepam (Ativan) 0.5 mg Q6H PRN PO ANXIETY Last administered on 10/05/16 21: 48; Admin Dose 0.5 MG; Start 09/30/16 at 22:00 Oxycodone/ Acetaminophen (Percocet (5/ 325)) 1 tab Q4H PRN PO PAIN Last administered on 10/01/16 22:16; Admin Dose 1 TAB; Start 10/01/16 at 00:00 Oxycodone/ Acetaminophen (Endocet (10/ 325)) 2 tab Q4H PRN PO PAIN Last administered on 10/06/16 09:55; Admin Dose 2 TAB; Start 10/01/16 at 14:30 Azithromycin (Zithromax) 250 mg DAILY PO Last administered on 10/06/16 09:56; Admin Dose 250 MG; Start 10/01/16 at 15:30 Estradiol (Estrace) 1 mg DAILY PO Last administered on 10/06/16 09:55; Admin Dose 1 MG; Start 10/03/16 at 12:00 Pantoprazole (Protonix Tab) 40 mg BID@ PO Last administered on 10/06/16 05:34; Admin Dose 40 MG; Start 10/03/16 at 11:00 Fluocinonide (Lidex 0.05% Cr) 1 applic BID TOP Last administered on 10/06/16 09:55; Admin Dose 1 APPLIC; Start 10/04/16 at 21:00 Phenol (Cepastat Lozenge) 1 lozenge Q2 PRN MT sore throat Last administered on 10/06/16 09:58; Admin Dose 1 LOZENGE; Start 10/05/16 at 22:00 Ondansetron HCl (Zofran Tab) 4 mg Q6H PRN PO NAUSEA AND/OR VOMITING; Start at 22:00 Furosemide (Lasix) 20 mg DAILY@06 PO ; Start 10/06/16 at 06:00 KINZA CARSON MD Oct 06, 2016 11:04
[2016-10-06] MEDS: WARFARIN 2 MG TAB PO SCH (17:37)
[2016-10-06] MEDS: LORAZEPAM 0.5 MG TAB PO PRN (22:43)
[2016-10-06 23:11] VITALS: BP 113/66; RESP 18
[2016-10-07] MEDS: OXYCODONE/ACETAMINOPHEN (10/325) TAB PO PRN ×5 (00:23→23:14)
[2016-10-07] MEDS: CEPASTAT LOZENGE MT PRN ×2 (05:35→23:16)
[2016-10-07] MEDS: PANTOPRAZOLE (EC) 40 MG TAB PO SCH ×2 (05:37→17:57)
[2016-10-07] MEDS: FUROSEMIDE 20 MG TAB PO SCH (05:37)
[2016-10-07 07:12] LABS: INR 2.44; PROTIME 26.8 Sec (12.2-14.2); PT RATIO 2.1
[2016-10-07 07:45] VITALS: BP 104/65; RESP 18
[2016-10-07] MEDS: ESTRADIOL 1 MG TAB PO SCH (09:28)
[2016-10-07] MEDS: GABAPENTIN 300 MG CAP PO SCH ×3 (09:28→20:50)
[2016-10-07] MEDS: LIDOCAINE 5% PATCH TD SCH (09:28)
[2016-10-07] MEDS: AZITHROMYCIN 250 MG TAB PO SCH (09:28)
[2016-10-07] MEDS: FLUOCINONIDE 0.05% 15 GM CR TOP SCH ×2 (09:29→20:51)
[2016-10-07] MEDS: LORAZEPAM 0.5 MG TAB PO PRN (11:34)
--- NOTE | 2016-10-07 13:09 | PN ---
Date/Time of Note Date/Time of Note DATE: 10/07/16 TIME: 13:08 Assessment/Plan VTE Prophylaxis VTE Prophylaxis Intervention: SCD's Lines/Catheters IV C[facility]ter Type (from [facility] Saline Lock Urinary Cath still in place: No Assessment/Plan Assessment/Plan 1. Chest pain. Patient was previously ruled out for ACS and previous admission (August 31, 2016). Patient noted with CT scan showing suspect chest mass as well as bilateral pneumonia. Likely been attributed to these issues. 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 CT surgeon to follow . Plan for possible EBUS as per CT surgeon 2. Reported pneumonia. Patient refusing Levaquin antibiotic at this time due to reported history of C. difficile from fluoroquinolone use. Patient also reportedly allergic to cephalexin. continue on azithromycin. appears to be having good response 3. History of diastolic dysfunction grade 3 to grade 4. Continue optimization with cardiovascular medications. stable 4. Chronic pain syndrome. cont on analgesics. . 5. hx valvular surgery. On coumadin. Patient also reportedly allergic to aspirin 6. Chest mass. CT surgeon to folow IV abx for PNA EBUS planned by CT surgery to transfer to other hospital Subjective 24 Hr Interval Summary Free Text/Dictation foster care case manager working on transfer to EBUS, CT surgery has been following Exam/Review of Systems Vital Signs Vitals Vital Signs Date Time Temp Pulse Resp B/P Pulse Ox O2 Delivery O2 Flow Rate FiO2 10/07/16 07:45 98.8 18 104/65 96 10/06/16 23:11 89 10/03/16 20:00 Room Air Intake and Output 10/06/16 10/06/16 10/07/16 15:00 23:00 07:00 Intake Total 1440 ml 720 ml Balance 1440 ml 720 ml Exam General: Slightly somnolent. Reports having some chest discomfort Eyes: Equal round Neck: Supple nontender, no JVD Cardiac: Remains regular rate Pulmonary: Slightly diminished at bases GI: Abdomen soft nontender nondistended, bowel sounds active Extremities: No edema bilateral lower extremities Skin: Clean dry and intact Neurologic: Alert to person place and time and situation Results Result Diagram: 10/05/16 0430 10/05/16 0430 Results 24 hrs Laboratory Tests Test 10/07/16 05:40 Prothrombin Time 26.8 H Prothrombin Time Ratio 2.1 INR International Normalized Ratio 2.44 Medications Medications Current Medications Ondansetron HCl (Zofran Inj) 4 mg Q6H PRN IV NAUSEA AND/OR VOMITING; Start 05/07 at 09:00 Nitroglycerin (Nitroglycerin (Sl Tab) 0.4 Mg) 1 tab Q5M PRN SL CHEST PAIN; Start 09/29/16 at 09:00 Morphine Sulfate (morphine) 2 mg Q4H PRN IV PAIN LEVEL 7-10 Last administered on 09/30/16 20:30; Admin Dose 2 MG; Start 09/29/16 at 09:00 Digoxin (Digoxin) 0.125 mg Q48H PO Last administered on 10/05/16 12:21; Admin Dose 0.125 MG; Start 09/29/16 at 13:00 Gabapentin (Neurontin) 300 mg TID PO Last administered on 10/07/16 09:28; Admin Dose 300 MG; Start 09/29/16 at 09:00 Warfarin Sodium (Coumadin) 4 mg DAILY@17 PO Last administered on 10/06/16 17: 37; Admin Dose 4 MG; Start 09/29/16 at 17:00 Lidocaine (Lidoderm) 1 patch AM TD Last administered on 10/07/16 09:28; Admin Dose 1 PATCH; Start 09/29/16 at 13:00 Tramadol HCl (Ultram) 50 mg Q6H PRN PO pain ; Start 09/30/16 at 03:00 Lorazepam (Ativan) 0.5 mg Q6H PRN PO ANXIETY Last administered on 10/07/16 11: 34; Admin Dose 0.5 MG; Start 09/30/16 at 22:00 Oxycodone/ Acetaminophen (Percocet (5/ 325)) 1 tab Q4H PRN PO PAIN Last administered on 10/01/16 22:16; Admin Dose 1 TAB; Start 10/01/16 at 00:00 Oxycodone/ Acetaminophen (Endocet (10/ 325)) 2 tab Q4H PRN PO PAIN Last administered on 10/07/16 11:34; Admin Dose 2 TAB; Start 10/01/16 at 14:30 Azithromycin (Zithromax) 250 mg DAILY PO Last administered on 10/07/16 09:28; Admin Dose 250 MG; Start 10/01/16 at 15:30 Estradiol (Estrace) 1 mg DAILY PO Last administered on 10/07/16 09:28; Admin Dose 1 MG; Start 10/03/16 at 12:00 Pantoprazole (Protonix Tab) 40 mg BID@06,18 PO Last administered on 10/07/16 05:37; Admin Dose 40 MG; Start 10/03/16 at 11:00 Fluocinonide (Lidex 0.05% Cr) 1 applic BID TOP Last administered on 10/07/16 09:29; Admin Dose 1 APPLIC; Start 10/04/16 at 21:00 Phenol (Cepastat Lozenge) 1 lozenge Q2 PRN MT sore throat Last administered on 10/07/16 05:35; Admin Dose 1 LOZENGE; Start 10/05/16 at 22:00 Ondansetron HCl (Zofran Tab) 4 mg Q6H PRN PO NAUSEA AND/OR VOMITING; Start at 22:00 Furosemide (Lasix) 20 mg DAILY@06 PO Last administered on 10/07/16 05:37; Admin Dose 20 MG; Start 10/06/16 at 06:00 KINZA CARSON MD Oct 07, 2016 13:09
[2016-10-07] MEDS: DIGOXIN 0.125 MG TAB PO SCH (14:08)
[2016-10-07] MEDS: WARFARIN 2 MG TAB PO SCH (17:57)
--- NOTE | 2016-10-07 18:46 | EN ---
Date/Time of Note Date/Time of Note DATE: 10/07/16 TIME: 18:44 Event Note Surgery Surgery Event Note Pt needs EBUS that is not available at [facility] At this time it is not possible ti Tx the pt to Darío Mcclellan would DC pt home and have her FU with me as out pt KWAKU JONES MD Oct 07, 2016 18:46
[2016-10-07 23:04] VITALS: BP 118/59; RESP 18
[2016-10-08] MEDS: LORAZEPAM 0.5 MG TAB PO PRN ×3 (00:52→21:04)
[2016-10-08] MEDS: OXYCODONE/ACETAMINOPHEN (10/325) TAB PO PRN ×4 (04:48→19:41)
[2016-10-08] MEDS: CEPASTAT LOZENGE MT PRN (04:50)
[2016-10-08] MEDS: PANTOPRAZOLE (EC) 40 MG TAB PO SCH ×2 (05:47→17:42)
[2016-10-08] MEDS: FUROSEMIDE 20 MG TAB PO SCH (05:47)
[2016-10-08 07:55] VITALS: BP 115/63; RESP 18
[2016-10-08] MEDS: ESTRADIOL 1 MG TAB PO SCH (08:40)
[2016-10-08] MEDS: AZITHROMYCIN 250 MG TAB PO SCH (08:40)
[2016-10-08] MEDS: LIDOCAINE 5% PATCH TD SCH (08:40)
[2016-10-08] MEDS: FLUOCINONIDE 0.05% 15 GM CR TOP SCH ×2 (08:41→21:04)
[2016-10-08] MEDS: GABAPENTIN 300 MG CAP PO SCH ×3 (08:41→21:04)
--- NOTE | 2016-10-08 13:20 | PN ---
Date/Time of Note Date/Time of Note DATE: 10/08/16 TIME: 13:18 Assessment/Plan VTE Prophylaxis VTE Prophylaxis Intervention: SCD's Lines/Catheters IV Catheter Type (from [facility]): Saline Lock Urinary Cath still in place: No Assessment/Plan Assessment/Plan 1. Chest pain. Patient was previously ruled out for ACS and previous admission (August 31, 2016). Patient noted with CT scan showing suspect chest mass as well as bilateral pneumonia. Likely been attributed to these issues. 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 CT surgeon to follow . Plan for possible EBUS as per CT surgeon 2. Reported pneumonia. Patient refusing Levaquin antibiotic at this time due to reported history of C. difficile from fluoroquinolone use. Patient also reportedly allergic to cephalexin. continue on azithromycin. appears to be having good response 3. History of diastolic dysfunction grade 3 to grade 4. Continue optimization with cardiovascular medications. stable 4. Chronic pain syndrome. cont on analgesics. . 5. hx valvular surgery. On coumadin. Patient also reportedly allergic to aspirin 6. Chest mass. CT surgeon to folow IV abx for PNA pt needs EBUS< human services case manager to talk to Insurance about it, pt is capitated [facility] Subjective 24 Hr Interval Summary Free Text/Dictation no chest pain, Mediastinal mass , CT chest report has been given to her Exam/Review of Systems Vital Signs Vitals Vital Signs Date Time Temp Pulse Resp B/P Pulse Ox O2 Delivery O2 Flow Rate FiO2 10/08/16 07:55 98.6 88 18 115/63 96 Intake and Output 10/07/16 10/07/16 10/08/16 15:00 23:00 07:00 Intake Total 960 ml 500 ml Balance 960 ml 500 ml Exam General: Slightly somnolent. Reports having some chest discomfort Eyes: Equal round Neck: Supple nontender, no JVD Cardiac: Remains regular rate Pulmonary: Slightly diminished at bases GI: Abdomen soft nontender nondistended, bowel sounds active Extremities: No edema bilateral lower extremities Skin: Clean dry and intact Neurologic: Alert to person place and time and situation Results Result Diagram: 10/05/16 04310/05/16 043 Medications Medications Current Medications Ondansetron HCl (Zofran Inj) 4 mg Q6H PRN IV NAUSEA AND/OR VOMITING; Start 05/07 at 09:00 Nitroglycerin (Nitroglycerin (Sl Tab) 0.4 Mg) 1 tab Q5M PRN SL CHEST PAIN; Start 09/29/16 at 09:00 Morphine Sulfate (morphine) 2 mg Q4H PRN IV PAIN LEVEL 7-10 Last administered on 09/30/16 20:30; Admin Dose 2 MG; Start 09/29/16 at 09:00 Digoxin (Digoxin) 0.125 mg Q48H PO Last administered on 10/07/16 14:08; Admin Dose 0.125 MG; Start 09/29/16 at 13:00 Gabapentin (Neurontin) 300 mg TID PO Last administered on 10/08/16 12:14; Admin Dose 300 MG; Start 09/29/16 at 09:00 Warfarin Sodium (Coumadin) 4 mg DAILY@17 PO Last administered on 10/07/16 17: 57; Admin Dose 4 MG; Start 09/29/16 at 17:00 Lidocaine (Lidoderm) 1 patch AM TD Last administered on 10/08/16 08:40; Admin Dose 1 PATCH; Start 09/29/16 at 13:00 Tramadol HCl (Ultram) 50 mg Q6H PRN PO pain ; Start 09/30/16 at 03:00 Lorazepam (Ativan) 0.5 mg Q6H PRN PO ANXIETY Last administered on 10/08/16 00: 52; Admin Dose 0.5 MG; Start 09/30/16 at 22:00 Oxycodone/ Acetaminophen (Percocet (5/ 325)) 1 tab Q4H PRN PO PAIN Last administered on 10/01/16 22:16; Admin Dose 1 TAB; Start 10/01/16 at 00:00 Oxycodone/ Acetaminophen (Endocet (10/ 325)) 2 tab Q4H PRN PO PAIN Last administered on 10/08/16 08:41; Admin Dose 2 TAB; Start 10/01/16 at 14:30 Azithromycin (Zithromax) 250 mg DAILY PO Last administered on 10/08/16 08:40; Admin Dose 250 MG; Start 10/01/16 at 15:30 Estradiol (Estrace) 1 mg DAILY PO Last administered on 10/08/16 08:40; Admin Dose 1 MG; Start 10/03/16 at 12:00 Pantoprazole (Protonix Tab) 40 mg BID@18 PO Last administered on 10/08/16 05:47; Admin Dose 40 MG; Start 10/03/16 at 11:00 Fluocinonide (Lidex 0.05% Cr) 1 applic BID TOP Last administered on 10/08/16 08:41; Admin Dose 1 APPLIC; Start 10/04/16 at 21:00 Phenol (Cepastat Lozenge) 1 lozenge Q2 PRN MT sore throat Last administered on 10/08/16 04:50; Admin Dose 1 LOZENGE; Start 10/05/16 at 22:00 Ondansetron HCl (Zofran Tab) 4 mg Q6H PRN PO NAUSEA AND/OR VOMITING; Start at 22:00 Furosemide (Lasix) 20 mg DAILY@06 PO Last administered on 10/08/16 05:47; Admin Dose 20 MG; Start 10/06/16 at 06:00 KINZA CARSON MD Oct 08, 2016 13:20
[2016-10-08] MEDS: WARFARIN 2 MG TAB PO SCH (17:43)
[2016-10-08 20:10] VITALS: BP 131/70; RESP 16
--- NOTE | 2016-10-08 20:30 | PN ---
Date/Time of Note Date/Time of Note DATE: 10/08/16 TIME: 20:30 Assessment/Plan Lines/Catheters IV Catheter Type (from Nrsg): Saline Lock Kraus in Place (from Nrsg): No Assessment/Plan Chief Complaint/Hosp Course Pt with mediastinal mass will need US guided BX will arrange for transfer [facility] where EBUS can be done discussed with the pt will discuss with case management Problems: Subjective 24 Hr Interval Summary Constitutional: improved Pain Control: mild Exam/Review of Systems Vital Signs Vitals Vital Signs Date Time Temp Pulse Resp B/P Pulse Ox O2 Delivery O2 Flow Rate FiO2 10/08/16 07:55 98.6 88 18 115/63 96 Intake and Output 10/07/16 10/07/16 10/08/16 15:00 23:00 07:00 Intake Total 960 ml 500 ml Balance 960 ml 500 ml Exam Neck: non-tender, supple Respiratory: clear to auscultation, normal air movement Cardiovascular: nl pulses, regular rate and rhythm Gastrointestinal: nl liver, spleen, non-tender, soft Results Result Diagram: 10/05/16 0430 10/05/16 0430 KWAKU JONES MD Oct 08, 2016 20:30
[2016-10-09] MEDS: OXYCODONE/ACETAMINOPHEN (10/325) TAB PO PRN ×4 (00:46→20:08)
[2016-10-09 05:54] LABS: INR 2.36; PROTIME 26.1 Sec (12.2-14.2)
[2016-10-09] MEDS: PANTOPRAZOLE (EC) 40 MG TAB PO SCH ×2 (06:43→17:29)
[2016-10-09] MEDS: FUROSEMIDE 20 MG TAB PO SCH (06:44)
[2016-10-09 06:46] VITALS: BP 128/59
[2016-10-09 07:50] VITALS: BP 113/59; RESP 16
[2016-10-09] MEDS: ESTRADIOL 1 MG TAB PO SCH (09:24)
[2016-10-09] MEDS: AZITHROMYCIN 250 MG TAB PO SCH (09:25)
[2016-10-09] MEDS: GABAPENTIN 300 MG CAP PO SCH ×3 (09:25→20:07)
[2016-10-09] MEDS: LIDOCAINE 5% PATCH TD SCH (09:25)
[2016-10-09] MEDS: FLUOCINONIDE 0.05% 15 GM CR TOP SCH ×2 (09:54→20:08)
--- NOTE | 2016-10-09 12:21 | PN ---
Date/Time of Note Date/Time of Note DATE: 10/09/16 TIME: 12:19 Assessment/Plan VTE Prophylaxis VTE Prophylaxis Intervention: SCD's, other (coumadin) Lines/Catheters IV Catheter Type (from [facility] [place]): Saline Lock Urinary Cath still in place: No Assessment/Plan Assessment/Plan 1. Chest pain. Patient was previously ruled out for ACS and previous admission (August 31, 2016). Patient noted with CT scan showing suspect chest mass as well as bilateral pneumonia. Likely been attributed to these issues. continue with central office repairer following. CT surgeon to follow . Plan for possible EBUS as per CT surgeon 2. Reported pneumonia. Patient refusing Levaquin antibiotic at this time due to reported history of C. difficile from fluoroquinolone use. Patient also reportedly allergic to cephalexin. continue on azithromycin. appears to be having good response 3. History of diastolic dysfunction grade 3 to grade 4. Continue optimization with cardiovascular medications. stable 4. Chronic pain syndrome. cont on analgesics. . 5. hx valvular surgery. On coumadin. Patient also reportedly allergic to aspirin 6. Chest mass. CT surgeon to folow IV abx for PNA pt needs EBUS< mental health case manager to talk to Insurance about it, pt is capitated [facility] Subjective 24 Hr Interval Summary Free Text/Dictation no chest pain, pt is very anxious to know about plan Exam/Review of Systems Vital Signs Vitals Vital Signs Date Time Temp Pulse Resp B/P Pulse Ox O2 Delivery O2 Flow Rate FiO2 10/09/16 07:50 98.6 62 16 113/59 96 Intake and Output 10/08/16 10/08/16 10/09/16 15:00 23:00 07:00 Intake Total 900 ml 600 ml Balance 900 ml 600 ml Exam General: Slightly somnolent. Reports having some chest discomfort Eyes: Equal round Neck: Supple nontender, no JVD Cardiac: Remains regular rate Pulmonary: Slightly diminished at bases GI: Abdomen soft nontender nondistended, bowel sounds active Extremities: No edema bilateral lower extremities Skin: Clean dry and intact Neurologic: Alert to person place and time and situation Results Result Diagram: 10/05/16 0430 10/05/16 0430 Results 24 hrs Laboratory Tests Test 10/09/16 04:20 Prothrombin Time 26.1 H Prothrombin Time Ratio 2.0 INR International Normalized Ratio 2.36 Medications Medications Current Medications Ondansetron HCl (Zofran Inj) 4 mg Q6H PRN IV NAUSEA AND/OR VOMITING; Start 05/07 at 09:00 Nitroglycerin (Nitroglycerin (Sl Tab) 0.4 Mg) 1 tab Q5M PRN SL CHEST PAIN; Start 09/29/16 at 09:00 Morphine Sulfate (morphine) 2 mg Q4H PRN IV PAIN LEVEL 7-10 Last administered on 09/30/16 20:30; Admin Dose 2 MG; Start 09/29/16 at 09:00 Digoxin (Digoxin) 0.125 mg Q48H PO Last administered on 10/07/16 14:08; Admin Dose 0.125 MG; Start 09/29/16 at 13:00 Gabapentin (Neurontin) 300 mg TID PO Last administered on 10/09/16 09:25; Admin Dose 300 MG; Start 09/29/16 at 09:00 Warfarin Sodium (Coumadin) 4 mg DAILY@17 PO Last administered on 10/08/16 17: 43; Admin Dose 4 MG; Start 09/29/16 at 17:00 Lidocaine (Lidoderm) 1 patch AM TD Last administered on 10/09/16 09:25; Admin Dose 1 PATCH; Start 09/29/16 at 13:00 Tramadol HCl (Ultram) 50 mg Q6H PRN PO pain ; Start 09/30/16 at 03:00 Lorazepam (Ativan) 0.5 mg Q6H PRN PO ANXIETY Last administered on 10/08/16 21: 04; Admin Dose 0.5 MG; Start 09/30/16 at 22:00 Oxycodone/ Acetaminophen (Percocet (5/ 325)) 1 tab Q4H PRN PO PAIN Last administered on 10/01/16 22:16; Admin Dose 1 TAB; Start 10/01/16 at 00:00 Oxycodone/ Acetaminophen (Endocet (10/ 325)) 2 tab Q4H PRN PO PAIN Last administered on 10/09/16 09:57; Admin Dose 2 TAB; Start 10/01/16 at 14:30 Azithromycin (Zithromax) 250 mg DAILY PO Last administered on 10/09/16 09:25; Admin Dose 250 MG; Start 10/01/16 at 15:30 Estradiol (Estrace) 1 mg DAILY PO Last administered on 10/09/16 09:24; Admin Dose 1 MG; Start 10/03/16 at 12:00 Pantoprazole (Protonix Tab) 40 mg BID@06,18 PO Last administered on 10/09/16 06:43; Admin Dose 40 MG; Start 10/03/16 at 11:00 Fluocinonide (Lidex 0.05% Cr) 1 applic BID TOP Last administered on 10/09/16 09:54; Admin Dose 1 APPLIC; Start 10/04/16 at 21:00 Phenol (Cepastat Lozenge) 1 lozenge Q2 PRN MT sore throat Last administered on 10/08/16 04:50; Admin Dose 1 LOZENGE; Start 10/05/16 at 22:00 Ondansetron HCl (Zofran Tab) 4 mg Q6H PRN PO NAUSEA AND/OR VOMITING; Start at 22:00 Furosemide (Lasix) 20 mg DAILY@06 PO Last administered on 10/09/16 06:44; Admin Dose 20 MG; Start 10/06/16 at 06:00 KINZA CARSON MD Oct 09, 2016 12:21
[2016-10-09] MEDS: DIGOXIN 0.125 MG TAB PO SCH (14:01)
[2016-10-09] MEDS: WARFARIN 2 MG TAB PO SCH (17:29)
[2016-10-09] MEDS: LORAZEPAM 0.5 MG TAB PO PRN (20:10)
[2016-10-10] MEDS: OXYCODONE/ACETAMINOPHEN (10/325) TAB PO PRN ×5 (00:15→20:33)
[2016-10-10 06:13] LABS: ADD SCAN DIFF NO
[2016-10-10] MEDS: PANTOPRAZOLE (EC) 40 MG TAB PO SCH ×2 (06:20→17:14)
[2016-10-10] MEDS: FUROSEMIDE 20 MG TAB PO SCH (06:21)
[2016-10-10 06:27] LABS: BASOPHIL # 0.1 10^3/ul (0.0-0.1); BASOPHILS % 1.4 % (0.0-2.0); EOSINOPHILS # 0.4 10^3/ul (0.0-0.5); EOSINOPHILS % 5.8 % (0.0-7.0); HEMOGLOBIN 9.7 g/dl (12.0-16.0); INR 2.29; MEAN CORPUSCULAR HGB CONC 29.4 g/dl (32.0-37.0); MEAN CORPUSCULAR VOLUME 74.8 fl (82.0-101.0); MEAN PLATELET VOLUME 10.1 fl (7.4-10.4); MONOCYTE # 0.5 10^3/ul (0.3-0.9); MONOCYTES % 8.5 % (0.0-11.0); NEUTROPHIL # 2.2 10^3/ul (1.6-7.5); NEUTROPHILS % 35.4 % (39.0-77.0); PLATELET COUNT 569 10^3/UL (140-415); PROTIME 25.5 Sec (12.2-14.2); RED BLOOD COUNT 4.41 10^6/ul (4.20-5.40); RED CELL DISTRIBUTION WIDTH 16.1 % (11.5-14.5); WHITE BLOOD COUNT 6.3 10^3/ul (4.8-10.8)
[2016-10-10 06:28] LABS: PARTIAL THROMBOPLASTIN TIME 45.6 Sec (25.0-35.0)
[2016-10-10 06:32] LABS: POTASSIUM 4.6 mmol/L (3.5-5.1)
[2016-10-10 06:34] LABS: CREATININE 0.78 mg/dl (0.44-1.00)
[2016-10-10 06:35] LABS: CALCIUM 9.3 mg/dl (8.4-10.2)
[2016-10-10 08:18] VITALS: BP 97/54; RESP 18
[2016-10-10] MEDS: AZITHROMYCIN 250 MG TAB PO SCH (08:37)
[2016-10-10] MEDS: ESTRADIOL 1 MG TAB PO SCH (08:37)
[2016-10-10] MEDS: GABAPENTIN 300 MG CAP PO SCH ×3 (08:37→20:32)
[2016-10-10] MEDS: LIDOCAINE 5% PATCH TD SCH (08:37)
[2016-10-10] MEDS: FLUOCINONIDE 0.05% 15 GM CR TOP SCH ×2 (08:40→20:32)
--- NOTE | 2016-10-10 11:03 | PN ---
Date/Time of Note Date/Time of Note DATE: 10/10/16 TIME: 10:56 Assessment/Plan VTE Prophylaxis VTE Prophylaxis Intervention: ambulation Lines/Catheters IV Catheter Type (from [facility]): Saline Lock Urinary Cath still in place: No Assessment/Plan Chief Complaint/Hosp Course 1. Chest pain. Patient was previously ruled out for ACS and previous admission (August 31, 2016). Patient noted with CT scan showing suspect chest mass as well as bilateral pneumonia. Likely been attributed to these issues. 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 CT surgeon to follow . Plan for possible EBUS as per CT surgeon 2. Reported pneumonia. Patient refusing Levaquin antibiotic at this time due to reported history of C. difficile from fluoroquinolone use. Patient also reportedly allergic to cephalexin. continue on azithromycin. appears to be having good response 3. History of diastolic dysfunction grade 3 to grade 4. Continue optimization with cardiovascular medications. stable 4. Chronic pain syndrome. cont on analgesics. . 5. hx valvular surgery. On coumadin. Patient also reportedly allergic to aspirin 6. Chest mass. CT surgeon to folow IV abx for PNA pt needs EBUS< correctional case records supervisor to talk to Insurance about it, pt is capitated [facility] Problems: Subjective 24 Hr Interval Summary Musculoskeletal: bone/joint pain Exam/Review of Systems Vital Signs Vitals Vital Signs Date Time Temp Pulse Resp B/P Pulse Ox O2 Delivery O2 Flow Rate FiO2 10/10/16 08:18 97.5 62 18 97/54 98 Intake and Output 10/09/16 10/09/16 10/10/16 15:00 23:00 07:00 Intake Total 1000 ml 1050 ml Output Total 1600 ml 900 ml Balance -600 ml 150 ml Exam Constitutional: alert, oriented Respiratory: clear to auscultation Cardiovascular: regular rate and rhythm Gastrointestinal: soft, No distended Musculoskeletal: nl extremities to inspection Results Result Diagram: 10/10/16 0536 10/10/16 0536 Results 24 hrs Laboratory Tests Test 10/10/16 05:36 White Blood Count 6.3 # Red Blood Count 4.41 Hemoglobin 9.7 L Hematocrit 33.0 L Mean Corpuscular Volume 74.8 L Mean Corpuscular Hemoglobin 22.0 L Mean Corpuscular Hemoglobin Concent 29.4 L Red Cell Distribution Width 16.1 H Platelet Count 569 H Mean Platelet Volume 10.1 Neutrophils % 35.4 L Lymphocytes % 48.0 Monocytes % 8.5 Eosinophils % 5.8 Basophils % 1.4 Nucleated Red Blood Cells % 0.0 Neutrophils # 2.2 Lymphocytes # 3.0 H Monocytes # 0.5 Eosinophils # 0.4 Basophils # 0.1 Nucleated Red Blood Cells # 0.0 Prothrombin Time 25.5 H Prothrombin Time Ratio 2.0 INR International Normalized Ratio 2.29 Activated Partial Thromboplast Time 45.6 H Sodium Level 137 Potassium Level 4.6 Chloride Level 97 Carbon Dioxide Level 29 Anion Gap 16 Blood Urea Nitrogen 26 H Creatinine 0.78 Glucose Level 104 Calcium Level 9.3 Medications Medications Current Medications Ondansetron HCl (Zofran Inj) 4 mg Q6H PRN IV NAUSEA AND/OR VOMITING; Start 05/07 at 09:00 Nitroglycerin (Nitroglycerin (Sl Tab) 0.4 Mg) 1 tab Q5M PRN SL CHEST PAIN; Start 09/29/16 at 09:00 Morphine Sulfate (morphine) 2 mg Q4H PRN IV PAIN LEVEL 7-10 Last administered on 09/30/16 20:30; Admin Dose 2 MG; Start 09/29/16 at 09:00 Digoxin (Digoxin) 0.125 mg Q48H PO Last administered on 10/09/16 14:01; Admin Dose 0.125 MG; Start 09/29/16 at 13:00 Gabapentin (Neurontin) 300 mg TID PO Last administered on 10/10/16 08:37; Admin Dose 300 MG; Start 09/29/16 at 09:00 Warfarin Sodium (Coumadin) 4 mg DAILY@17 PO Last administered on 10/09/16 17: 29; Admin Dose 4 MG; Start 09/29/16 at 17:00 Lidocaine (Lidoderm) 1 patch AM TD Last administered on 10/10/16 08:37; Admin Dose 1 PATCH; Start 09/29/16 at 13:00 Tramadol HCl (Ultram) 50 mg Q6H PRN PO pain ; Start 09/30/16 at 03:00 Lorazepam (Ativan) 0.5 mg Q6H PRN PO ANXIETY Last administered on 10/09/16 20: 10; Admin Dose 0.5 MG; Start 09/30/16 at 22:00 Oxycodone/ Acetaminophen (Percocet (5/ 325)) 1 tab Q4H PRN PO PAIN Last administered on 10/01/16 22:16; Admin Dose 1 TAB; Start 10/01/16 at 00:00 Oxycodone/ Acetaminophen (Endocet (10/ 325)) 2 tab Q4H PRN PO PAIN Last administered on 10/10/16 10:23; Admin Dose 2 TAB; Start 10/01/16 at 14:30 Azithromycin (Zithromax) 250 mg DAILY PO Last administered on 10/10/16 08:37; Admin Dose 250 MG; Start 10/01/16 at 15:30 Estradiol (Estrace) 1 mg DAILY PO Last administered on 10/10/16 08:37; Admin Dose 1 MG; Start 10/03/16 at 12:00 Pantoprazole (Protonix Tab) 40 mg BID@18 PO Last administered on 10/10/16 06:20; Admin Dose 40 MG; Start 10/03/16 at 11:00 Fluocinonide (Lidex 0.05% Cr) 1 applic BID TOP Last administered on 10/10/16 08:40; Admin Dose 1 APPLIC; Start 10/04/16 at 21:00 Phenol (Cepastat Lozenge) 1 lozenge Q2 PRN MT sore throat Last administered on 10/08/16 04:50; Admin Dose 1 LOZENGE; Start 10/05/16 at 22:00 Ondansetron HCl (Zofran Tab) 4 mg Q6H PRN PO NAUSEA AND/OR VOMITING; Start at 22:00 Furosemide (Lasix) 20 mg DAILY@06 PO Last administered on 10/10/16 06:21; Admin Dose 20 MG; Start 10/06/16 at 06:00 IBAN SELBY Oct 10, 2016 11:03
[2016-10-10] MEDS: LORAZEPAM 0.5 MG TAB PO PRN (11:20)
--- NOTE | 2016-10-10 15:40 | CONS ---
Date/Time of Note Date/Time of Note DATE: 10/10/16 TIME: 15:37 Consult Date/Type/Reason Admit Date/Time Sep 28, 2016 at 22:29 Initial Consult Date 09/29/16 Type of Consultation: Pulmonary Subjective No events. Objective Vital Signs Date Time Temp Pulse Resp B/P Pulse Ox O2 Delivery O2 Flow Rate FiO2 10/10/16 08:18 97.5 62 18 97/54 98 Intake and Output 10/09/16 10/09/16 10/10/16 15:00 23:00 07:00 Intake Total 1000 ml 1050 ml Output Total 1600 ml 900 ml Balance -600 ml 150 ml Exam HEENT: Neck supple; no JVD; no LAD CVS: RRR, S1 and S2 CHEST: Clear ABD: Soft, NT, + BS EXT: No c/c/e Results/Medications Result Diagram: 10/10/16 0536 10/10/16 0536 Results 24 hrs Laboratory Tests Test 10/10/16 05:36 White Blood Count 6.3 # Red Blood Count 4.41 Hemoglobin 9.7 L Hematocrit 33.0 L Mean Corpuscular Volume 74.8 L Mean Corpuscular Hemoglobin 22.0 L Mean Corpuscular Hemoglobin Concent 29.4 L Red Cell Distribution Width 16.1 H Platelet Count 569 H Mean Platelet Volume 10.1 Neutrophils % 35.4 L Lymphocytes % 48.0 Monocytes % 8.5 Eosinophils % 5.8 Basophils % 1.4 Nucleated Red Blood Cells % 0.0 Neutrophils # 2.2 Lymphocytes # 3.0 H Monocytes # 0.5 Eosinophils # 0.4 Basophils # 0.1 Nucleated Red Blood Cells # 0.0 Prothrombin Time 25.5 H Prothrombin Time Ratio 2.0 INR International Normalized Ratio 2.29 Activated Partial Thromboplast Time 45.6 H Sodium Level 137 Potassium Level 4.6 Chloride Level 97 Carbon Dioxide Level 29 Anion Gap 16 Blood Urea Nitrogen 26 H Creatinine 0.78 Glucose Level 104 Calcium Level 9.3 Medications Current Medications Ondansetron HCl (Zofran Inj) 4 mg Q6H PRN IV NAUSEA AND/OR VOMITING; Start 05/07 at 09:00 Nitroglycerin (Nitroglycerin (Sl Tab) 0.4 Mg) 1 tab Q5M PRN SL CHEST PAIN; Start 09/29/16 at 09:00 Morphine Sulfate (morphine) 2 mg Q4H PRN IV PAIN LEVEL 7-10 Last administered on 09/30/16 20:30; Admin Dose 2 MG; Start 09/29/16 at 09:00 Digoxin (Digoxin) 0.125 mg Q48H PO Last administered on 10/09/16 14:01; Admin Dose 0.125 MG; Start 09/29/16 at 13:00 Gabapentin (Neurontin) 300 mg TID PO Last administered on 10/10/16 14:51; Admin Dose 300 MG; Start 09/29/16 at 09:00 Warfarin Sodium (Coumadin) 4 mg DAILY@17 PO Last administered on 10/09/16 17: 29; Admin Dose 4 MG; Start 09/29/16 at 17:00 Lidocaine (Lidoderm) 1 patch AM TD Last administered on 10/10/16 08:37; Admin Dose 1 PATCH; Start 09/29/16 at 13:00 Tramadol HCl (Ultram) 50 mg Q6H PRN PO pain ; Start 09/30/16 at 03:00 Lorazepam (Ativan) 0.5 mg Q6H PRN PO ANXIETY Last administered on 10/10/16 11: 20; Admin Dose 0.5 MG; Start 09/30/16 at 22:00 Oxycodone/ Acetaminophen (Percocet (5/ 325)) 1 tab Q4H PRN PO PAIN Last administered on 10/01/16 22:16; Admin Dose 1 TAB; Start 10/01/16 at 00:00 Oxycodone/ Acetaminophen (Endocet (10/ 325)) 2 tab Q4H PRN PO PAIN Last administered on 10/10/16 14:51; Admin Dose 2 TAB; Start 10/01/16 at 14:30 Azithromycin (Zithromax) 250 mg DAILY PO Last administered on 10/10/16 08:37; Admin Dose 250 MG; Start 10/01/16 at 15:30 Estradiol (Estrace) 1 mg DAILY PO Last administered on 10/10/16 08:37; Admin Dose 1 MG; Start 10/03/16 at 12:00 Pantoprazole (Protonix Tab) 40 mg BID@06,18 PO Last administered on 10/10/16 06:20; Admin Dose 40 MG; Start 10/03/16 at 11:00 Fluocinonide (Lidex 0.05% Cr) 1 applic BID TOP Last administered on 10/10/16 08:40; Admin Dose 1 APPLIC; Start 10/04/16 at 21:00 Phenol (Cepastat Lozenge) 1 lozenge Q2 PRN MT sore throat Last administered on 10/08/16 04:50; Admin Dose 1 LOZENGE; Start 10/05/16 at 22:00 Ondansetron HCl (Zofran Tab) 4 mg Q6H PRN PO NAUSEA AND/OR VOMITING; Start at 22:00 Furosemide (Lasix) 20 mg DAILY@06 PO Last administered on 10/10/16 06:21; Admin Dose 20 MG; Start 10/06/16 at 06:00 Assessment/Plan Additional Assessment/Plan IMP/RECS: 1. Subcarinal mass-like density--rapidly developed over course on 1 month. This would not be c/w a malignant process. Also the size is not c/w reactive nodes due to an infectious process. A consideration would be a spontaneous mediastinal hematoma in the setting of anticoagulation. Would consider an MRI chest to better elucidate this for possible hematoma. CAMPOS ALBARRAN MD Oct 10, 2016 15:40
[2016-10-10] MEDS: WARFARIN 2 MG TAB PO SCH (17:14)
[2016-10-10 20:07] VITALS: BP 129/59; RESP 17
[2016-10-11] MEDS: OXYCODONE/ACETAMINOPHEN (10/325) TAB PO PRN ×5 (00:51→21:11)
[2016-10-11] MEDS: PANTOPRAZOLE (EC) 40 MG TAB PO SCH ×2 (06:18→17:01)
[2016-10-11 06:19] VITALS: BP 118/55; PULSE 86
[2016-10-11] MEDS: FUROSEMIDE 20 MG TAB PO SCH (06:19)
[2016-10-11] MEDS: CEPASTAT LOZENGE MT PRN (06:44)
[2016-10-11] MEDS: LORAZEPAM 0.5 MG TAB PO PRN ×2 (06:44→14:20)
[2016-10-11 07:55] VITALS: BP 111/55; RESP 16
[2016-10-11] MEDS: FLUOCINONIDE 0.05% 15 GM CR TOP SCH ×2 (08:44→21:00)
[2016-10-11] MEDS: GABAPENTIN 300 MG CAP PO SCH ×3 (08:44→21:00)
[2016-10-11] MEDS: LIDOCAINE 5% PATCH TD SCH (08:44)
[2016-10-11] MEDS: ESTRADIOL 1 MG TAB PO SCH (08:44)
[2016-10-11] MEDS: AZITHROMYCIN 250 MG TAB PO SCH (08:44)
[2016-10-11] MEDS: DIGOXIN 0.125 MG TAB PO SCH (14:21)
--- NOTE | 2016-10-11 15:56 | CONS ---
Date/Time of Note Date/Time of Note DATE: 10/11/16 TIME: 15:54 Consult Date/Type/Reason Admit Date/Time Sep 28, 2016 at 22:29 Initial Consult Date 09/29/16 Type of Consultation: Pulmonary Subjective No c/o. Could not get MRI as IV access was not obtained. Objective Vital Signs Date Time Temp Pulse Resp B/P Pulse Ox O2 Delivery O2 Flow Rate FiO2 10/11/16 07:55 98.2 84 16 111/55 97 Intake and Output 10/10/16 10/10/16 10/11/16 15:00 23:00 07:00 Intake Total 1020 ml 500 ml Output Total 400 ml 800 ml Balance 620 ml -300 ml Exam HEENT: Neck supple; no JVD; no LAD CVS: RRR, S1 and S2 CHEST: Clear ABD: Soft, NT, + BS EXT: No c/c/e Results/Medications Result Diagram: 10/10/16 0536 10/10/1636 Medications Current Medications Ondansetron HCl (Zofran Inj) 4 mg Q6H PRN IV NAUSEA AND/OR VOMITING; Start 05/07 at 09:00 Nitroglycerin (Nitroglycerin (Sl Tab) 0.4 Mg) 1 tab Q5M PRN SL CHEST PAIN; Start 09/29/16 at 09:00 Morphine Sulfate (morphine) 2 mg Q4H PRN IV PAIN LEVEL 7-10 Last administered on 09/30/16 20:30; Admin Dose 2 MG; Start 09/29/16 at 09:00 Digoxin (Digoxin) 0.125 mg Q48H PO Last administered on 10/11/16 14:21; Admin Dose 0.125 MG; Start 09/29/16 at 13:00 Gabapentin (Neurontin) 300 mg TID PO Last administered on 10/11/16 14:20; Admin Dose 300 MG; Start 09/29/16 at 09:00 Warfarin Sodium (Coumadin) 4 mg DAILY@17 PO Last administered on 10/10/16 17: 14; Admin Dose 4 MG; Start 09/29/16 at 17:00 Lidocaine (Lidoderm) 1 patch AM TD Last administered on 10/11/16 08:44; Admin Dose 1 PATCH; Start 09/29/16 at 13:00 Tramadol HCl (Ultram) 50 mg Q6H PRN PO pain ; Start 09/30/16 at 03:00 Lorazepam (Ativan) 0.5 mg Q6H PRN PO ANXIETY Last administered on 10/11/16 14: 20; Admin Dose 0.5 MG; Start 09/30/16 at 22:00 Oxycodone/ Acetaminophen (Percocet (5/ 325)) 1 tab Q4H PRN PO PAIN Last administered on 10/01/16 22:16; Admin Dose 1 TAB; Start 10/01/16 at 00:00 Oxycodone/ Acetaminophen (Endocet (10/ 325)) 2 tab Q4H PRN PO PAIN Last administered on 10/11/16 11:41; Admin Dose 2 TAB; Start 10/01/16 at 14:30 Azithromycin (Zithromax) 250 mg DAILY PO Last administered on 10/11/16 08:44; Admin Dose 250 MG; Start 10/01/16 at 15:30 Estradiol (Estrace) 1 mg DAILY PO Last administered on 10/11/16 08:44; Admin Dose 1 MG; Start 10/03/16 at 12:00 Pantoprazole (Protonix Tab) 40 mg BID@06,18 PO Last administered on 10/11/16 06:18; Admin Dose 40 MG; Start 10/03/16 at 11:00 Fluocinonide (Lidex 0.05% Cr) 1 applic BID TOP Last administered on 10/11/16 08:44; Admin Dose 1 APPLIC; Start 10/04/16 at 21:00 Phenol (Cepastat Lozenge) 1 lozenge Q2 PRN MT sore throat Last administered on 10/11/16 06:44; Admin Dose 1 LOZENGE; Start 10/05/16 at 22:00 Ondansetron HCl (Zofran Tab) 4 mg Q6H PRN PO NAUSEA AND/OR VOMITING; Start at 22:00 Furosemide (Lasix) 20 mg DAILY@06 PO Last administered on 10/11/16 06:19; Admin Dose 20 MG; Start 10/06/16 at 06:00 Assessment/Plan Additional Assessment/Plan IMP: 1. Subcarinal mass-like density--rapidly developed over course on 1 month. This would not be c/w a malignant process. Also the size is not c/w reactive nodes due to an infectious process. A consideration would be a spontaneous mediastinal hematoma in the setting of anticoagulation. RECS: 1. MRI chest to better elucidate this for possible hematoma. 2. RN to attempt to place a PIV, if not able to may need a PICC or U/S guided PIV CAMPOS ALBARRAN MD Oct 11, 2016 15:56
[2016-10-11] MEDS: WARFARIN 2 MG TAB PO SCH (17:01)
--- NOTE | 2016-10-11 19:34 | PN ---
Date/Time of Note Date/Time of Note DATE: 10/11/16 TIME: 19:33 Assessment/Plan VTE Prophylaxis VTE Prophylaxis Intervention: other Lines/Catheters IV Catheter Type (from [facility]): Saline Lock Urinary Cath still in place: No Assessment/Plan Chief Complaint/Hosp Course 1. Chest pain. Patient was previously ruled out for ACS and previous admission (August 31, 2016). Patient noted with CT scan showing suspect chest mass as well as bilateral pneumonia. Likely been attributed to these issues. continue with senior teller following. CT surgeon to follow . Plan for possible EBUS as per CT surgeon 2. Reported pneumonia. Patient refusing Levaquin antibiotic at this time due to reported history of C. difficile from fluoroquinolone use. Patient also reportedly allergic to cephalexin. continue on azithromycin. appears to be having good response 3. History of diastolic dysfunction grade 3 to grade 4. Continue optimization with cardiovascular medications. stable 4. Chronic pain syndrome. cont on analgesics. . 5. hx valvular surgery. On coumadin. Patient also reportedly allergic to aspirin 6. Chest mass-possible hematoma per Pulm -MRI to eval IV abx for PNA pt may need EBUS if mass is not a hematoma< correctional casework specialist to talk to Insurance about it, pt is capitated [facility] Problems: Subjective 24 Hr Interval Summary Constitutional: no complaints Exam/Review of Systems Vital Signs Vitals Vital Signs Date Time Temp Pulse Resp B/P Pulse Ox O2 Delivery O2 Flow Rate FiO2 10/11/16 07:55 98.2 84 16 111/55 97 Intake and Output 10/10/16 10/10/16 10/11/16 15:00 23:00 07:00 Intake Total 1020 ml 500 ml Output Total 400 ml 800 ml Balance 620 ml -300 ml Exam Constitutional: alert Respiratory: clear to auscultation Cardiovascular: regular rate and rhythm Gastrointestinal: soft, No distended Musculoskeletal: nl extremities to inspection Results Result Diagram: 10/10/16 0536 10/10/16 0536 Medications Medications Current Medications Ondansetron HCl (Zofran Inj) 4 mg Q6H PRN IV NAUSEA AND/OR VOMITING; Start 05/07 at 09:00 Nitroglycerin (Nitroglycerin (Sl Tab) 0.4 Mg) 1 tab Q5M PRN SL CHEST PAIN; Start 09/29/16 at 09:00 Morphine Sulfate (morphine) 2 mg Q4H PRN IV PAIN LEVEL 7-10 Last administered on 09/30/16 20:30; Admin Dose 2 MG; Start 09/29/16 at 09:00 Digoxin (Digoxin) 0.125 mg Q48H PO Last administered on 10/11/16 14:21; Admin Dose 0.125 MG; Start 09/29/16 at 13:00 Gabapentin (Neurontin) 300 mg TID PO Last administered on 10/11/16 14:20; Admin Dose 300 MG; Start 09/29/16 at 09:00 Warfarin Sodium (Coumadin) 4 mg DAILY@17 PO Last administered on 10/11/16 17: 01; Admin Dose 4 MG; Start 09/29/16 at 17:00 Lidocaine (Lidoderm) 1 patch AM TD Last administered on 10/11/16 08:44; Admin Dose 1 PATCH; Start 09/29/16 at 13:00 Tramadol HCl (Ultram) 50 mg Q6H PRN PO pain ; Start 09/30/16 at 03:00 Lorazepam (Ativan) 0.5 mg Q6H PRN PO ANXIETY Last administered on 10/11/16 14: 20; Admin Dose 0.5 MG; Start 09/30/16 at 22:00 Oxycodone/ Acetaminophen (Percocet (5/ 325)) 1 tab Q4H PRN PO PAIN Last administered on 10/01/16 22:16; Admin Dose 1 TAB; Start 10/01/16 at 00:00 Oxycodone/ Acetaminophen (Endocet (10/ 325)) 2 tab Q4H PRN PO PAIN Last administered on 10/11/16 16:14; Admin Dose 2 TAB; Start 10/01/16 at 14:30 Azithromycin (Zithromax) 250 mg DAILY PO Last administered on 10/11/16 08:44; Admin Dose 250 MG; Start 10/01/16 at 15:30 Estradiol (Estrace) 1 mg DAILY PO Last administered on 10/11/16 08:44; Admin Dose 1 MG; Start 10/03/16 at 12:00 Pantoprazole (Protonix Tab) 40 mg BID@06,18 PO Last administered on 10/11/16 17:01; Admin Dose 40 MG; Start 10/03/16 at 11:00 Fluocinonide (Lidex 0.05% Cr) 1 applic BID TOP Last administered on 10/11/16 08:44; Admin Dose 1 APPLIC; Start 10/04/16 at 21:00 Phenol (Cepastat Lozenge) 1 lozenge Q2 PRN MT sore throat Last administered on 10/11/16 06:44; Admin Dose 1 LOZENGE; Start 10/05/16 at 22:00 Ondansetron HCl (Zofran Tab) 4 mg Q6H PRN PO NAUSEA AND/OR VOMITING; Start at 22:00 Furosemide (Lasix) 20 mg DAILY@06 PO Last administered on 10/11/16 06:19; Admin Dose 20 MG; Start 10/06/16 at 06:00 IBAN SELBY Oct 11, 2016 19:34
[2016-10-11 21:11] VITALS: BP 107/56; RESP 18
[2016-10-12] MEDS: LORAZEPAM 0.5 MG TAB PO PRN ×3 (00:10→17:24)
[2016-10-12] MEDS: FUROSEMIDE 20 MG TAB PO SCH (06:00)
[2016-10-12] MEDS: OXYCODONE/ACETAMINOPHEN (10/325) TAB PO PRN ×3 (06:07→21:31)
[2016-10-12] MEDS: PANTOPRAZOLE (EC) 40 MG TAB PO SCH ×2 (06:07→17:21)
[2016-10-12 07:55] VITALS: BP 114/58; RESP 16
[2016-10-12] MEDS: AZITHROMYCIN 250 MG TAB PO SCH (08:18)
[2016-10-12] MEDS: ESTRADIOL 1 MG TAB PO SCH (08:18)
[2016-10-12] MEDS: LIDOCAINE 5% PATCH TD SCH (08:19)
[2016-10-12] MEDS: GABAPENTIN 300 MG CAP PO SCH ×3 (08:19→21:25)
[2016-10-12] MEDS: FLUOCINONIDE 0.05% 15 GM CR TOP SCH ×2 (08:19→21:25)
[2016-10-12] MEDS ORDERED: LIDOCAINE 1% (MPF) 5 ML VIAL SC ONE ×2 (12:30→14:30)
--- NOTE | 2016-10-12 14:17 | CONS ---
Date/Time of Note Date/Time of Note DATE: 10/12/16 TIME: 14:15 Consult Date/Type/Reason Admit Date/Time Sep 28, 2016 at 22:29 Initial Consult Date 09/29/16 Type of Consultation: Pulmonary Subjective Patient remained stable no new events Objective Vital Signs Date Time Temp Pulse Resp B/P Pulse Ox O2 Delivery O2 Flow Rate FiO2 10/12/16 07:55 98.2 83 16 114/58 98 Intake and Output 10/11/16 10/11/16 10/12/16 15:00 23:00 07:00 Intake Total 860 ml 550 ml Output Total 600 ml Balance 260 ml 550 ml Exam No significant chest pain this morning shortness of breath Results/Medications Result Diagram: 10/10/16 0536 10/10/16 0536 Medications Current Medications Ondansetron HCl (Zofran Inj) 4 mg Q6H PRN IV NAUSEA AND/OR VOMITING; Start 05/07 at 09:00 Nitroglycerin (Nitroglycerin (Sl Tab) 0.4 Mg) 1 tab Q5M PRN SL CHEST PAIN; Start 09/29/16 at 09:00 Morphine Sulfate (morphine) 2 mg Q4H PRN IV PAIN LEVEL 7-10 Last administered on 09/30/16 20:30; Admin Dose 2 MG; Start 09/29/16 at 09:00 Digoxin (Digoxin) 0.125 mg Q48H PO Last administered on 10/11/16 14:21; Admin Dose 0.125 MG; Start 09/29/16 at 13:00 Gabapentin (Neurontin) 300 mg TID PO Last administered on 10/12/16 08:19; Admin Dose 300 MG; Start 09/29/16 at 09:00 Warfarin Sodium (Coumadin) 4 mg DAILY@17 PO Last administered on 10/11/16 17: 01; Admin Dose 4 MG; Start 09/29/16 at 17:00 Lidocaine (Lidoderm) 1 patch AM TD Last administered on 10/12/16 08:19; Admin Dose 1 PATCH; Start 09/29/16 at 13:00 Tramadol HCl (Ultram) 50 mg Q6H PRN PO pain ; Start 09/30/16 at 03:00 Lorazepam (Ativan) 0.5 mg Q6H PRN PO ANXIETY Last administered on 10/12/16 08: 18; Admin Dose 0.5 MG; Start 09/30/16 at 22:00 Oxycodone/ Acetaminophen (Percocet (5/ 325)) 1 tab Q4H PRN PO PAIN Last administered on 10/01/16 22:16; Admin Dose 1 TAB; Start 10/01/16 at 00:00 Oxycodone/ Acetaminophen (Endocet (10/ 325)) 2 tab Q4H PRN PO PAIN Last administered on 10/12/16 06:07; Admin Dose 2 TAB; Start 10/01/16 at 14:30 Azithromycin (Zithromax) 250 mg DAILY PO Last administered on 10/12/16 08:18; Admin Dose 250 MG; Start 10/01/16 at 15:30 Estradiol (Estrace) 1 mg DAILY PO Last administered on 10/12/16 08:18; Admin Dose 1 MG; Start 10/03/16 at 12:00 Pantoprazole (Protonix Tab) 40 mg BID@,18 PO Last administered on 10/12/16 06:07; Admin Dose 40 MG; Start 10/03/16 at 11:00 Fluocinonide (Lidex 0.05% Cr) 1 applic BID TOP Last administered on 10/12/16 08:19; Admin Dose 1 APPLIC; Start 10/04/16 at 21:00 Phenol (Cepastat Lozenge) 1 lozenge Q2 PRN MT sore throat Last administered on 10/11/16 06:44; Admin Dose 1 LOZENGE; Start 10/05/16 at 22:00 Ondansetron HCl (Zofran Tab) 4 mg Q6H PRN PO NAUSEA AND/OR VOMITING; Start at 22:00 Furosemide (Lasix) 20 mg DAILY@06 PO Last administered on 10/11/16 06:19; Admin Dose 20 MG; Start 10/06/16 at 06:00 Assessment/Plan Chief Complaint/Hosp Course Assessment 1. History of valvular heart disease status post mitral valve replacement on anticoagulation. New finding of subcarinal adenopathy possibly secondary to hematoma. MRI was ordered with contrast however patient has no IV access and she is now refusing further attempts to place an IV line. Recommendations 1. Repeat CT chest noncontrast evaluate adenopathy resolved with consider discharge if patient still present then would proceed with possible transfer to hospital with EBUS facilities. Problems: CATIE ALBRIGHT MD, [facility] Oct 12, 2016 14:17
[2016-10-12] MEDS: SOD CHLORIDE 0.9% 100 ML ONE ×2 (15:00→17:43)
--- NOTE | 2016-10-12 15:01 | RADRPT ---
PROCEDURE: XR Chest. CLINICAL INDICATION: Check Line Placement TECHNIQUE: Single frontal view of the chest was obtained. COMPARISON: Chest x-ray from 10/01/2016 FINDINGS: A left-sided PICC line is noted with its tip at the right atrium. Sternotomy wires, a prosthetic cardiac valves, thoracic spinal fusion hardware are again noted. A l eft atrial appendage, as also again noted. There is mild cardiomegaly and mild congestive changes. There are no focal infiltrates. There is no significant pleural effusion or pneumothorax. IMPRESSION: Interval placement of a left-sided PICC line. Mild cardiomegaly and congestive changes. No focal infiltrates or effusions. RPTAT: EE Physician Randi Date Time Electronically viewed and signed by John Abad Physician on 10/12/2016 15:00 /
--- NOTE | 2016-10-12 15:02 | PN ---
Date/Time of Note Date/Time of Note DATE: 10/12/16 TIME: 14:59 Assessment/Plan VTE Prophylaxis VTE Prophylaxis Intervention: other Lines/Catheters IV Catheter Type (from [facility]): Saline Lock Urinary Cath still in place: No Assessment/Plan Chief Complaint/Hosp Course 1. Chest pain- Patient noted with CT scan showing suspect chest mass as well as bilateral pneumonia -Pulmonology believes mass may be a hematoma, patient is on Coumadin, follow-up on MRI with contrast -CT surgery is also following and they are recommending EBUS which would require patient to be transferred to an outside facility 2. Reported pneumonia. Patient refusing Levaquin antibiotic at this time due to reported history of C. difficile from fluoroquinolone use. Patient also reportedly allergic to cephalexin. -continue azithromycin. appears to be having good response 3. History of diastolic dysfunction grade 3 to grade 4. Continue optimization with cardiovascular medications. stable 4. Chronic pain syndrome. cont on analgesics. . 5. Hx valvular surgery. On coumadin. Patient also reportedly allergic to aspirin 6. Chest mass-possible hematoma per Pulm -MRI to eval IV abx for PNA pt may need EBUS if mass is not a hematoma< egg caser to talk to Insurance about it, pt is capitated [facility] Prophylaxis: On Coumadin Problems: Subjective 24 Hr Interval Summary Cardiovascular: chest pain Exam/Review of Systems Vital Signs Vitals Vital Signs Date Time Temp Pulse Resp B/P Pulse Ox O2 Delivery O2 Flow Rate FiO2 10/12/16 07:55 98.2 83 16 114/58 98 Intake and Output 10/11/16 10/11/16 10/12/16 15:00 23:00 07:00 Intake Total 860 ml 550 ml Output Total 600 ml Balance 260 ml 550 ml Exam Constitutional: alert, oriented Respiratory: clear to auscultation Cardiovascular: regular rate and rhythm Gastrointestinal: soft, No distended Musculoskeletal: nl extremities to inspection Results Result Diagram: 10/10/16 0536 10/10/16 0536 Medications Medications Current Medications Ondansetron HCl (Zofran Inj) 4 mg Q6H PRN IV NAUSEA AND/OR VOMITING; Start 05/07 at 09:00 Nitroglycerin (Nitroglycerin (Sl Tab) 0.4 Mg) 1 tab Q5M PRN SL CHEST PAIN; Start 09/29/16 at 09:00 Morphine Sulfate (morphine) 2 mg Q4H PRN IV PAIN LEVEL 7-10 Last administered on 09/30/16 20:30; Admin Dose 2 MG; Start 09/29/16 at 09:00 Digoxin (Digoxin) 0.125 mg Q48H PO Last administered on 10/11/16 14:21; Admin Dose 0.125 MG; Start 09/29/16 at 13:00 Gabapentin (Neurontin) 300 mg TID PO Last administered on 10/12/16 08:19; Admin Dose 300 MG; Start 09/29/16 at 09:00 Warfarin Sodium (Coumadin) 4 mg DAILY@17 PO Last administered on 10/11/16 17: 01; Admin Dose 4 MG; Start 09/29/16 at 17:00 Lidocaine (Lidoderm) 1 patch AM TD Last administered on 10/12/16 08:19; Admin Dose 1 PATCH; Start 09/29/16 at 13:00 Tramadol HCl (Ultram) 50 mg Q6H PRN PO pain ; Start 09/30/16 at 03:00 Lorazepam (Ativan) 0.5 mg Q6H PRN PO ANXIETY Last administered on 10/12/16 08: 18; Admin Dose 0.5 MG; Start 09/30/16 at 22:00 Oxycodone/ Acetaminophen (Percocet (5/ 325)) 1 tab Q4H PRN PO PAIN Last administered on 10/01/16 22:16; Admin Dose 1 TAB; Start 10/01/16 at 00:00 Oxycodone/ Acetaminophen (Endocet (10/ 325)) 2 tab Q4H PRN PO PAIN Last administered on 10/12/16 06:07; Admin Dose 2 TAB; Start 10/01/16 at 14:30 Azithromycin (Zithromax) 250 mg DAILY PO Last administered on 10/12/16 08:18; Admin Dose 250 MG; Start 10/01/16 at 15:30 Estradiol (Estrace) 1 mg DAILY PO Last administered on 10/12/16 08:18; Admin Dose 1 MG; Start 10/03/16 at 12:00 Pantoprazole (Protonix Tab) 40 mg BID@18 PO Last administered on 10/12/16 06:07; Admin Dose 40 MG; Start 10/03/16 at 11:00 Fluocinonide (Lidex 0.05% Cr) 1 applic BID TOP Last administered on 10/12/16 08:19; Admin Dose 1 APPLIC; Start 10/04/16 at 21:00 Phenol (Cepastat Lozenge) 1 lozenge Q2 PRN MT sore throat Last administered on 10/11/16 06:44; Admin Dose 1 LOZENGE; Start 10/05/16 at 22:00 Ondansetron HCl (Zofran Tab) 4 mg Q6H PRN PO NAUSEA AND/OR VOMITING; Start at 22:00 Furosemide (Lasix) 20 mg DAILY@06 PO Last administered on 10/11/16 06:19; Admin Dose 20 MG; Start 10/06/16 at 06:00 IBAN SELBY Oct 12, 2016 15:02
--- NOTE | 2016-10-12 15:23 | RADRPT ---
PROCEDURE: US guidance for PICC line CLINICAL INDICATION: PICC line placement TECHNIQUE: Multiple real-time images were acquired of the patient's arm utilizing a high resolutio n transducer. This was performed by the PICC line nurse for venous access. COMPARISON: None FINDINGS: Ultrasound guidance for PICC line placement. There is a patent left upper extremity vein. IMPRESSION: Ultrasound guidance for PICC line placement. Patent left upper extremity vein. RPTAT: AA Physician Randi Date Time Electronically viewed and signed by Physician Randi on 10/12/2016 15:23 RA/
[2016-10-12] MEDS: WARFARIN 2 MG TAB PO SCH (17:21)
[2016-10-12 22:06] VITALS: BP 130/83; RESP 18
[2016-10-12] MEDS: CEPASTAT LOZENGE MT PRN (23:02)
[2016-10-13] MEDS: OXYCODONE/ACETAMINOPHEN (10/325) TAB PO PRN ×3 (02:41→18:44)
[2016-10-13] MEDS: CEPASTAT LOZENGE MT PRN ×3 (02:46→20:49)
[2016-10-13] MEDS: PANTOPRAZOLE (EC) 40 MG TAB PO SCH ×2 (05:19→17:24)
[2016-10-13] MEDS: FUROSEMIDE 20 MG TAB PO SCH (05:20)
[2016-10-13 05:43] LABS: INR 2.48; PROTIME 27.1 Sec (12.2-14.2); PT RATIO 2.1
[2016-10-13 07:48] VITALS: BP 100/52; RESP 18
[2016-10-13] MEDS: AZITHROMYCIN 250 MG TAB PO SCH (09:00)
[2016-10-13] MEDS: GABAPENTIN 300 MG CAP PO SCH ×3 (09:00→20:49)
[2016-10-13] MEDS: FLUOCINONIDE 0.05% 15 GM CR TOP SCH ×2 (09:00→20:49)
[2016-10-13] MEDS: ESTRADIOL 1 MG TAB PO SCH (09:00)
[2016-10-13] MEDS: LIDOCAINE 5% PATCH TD SCH (09:00)
[2016-10-13] MEDS: DIGOXIN 0.125 MG TAB PO SCH (13:18)
--- NOTE | 2016-10-13 14:26 | CONS ---
Date/Time of Note Date/Time of Note DATE: 10/13/16 TIME: 14:26 Consult Date/Type/Reason Admit Date/Time Sep 28, 2016 at 22:29 Initial Consult Date 09/29/16 Type of Consultation: Pulmonary Subjective Patient comfortable this morning no new events Status post PICC line placement and MRI of the chest Objective Vital Signs Date Time Temp Pulse Resp B/P Pulse Ox O2 Delivery O2 Flow Rate FiO2 10/13/16 07:48 98.4 85 18 100/52 97 Intake and Output 10/12/16 10/12/16 10/13/16 15:00 23:00 07:00 Intake Total 850 ml 780 ml Balance 850 ml 780 ml Exam GENERAL: Chronically ill-appearing lady appears comfortable at rest acute distress VITAL SIGNS: per chart NECK: Supple. No JVD or lymphadenopathy. CARDIAC EXAM: S1, S2. No added sounds or murmurs. CHEST: clear bilaterally, No added sounds, rales or wheezes ABDOMEN: Soft, nontender. No guarding or rebound. EXTREMITIES: No cyanosis, clubbing or edema. NEUROLOGIC: Generalized weakness. No focal deficits. Results/Medications Result Diagram: 10/10/16 0536 10/10/16 0536 Results 24 hrs Laboratory Tests Test 10/13/16 05:15 Prothrombin Time 27.1 H Prothrombin Time Ratio 2.1 INR International Normalized Ratio 2.48 Medications Current Medications Ondansetron HCl (Zofran Inj) 4 mg Q6H PRN IV NAUSEA AND/OR VOMITING; Start 05/07 at 09:00 Nitroglycerin (Nitroglycerin (Sl Tab) 0.4 Mg) 1 tab Q5M PRN SL CHEST PAIN; Start 09/29/16 at 09:00 Morphine Sulfate (morphine) 2 mg Q4H PRN IV PAIN LEVEL 7-10 Last administered on 09/30/16 20:30; Admin Dose 2 MG; Start 09/29/16 at 09:00 Digoxin (Digoxin) 0.125 mg Q48H PO Last administered on 10/13/16 13:18; Admin Dose 0.125 MG; Start 09/29/16 at 13:00 Gabapentin (Neurontin) 300 mg TID PO Last administered on 10/13/16 13:18; Admin Dose 300 MG; Start 09/29/16 at 09:00 Warfarin Sodium (Coumadin) 4 mg DAILY@17 PO Last administered on 10/12/16 17: 21; Admin Dose 4 MG; Start 09/29/16 at 17:00 Lidocaine (Lidoderm) 1 patch AM TD Last administered on 10/13/16 09:00; Admin Dose 1 PATCH; Start 09/29/16 at 13:00 Tramadol HCl (Ultram) 50 mg Q6H PRN PO pain ; Start 09/30/16 at 03:00 Lorazepam (Ativan) 0.5 mg Q6H PRN PO ANXIETY Last administered on 10/12/16 17: 24; Admin Dose 0.5 MG; Start 09/30/16 at 22:00 Oxycodone/ Acetaminophen (Percocet (5/ 325)) 1 tab Q4H PRN PO PAIN Last administered on 10/01/16 22:16; Admin Dose 1 TAB; Start 10/01/16 at 00:00 Oxycodone/ Acetaminophen (Endocet (10/ 325)) 2 tab Q4H PRN PO PAIN Last administered on 10/13/16 06:57; Admin Dose 2 TAB; Start 10/01/16 at 14:30 Azithromycin (Zithromax) 250 mg DAILY PO Last administered on 10/13/16 09:00; Admin Dose 250 MG; Start 10/01/16 at 15:30 Estradiol (Estrace) 1 mg DAILY PO Last administered on 10/13/16 09:00; Admin Dose 1 MG; Start 10/03/16 at 12:00 Pantoprazole (Protonix Tab) 40 mg BID@,18 PO Last administered on 10/13/16 05:19; Admin Dose 40 MG; Start 10/03/16 at 11:00 Fluocinonide (Lidex 0.05% Cr) 1 applic BID TOP Last administered on 10/13/16 09:00; Admin Dose 1 APPLIC; Start 10/04/16 at 21:00 Phenol (Cepastat Lozenge) 1 lozenge Q2 PRN MT sore throat Last administered on 10/13/16 06:57; Admin Dose 1 LOZENGE; Start 10/05/16 at 22:00 Ondansetron HCl (Zofran Tab) 4 mg Q6H PRN PO NAUSEA AND/OR VOMITING; Start at 22:00 Furosemide (Lasix) 20 mg DAILY@06 PO Last administered on 10/13/16t 05:20; Admin Dose 20 MG; Start 10/06/16 at 06:00 IV Flush (NS 10 ml) 10 ml PRN PRN IV IV PROTOCOL; Start 10/12/16 at 15:30 Assessment/Plan Chief Complaint/Hosp Course Assessment 1. History of valvular heart disease status post mitral valve replacement on anticoagulation. New finding of subcarinal adenopathy possibly secondary to hematoma. MRI was ordered with contrast however patient has no IV access and she is now refusing further attempts to place an IV line. Recommendations pending MRI results if unremarkable patient can be discharged today Problems: CATIE ALBRIGHT MD, [facility] Oct 13, 2016 14:26
--- NOTE | 2016-10-13 16:14 | RADRPT ---
PROCEDURE: MRI thorax with contrast CLINICAL INDICATION: Possible hematoma TECHNIQUE: MRI of the chest was performed without and with contrast. Pre and postcontrast multipl amelia multi sequence imaging of the thorax was obtained . The patient received 10 ml of Magnevist i ntravenously. Postcontrast axial, coronal, and sagittal fat saturated T1-weighted images were obtai kyle. COMPARISON: CT chest 09/28/2016 FINDINGS: Surgical changes seen of the anterior thorax from sternotomy and the metallic structures involve res ults in significant surrounding susceptibility artifact and this extends to involve the anterior med iastinum. Fine detail of this portion of the thorax is not visible. There is no large hematoma how ever a small amount of hemorrhage can be missed given the presence of susceptibility artifact. Ther e is stable cardiomegaly. Surgical changes at the mitral valve are again seen. Evaluation of the lung parenchyma is limited secondary to susceptibility artifact there are. Mild l eft basilar opacities partially visualized appears grossly stable from 09/28/2016. No enlarged axillary nodes are present. Evaluation for adenopathy in the mediastinum is limited sec ondary to susceptibility artifact and motion. IMPRESSION: Surgical changes of sternotomy are seen. No gross visible hematoma is seen within the mediastinum h owever a small hemorrhage can be missed secondary to susceptibility artifact from the sternotomy wir es in the anterior mediastinum. If further concern is present and a contrast enhanced CT chest is re commended. Stable cardiomegaly with surgical changes of mitral valve replacement. Left basilar opacity is partially visualized. The lung parenchyma is only limited in its evaluation on MRI. If further evaluation of lung parenchyma is desired then CT chest can be performed. RPTAT: AA .Daniel Clark MD, MD Date Time Electronically viewed and signed by .Daniel Clark MD, MD on 10/13/2016 16:14 .J/
--- NOTE | 2016-10-13 17:11 | PDOCDIS ---
Discharge Instructions CONDITION Patient Condition: Good HOME CARE INSTRUCTIONS: Diet Instructions: Reduced Sodium ACTIVITY: Activity Restrictions: No Restrictions FOLLOW UP/APPOINTMENTS Appointments F/U WITH DR KWAKU JONES IN 1-2 WEEKS AND WITH YOUR PCP IN 1-2 WEEKS IBAN SELBY Oct 13, 2016 17:11
[2016-10-13] MEDS: WARFARIN 2 MG TAB PO SCH (17:24)
[2016-10-13 20:28] VITALS: BP 122/58; RESP 18
[2016-10-14] MEDS: OXYCODONE/ACETAMINOPHEN (10/325) TAB PO PRN ×5 (00:11→18:54)
[2016-10-14] MEDS: CEPASTAT LOZENGE MT PRN (04:25)
[2016-10-14] MEDS: FUROSEMIDE 20 MG TAB PO SCH (05:21)
[2016-10-14] MEDS: PANTOPRAZOLE (EC) 40 MG TAB PO SCH ×2 (05:21→17:11)
--- NOTE | 2016-10-14 05:51 | DS ---
DATE OF ADMISSION: 09/28/2016 DATE OF DISCHARGE: 10/13/2016 DISCHARGE DIAGNOSES: 1. Chest pain, likely musculoskeletal versus from a lung hematoma or fluid collection now improved. 2. History of valvular surgery, on Coumadin. 3. History of atrial fibrillation, on Coumadin. 4. Diastolic dysfunction, stable. HOSPITAL COURSE: The patient is a 51-year-old female with a history of chronic pain syndrome as wel l as valvular surgery approximately 5 months ago. The patient did have a bovine valve placed. The patient is on Coumadin. The patient does have chronic pain syndrome and has had several recent hosp italizations for pain in her chest. On admission, the patient had a chest CTA that showed interval development soft tissue mass in the subcarinal region measuring 6.2 x 5.3 x 3.2 cm suspicious for ad enopathy. There was also an 8 mm bleb or thin-walled cavity again seen within the superior segment of the right lower lobe. This was in comparison to a CT that was done 1 month prior that showed no findings. The patient was seen by pulmonology and CT surgery. There was question of whether or not this mass needed to be biopsied. The patient would need an EBUS which cannot be done at [facility]. The patient would need this to be done elsewhere. Pulmonology felt that the mass is lik gennaro hematoma versus a fluid collection and recommended a chest MRI. The chest MRI showed no gross v isible hematoma. Mitral valve replacement was noted. After discussion with pulmonology and CT surg wild, it was felt that the patient could follow up with Dr. Riley of CT surgery as an outpatient and if needed the EBUS could be arranged as an outpatient. Pulmonology and CT surgery agreed to thi s plan. The patient's chest pain was improved on the day of discharge. On the day of discharge, halina lynch's vitals, labs, and physical exam were stable. She had no acute complaints and questions were answered. CONDITION ON DISCHARGE: Stable. DISPOSITION: To home. MEDICATIONS: The patient is to continue her usual home medications. FOLLOWUP: The patient is to follow up with her PCP in 1 to 2 weeks and is to follow up with Dr. Valente arellano in 2 weeks for further workup of this mediastinal mass and possible EBUS. Greater than 30 minutes were spent coordinating the discharge of this patient. Dictated By: IBAN BENSON/NTS Conf#: [id number] DID#: [id number]
[2016-10-14 07:50] VITALS: BP_SYST 104; BP_SYST 116; BP_DIAS 66; BP_DIAS 69; RESP 20
[2016-10-14] MEDS: GABAPENTIN 300 MG CAP PO SCH ×3 (09:35→20:55)
[2016-10-14] MEDS: FLUOCINONIDE 0.05% 15 GM CR TOP SCH ×2 (09:36→20:56)
[2016-10-14] MEDS: AZITHROMYCIN 250 MG TAB PO SCH (09:36)
[2016-10-14] MEDS: LIDOCAINE 5% PATCH TD SCH (09:36)
[2016-10-14] MEDS: ESTRADIOL 1 MG TAB PO SCH (09:36)
[2016-10-14] MEDS: WARFARIN 2 MG TAB PO SCH (17:12)
[2016-10-14] MEDS: LORAZEPAM 0.5 MG TAB PO PRN (17:14)
[2016-10-14 20:07] VITALS: BP 177/89; RESP 18
[2016-10-14 21:50] VITALS: BP 124/63; PULSE 91
== END 2016-10-14 22:38 | disposition home or self-care (01) | DRG 194 ==
LOC: E/R 07:28 → MS4 22:29 → PP2 10-01 20:47
PROVIDERS: ADMIT Internal Medicine; ATTEND Internal Medicine
PROC: 02HV33Z Insertion of Infusion Device into Superior Vena Cava, Percutaneous Approach (ICD-10-PCS; principal; 2016-10-12)
DX: J18.9 Pneumonia, unspecified organism (principal); I50.32 Chronic diastolic (congestive) heart failure; I48.91 Unspecified atrial fibrillation; D56.9 Thalassemia, unspecified; R91.8 Other nonspecific abnormal finding of lung field; G89.4 Chronic pain syndrome; Z95.2 Presence of prosthetic heart valve; Z90.710 Acquired absence of both cervix and uterus; D64.9 Anemia, unspecified; Z79.01 Long term (current) use of anticoagulants
CPT/HCPCS: 36415; 36569; 71010; 71275; 71551; 76937; 80048; 80053; 80061; 81001; 81003; 82550; 82553; 83036; 83605; 83735; 84484; 85025; 85610; 85730; 87040; 93005; 96374; 96375; 96376; J0456; J1170; J1956; J2270; J2405; J3370; J7030; Q9967

== ENCOUNTER 2017-10-30 11:40 | Emergency (ER) | END 2017-10-30 15:25 | disposition home or self-care (01) ==